=== PATIENT | female | born 1945 | race Caucasian/White ===

== ENCOUNTER → 2016-08-18 | Outpatient (CLI) | payer MEDICARE ==
--- NOTE | 2016-08-18 14:41 | RAD ---
EXAM: Right breast digital screening mammogram with 3D tomosynthesis. HISTORY: 71-year-old female with a history of left breast cancer, status post left mastectomy, presents for annual mammography of the right breast. TECHNIQUE: Full field digital craniocaudal and mediolateral oblique 2D and 3D tomosynthesis images of the right breast were obtained. Computer aided detection was applied. COMPARISON: 04/12/2015 and 02/28/2014 FINDINGS: Breast parenchymal density: Level B - Scattered fibroglandular densities. There is no new suspicious mass, calcification or architectural distortion within the right breast. There are stable benign calcifications within the right breast. IMPRESSION: BI-RADS Category 2: Benign findings. Annual mammography is recommended. PQRS compliance statement: Patient information was entered into a reminder system with a target due date in one year for the next mammogram. Note is made that dense breast parenchyma limits the sensitivity of mammography. Mammography is a sensitive method for finding small breast cancers, but it does not detect them all and is not a substitute for careful clinical examination. A negative mammogram does not negate a clinically suspicious finding and should not result in delay in biopsying a clinically suspicious abnormality. "Our facility is accredited by the [employer] Mammography Program."
== END | disposition home or self-care (01) ==
LOC: MAMMO 14:07
PROVIDERS: ATTEND Internal Medicine
DX: Z12.31 Encounter for screening mammogram for malignant neoplasm of breast (principal); Z90.12 Acquired absence of left breast and nipple; Z85.3 Personal history of malignant neoplasm of breast
CPT/HCPCS: 77052; 77061; G0202

== ENCOUNTER → 2016-08-29 | Outpatient (CLI) | payer MEDICARE ==
--- NOTE | 2016-08-29 10:38 | RAD ---
CT of the chest without contrast, 08/29/2016: History: Follow-up lung nodules Noncontrast scans were obtained as requested and compared to a study from 11/09/2015. There is a nodular branching opacity with minimal associated tree-in-bud densities in the posterior aspect of the left lower lobe, unchanged. A 2-3 mm nodule in the left lower lobe seen on image 222 of series #5 has shown no significant change. A tiny nodule in the lateral aspect of the right lower lobe is best demonstrated on coronal image 50 of series #3 and is unchanged. A a 2-3 mm right upper lobe nodule seen on image 163 of series #5 also shows no definite change. Similar small nodules were also evident on an older study from 06/16/2014. There are scattered linear scars in both lungs. No definite enlarging nodules, new mass or infiltrate is seen. There is no evidence of pleural fluid. There is moderate calcific plaquing of the aorta and its branches without evidence of aneurysm. Several scattered coronary artery calcifications are present. No mediastinal adenopathy is evident. The left breast is surgically absent. IMPRESSION: 1. Stable bilateral pulmonary opacities as described above. 2. Calcific plaquing of the aorta and coronary arteries. 3. No new abnormality is detected. PQRS Compliance Statement: One or more of the following individualized dose reduction techniques were utilized for this examination: 1. Automated exposure control 2. Adjustment of the mA and/or kV according to patient size 3. Use of iterative reconstruction technique
== END | disposition home or self-care (01) ==
LOC: CT 09:13
PROVIDERS: ATTEND Internal Medicine Critical Care Medicine
DX: R91.8 Other nonspecific abnormal finding of lung field (principal)
CPT/HCPCS: 71250

== ENCOUNTER → 2016-10-15 | Outpatient (CLI) | payer MEDICARE ==
[2016-10-15 15:44] LABS: ALBUMIN 3.6 g/dL (3.4-5.0); CALCIUM 9.6 mg/dL (8.5-10.1); CREATININE 1.5 mg/dL (0.6-1.0); GFR 34.2; MAGNESIUM 1.8 mg/dL (1.8-2.4); PHOSPHORUS 3.7 mg/dL (2.6-4.7); POTASSIUM 4.4 mmol/L (3.5-5.1)
[2016-10-16 06:09] LABS: CREAT RD UR 29.2 mg/dL (Not Estab.); MICRO CREAT RATIO 49.3 mg/g creat (0.0-30.0); MICROALB RD UR 14.4 ug/mL (Not Estab.)
== END | disposition home or self-care (01) ==
LOC: LAB 14:57
PROVIDERS: ATTEND Internal Medicine Nephrology
DX: I12.9 Hypertensive chronic kidney disease with stage 1 through stage 4 chronic kidney disease, or unspecified chronic kidney disease (principal); E11.29 Type 2 diabetes mellitus with other diabetic kidney complication; N18.3 Chronic kidney disease, stage 3 (moderate); N20.0 Calculus of kidney; N25.81 Secondary hyperparathyroidism of renal origin; E87.3 Alkalosis; E61.2 Magnesium deficiency; R60.0 Localized edema; R80.1 Persistent proteinuria, unspecified; Z68.31 Body mass index [BMI] 31.0-31.9, adult
CPT/HCPCS: 36415; 80069; 82043; 82306; 82570; 83735; 85014; 85018

== ENCOUNTER 2016-12-30 21:02 | Inpatient (IN) | payer MEDICARE ==
[~2016-12-30] VITALS: Ht 162.6 cm; Wt 86.3 kg
[2016-12-30] MEDS ORDERED: IPRATRPIUM/ALBUTEROL 0.5/2.5MG 3 ML NEBU. NEB ONE ×2 (22:15→23:45)
[2016-12-30 22:29] LABS: BASO # 0.1 x10^3/uL (0.0-0.2); BASO % 1 % (0-3); EOS # 0.2 x10^3/uL (0.0-0.7); EOS % 1 % (0-3); HEMATOCRIT 39.1 % (36.0-47.0); HEMOGLOBIN 12.5 g/dL (12.0-15.5); LYMPH # 1.3 x10^3/uL (1.0-4.8); LYMPH % 8 % (24-48); MEAN CORPUSCULAR HEMOGLOBIN 28 pg (25-35); MEAN CORPUSCULAR HGB CONC 32 g/dL (31-37); MEAN CORPUSCULAR VOLUME 87 fL (79-100); MONO # 1.9 x10^3/uL (0.0-1.1); MONO % 11 % (0-9); NEUT # 13.6 x10^3uL (1.8-7.7); NEUT % 79 % (31-73); PLATELET COUNT 256 x10^3/uL (140-400); RED BLOOD COUNT 4.53 x10^6/uL (3.50-5.40); RED CELL DISTRIBUTION WIDTH 17.6 % (11.5-14.5); WHITE BLOOD COUNT 17.2 x10^3/uL (4.0-11.0)
[2016-12-30 22:45] LABS: ALBUMIN 3.3 g/dL (3.4-5.0); ALBUMIN/GLOBULIN RATIO 0.8 (1.0-1.7); CALCIUM 9.7 mg/dL (8.5-10.1); CREATININE 1.5 mg/dL (0.6-1.0); GFR 34.2; TOTAL BILIRUBIN 0.8 mg/dL (0.2-1.0); TOTAL PROTEIN 7.2 g/dL (6.4-8.2)
[2016-12-30 22:53] LABS: % BANDS 2 % (0-9); % LYMPHS 8 % (24-48); % MONOS 12 % (0-10); % SEGS 78 % (35-66)
[2016-12-30 22:54] LABS: PLT ESTIMATE ADEQUATE (ADEQUATE)
[2016-12-30 22:56] LABS: ANISOCYTOSIS SLIGHT
[2016-12-30 22:58] LABS: STOMATOCYTES OCC
[2016-12-30] MEDS ORDERED: ACETAMINOPHEN 325 MG TABLET PO ONE (23:30)
[2016-12-30] MEDS ORDERED: IV NORMAL SALINE 1,000ML 1,000 ML IV ONE (23:30)
[2016-12-30] MEDS ORDERED: AZITHROMYCIN 500 MG in IV NORMAL SALINE 250ML 250 ML IV ONE (23:30)
[2016-12-30] MEDS ORDERED: AZITHROMYCIN 500 MG VIAL. IV ONE (23:42)
[2016-12-30] MEDS ORDERED: cefTRIAXone SODIUM 1 GM VIAL IV ONE (23:44)
[2016-12-30] MEDS ORDERED: IV NORMAL SALINE 50ML 50 ML ONE (23:44)
[2016-12-30] MEDS ORDERED: fentaNYL PF 100 MCG/2 ML VIAL IV ONE (23:45)
[2016-12-30 23:47] LABS: BILIRUBIN,URINE NEG (NEG); CLARITY,URINE CLEAR; COLOR,URINE YELLOW; GLUCOSE,URINE NEG (NEG)
[2016-12-30 23:48] LABS: BACTERIA,URINE MOD /HPF (0-FEW); NITRITE,URINE NEG (NEG); SQUAMOUS EPITHELIAL CELL,UR OCC /LPF; UROBILINOGEN,URINE 0.2 mg/dL (0.2 mg/dL)
--- NOTE | 2016-12-30 23:56 | ED.ADGEN ---
Past History Past Medical History: Other Past Surgical History: Other Smoking: Non-smoker Alcohol Use: None Drug Use: None Adult General Chief Complaint Chief Complaint SOA, weakness [facility] HPI Patient is a 71 y/o female with difficulty breathing for 3-4 days. feverish. cough but nonproductive, very weak, nauseted. no diarrhea. hx of asthma. hx of smoking but has quit Review of Systems Review of Systems Constitutional: chills Eyes: Denies change in visual acuity, redness, or eye pain [] HENT: Denies nasal congestion or sore throat [] Respiratory: soa, cough Cardiovascular: No additional information not addressed in HPI [] GI: Denies abdominal pain, nausea, vomiting, bloody stools or diarrhea [] : Denies dysuria or hematuria [] Musculoskeletal: Denies back pain or joint pain [] Integument: Denies rash or skin lesions [] Neurologic: Denies headache, diffuse weakness Endocrine: Denies polyuria or polydipsia [] Current Medications Current Medications Current Medications Medications (Trade) Dose Ordered Sig/Marisa Start Time Stop Time Status Last Admin Dose Admin Acetaminophen (Tylenol) 650 mg PRN Q4HRS PRN 12/31/16 00:15 01/01/17 00:14 Albuterol/ Ipratropium (Duoneb) 3 ml 1X ONCE 12/30/16 23:45 12/30/16 23:46 DC 12/30/16 23:58 3 ML Azithromycin (Zithromax) 500 mg STK-MED ONCE 12/30/16 23:42 12/30/16 23:43 DC Azithromycin 500 mg/Sodium Chloride 250 ml @ 250 mls/hr 1X ONCE 12/30/16 23:30 12/31/16 00:29 DC 12/30/16 00:22 250 MLS/HR Ceftriaxone Sodium 1 gm/ Sodium Chloride 50 ml @ 100 mls/hr 1X ONCE 12/30/16 23:30 12/30/16 23:59 DC 12/30/16 23:59 100 MLS/HR Ceftriaxone Sodium (Rocephin) 1 gm STK-MED ONCE 12/30/16 23:44 12/30/16 23:45 DC Fentanyl Citrate (Fentanyl 2ml Vial) 25 mcg 1X ONCE 12/30/16 23:45 12/30/16 23:46 DC 12/30/16 23:59 25 MCG Morphine Sulfate (Morphine 2mg Syringe) 2 mg PRN Q2HR PRN 12/31/16 00:15 01/01/17 00:14 Ondansetron HCl (Zofran) 4 mg PRN Q4HRS PRN 12/31/16 00:15 01/01/17 00:14 Sodium Chloride 50 ml @ As Directed STK-MED ONCE 12/30/16 23:44 12/30/16 23:45 DC Allergies Allergies Allergies Coded Allergies Type Severity Reaction Last Updated Verified Sulfa (Sulfonamide Antibiotics) Allergy Intermediate 12/30/16 No ciprofloxacin Allergy Intermediate yeast inf 12/30/16 No codeine Allergy Intermediate vomiting 12/30/16 No diclofenac Allergy Intermediate rash 12/30/16 No hydrochlorothiazide Allergy Intermediate rash 12/30/16 No ibuprofen Allergy Intermediate cant take due to kidneys 12/30/16 No misoprostol Allergy Intermediate rash 12/30/16 No latex Allergy Mild gi problems 12/30/16 No Physical Exam Physical Exam Constitutional: Well developed, well nourished, moderate distress HENT: Normocephalic, atraumatic, bilateral external ears normal, oropharynx moist, no oral exudates, nose normal. [] Eyes: PERRLA, EOMI, conjunctiva normal, no discharge. [] Neck: Normal range of motion, no tenderness, supple, no stridor. [] Cardiovascular:tachycardic, systolic murmur Lungs & Thorax: mod respiratory distress, wheezing bilaterally, tachypneic, increased WOB] Abdomen: Bowel sounds normal, soft, no tenderness, no masses, no pulsatile masses. [] Skin: Warm, dry, no erythema, no rash. [] Back: No tenderness, no CVA tenderness. [] Extremities: No tenderness, no cyanosis, no clubbing, ROM intact, no edema. [] Neurologic: Alert and oriented X 3, normal motor function, normal sensory function, no focal deficits noted. [] Psychologic: Affect normal, judgement normal, mood normal. [] Current Patient Data Vital Signs Vital Signs Date Time Temp Pulse Resp B/P (MAP) Pulse Ox O2 Delivery O2 Flow Rate FiO2 12/30/16 23:59 95 Nasal Cannula 2.0 Lab Results Laboratory Tests Test 12/30/16 22:10 12/30/16 23:15 White Blood Count 17.2 x10^3/uL (4.0-11.0) H Red Blood Count 4.53 x10^6/uL (3.50-5.40) Hemoglobin 12.5 g/dL (12.0-15.5) Hematocrit 39.1 % (36.0-47.0) Mean Corpuscular Volume 87 fL (79-100) Mean Corpuscular Hemoglobin 28 pg (25-35) Mean Corpuscular Hemoglobin Concent 32 g/dL (31-37) Red Cell Distribution Width 17.6 % (11.5-14.5) H Platelet Count 256 x10^3/uL (140-400) Neutrophils (%) (Auto) 79 % (31-73) H Lymphocytes (%) (Auto) 8 % (24-48) L Monocytes (%) (Auto) 11 % (0-9) H Eosinophils (%) (Auto) 1 % (0-3) Basophils (%) (Auto) 1 % (0-3) Neutrophils # (Auto) 13.6 x10^3uL (1.8-7.7) H Lymphocytes # (Auto) 1.3 x10^3/uL (1.0-4.8) Monocytes # (Auto) 1.9 x10^3/uL (0.0-1.1) H Eosinophils # (Auto) 0.2 x10^3/uL (0.0-0.7) Basophils # (Auto) 0.1 x10^3/uL (0.0-0.2) Segmented Neutrophils % 78 % (35-66) H Band Neutrophils % 2 % (0-9) Lymphocytes % 8 % (24-48) L Monocytes % 12 % (0-10) H Platelet Estimate Adequate (ADEQUATE) Anisocytosis Slight Stomatocytes Occ Sodium Level 139 mmol/L (136-145) Potassium Level 4.0 mmol/L (3.5-5.1) Chloride Level 100 mmol/L (98-107) Carbon Dioxide Level 35 mmol/L (21-32) H Anion Gap 4 (6-14) L Blood Urea Nitrogen 21 mg/dL (7-20) H Creatinine 1.5 mg/dL (0.6-1.0) H Estimated GFR (Cockcroft-Gault) 34.2 BUN/Creatinine Ratio 14 (6-20) Glucose Level 214 mg/dL (70-99) H Lactic Acid Level 1.3 mmol/L (0.4-2.0) Calcium Level 9.7 mg/dL (8.5-10.1) Total Bilirubin 0.8 mg/dL (0.2-1.0) Aspartate Amino Transferase (AST) 12 U/L (15-37) L Alanine Aminotransferase (ALT) 21 U/L (14-59) Alkaline Phosphatase 127 U/L (46-116) H Troponin I Quantitative < 0.017 ng/mL (0-0.055) RD-Xoe-D-Type Natriuretic Peptide 738 pg/mL (0-124) H Total Protein 7.2 g/dL (6.4-8.2) Albumin 3.3 g/dL (3.4-5.0) L Albumin/Globulin Ratio 0.8 (1.0-1.7) L Urine Collection Type Unknown Urine Color Yellow Urine Clarity Clear Urine pH 6.5 Urine Specific [place] 1.015 Urine Protein 100 mg/dl (NEG-TRACE) Urine Glucose (UA) Neg mg/dL (NEG) Urine Ketones (Stick) Neg mg/dL (NEG) Urine Blood Small (NEG) Urine Nitrite Neg (NEG) Urine Bilirubin Neg (NEG) Urine Urobilinogen Dipstick 0.2 mg/dL (0.2 mg/dL) Urine Leukocyte Esterase Neg (NEG) Urine RBC 3-5 /HPF (0-2) Urine WBC 5-10 /HPF (0-4) Urine Squamous Epithelial Cells Occ /LPF Urine Bacteria Mod /HPF (0-FEW) EKG EKG [] Radiology/Procedures Radiology/Procedures infiltrates on right[] Course & Med Decision Making Course & Med Decision Making Pertinent Labs and Imaging studies reviewed. (See chart for details)pt feels better after duonebs. she is able to rest more comfortable in bed and speak in full sentences. HR in upper 90's. BP staying stable. WOB improved still wheezing. lactic is 1.3. will admit to tele per DR. Del Castillo [] Final Impression Final Impression hypoxia bronchospasm pneumonia dehydration Problems: Dragon Disclaimer Dragon Disclaimer This electronic medical record was generated, in whole or in part, using a voice recognition dictation system. Critical Care Note Total Time (mins): 60 Comments pt with respiratory distress O2 sat 85% on ra. placed on oxygen at 5L and duonebs given. oxygenation improving still requiring oxygen Departure Time of Disposition: 23:56 Disposition: 09 ADMITTED INPATIENT Condition: IMPROVED ADINA HUMPHREYS MD Dec 30, 2016 23:56
[2016-12-31] MEDS ORDERED: ONDANSETRON PF 4 MG/2 ML VIAL. IV PRN (00:15)
[2016-12-31] MEDS ORDERED: MORPHINE SULFATE 2 MG/ML DISP.SYRIN. IV PRN (00:15)
[2016-12-31 01:29] VITALS: BP 105/69
[2016-12-31 01:59] LABS: INFLUENZA A PATIENT NEGATIVE (NEGATIVE); INFLUENZA B PATIENT NEGATIVE (NEGATIVE)
[2016-12-31] MEDS ORDERED: DIPH1TAB PO (03:15)
[2016-12-31] MEDS ORDERED: BREX2TAB PO (03:19)
[2016-12-31] MEDS ORDERED: LEVO75TA5 PO (03:19)
[2016-12-31] MEDS ORDERED: METF500T4 PO (03:19)
[2016-12-31] MEDS ORDERED: POTA10TA17 PO (03:19)
[2016-12-31] MEDS ORDERED: CARV6.252 PO (03:19)
[2016-12-31] MEDS ORDERED: ATOR20TA58 PO (03:19)
[2016-12-31] MEDS ORDERED: ERYT250C8 PO (03:21)
[2016-12-31] MEDS ORDERED: ALLO300T PO (03:21)
[2016-12-31] MEDS ORDERED: LOSA25TA4 PO (03:22)
[2016-12-31] MEDS ORDERED: MIRT30TA3 PO (03:28)
[2016-12-31] MEDS ORDERED: OMEP20CA9 PO (03:28)
[2016-12-31] MEDS ORDERED: CLON1TAB3 PO (03:33)
[2016-12-31] MEDS ORDERED: DICL100G18 TOP (03:40)
[2016-12-31] MEDS ORDERED: DESV100T16 PO (03:42)
[2016-12-31] MEDS ORDERED: BUDE10.2 PO (03:44)
[2016-12-31 05:17] VITALS: BP 165/84
[2016-12-31] MEDS ORDERED: INSU100I13 IN (05:21)
[2016-12-31] MEDS ORDERED: IPRATRPIUM/ALBUTEROL 0.5/2.5MG 3 ML NEBU. ONE (05:23)
[2016-12-31] MEDS ORDERED: INSU100I17 IN (05:26)
[2016-12-31] MEDS: IPRATRPIUM/ALBUTEROL 0.5/2.5MG 3 ML NEBU. NEB SCH ×4 (05:30→20:56)
[2016-12-31] MEDS: ACETAMINOPHEN 325 MG TABLET PO PRN ×2 (08:33→23:39)
[2016-12-31] MEDS ORDERED: DEXTROSE 50% 25 GM / 50ML DISP.SYRIN. IV PRN (09:15)
[2016-12-31] MEDS ORDERED: BUDESONIDE PO PRN (09:15)
[2016-12-31] MEDS ORDERED: DIPHENOXYLATE/ATROPINE TABLET. PO PRN (09:15)
[2016-12-31] MEDS ORDERED: FORMOTEROL FUMARATE PO PRN (09:15)
[2016-12-31] MEDS ORDERED: DICLOFENAC SODIUM 1% TOPICAL GEL 100GM TUBE. TP PRN (09:15)
[2016-12-31] MEDS ORDERED: [UNRECOGNIZED DRUG - OTHER] PO PRN (09:15)
[2016-12-31] MEDS ORDERED: methylPREDNISolone SOD SUCC PF 125 MG/2 ML VIAL. IV ONE (09:20)
[2016-12-31] MEDS: LOSARTAN 25 MG TABLET. PO SCH (09:20)
[2016-12-31] MEDS: MIRTAZAPINE 30 MG TABLET PO SCH ×3 (09:25→21:06)
--- NOTE | 2016-12-31 09:45 | RAD ---
AP portable chest radiograph 12/30/2016 Clinical History: Shortness of breath and wheezing. An AP portable erect digital radiograph of the chest was obtained. Comparison is made to a CT scan of the chest dated 08/29/2016. The cardiac silhouette is borderline enlarged. Atherosclerotic calcification of the thoracic aorta is seen. The thoracic aorta is mildly tortuous. Patchy areas of atelectasis and/or infiltrate are seen involving the right upper lobe, the right lower lobe and to a lesser extent the left lower lobe. No pneumothorax or pleural effusion is noted. The osseous structures are unchanged. Impression: Patchy areas of atelectasis and/or infiltrate are seen involving both lungs, right greater than left as outlined above.
[2016-12-31] MEDS ORDERED: MORPHINE SULFATE 2 MG/ML DISP.SYRIN. IV ONE (10:00)
[2016-12-31 10:15] VITALS: BP 158/78
[2016-12-31] MEDS: POTASSIUM CITRATE 10 MEQ TABLET.ER PO SCH (11:00)
[2016-12-31] MEDS: guaiFENesin DM 600/30MG 1 TAB TAB.ER.12H PO SCH ×2 (11:57→21:05)
[2016-12-31] MEDS: INSULIN ASPART 300 UNITS/3 ML INSULN.PEN SQ SCH ×3 (11:59→21:10)
--- NOTE | 2016-12-31 12:58 | HP ---
ADMIT DATE: 12/31/2016 REASON FOR ADMISSION: Pneumonia. HISTORY OF PRESENT ILLNESS: This is a 71-year-old female, who states last she had laryngitis. She took some Tylenol. Thursday she felt okay, but [facility], was prescribed some Mucinex. She went to a family reunion over the weekend. Her cough was so bad and her ribs hurt. She was bringing up some sputum, which she described as yellowish brown and did have a low of fever of 99.3 at home, also had a headache and shortness of breath. PAST MEDICAL HISTORY: Diabetes. She has had a couple heart attacks, left mastectomy for atypical tissue and recent diagnosis of asthma, former tobacco use disorder quit in 1991. Denies alcohol. ALLERGIES: SULFA, CIPRO, CODEINE, DICLOFENAC, HYDROCHLOROTHIAZIDE, IBUPROFEN, LATEX, and MISOPROSTOL. MEDICATIONS: Medications were reviewed and are correct on the JUL. HABITS: Positive tobacco, quit in 1991. No alcohol. 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 FAMILY HISTORY: Positive for diabetes and heart disease. IMMUNIZATIONS: The patient has got the Prevnar 13, but states she needs a booster and she gets yearly flu shots. REVIEW OF SYSTEMS: Positive for fever, headache, shortness of breath, sputum production and transient upper respiratory symptoms as well. Denies others. OBJECTIVE: VITAL SIGNS: T-max yesterday evening temperature was 100.3, today temperature 98.3, pulse 102, blood pressure 145/64, O2 sat 93% on 3 liters, when she came to the Emergency Room she was 85% on room air. HEENT: TMs are intact without erythema. Nose is patent. Throat with postnasal drip. NECK: Supple, without adenopathy. LUNGS: Clear in all erazo (just had a breathing treatment). CARDIOVASCULAR: Regular rhythm and rate. ABDOMEN: Soft, nontender, no masses. EXTREMITIES: Without edema. NEUROLOGIC: Mental status is intact. LABORATORY DATA: CBC: White count 17.2, 78% segmented neutrophils, but no increase in bands. Chemistry: BUN was 21, creatinine 1.5. BNP 738, slightly elevated alkaline phosphatase. Urinalysis 5-10 white cells, small amount of blood, moderate bacteria, occasional squamous cells. Chest x-ray with evidence of patchy infiltrates bilaterally right greater than left. ASSESSMENT: 1. Bilateral pneumonia. 2. Apparent UTI. 3. Leukocytosis. 4. Hyperglycemia. 5. Chronic kidney disease stage III. 6. Type 2 diabetes. 7. History of coronary artery disease with heart attack. PLAN: IV antibiotics, did give her one dose of steroids, breathing treatments. She did have a sputum culture with gram-positive cocci and gram-negative rods and gram-positive rods, so should be covered with ceftriaxone and Zithromax. We will also put on Mucinex. ALEYDA CHING DO DR: CRIS/sarah JOB#: [id number] / [id number]
[2016-12-31 13:46] VITALS: BP 146/70
[2016-12-31] MEDS: ALBUTEROL SULFATE 2.5 MG/3 ML NEBU. NEB SCH ×3 (15:29→20:00)
[2016-12-31] MEDS: CARVEDILOL 6.25 MG TABLET PO SCH (17:00)
[2016-12-31] MEDS ORDERED: metFORMIN 500 MG TABLET PO SCH (17:00)
[2016-12-31] MEDS ORDERED: INSULIN ASPART 300 UNITS/3 ML INSULN.PEN SQ ONE (17:00)
[2016-12-31 19:33] VITALS: BP 130/69
[2016-12-31] MEDS: BUDESONIDE 0.5 MG/2 ML NEBU NEB SCH (20:56)
[2016-12-31] MEDS: ATORVASTATIN CALCIUM 20 MG TABLET PO SCH (21:05)
[2016-12-31] MEDS: INSULIN DETEMIR 300 UNITS/3 ML INSULN.PEN. SQ SCH (21:09)
[2016-12-31] MEDS: ERYTHROMYCIN BASE 250 MG TABLET PO SCH (21:12)
[2016-12-31] MEDS: clonazePAM 1 MG TABLET PO PRN (21:16)
[2016-12-31 22:02] VITALS: BP 128/68
[2016-12-31] MEDS ORDERED: AZITHROMYCIN 500 MG in IV NORMAL SALINE 250ML 250 ML IV SCH (23:00)
--- NOTE | 2017-01-01 01:42 | ACF ---
Admission Criteria Forms PNEUMONIA, COMMUNITY ACQUIRED Clinical Indications for Admission to Inpatient Care (Place 'X' for any and all applicable criteria): Admission to inpatient status for two midnights or more is indicated for ANY ONE of the following (1)(2)(3): [x]I. Hypoxia [ ]II. Hemodynamic instability [ ]III. Altered mental status that is severe or persistent [ ]IV. Dehydration that is severe or persistent. [ ]V. Bacteremia [ ]. Moderate-risk or high-risk category patients (Pneumonia Severity Index ( PSI) class IV or V, or CURB-65 score of 3 or greater). [ ]VII. Intermediate-risk category patients (e.g., PSI class III or CURB-65 score 2) who do not improve with outpatient and observation care treatment [ ]VIII. Outpatient treatment failure as indicated by 1 or more of the following(9): [ ]a) Failure to respond to antibiotic (eg, resistant organism) [ ]b) Clinically significant adverse effects from medication (eg, vomiting) [ ]c) Complications of pneumonia (eg, empyema, bacteremia) [ ]d) Significant worsening of comorbid cond necessitating inpatient care (eg, chronic heart failure) [ ]IX. Appropriate diagnostic testing and treatment unavailable in outpatient or recovery facility (eg, testing or infection control measures unavailable) [x]X. Respiratory finding (eg. tachypnea) that do not respond to outpatient observation care treatment [ ]XI. Complicated pleural effusions (eg, emphysema, exudative, loculated) [ ]XII. Immunocompromised patients (e.g., AIDS, chronic steroid use) at moderate or high risk based on clinical evaluation. Extended stay beyond goal length of stay may be needed for (20) [ ]a) Unclear diagnosis [ ]b) Pleural disease [ ]c) Severe pneumonia or treatment failure [ ]d) Respiratory failure [ ]e) New onset hyponatremia (serum Na concentration less than 135 mEq/L(mmol/ L) [ ]f) Clinically significant comorbid illness (eg, heart failure, atrial fibrillation with rapid heart rate, alcohol withdrawal, renal insufficiency)(34)(35) [ ]g) Comorbid acute exacerbation of COPD(36) [ ]h) Concomitant diagnosis of malignancy [ ]i) Concomitant altered mental status [ ]j) Culture-identified Gram-negative or antibiotic-resistant organism (eg, Pseudomonas, methicillin-resistant Staphylococcus aureus MRSA)(30) [ ]k) Healthcare-associated pneumonia (36) The original [facility] [employer] content created by [facility], [facility] has been revised. The portions of the content which have been revised are identified through the use of italic text, and [facility] has neither reviewed nor approved the modified material. All other unmodified content is copyright [facility]. Please see references footnoted in the original [facility] edition 2015 Admission Criteria Met?: Yes DU ROBINS Jan 01, 2017 01:42
[2017-01-01] MEDS: LEVOTHYROXINE 75 MCG TABLET PO SCH (05:53)
[2017-01-01 05:57] VITALS: BP 137/70
[2017-01-01] MEDS: IPRATRPIUM/ALBUTEROL 0.5/2.5MG 3 ML NEBU. NEB SCH (06:05)
[2017-01-01] MEDS: ALBUTEROL SULFATE 2.5 MG/3 ML NEBU. NEB SCH ×4 (06:05→20:13)
[2017-01-01 07:28] LABS: BASO % 0 % (0-3); EOS % 0 % (0-3); HEMATOCRIT 36.3 % (36.0-47.0); HEMOGLOBIN 11.7 g/dL (12.0-15.5); LYMPH # 0.9 x10^3/uL (1.0-4.8); LYMPH % 6 % (24-48); MEAN CORPUSCULAR HEMOGLOBIN 28 pg (25-35); MEAN CORPUSCULAR HGB CONC 32 g/dL (31-37); MEAN CORPUSCULAR VOLUME 86 fL (79-100); MONO # 1.1 x10^3/uL (0.0-1.1); MONO % 7 % (0-9); NEUT # 13.7 x10^3uL (1.8-7.7); NEUT % 87 % (31-73); PLATELET COUNT 252 x10^3/uL (140-400); RED BLOOD COUNT 4.21 x10^6/uL (3.50-5.40); RED CELL DISTRIBUTION WIDTH 17.1 % (11.5-14.5); WHITE BLOOD COUNT 15.7 x10^3/uL (4.0-11.0)
[2017-01-01 07:37] LABS: CALCIUM 9.9 mg/dL (8.5-10.1); CREATININE 1.4 mg/dL (0.6-1.0); GFR 37.1; POTASSIUM 4.2 mmol/L (3.5-5.1)
[2017-01-01] MEDS: PANTOPRAZOLE 40 MG TABLET. PO SCH (07:53)
[2017-01-01] MEDS: CARVEDILOL 6.25 MG TABLET PO SCH ×2 (07:53→17:08)
[2017-01-01] MEDS: INSULIN ASPART 300 UNITS/3 ML INSULN.PEN SQ SCH ×4 (07:56→20:33)
[2017-01-01] MEDS ORDERED: DESVENLAFAXINE 50 MG TAB.ER.24H. PO SCH (09:00)
[2017-01-01] MEDS: POTASSIUM CITRATE 10 MEQ TABLET.ER PO SCH (09:10)
[2017-01-01] MEDS: ERYTHROMYCIN BASE 250 MG TABLET PO SCH ×2 (09:10→20:33)
[2017-01-01] MEDS: guaiFENesin DM 600/30MG 1 TAB TAB.ER.12H PO SCH ×2 (09:10→20:33)
[2017-01-01] MEDS: LOSARTAN 25 MG TABLET. PO SCH (09:10)
[2017-01-01] MEDS: ALLOPURINOL 300 MG TABLET. PO SCH (09:10)
[2017-01-01] MEDS ORDERED: VORT5TAB PO (09:17)
[2017-01-01 10:03] VITALS: BP 133/72
[2017-01-01] MEDS: metFORMIN 500 MG TABLET PO SCH ×2 (10:12→17:08)
[2017-01-01] MEDS ORDERED: VORT10TA PO (11:02)
[2017-01-01] MEDS: BUDESONIDE 0.5 MG/2 ML NEBU NEB SCH ×2 (11:32→20:13)
[2017-01-01 14:27] VITALS: BP 131/70
[2017-01-01 17:59] VITALS: BP 117/72
[2017-01-01] MEDS: ATORVASTATIN CALCIUM 20 MG TABLET PO SCH (20:33)
[2017-01-01] MEDS: MIRTAZAPINE 30 MG TABLET PO SCH (20:33)
[2017-01-01] MEDS: clonazePAM 1 MG TABLET PO PRN (20:36)
[2017-01-01] MEDS: INSULIN DETEMIR 300 UNITS/3 ML INSULN.PEN. SQ SCH (20:41)
[2017-01-01] MEDS ORDERED: AZITHROMYCIN 250 MG TABLET. PO SCH (21:00)
--- NOTE | 2017-01-01 21:15 | PN ---
DATE: 01/01/2017 PROBLEMS: 1. Acute hypoxic respiratory failure secondary to pneumonia. 2. Bilateral pneumonia. 3. Urinary tract infection, culture pending. 4. Chronic depression. 5. Chronic kidney disease, stage III. 6. Type 2 diabetes with hyperglycemia. 7. History of coronary artery disease. SUBJECTIVE: Doing better today, saturations have improved, requiring less oxygen, was seen walking in the [place], was able to maintain her saturation about 92%. OBJECTIVE: VITAL SIGNS: Blood pressure 133/72, pulse 83, respirations 20, temp 98.2, pulse ox was 96% on 1 liter. GENERAL: Color has improved. Cheeks are pink. Tongue was moist. NECK: Supple. LUNGS: Clear inspiratory and expiratory. CARDIOVASCULAR: Regular rhythm and rate with a 2-3/6 systolic murmur at the pulmonic area. EXTREMITIES: Without edema. LABORATORY DATA: White blood cell count has come down to 15.7. She is having some hyperglycemia, but had been off of her metformin. BUN is 25 and creatinine is 1.4, which is about her baseline. PLAN: Continue antibiotics. Increase activity and start planning for discharge and we will cut her oxygen down to 1 liter. ALEYDA CHING DO DR: CRIS/sarah JOB#: [id number] / [id number]
[2017-01-01 22:20] VITALS: BP 160/69
[2017-01-02] MEDS: ALBUTEROL SULFATE 2.5 MG/3 ML NEBU. NEB SCH ×4 (05:26→20:47)
[2017-01-02] MEDS: LEVOTHYROXINE 75 MCG TABLET PO SCH (05:51)
[2017-01-02 05:57] VITALS: BP 173/65
[2017-01-02 07:29] LABS: BASO # 0.1 x10^3/uL (0.0-0.2); BASO % 1 % (0-3); EOS # 0.1 x10^3/uL (0.0-0.7); EOS % 1 % (0-3); HEMATOCRIT 33.4 % (36.0-47.0); HEMOGLOBIN 10.8 g/dL (12.0-15.5); LYMPH # 1.3 x10^3/uL (1.0-4.8); LYMPH % 9 % (24-48); MEAN CORPUSCULAR HEMOGLOBIN 28 pg (25-35); MEAN CORPUSCULAR HGB CONC 32 g/dL (31-37); MEAN CORPUSCULAR VOLUME 85 fL (79-100); MONO # 1.5 x10^3/uL (0.0-1.1); MONO % 10 % (0-9); NEUT # 11.3 x10^3uL (1.8-7.7); NEUT % 79 % (31-73); PLATELET COUNT 264 x10^3/uL (140-400); RED BLOOD COUNT 3.92 x10^6/uL (3.50-5.40); RED CELL DISTRIBUTION WIDTH 17.1 % (11.5-14.5); WHITE BLOOD COUNT 14.3 x10^3/uL (4.0-11.0)
[2017-01-02] MEDS: INSULIN ASPART 300 UNITS/3 ML INSULN.PEN SQ SCH ×4 (07:30→20:30)
[2017-01-02 07:38] LABS: ALBUMIN 2.6 g/dL (3.4-5.0); ALBUMIN/GLOBULIN RATIO 0.7 (1.0-1.7); CALCIUM 9.3 mg/dL (8.5-10.1); CREATININE 1.4 mg/dL (0.6-1.0); GFR 37.1; MAGNESIUM 1.7 mg/dL (1.8-2.4); POTASSIUM 4.1 mmol/L (3.5-5.1); TOTAL BILIRUBIN 0.3 mg/dL (0.2-1.0); TOTAL PROTEIN 6.1 g/dL (6.4-8.2)
[2017-01-02] MEDS: Vortioxetine Hydrobromide (Trintellix) 10 MG PO SCH (08:18)
[2017-01-02] MEDS: ERYTHROMYCIN BASE 250 MG TABLET PO SCH ×2 (08:19→20:28)
[2017-01-02] MEDS: ALLOPURINOL 300 MG TABLET. PO SCH (08:19)
[2017-01-02] MEDS: LOSARTAN 25 MG TABLET. PO SCH (08:19)
[2017-01-02] MEDS: guaiFENesin DM 600/30MG 1 TAB TAB.ER.12H PO SCH ×2 (08:20→20:27)
[2017-01-02] MEDS: CARVEDILOL 6.25 MG TABLET PO SCH ×2 (08:20→17:04)
[2017-01-02] MEDS: metFORMIN 500 MG TABLET PO SCH ×2 (08:20→17:03)
[2017-01-02] MEDS: PANTOPRAZOLE 40 MG TABLET. PO SCH (08:20)
[2017-01-02] MEDS: POTASSIUM CITRATE 10 MEQ TABLET.ER PO SCH (08:22)
[2017-01-02] MEDS: BUDESONIDE 0.5 MG/2 ML NEBU NEB SCH ×2 (10:54→20:47)
--- NOTE | 2017-01-02 11:12 | RAD ---
Indication pneumonia diagnosed 3 days earlier. Follow-up. PA and lateral views of the chest were obtained and are compared to a single view examination 3 days earlier. Patchy infiltrate peripherally in the right upper lobe persists and remains compatible with pneumonia there is now, additionally, a patchy infiltrate in the left lower lobe not seen previously also compatible with pneumonia. Finally there may be a minimal new infiltrate in the right lower lobe. There is no pleural fluid. Heart size is unchanged. There is no congestive heart failure. IMPRESSION: Persistent infiltrates in the lungs, slightly worse on the previous exam, compatible with pneumonia
[2017-01-02 11:49] VITALS: BP 154/72
[2017-01-02] MEDS ORDERED: PIP/TAZO PER PHARMACY MC PRN (12:00)
[2017-01-02] MEDS ORDERED: IV NORMAL SALINE 250ML 250 ML ONE (13:07)
[2017-01-02] MEDS: PIPERACILLIN/TAZOBACTAM 3.375 GM in IV NORMAL SALINE 50ML 50 ML IV SCH ×2 (13:26→18:07)
[2017-01-02] MEDS: ENOXAPARIN 40 MG/0.4 ML DISP.SYRIN. SQ SCH (13:27)
[2017-01-02] MEDS ORDERED: VANCOMYCIN 2 GM in IV NORMAL SALINE 500ML 500 ML IV ONE (14:00)
[2017-01-02] MEDS: VANCOMYCIN PER PHARMACY MC PRN (14:15)
[2017-01-02 15:46] VITALS: BP 155/70
[2017-01-02 19:47] VITALS: BP 125/69
[2017-01-02] MEDS: MIRTAZAPINE 30 MG TABLET PO SCH (20:27)
[2017-01-02] MEDS: ATORVASTATIN CALCIUM 20 MG TABLET PO SCH (20:27)
[2017-01-02] MEDS: INSULIN DETEMIR 300 UNITS/3 ML INSULN.PEN. SQ SCH (20:29)
--- NOTE | 2017-01-02 21:11 | PN ---
DATE: 01/02/2017 SUBJECTIVE: The patient was seen and is not worse, but she is not better per se. She is still requiring oxygen. She started to cough up some sputum, but just not as good as she would like to be. OBJECTIVE: VITAL SIGNS: Temperature is 98, blood pressure 173/65, O2 sat is 92% on room air and then when she came back from the bathroom it was 88-89% on room air. Throat is clear. NECK: Supple. LUNGS: There are some coarse breath sounds, but no wheezes. CARDIOVASCULAR: Regular rhythm and rate. EXTREMITIES: With just a slight amount of edema. X-ray shows persistent infiltration in the lungs slightly worse than the previous exam and then a new patchy infiltrate in the left lower lobe. IMPRESSION: 1. Multilobar pneumonia. 2. Exacerbation of asthma. 3. Sepsis with leukocytosis. 4. Hypoxic respiratory failure requiring oxygen. 5. Hypomagnesemia. 6. Chronic kidney disease stage III. 7. Hyperglycemia. 8. Deep venous thrombosis prophylaxis. PLAN: Switch antibiotics to Zosyn and vancomycin. Discussed with pharmacy. Discontinue other antibiotics and start something for DVT prophylaxis. ALEYDA CHING DO DR: CRIS/sarah JOB#: [id number] / [id number]
[2017-01-03] VITALS (7 sets, daily range): BP systolic 123–185; BP diastolic 60–80
[2017-01-03] MEDS: PIPERACILLIN/TAZOBACTAM 3.375 GM in IV NORMAL SALINE 50ML 50 ML IV SCH ×5 (00:04→23:42)
[2017-01-03] MEDS: ALBUTEROL SULFATE 2.5 MG/3 ML NEBU. NEB SCH ×4 (04:56→21:41)
--- NOTE | 2017-01-03 05:29 | PDOC ---
PROGRESS NOTES Diagnosis Problem Problems Medical Problems: (1) Pneumonia Status: Acute (2) Respiratory distress Status: Acute Assessment 1. Pneumonia, community acquired, organism unknown: Pt stable on O2 requirements, WBC down yesterday, labs pending today. Consider CT chest w/o contrast to r/o fluid loculation if WBC up again. Pt on Vanc/Zosyn. Continue nebs w/ Pulmicort and albuterol. 2. HTN: Labile. 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 ? Etiology, possibly GUNNAR? Will get nocturnal study. Consider echo as outpatient. Will give hydralazine PRN to lower BP if >180 systolic ( was >200 on admit). Will also increase losartan to 50 mg daily. 3. Headache: Tylenol ordered. Likely tension related. No focal neuro deficits, no red flag symptoms. 4. DM: Continue insulin. Avoid hypoglycemia. Hold metformin due to creat 1.4 and age. 5. Moderate PEM: Encourage nutritional supplements. 6. DVT proph: Lovenox. 7. Anxiety: Continue PRN clonazepam. 8. Disp: Unlikely to go home today, will consider tomorrow if things dramatically improved. Problems: Plan of Care: see other orders Subjective Pt seen on rounds and d/w nursing. Pt having LORD this morning, states she did not sleep well at all last night. Denies hx of sleep apnea. She takes Remeron and clonazepam for sleep. Denies fever, abd pain, chest pain, dizziness, or diarrhea. NO itching. No N/V. Says LORD is along forehead and feels like a tension LORD (mild). Objective Vital Signs Date Time Temp Pulse Resp B/P (MAP) Pulse Ox O2 Delivery O2 Flow Rate FiO2 01/03/17 05:10 98.3 83 22 185/80 (115) 98 Nasal Cannula 1.0 Intake and Output 01/03/17 07:00 Intake Total 2072.78 ml Output Total 1550 ml Balance 522.78 ml Intake Oral 1440 ml IV Total 632.78 ml Output Urine Total 1550 ml # Bowel Movements 1 Abdomen: Soft, No tenderness, No masses Heart: Regular rate, Normal S1, Normal S2, No murmurs Extremities: No edema, Normal pulses General: Alert, Oriented X3, Cooperative, No acute distress HEENT: Atraumatic, PERRLA, EOMI, Mucous membr. moist/pink Lungs: Other (Resp effort normal and symmetric. Coarse breath sounds in both bases. No wheezes noted.) Neuro: Normal speech, Normal tone, Cranial nerves 3-12 NL Psych/Mental Status: Mental status NL, Mood NL Skin: No rashes Review of Relevant I have reviewed the following items enrique (where applicable) has been applied. Labs Laboratory Tests Test 01/01/17 07:14 01/01/17 07:17 01/01/17 11:13 01/01/17 16:27 White Blood Count 15.7 x10^3/uL (4.0-11.0) Red Blood Count 4.21 x10^6/uL (3.50-5.40) Hemoglobin 11.7 g/dL (12.0-15.5) Hematocrit 36.3 % (36.0-47.0) Mean Corpuscular Volume 86 fL (79-100) Mean Corpuscular Hemoglobin 28 pg (25-35) Mean Corpuscular Hemoglobin Concent 32 g/dL (31-37) Red Cell Distribution Width 17.1 % (11.5-14.5) Platelet Count 252 x10^3/uL (140-400) Neutrophils (%) (Auto) 87 % (31-73) Lymphocytes (%) (Auto) 6 % (24-48) Monocytes (%) (Auto) 7 % (0-9) Eosinophils (%) (Auto) 0 % (0-3) Basophils (%) (Auto) 0 % (0-3) Neutrophils # (Auto) 13.7 x10^3uL (1.8-7.7) Lymphocytes # (Auto) 0.9 x10^3/uL (1.0-4.8) Monocytes # (Auto) 1.1 x10^3/uL (0.0-1.1) Eosinophils # (Auto) 0.0 x10^3/uL (0.0-0.7) Basophils # (Auto) 0.0 x10^3/uL (0.0-0.2) Sodium Level 140 mmol/L (136-145) Potassium Level 4.2 mmol/L (3.5-5.1) Chloride Level 102 mmol/L (98-107) Carbon Dioxide Level 34 mmol/L (21-32) Anion Gap 4 (6-14) Blood Urea Nitrogen 25 mg/dL (7-20) Creatinine 1.4 mg/dL (0.6-1.0) Estimated GFR (Cockcroft-Gault) 37.1 Glucose Level 281 mg/dL (70-99) Calcium Level 9.9 mg/dL (8.5-10.1) Magnesium Level 1.9 mg/dL (1.8-2.4) Glucose (Fingerstick) 254 mg/dL (70-99) 376 mg/dL (70-99) 211 mg/dL (70-99) Test 01/01/17 19:57 01/02/17 06:55 01/02/17 07:17 01/02/17 11:52 Glucose (Fingerstick) 240 mg/dL (70-99) 122 mg/dL (70-99) 188 mg/dL (70-99) White Blood Count 14.3 x10^3/uL (4.0-11.0) Red Blood Count 3.92 x10^6/uL (3.50-5.40) Hemoglobin 10.8 g/dL (12.0-15.5) Hematocrit 33.4 % (36.0-47.0) Mean Corpuscular Volume 85 fL (79-100) Mean Corpuscular Hemoglobin 28 pg (25-35) Mean Corpuscular Hemoglobin Concent 32 g/dL (31-37) Red Cell Distribution Width 17.1 % (11.5-14.5) Platelet Count 264 x10^3/uL (140-400) Neutrophils (%) (Auto) 79 % (31-73) Lymphocytes (%) (Auto) 9 % (24-48) Monocytes (%) (Auto) 10 % (0-9) Eosinophils (%) (Auto) 1 % (0-3) Basophils (%) (Auto) 1 % (0-3) Neutrophils # (Auto) 11.3 x10^3uL (1.8-7.7) Lymphocytes # (Auto) 1.3 x10^3/uL (1.0-4.8) Monocytes # (Auto) 1.5 x10^3/uL (0.0-1.1) Eosinophils # (Auto) 0.1 x10^3/uL (0.0-0.7) Basophils # (Auto) 0.1 x10^3/uL (0.0-0.2) Sodium Level 141 mmol/L (136-145) Potassium Level 4.1 mmol/L (3.5-5.1) Chloride Level 103 mmol/L (98-107) Carbon Dioxide Level 35 mmol/L (21-32) Anion Gap 3 (6-14) Blood Urea Nitrogen 25 mg/dL (7-20) Creatinine 1.4 mg/dL (0.6-1.0) Estimated GFR (Cockcroft-Gault) 37.1 BUN/Creatinine Ratio 18 (6-20) Glucose Level 136 mg/dL (70-99) Calcium Level 9.3 mg/dL (8.5-10.1) Magnesium Level 1.7 mg/dL (1.8-2.4) Total Bilirubin 0.3 mg/dL (0.2-1.0) Aspartate Amino Transf (AST/SGOT) 24 U/L (15-37) Alanine Aminotransferase (ALT/SGPT) 43 U/L (14-59) Alkaline Phosphatase 109 U/L (46-116) Total Protein 6.1 g/dL (6.4-8.2) Albumin 2.6 g/dL (3.4-5.0) Albumin/Globulin Ratio 0.7 (1.0-1.7) Test 01/02/17 12:10 01/02/17 20:17 01/03/17 04:13 Nasal Screen MRSA (PCR) Negative (Negative) Glucose (Fingerstick) 219 mg/dL (70-99) 85 mg/dL (70-99) Microbiology 12/30/16 Blood Culture - Preliminary, Resulted NO GROWTH AFTER 3 DAYS 12/31/16 Gram Stain - Final, Complete Medications Current Medications Albuterol/ Ipratropium (Duoneb) 6 ml 1X ONCE NEB Last administered on 22:15; Start 12/30/16 at 22:15; Stop 12/30/16 at 22:16; Status DC Ceftriaxone Sodium 1 gm/ Sodium Chloride 50 ml @ 100 mls/hr 1X ONCE IV Last administered on 12/30/16 23:59; Start 12/30/16 at 23:30; Stop 12/30/16 at 23:59; Status DC Azithromycin 500 mg/Sodium Chloride 250 ml @ 250 mls/hr 1X ONCE IV Last administered on 12/30/16 00:22; Start 12/30/16 at 23:30; Stop 12/31/16 at 00:29; Status DC Acetaminophen (Tylenol) 650 mg 1X ONCE PO Last administered on 12/30/16 23:59 ; Start 12/30/16 at 23:30; Stop 12/30/16 at 23:31; Status DC Sodium Chloride 1,000 ml @ 250 mls/hr 1X ONCE IV Last administered on 23:59; Start 12/30/16 at 23:30; Stop 12/31/16 at 03:29; Status DC Albuterol/ Ipratropium (Duoneb) 3 ml 1X ONCE NEB Last administered on 23:58; Start 12/30/16 at 23:45; Stop 12/30/16 at 23:46; Status DC Fentanyl Citrate (Fentanyl 2ml Vial) 25 mcg 1X ONCE IV Last administered on 23:59; Start 12/30/16 at 23:45; Stop 12/30/16 at 23:46; Status DC Azithromycin (Zithromax) 500 mg STK-MED ONCE IV ; Start 12/30/16 at 23:42; Stop 12/30/16 at 23:43; Status DC Sodium Chloride 50 ml @ As Directed STK-MED ONCE .ROUTE ; Start 12/30/16 at 23:44 ; Stop 12/30/16 at 23:45; Status DC Ceftriaxone Sodium (Rocephin) 1 gm STK-MED ONCE IV ; Start 12/30/16 at 23:44; Stop 12/30/16 at 23:45; Status DC Ceftriaxone Sodium 1 gm/ Sodium Chloride 100 ml @ 200 mls/hr Q24H IV Last administered on 01/01/17 21:29; Start 12/31/16 at 22:00; Stop 01/02/17 at 12:06 ; Status DC Azithromycin 500 mg/Sodium Chloride 250 ml @ 250 mls/hr Q24H IV Last administered on 12/31/16 22:11; Start 12/31/16 at 23:00; Stop 01/01/17 at 09:22; Status DC Ondansetron HCl (Zofran) 4 mg PRN Q4HRS PRN IV NAUSEA/VOMITING; Start 12/31/16 at 00:15; Stop 01/01/17 at 00:14; Status DC Morphine Sulfate (Morphine 2mg Syringe) 2 mg PRN Q2HR PRN IV SEVERE PAIN; Start 12/31/16 at 00:15; Stop 01/01/17 at 00:14; Status DC Acetaminophen (Tylenol) 650 mg PRN Q4HRS PRN PO FEVER Last administered on 23:39; Start 12/31/16 at 00:15; Stop 01/01/17 at 00:14; Status DC Albuterol/ Ipratropium (Duoneb) 3 ml RTQID NEB Last administered on 01/01/17 06:05; Start 12/31/16 at 08:00; Stop 01/01/17 at 07:59; Status DC Albuterol/ Ipratropium (Duoneb) 3 ml STK-MED ONCE .ROUTE Last administered on 05:29; Start 12/31/16 at 05:23; Stop 12/31/16 at 05:24; Status DC Methylprednisolone Sodium Succinate (SOLU-Medrol 125MG VIAL) 125 mg 1X ONCE IV Last administered on 12/31/16 10:58; Start 12/31/16 at 09:20; Stop 12/31/16 at 09:21; Status DC Allopurinol (Zyloprim) 300 mg DAILY PO Last administered on 01/02/17 08:19; Start 01/01/17 at 09:00 Atorvastatin Calcium (Lipitor) 20 mg HS PO Last administered on 01/02/17 20:27 ; Start 12/31/16 at 21:00 Carvedilol (Coreg) 6.25 mg BIDWMEALS PO Last administered on 01/02/17 17:04; Start 12/31/16 at 17:00 Clonazepam (KlonoPIN) 1 mg PRN BID PRN PO ANXIETY Last administered on 20:36; Start 12/31/16 at 09:15 Diclofenac Sodium (Voltaren) 1 chrissie PRN BID PRN TP PAIN; Start 12/31/16 at 09:15 Diphenoxylate HCl/ Atropine (Lomotil) 1 tab PRN QID PRN PO DIARRHEA; Start 12/31 at 09:15 Levothyroxine Sodium (Synthroid) 75 mcg DAILY06 PO Last administered on 05:51; Start 01/01/17 at 06:00 Losartan Potassium (Cozaar) 25 mg DAILY PO Last administered on 01/02/17 08:19 ; Start 12/31/16 at 09:20 Metformin HCl (Glucophage) 500 mg BIDWMEALS PO ; Start 12/31/16 at 17:00; Stop at 17:00; Status DC Mirtazapine (Remeron) 30 mg DAILY PO ; Start 12/31/16 at 09:25; Stop 12/31/16 at 11:05; Status DC Potassium Citrate (Urocit-K) 10 meq DAILY PO Last administered on 01/02/17 08: 22; Start 12/31/16 at 09:30 Non-Formulary Medication 2 mg DAILY PO ; Start 01/01/17 at 09:00; Stop 01/01/17 at 11:58; Status DC Non-Formulary Medication 1 inh PRN PRN PO Asthma; Start 12/31/16 at 09:15; Stop 12/31/16 at 09:49; Status DC Desvenlafaxine Succinate (Pristiq Er) 100 mg DAILY PO ; Start 01/01/17 at 09:00 ; Stop 01/01/17 at 11:33; Status DC Erythromycin (E-Mycin) 250 mg BID PO Last administered on 01/02/17 08:19; Start 12/31/16 at 21:00; Stop 01/02/17 at 12:06; Status DC Insulin Detemir (Levemir) 32 units QHS SQ Last administered on 01/02/17 20:29 ; Start 12/31/16 at 21:00 Pantoprazole Sodium (Protonix) 40 mg DAILYAC PO Last administered on 01/02/17 08:20; Start 01/01/17 at 07:30 Insulin Aspart (NovoLOG) 0-5 UNITS QIDACHS SQ Last administered on 01/02/17 20 :30; Start 12/31/16 at 11:30 Dextrose 12.5 gm PRN Q15MIN PRN IV SEE COMMENTS; Start 12/31/16 at 09:15 Albuterol Sulfate (Ventolin) 2.5 mg RTQID NEB Last administered on 01/03/17 04 :56; Start 12/31/16 at 12:00 Budesonide (Pulmicort) 0.5 mg RTBID NEB Last administered on 01/02/17 20:47; Start 12/31/16 at 20:00 Morphine Sulfate (Morphine 2mg Syringe) 2 mg 1X ONCE IV ; Start 12/31/16 at 10: 00; Stop 12/31/16 at 10:13; Status DC Guaifenesin (MUCINEX ER with DM) 1 tab BID PO Last administered on 01/02/17 20 :27; Start 12/31/16 at 11:00 Mirtazapine (Remeron) 30 mg HS PO Last administered on 01/02/17 20:27; Start 12/31/16 at 21:00 Insulin Aspart (NovoLOG) 15 units 1X ONCE SQ Last administered on 12/31/16 16: 58; Start 12/31/16 at 17:00; Stop 12/31/16 at 17:01; Status DC Azithromycin (Zithromax) 500 mg QHS PO Last administered on 01/01/17 20:33; Start 01/01/17 at 21:00; Stop 01/02/17 at 12:10; Status DC Metformin HCl (Glucophage) 500 mg BIDWMEALS PO Last administered on 01/02/17 17:03; Start 01/01/17 at 10:00 Non-Formulary Medication 10 mg DAILY PO Last administered on 01/02/17 08:18; Start 01/02/17 at 09:00 Non-Formulary Medication 2 mg QHS PO Last administered on 01/02/17 20:28; Start 01/01/17 at 21:00 Piperacillin Sod/ Tazobactam Sod (Zosyn Per Pharmacy) 1 each PRN DAILY PRN MC SEE COMMENTS; Start 01/02/17 at 12:00 Vancomycin HCl (Vanco Per Pharmacy) 1 each PRN DAILY PRN MC SEE COMMENTS Last administered on 01/02/17 14:15; Start 01/02/17 at 12:00 Enoxaparin Sodium (Lovenox) 40 mg Q24H SQ Last administered on 01/02/17 13:27 ; Start 01/02/17 at 12:30 Erythromycin (E-Mycin) 250 mg BID PO Last administered on 01/02/17 20:28; Start 01/02/17 at 21:00 Piperacillin Sod/ Tazobactam Sod 3.375 gm/Sodium Chloride 50 ml @ 100 mls/hr Q6HRS IV Last administered on 01/03/17 00:04; Start 01/02/17 at 13:00 Vancomycin HCl 2 gm/Sodium Chloride 500 ml @ 250 mls/hr 1X ONCE IV Last administered on 01/02/17 14:20; Start 01/02/17 at 14:00; Stop 01/02/17 at 15:59 ; Status DC Vancomycin HCl 1.25 gm/Sodium Chloride 250 ml @ 167 mls/hr Q24H IV ; Start 05/10 at 14:00 Vancomycin HCl 1 each 1X ONCE MC ; Start 01/04/17 at 14:00; Stop 01/04/17 at 14 :01 Sodium Chloride 250 ml @ As Directed STK-MED ONCE .ROUTE Last administered on 01/02/17 13:26; Start 01/02/17 at 13:07; Stop 01/02/17 at 13:08; Status DC Active Scripts Active Reported Trintellix (Vortioxetine Hydrobromide) 10 Mg Tablet 10 Mg PO DAILY LAST DOSE GIVEN: DATE: TIME: NEXT DOSE DUE: DATE: TIME: Novolog Flexpen (Insulin Aspart) 100 Unit/1 Ml Insuln.pen 0-7 Units IN QIDACHS LAST DOSE GIVEN: DATE: TIME: NEXT DOSE DUE: DATE: TIME: Lantus Solostar (Insulin Glargine,Hum.rec.anlog) 100 Unit/1 Ml Insuln.pen 32 Unit IN HS LAST DOSE GIVEN: DATE: TIME: NEXT DOSE DUE: DATE: TIME: Symbicort 160-4.5 Mcg Inhaler (Budesonide/Formoterol Fumarate) 10.2 Gm Hfa.aer.ad 1 Inh PO PRN PRN LAST DOSE GIVEN: DATE: TIME: NEXT DOSE DUE: DATE: TIME: Voltaren (Diclofenac Sodium) 100 Gm Gel..gram. 1 Chrissie TOP PRN BID PRN LAST DOSE GIVEN: DATE: TIME: NEXT DOSE DUE: DATE: TIME: Clonazepam 1 Mg Tablet 1 Mg PO PRN BID PRN LAST DOSE GIVEN: DATE: TIME: NEXT DOSE DUE: DATE: TIME: Mirtazapine 30 Mg Tablet 30 Mg PO DAILY LAST DOSE GIVEN: DATE: TIME: NEXT DOSE DUE: DATE: TIME: Omeprazole 20 Mg Capsule.dr 20 Mg PO BID LAST DOSE GIVEN: DATE: TIME: NEXT DOSE DUE: DATE: TIME: Losartan Potassium 25 Mg Tablet 25 Mg PO DAILY LAST DOSE GIVEN: DATE: TIME: NEXT DOSE DUE: DATE: TIME: Erythromycin (Erythromycin Base) 250 Mg Capsule.dr 250 Mg PO BID LAST DOSE GIVEN: DATE: TIME: NEXT DOSE DUE: DATE: TIME: Allopurinol 300 Mg Tablet 300 Mg PO DAILY LAST DOSE GIVEN: DATE: TIME: NEXT DOSE DUE: DATE: TIME: Atorvastatin Calcium 20 Mg Tablet 20 Mg PO HS LAST DOSE GIVEN: DATE: TIME: NEXT DOSE DUE: DATE: TIME: Carvedilol 6.25 Mg Tablet 6.25 Mg PO BIDWMEALS LAST DOSE GIVEN: DATE: TIME: NEXT DOSE DUE: DATE: TIME: Levothyroxine Sodium 75 Mcg Tablet 75 Mcg PO DAILY06 LAST DOSE GIVEN: DATE: TIME: NEXT DOSE DUE: DATE: TIME: Potassium Citrate 10 Meq Tablet.er 10 Meq PO DAILY LAST DOSE GIVEN: DATE: TIME: NEXT DOSE DUE: DATE: TIME: Metformin Hcl 500 Mg Tablet 500 Mg PO BIDWMEALS LAST DOSE GIVEN: DATE: TIME: NEXT DOSE DUE: DATE: TIME: Rexulti (Brexpiprazole) 2 Mg Tablet 2 Mg PO HS LAST DOSE GIVEN: DATE: TIME: NEXT DOSE DUE: DATE: TIME: Lomotil Tablet (Diphenoxylate Hcl/Atropine) 1 Each Tablet 2.5 Mg PO PRN QID PRN LAST DOSE GIVEN: DATE: TIME: NEXT DOSE DUE: DATE: TIME: Vitals/I & O Vital Sign - Last 24 Hours 01/02/17 01/02/17 01/02/17 01/02/17 05:28 05:57 08:00 08:19 Temp 98.0 Pulse 82 82 Resp 20 B/P (MAP) 173/65 (101) 173/65 Pulse Ox 94 94 O2 Delivery Nasal Cannula Nasal Cannula Nasal Cannula O2 Flow Rate 2.0 1.0 1.0 01/02/17 01/02/17 01/02/17 01/02/17 08:20 10:54 10:55 11:49 Temp 98.3 Pulse 82 77 Resp 20 B/P (MAP) 173/65 154/72 (99) Pulse Ox 92 92 93 O2 Delivery Room Air Room Air Room Air 01/02/17 01/02/17 01/02/17 01/02/17 15:46 16:14 17:04 19:47 Temp 98.8 98.6 Pulse 85 85 81 Resp 20 18 B/P (MAP) 155/70 (98) 155/70 125/69 (87) Pulse Ox 94 97 98 O2 Delivery Room Air Nasal Cannula Nasal Cannula O2 Flow Rate 2.0 1.0 01/02/17 01/02/17 01/02/17 01/03/17 20:00 20:49 23:53 00:09 Pulse 78 85 Resp 18 B/P (MAP) 132/61 (84) Pulse Ox 99 O2 Delivery Nasal Cannula Nasal Cannula O2 Flow Rate 1.0 2.0 01/03/17 01/03/17 04:58 05:10 Temp 98.3 Pulse 83 Resp 22 B/P (MAP) 185/80 (115) Pulse Ox 99 98 O2 Delivery Nasal Cannula Nasal Cannula O2 Flow Rate 2.0 1.0 Intake and Output 01/02/17 01/02/17 01/03/17 15:00 23:00 07:00 Intake Total 720 ml 1352.78 ml Output Total 500 ml 1050 ml Balance 220 ml 302.78 ml BREE CHACKO MD Jan 03, 2017 05:29
[2017-01-03] MEDS ORDERED: hydrALAZINE 20 MG/ML VIAL. IV PRN (05:30)
[2017-01-03] MEDS ORDERED: ACETAMINOPHEN 500 MG TABLET PO PRN (05:30)
[2017-01-03] MEDS: LEVOTHYROXINE 75 MCG TABLET PO SCH (05:36)
[2017-01-03 06:54] LABS: BASO # 0.1 x10^3/uL (0.0-0.2); BASO % 1 % (0-3); EOS # 0.2 x10^3/uL (0.0-0.7); EOS % 2 % (0-3); HEMATOCRIT 33.8 % (36.0-47.0); HEMOGLOBIN 10.8 g/dL (12.0-15.5); LYMPH # 1.5 x10^3/uL (1.0-4.8); LYMPH % 13 % (24-48); MEAN CORPUSCULAR HEMOGLOBIN 28 pg (25-35); MEAN CORPUSCULAR HGB CONC 32 g/dL (31-37); MEAN CORPUSCULAR VOLUME 87 fL (79-100); MONO # 1.6 x10^3/uL (0.0-1.1); MONO % 14 % (0-9); NEUT # 7.8 x10^3uL (1.8-7.7); NEUT % 70 % (31-73); PLATELET COUNT 255 x10^3/uL (140-400); RED BLOOD COUNT 3.91 x10^6/uL (3.50-5.40); RED CELL DISTRIBUTION WIDTH 16.9 % (11.5-14.5); WHITE BLOOD COUNT 11.2 x10^3/uL (4.0-11.0)
[2017-01-03 06:59] LABS: ALBUMIN 2.6 g/dL (3.4-5.0); ALBUMIN/GLOBULIN RATIO 0.8 (1.0-1.7); CALCIUM 9.1 mg/dL (8.5-10.1); CREATININE 1.4 mg/dL (0.6-1.0); GFR 37.1; MAGNESIUM 1.6 mg/dL (1.8-2.4); POTASSIUM 3.9 mmol/L (3.5-5.1); TOTAL BILIRUBIN 0.5 mg/dL (0.2-1.0)
[2017-01-03] MEDS: INSULIN ASPART 300 UNITS/3 ML INSULN.PEN SQ SCH ×5 (07:30→21:00)
[2017-01-03] MEDS: VANCOMYCIN PER PHARMACY MC PRN (07:49)
[2017-01-03] MEDS: ERYTHROMYCIN BASE 250 MG TABLET PO SCH ×2 (08:11→20:45)
[2017-01-03] MEDS: guaiFENesin DM 600/30MG 1 TAB TAB.ER.12H PO SCH ×2 (08:11→20:42)
[2017-01-03] MEDS: LOSARTAN 50 MG TABLET. PO SCH (08:11)
[2017-01-03] MEDS: ALLOPURINOL 300 MG TABLET. PO SCH (08:12)
[2017-01-03] MEDS: PANTOPRAZOLE 40 MG TABLET. PO SCH (08:12)
[2017-01-03] MEDS: CARVEDILOL 6.25 MG TABLET PO SCH ×2 (08:12→17:05)
[2017-01-03] MEDS: POTASSIUM CITRATE 10 MEQ TABLET.ER PO SCH ×2 (08:12→20:42)
[2017-01-03] MEDS: Vortioxetine Hydrobromide (Trintellix) 10 MG PO SCH (08:12)
[2017-01-03] MEDS: BUDESONIDE 0.5 MG/2 ML NEBU NEB SCH ×2 (09:33→21:41)
[2017-01-03 10:20] LABS: % ATYL 1 % (0-0); % BANDS 3 % (0-9); % BASOS 1 % (0-3); % EOS 3 % (0-5); % LYMPHS 18 % (24-48); % MONOS 11 % (0-10); % SEGS 63 % (35-66); HYPOCHROMIA PRESENT; MICROCYTOSIS PRESENT; PLT ESTIMATE ADEQUATE (ADEQUATE)
[2017-01-03] MEDS: VANCOMYCIN 1.25 GM in IV NORMAL SALINE 250ML 250 ML IV SCH (14:39)
[2017-01-03] MEDS: ENOXAPARIN 40 MG/0.4 ML DISP.SYRIN. SQ SCH (14:40)
[2017-01-03] MEDS: ATORVASTATIN CALCIUM 20 MG TABLET PO SCH (20:42)
[2017-01-03] MEDS: MIRTAZAPINE 30 MG TABLET PO SCH (20:42)
[2017-01-03] MEDS: clonazePAM 1 MG TABLET PO PRN (20:49)
[2017-01-03] MEDS: INSULIN DETEMIR 300 UNITS/3 ML INSULN.PEN. SQ SCH (21:00)
[2017-01-04] MEDS: PIPERACILLIN/TAZOBACTAM 3.375 GM in IV NORMAL SALINE 50ML 50 ML IV SCH ×2 (05:36→12:01)
[2017-01-04] MEDS: LEVOTHYROXINE 75 MCG TABLET PO SCH (05:36)
[2017-01-04] MEDS: ALBUTEROL SULFATE 2.5 MG/3 ML NEBU. NEB SCH ×3 (06:03→15:23)
[2017-01-04 06:53] LABS: BASO # 0.1 x10^3/uL (0.0-0.2); BASO % 1 % (0-3); EOS # 0.3 x10^3/uL (0.0-0.7); EOS % 2 % (0-3); HEMATOCRIT 35.5 % (36.0-47.0); HEMOGLOBIN 11.2 g/dL (12.0-15.5); LYMPH # 1.3 x10^3/uL (1.0-4.8); LYMPH % 12 % (24-48); MEAN CORPUSCULAR HEMOGLOBIN 28 pg (25-35); MEAN CORPUSCULAR HGB CONC 32 g/dL (31-37); MEAN CORPUSCULAR VOLUME 87 fL (79-100); MONO # 1.3 x10^3/uL (0.0-1.1); MONO % 12 % (0-9); NEUT # 7.8 x10^3uL (1.8-7.7); NEUT % 73 % (31-73); PLATELET COUNT 279 x10^3/uL (140-400); RED BLOOD COUNT 4.07 x10^6/uL (3.50-5.40); WHITE BLOOD COUNT 10.7 x10^3/uL (4.0-11.0)
[2017-01-04 07:05] LABS: ALBUMIN 2.5 g/dL (3.4-5.0); ALBUMIN/GLOBULIN RATIO 0.7 (1.0-1.7); CALCIUM 8.9 mg/dL (8.5-10.1); CREATININE 1.3 mg/dL (0.6-1.0); GFR 40.4; POTASSIUM 3.8 mmol/L (3.5-5.1); TOTAL BILIRUBIN 0.5 mg/dL (0.2-1.0)
[2017-01-04 07:46] VITALS: BP 138/70
[2017-01-04] MEDS: PANTOPRAZOLE 40 MG TABLET. PO SCH (08:47)
[2017-01-04] MEDS: ALLOPURINOL 300 MG TABLET. PO SCH (08:47)
[2017-01-04] MEDS: Vortioxetine Hydrobromide (Trintellix) 10 MG PO SCH (08:47)
[2017-01-04] MEDS: guaiFENesin DM 600/30MG 1 TAB TAB.ER.12H PO SCH (08:47)
[2017-01-04] MEDS: CARVEDILOL 6.25 MG TABLET PO SCH (08:48)
[2017-01-04] MEDS: ERYTHROMYCIN BASE 250 MG TABLET PO SCH (08:48)
[2017-01-04] MEDS: LOSARTAN 50 MG TABLET. PO SCH (08:50)
[2017-01-04] MEDS: INSULIN ASPART 300 UNITS/3 ML INSULN.PEN SQ SCH ×2 (08:52→12:07)
[2017-01-04] MEDS: BUDESONIDE 0.5 MG/2 ML NEBU NEB SCH (10:32)
[2017-01-04 11:59] VITALS: BP 128/64
[2017-01-04] MEDS: ENOXAPARIN 40 MG/0.4 ML DISP.SYRIN. SQ SCH (12:00)
[2017-01-04 13:46] LABS: VANC TR 15.8 mcg/mL (10.0-20.0)
[2017-01-04] MEDS: VANCOMYCIN 1.25 GM in IV NORMAL SALINE 250ML 250 ML IV SCH (14:05)
[2017-01-04] MEDS: VANCOMYCIN PER PHARMACY MC PRN (14:10)
[2017-01-04 15:26] VITALS: BP 153/72
[2017-01-04] MEDS ORDERED: LOSA25TA4 PO (15:54)
[2017-01-04] MEDS ORDERED: AMOX1TAB61 PO (15:54)
--- NOTE | 2017-01-04 16:02 | DISCH ---
DISCHARGE INSTRUCTIONS-DC Condition on Discharge Condition on Discharge: Stable Problems: Activity after Discharge Activity Instructions for Disc: Activity as tolerated Diet after Discharge Diet after Discharge: Diabetic No Calorie Level Contacting the [facility] after DC Call your doctor for: If your condition worsens Follow-Up Follow up with: PCP within 1 week Follow up with: Dr. Hendricks within 2-3 weeks Treatment/Equipment after DC Discharge Respiratory Equipmen: Oxygen (1 liter with exertion and at night) BREE CHACKO MD Jan 04, 2017 16:02
--- NOTE | 2017-01-04 16:07 | PDOC3 ---
Discharge Summary Discharge Summary Date of Admission Date of Admission: Dec 31, 2016 at 00:55 Admitting Diagnosis Pneumonia Acute respiratory failure Type 2 DM Depression, moderate, in partial remission Date of Discharge: Jan 04, 2017 Discharge Diagnosis Pneumonia Acute respiratory failure Type 2 DM Depression, moderate, in partial remission Laboratory Findings Laboratory Tests Test 12/30/16 22:10 12/30/16 23:15 12/31/16 00:01 12/31/16 01:15 White Blood Count 17.2 x10^3/uL (4.0-11.0) Red Blood Count 4.53 x10^6/uL (3.50-5.40) Hemoglobin 12.5 g/dL (12.0-15.5) Hematocrit 39.1 % (36.0-47.0) Mean Corpuscular Volume 87 fL (79-100) Mean Corpuscular Hemoglobin 28 pg (25-35) Mean Corpuscular Hemoglobin Concent 32 g/dL (31-37) Red Cell Distribution Width 17.6 % (11.5-14.5) Platelet Count 256 x10^3/uL (140-400) Neutrophils (%) (Auto) 79 % (31-73) Lymphocytes (%) (Auto) 8 % (24-48) Monocytes (%) (Auto) 11 % (0-9) Eosinophils (%) (Auto) 1 % (0-3) Basophils (%) (Auto) 1 % (0-3) Neutrophils # (Auto) 13.6 x10^3uL (1.8-7.7) Lymphocytes # (Auto) 1.3 x10^3/uL (1.0-4.8) Monocytes # (Auto) 1.9 x10^3/uL (0.0-1.1) Eosinophils # (Auto) 0.2 x10^3/uL (0.0-0.7) Basophils # (Auto) 0.1 x10^3/uL (0.0-0.2) Segmented Neutrophils % 78 % (35-66) Band Neutrophils % 2 % (0-9) Lymphocytes % 8 % (24-48) Monocytes % 12 % (0-10) Platelet Estimate Adequate (ADEQUATE) Anisocytosis Slight Stomatocytes Occ Sodium Level 139 mmol/L (136-145) Potassium Level 4.0 mmol/L (3.5-5.1) Chloride Level 100 mmol/L (98-107) Carbon Dioxide Level 35 mmol/L (21-32) Anion Gap 4 (6-14) Blood Urea Nitrogen 21 mg/dL (7-20) Creatinine 1.5 mg/dL (0.6-1.0) Estimated GFR (Cockcroft-Gault) 34.2 BUN/Creatinine Ratio 14 (6-20) Glucose Level 214 mg/dL (70-99) Lactic Acid Level 1.3 mmol/L (0.4-2.0) Calcium Level 9.7 mg/dL (8.5-10.1) Total Bilirubin 0.8 mg/dL (0.2-1.0) Aspartate Amino Transf (AST/SGOT) 12 U/L (15-37) Alanine Aminotransferase (ALT/SGPT) 21 U/L (14-59) Alkaline Phosphatase 127 U/L (46-116) Troponin I Quantitative < 0.017 ng/mL (0-0.055) BT-Bqp-Q-Type Natriuretic Peptide 738 pg/mL (0-124) Total Protein 7.2 g/dL (6.4-8.2) Albumin 3.3 g/dL (3.4-5.0) Albumin/Globulin Ratio 0.8 (1.0-1.7) Urine Collection Type Unknown Urine Color Yellow Urine Clarity Clear Urine pH 6.5 Urine Specific Donna 1.015 Urine Protein 100 mg/dl (NEG-TRACE) Urine Glucose (UA) Neg mg/dL (NEG) Urine Ketones (Stick) Neg mg/dL (NEG) Urine Blood Small (NEG) Urine Nitrite Neg (NEG) Urine Bilirubin Neg (NEG) Urine Urobilinogen Dipstick 0.2 mg/dL (0.2 mg/dL) Urine Leukocyte Esterase Neg (NEG) Urine RBC 3-5 /HPF (0-2) Urine WBC 5-10 /HPF (0-4) Urine Squamous Epithelial Cells Occ /LPF Urine Bacteria Mod /HPF (0-FEW) Body Fluid Culture (LAB) (.) Specimen Source (Serology Panel) Urine (.) Urine Legionella Antigen Negative (Negative) Strep pneumoniae Special Info Comment (.) Streptococcus pneumoniae Antigen Negative (Negative) Organism Identification (LAB) (.) Influenza Type A (Rapid) Negative (NEGATIVE) Influenza Type B (Rapid) Negative (NEGATIVE) Test 12/31/16 07:19 12/31/16 11:48 12/31/16 16:25 12/31/16 19:59 Glucose (Fingerstick) 166 mg/dL (70-99) 351 mg/dL (70-99) 409 mg/dL (70-99) 468 mg/dL (70-99) Test 01/01/17 01:40 01/01/17 07:14 01/01/17 07:17 01/01/17 11:13 Glucose (Fingerstick) 331 mg/dL (70-99) 254 mg/dL (70-99) 376 mg/dL (70-99) White Blood Count 15.7 x10^3/uL (4.0-11.0) Red Blood Count 4.21 x10^6/uL (3.50-5.40) Hemoglobin 11.7 g/dL (12.0-15.5) Hematocrit 36.3 % (36.0-47.0) Mean Corpuscular Volume 86 fL (79-100) Mean Corpuscular Hemoglobin 28 pg (25-35) Mean Corpuscular Hemoglobin Concent 32 g/dL (31-37) Red Cell Distribution Width 17.1 % (11.5-14.5) Platelet Count 252 x10^3/uL (140-400) Neutrophils (%) (Auto) 87 % (31-73) Lymphocytes (%) (Auto) 6 % (24-48) Monocytes (%) (Auto) 7 % (0-9) Eosinophils (%) (Auto) 0 % (0-3) Basophils (%) (Auto) 0 % (0-3) Neutrophils # (Auto) 13.7 x10^3uL (1.8-7.7) Lymphocytes # (Auto) 0.9 x10^3/uL (1.0-4.8) Monocytes # (Auto) 1.1 x10^3/uL (0.0-1.1) Eosinophils # (Auto) 0.0 x10^3/uL (0.0-0.7) Basophils # (Auto) 0.0 x10^3/uL (0.0-0.2) Sodium Level 140 mmol/L (136-145) Potassium Level 4.2 mmol/L (3.5-5.1) Chloride Level 102 mmol/L (98-107) Carbon Dioxide Level 34 mmol/L (21-32) Anion Gap 4 (6-14) Blood Urea Nitrogen 25 mg/dL (7-20) Creatinine 1.4 mg/dL (0.6-1.0) Estimated GFR (Cockcroft-Gault) 37.1 Glucose Level 281 mg/dL (70-99) Calcium Level 9.9 mg/dL (8.5-10.1) Magnesium Level 1.9 mg/dL (1.8-2.4) Test 01/01/17 16:27 01/01/17 19:57 01/02/17 06:55 01/02/17 07:17 Glucose (Fingerstick) 211 mg/dL (70-99) 240 mg/dL (70-99) 122 mg/dL (70-99) White Blood Count 14.3 x10^3/uL (4.0-11.0) Red Blood Count 3.92 x10^6/uL (3.50-5.40) Hemoglobin 10.8 g/dL (12.0-15.5) Hematocrit 33.4 % (36.0-47.0) Mean Corpuscular Volume 85 fL (79-100) Mean Corpuscular Hemoglobin 28 pg (25-35) Mean Corpuscular Hemoglobin Concent 32 g/dL (31-37) Red Cell Distribution Width 17.1 % (11.5-14.5) Platelet Count 264 x10^3/uL (140-400) Neutrophils (%) (Auto) 79 % (31-73) Lymphocytes (%) (Auto) 9 % (24-48) Monocytes (%) (Auto) 10 % (0-9) Eosinophils (%) (Auto) 1 % (0-3) Basophils (%) (Auto) 1 % (0-3) Neutrophils # (Auto) 11.3 x10^3uL (1.8-7.7) Lymphocytes # (Auto) 1.3 x10^3/uL (1.0-4.8) Monocytes # (Auto) 1.5 x10^3/uL (0.0-1.1) Eosinophils # (Auto) 0.1 x10^3/uL (0.0-0.7) Basophils # (Auto) 0.1 x10^3/uL (0.0-0.2) Sodium Level 141 mmol/L (136-145) Potassium Level 4.1 mmol/L (3.5-5.1) Chloride Level 103 mmol/L (98-107) Carbon Dioxide Level 35 mmol/L (21-32) Anion Gap 3 (6-14) Blood Urea Nitrogen 25 mg/dL (7-20) Creatinine 1.4 mg/dL (0.6-1.0) Estimated GFR (Cockcroft-Gault) 37.1 BUN/Creatinine Ratio 18 (6-20) Glucose Level 136 mg/dL (70-99) Calcium Level 9.3 mg/dL (8.5-10.1) Magnesium Level 1.7 mg/dL (1.8-2.4) Total Bilirubin 0.3 mg/dL (0.2-1.0) Aspartate Amino Transf (AST/SGOT) 24 U/L (15-37) Alanine Aminotransferase (ALT/SGPT) 43 U/L (14-59) Alkaline Phosphatase 109 U/L (46-116) Total Protein 6.1 g/dL (6.4-8.2) Albumin 2.6 g/dL (3.4-5.0) Albumin/Globulin Ratio 0.7 (1.0-1.7) Test 01/02/17 11:52 01/02/17 12:10 01/02/17 20:17 01/03/17 04:13 Glucose (Fingerstick) 188 mg/dL (70-99) 219 mg/dL (70-99) 85 mg/dL (70-99) Nasal Screen MRSA (PCR) Negative (Negative) Test 01/03/17 06:00 01/03/17 07:19 01/03/17 11:14 01/03/17 16:14 White Blood Count 11.2 x10^3/uL (4.0-11.0) Red Blood Count 3.91 x10^6/uL (3.50-5.40) Hemoglobin 10.8 g/dL (12.0-15.5) Hematocrit 33.8 % (36.0-47.0) Mean Corpuscular Volume 87 fL (79-100) Mean Corpuscular Hemoglobin 28 pg (25-35) Mean Corpuscular Hemoglobin Concent 32 g/dL (31-37) Red Cell Distribution Width 16.9 % (11.5-14.5) Platelet Count 255 x10^3/uL (140-400) Neutrophils (%) (Auto) 70 % (31-73) Lymphocytes (%) (Auto) 13 % (24-48) Monocytes (%) (Auto) 14 % (0-9) Eosinophils (%) (Auto) 2 % (0-3) Basophils (%) (Auto) 1 % (0-3) Neutrophils # (Auto) 7.8 x10^3uL (1.8-7.7) Lymphocytes # (Auto) 1.5 x10^3/uL (1.0-4.8) Monocytes # (Auto) 1.6 x10^3/uL (0.0-1.1) Eosinophils # (Auto) 0.2 x10^3/uL (0.0-0.7) Basophils # (Auto) 0.1 x10^3/uL (0.0-0.2) Segmented Neutrophils % 63 % (35-66) Band Neutrophils % 3 % (0-9) Lymphocytes % 18 % (24-48) Atypical Lymphocytes % (Manual) 1 % (0-0) Monocytes % 11 % (0-10) Eosinophils % 3 % (0-5) Basophils % 1 % (0-3) Platelet Estimate Adequate (ADEQUATE) Hypochromasia Present Microcytosis Present Sodium Level 143 mmol/L (136-145) Potassium Level 3.9 mmol/L (3.5-5.1) Chloride Level 105 mmol/L (98-107) Carbon Dioxide Level 38 mmol/L (21-32) Anion Gap 0 (6-14) Blood Urea Nitrogen 17 mg/dL (7-20) Creatinine 1.4 mg/dL (0.6-1.0) Estimated GFR (Cockcroft-Gault) 37.1 BUN/Creatinine Ratio 12 (6-20) Glucose Level 90 mg/dL (70-99) Calcium Level 9.1 mg/dL (8.5-10.1) Magnesium Level 1.6 mg/dL (1.8-2.4) Total Bilirubin 0.5 mg/dL (0.2-1.0) Aspartate Amino Transf (AST/SGOT) 16 U/L (15-37) Alanine Aminotransferase (ALT/SGPT) 37 U/L (14-59) Alkaline Phosphatase 105 U/L (46-116) Total Protein 6.0 g/dL (6.4-8.2) Albumin 2.6 g/dL (3.4-5.0) Albumin/Globulin Ratio 0.8 (1.0-1.7) Glucose (Fingerstick) 84 mg/dL (70-99) 193 mg/dL (70-99) 183 mg/dL (70-99) Test 01/03/17 20:41 01/04/17 06:10 01/04/17 08:02 01/04/17 11:50 Glucose (Fingerstick) 237 mg/dL (70-99) 171 mg/dL (70-99) 284 mg/dL (70-99) White Blood Count 10.7 x10^3/uL (4.0-11.0) Red Blood Count 4.07 x10^6/uL (3.50-5.40) Hemoglobin 11.2 g/dL (12.0-15.5) Hematocrit 35.5 % (36.0-47.0) Mean Corpuscular Volume 87 fL (79-100) Mean Corpuscular Hemoglobin 28 pg (25-35) Mean Corpuscular Hemoglobin Concent 32 g/dL (31-37) Red Cell Distribution Width 17.0 % (11.5-14.5) Platelet Count 279 x10^3/uL (140-400) Neutrophils (%) (Auto) 73 % (31-73) Lymphocytes (%) (Auto) 12 % (24-48) Monocytes (%) (Auto) 12 % (0-9) Eosinophils (%) (Auto) 2 % (0-3) Basophils (%) (Auto) 1 % (0-3) Neutrophils # (Auto) 7.8 x10^3uL (1.8-7.7) Lymphocytes # (Auto) 1.3 x10^3/uL (1.0-4.8) Monocytes # (Auto) 1.3 x10^3/uL (0.0-1.1) Eosinophils # (Auto) 0.3 x10^3/uL (0.0-0.7) Basophils # (Auto) 0.1 x10^3/uL (0.0-0.2) Sodium Level 143 mmol/L (136-145) Potassium Level 3.8 mmol/L (3.5-5.1) Chloride Level 104 mmol/L (98-107) Carbon Dioxide Level 39 mmol/L (21-32) Anion Gap 0 (6-14) Blood Urea Nitrogen 13 mg/dL (7-20) Creatinine 1.3 mg/dL (0.6-1.0) Estimated GFR (Cockcroft-Gault) 40.4 BUN/Creatinine Ratio 10 (6-20) Glucose Level 177 mg/dL (70-99) Calcium Level 8.9 mg/dL (8.5-10.1) Total Bilirubin 0.5 mg/dL (0.2-1.0) Aspartate Amino Transf (AST/SGOT) 10 U/L (15-37) Alanine Aminotransferase (ALT/SGPT) 30 U/L (14-59) Alkaline Phosphatase 102 U/L (46-116) Total Protein 6.0 g/dL (6.4-8.2) Albumin 2.5 g/dL (3.4-5.0) Albumin/Globulin Ratio 0.7 (1.0-1.7) Test 01/04/17 13:28 Vancomycin Level Trough 15.8 mcg/mL (10.0-20.0) Vancomycin Last Dose Date 01/03/14 Vancomycin Last Dose Time 1400 Hospital Course Pt was admitted for pneumonia and started initially on Rocephin. Her CXR was worse after 2-3 days however, and she was switched to Vanc/Zosyn. She was negative for MRSA risk factors, so will be sent home on Augmentin. She has a hx of asthma and remained on her bronchodilators here. 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 Pt is going to be sent home on O2 by [facility] as well, hopefully will only need it for a week or 2. Recommend repeat CXR if worsening or in 3 weeks if healthy. I also increased her losartan from 25 to 50 mg daily due to elevated BP's. The rest of her medications remained the same. Condition at Discharge: Stable Home Meds Reported Medications Vortioxetine Hydrobromide (TRINTELLIX) 10 Mg Tablet, 10 MG PO DAILY LAST DOSE GIVEN: DATE: TIME: NEXT DOSE DUE: DATE: TIME: 01/01/17 Insulin Aspart (NOVOLOG FLEXPEN) 100 Unit/1 Ml Insuln.pen, 0-7 UNITS IN QIDACHS for High Blood Sugar LAST DOSE GIVEN: DATE: TIME: NEXT DOSE DUE: DATE: TIME: 12/31/16 Insulin Glargine,Hum.rec.anlog (LANTUS SOLOSTAR) 100 Unit/1 Ml Insuln.pen, 32 UNIT IN HS for Diabetes LAST DOSE GIVEN: DATE: TIME: NEXT DOSE DUE: DATE: TIME: 12/31/16 Budesonide/Formoterol Fumarate (SYMBICORT 160-4.5 MCG INHALER) 10.2 Gm Hfa.aer.ad, 1 INH PO PRN Y for Asthma LAST DOSE GIVEN: DATE: TIME: NEXT DOSE DUE: DATE: TIME: 12/31/16 Diclofenac Sodium (VOLTAREN) 100 Gm Gel..gram., 1 CHRISSIE TOP PRN BID Y for PAIN LAST DOSE GIVEN: DATE: TIME: NEXT DOSE DUE: DATE: TIME: 12/31/16 Clonazepam (CLONAZEPAM) 1 Mg Tablet, 1 MG PO PRN BID Y for ANXIETY LAST DOSE GIVEN: DATE: TIME: NEXT DOSE DUE: DATE: TIME: 12/31/16 Mirtazapine (MIRTAZAPINE) 30 Mg Tablet, 30 MG PO DAILY for Depression LAST DOSE GIVEN: DATE: TIME: NEXT DOSE DUE: DATE: TIME: 12/31/16 Omeprazole (OMEPRAZOLE) 20 Mg Capsule.dr, 20 MG PO BID for GERD LAST DOSE GIVEN: DATE: TIME: NEXT DOSE DUE: DATE: TIME: 12/31/16 Losartan Potassium (LOSARTAN POTASSIUM) 25 Mg Tablet, 25 MG PO DAILY for Hypertension LAST DOSE GIVEN: DATE: TIME: NEXT DOSE DUE: DATE: TIME: 12/31/16 Erythromycin Base (ERYTHROMYCIN) 250 Mg Capsule.dr, 250 MG PO BID for Gastroparesis LAST DOSE GIVEN: DATE: TIME: NEXT DOSE DUE: DATE: TIME: 12/31/16 Allopurinol (ALLOPURINOL) 300 Mg Tablet, 300 MG PO DAILY for Gout LAST DOSE GIVEN: DATE: TIME: NEXT DOSE DUE: DATE: TIME: 12/31/16 Atorvastatin Calcium (ATORVASTATIN CALCIUM) 20 Mg Tablet, 20 MG PO HS for High Cholesterol LAST DOSE GIVEN: DATE: TIME: NEXT DOSE DUE: DATE: TIME: 12/31/16 Carvedilol (CARVEDILOL) 6.25 Mg Tablet, 6.25 MG PO BIDWMEALS for Hypertension LAST DOSE GIVEN: DATE: TIME: NEXT DOSE DUE: DATE: TIME: 12/31/16 Levothyroxine Sodium (LEVOTHYROXINE SODIUM) 75 Mcg Tablet, 75 MCG PO DAILY06 for Hypothyroid LAST DOSE GIVEN: DATE: TIME: NEXT DOSE DUE: DATE: TIME: 12/31/16 Potassium Citrate (POTASSIUM CITRATE) 10 Meq Tablet.er, 10 MEQ PO DAILY for Potassium Supplement LAST DOSE GIVEN: DATE: TIME: NEXT DOSE DUE: DATE: TIME: 12/31/16 Metformin Hcl (METFORMIN HCL) 500 Mg Tablet, 500 MG PO BIDWMEALS for Diabetes LAST DOSE GIVEN: DATE: TIME: NEXT DOSE DUE: DATE: TIME: 12/31/16 Brexpiprazole (Rexulti) 2 Mg Tablet, 2 MG PO HS for Depression LAST DOSE GIVEN: DATE: TIME: NEXT DOSE DUE: DATE: TIME: 12/31/16 Diphenoxylate Hcl/Atropine (LOMOTIL TABLET) 1 Each Tablet, 2.5 MG PO PRN QID Y for DIARRHEA LAST DOSE GIVEN: DATE: TIME: NEXT DOSE DUE: DATE: TIME: 12/31/16 Discontinued Reported Medications Vortioxetine Hydrobromide (TRINTELLIX) 5 Mg Tablet, 0 PO DAILY 01/01/17 Inpatient Meds Current Medications Albuterol/ Ipratropium (Duoneb) 6 ml 1X ONCE NEB Last administered on 22:15; Start 12/30/16 at 22:15; Stop 12/30/16 at 22:16; Status DC Ceftriaxone Sodium 1 gm/ Sodium Chloride 50 ml @ 100 mls/hr 1X ONCE IV Last administered on 12/30/16 23:59; Start 12/30/16 at 23:30; Stop 12/30/16 at 23:59; Status DC Azithromycin 500 mg/Sodium Chloride 250 ml @ 250 mls/hr 1X ONCE IV Last administered on 12/30/16 00:22; Start 12/30/16 at 23:30; Stop 12/31/16 at 00:29; Status DC Acetaminophen (Tylenol) 650 mg 1X ONCE PO Last administered on 12/30/16 23:59 ; Start 12/30/16 at 23:30; Stop 12/30/16 at 23:31; Status DC Sodium Chloride 1,000 ml @ 250 mls/hr 1X ONCE IV Last administered on 23:59; Start 12/30/16 at 23:30; Stop 12/31/16 at 03:29; Status DC Albuterol/ Ipratropium (Duoneb) 3 ml 1X ONCE NEB Last administered on 23:58; Start 12/30/16 at 23:45; Stop 12/30/16 at 23:46; Status DC Fentanyl Citrate (Fentanyl 2ml Vial) 25 mcg 1X ONCE IV Last administered on 23:59; Start 12/30/16 at 23:45; Stop 12/30/16 at 23:46; Status DC Azithromycin (Zithromax) 500 mg STK-MED ONCE IV ; Start 12/30/16 at 23:42; Stop 12/30/16 at 23:43; Status DC Sodium Chloride 50 ml @ As Directed STK-MED ONCE .ROUTE ; Start 12/30/16 at 23:44 ; Stop 12/30/16 at 23:45; Status DC Ceftriaxone Sodium (Rocephin) 1 gm STK-MED ONCE IV ; Start 12/30/16 at 23:44; Stop 12/30/16 at 23:45; Status DC Ceftriaxone Sodium 1 gm/ Sodium Chloride 100 ml @ 200 mls/hr Q24H IV Last administered on 01/01/17 21:29; Start 12/31/16 at 22:00; Stop 01/02/17 at 12:06 ; Status DC Azithromycin 500 mg/Sodium Chloride 250 ml @ 250 mls/hr Q24H IV Last administered on 12/31/16 22:11; Start 12/31/16 at 23:00; Stop 01/01/17 at 09:22; Status DC Ondansetron HCl (Zofran) 4 mg PRN Q4HRS PRN IV NAUSEA/VOMITING; Start 12/31/16 at 00:15; Stop 01/01/17 at 00:14; Status DC Morphine Sulfate (Morphine 2mg Syringe) 2 mg PRN Q2HR PRN IV SEVERE PAIN; Start 12/31/16 at 00:15; Stop 01/01/17 at 00:14; Status DC Acetaminophen (Tylenol) 650 mg PRN Q4HRS PRN PO FEVER Last administered on 23:39; Start 12/31/16 at 00:15; Stop 01/01/17 at 00:14; Status DC Albuterol/ Ipratropium (Duoneb) 3 ml RTQID NEB Last administered on 01/01/17 06:05; Start 12/31/16 at 08:00; Stop 01/01/17 at 07:59; Status DC Albuterol/ Ipratropium (Duoneb) 3 ml STK-MED ONCE .ROUTE Last administered on 05:29; Start 12/31/16 at 05:23; Stop 12/31/16 at 05:24; Status DC Methylprednisolone Sodium Succinate (SOLU-Medrol 125MG VIAL) 125 mg 1X ONCE IV Last administered on 12/31/16 10:58; Start 12/31/16 at 09:20; Stop 12/31/16 at 09:21; Status DC Allopurinol (Zyloprim) 300 mg DAILY PO Last administered on 01/04/17 08:47; Start 01/01/17 at 09:00 Atorvastatin Calcium (Lipitor) 20 mg HS PO Last administered on 01/03/17 20:42 ; Start 12/31/16 at 21:00 Carvedilol (Coreg) 6.25 mg BIDWMEALS PO Last administered on 01/04/17 08:48; Start 12/31/16 at 17:00 Clonazepam (KlonoPIN) 1 mg PRN BID PRN PO ANXIETY Last administered on 20:49; Start 12/31/16 at 09:15 Diclofenac Sodium (Voltaren) 1 chrissie PRN BID PRN TP PAIN; Start 12/31/16 at 09:15 Diphenoxylate HCl/ Atropine (Lomotil) 1 tab PRN QID PRN PO DIARRHEA; Start 12/31 at 09:15 Levothyroxine Sodium (Synthroid) 75 mcg DAILY06 PO Last administered on 05:36; Start 01/01/17 at 06:00 Losartan Potassium (Cozaar) 25 mg DAILY PO Last administered on 01/02/17 08:19 ; Start 12/31/16 at 09:20; Stop 01/03/17 at 05:41; Status DC Metformin HCl (Glucophage) 500 mg BIDWMEALS PO ; Start 12/31/16 at 17:00; Stop at 17:00; Status DC Mirtazapine (Remeron) 30 mg DAILY PO ; Start 12/31/16 at 09:25; Stop 12/31/16 at 11:05; Status DC Potassium Citrate (Urocit-K) 10 meq DAILY PO Last administered on 01/03/17 20: 42; Start 12/31/16 at 09:30 Non-Formulary Medication 2 mg DAILY PO ; Start 01/01/17 at 09:00; Stop 01/01/17 at 11:58; Status DC Non-Formulary Medication 1 inh PRN PRN PO Asthma; Start 12/31/16 at 09:15; Stop 12/31/16 at 09:49; Status DC Desvenlafaxine Succinate (Pristiq Er) 100 mg DAILY PO ; Start 01/01/17 at 09:00 ; Stop 01/01/17 at 11:33; Status DC Erythromycin (E-Mycin) 250 mg BID PO Last administered on 01/02/17 08:19; Start 12/31/16 at 21:00; Stop 01/02/17 at 12:06; Status DC Insulin Detemir (Levemir) 32 units QHS SQ Last administered on 01/03/17 21:00 ; Start 12/31/16 at 21:00 Pantoprazole Sodium (Protonix) 40 mg DAILYAC PO Last administered on 01/04/17 08:47; Start 01/01/17 at 07:30 Insulin Aspart (NovoLOG) 0-5 UNITS QIDACHS SQ Last administered on 01/04/17 12 :07; Start 12/31/16 at 11:30 Dextrose 12.5 gm PRN Q15MIN PRN IV SEE COMMENTS; Start 12/31/16 at 09:15 Albuterol Sulfate (Ventolin) 2.5 mg RTQID NEB Last administered on 01/04/17 15 :23; Start 12/31/16 at 12:00 Budesonide (Pulmicort) 0.5 mg RTBID NEB Last administered on 01/04/17 10:32; Start 12/31/16 at 20:00 Morphine Sulfate (Morphine 2mg Syringe) 2 mg 1X ONCE IV ; Start 12/31/16 at 10: 00; Stop 12/31/16 at 10:13; Status DC Guaifenesin (MUCINEX ER with DM) 1 tab BID PO Last administered on 01/04/17 08 :47; Start 12/31/16 at 11:00 Mirtazapine (Remeron) 30 mg HS PO Last administered on 01/03/17 20:42; Start 12/31/16 at 21:00 Insulin Aspart (NovoLOG) 15 units 1X ONCE SQ Last administered on 12/31/16 16: 58; Start 12/31/16 at 17:00; Stop 12/31/16 at 17:01; Status DC Azithromycin (Zithromax) 500 mg QHS PO Last administered on 01/01/17 20:33; Start 01/01/17 at 21:00; Stop 01/02/17 at 12:10; Status DC Metformin HCl (Glucophage) 500 mg BIDWMEALS PO Last administered on 01/02/17 17:03; Start 01/01/17 at 10:00; Stop 01/04/17 at 13:08; Status DC Non-Formulary Medication 10 mg DAILY PO Last administered on 01/04/17 08:47; Start 01/02/17 at 09:00 Non-Formulary Medication 2 mg QHS PO Last administered on 01/02/17 20:28; Start 01/01/17 at 21:00 Piperacillin Sod/ Tazobactam Sod (Zosyn Per Pharmacy) 1 each PRN DAILY PRN MC SEE COMMENTS Last administered on 01/03/17 07:47; Start 01/02/17 at 12:00 Vancomycin HCl (Vanco Per Pharmacy) 1 each PRN DAILY PRN MC SEE COMMENTS Last administered on 01/04/17 14:10; Start 01/02/17 at 12:00 Enoxaparin Sodium (Lovenox) 40 mg Q24H SQ Last administered on 01/04/17 12:00 ; Start 01/02/17 at 12:30 Erythromycin (E-Mycin) 250 mg BID PO Last administered on 01/04/17 08:48; Start 01/02/17 at 21:00 Piperacillin Sod/ Tazobactam Sod 3.375 gm/Sodium Chloride 50 ml @ 100 mls/hr Q6HRS IV Last administered on 01/04/17 12:01; Start 01/02/17 at 13:00 Vancomycin HCl 2 gm/Sodium Chloride 500 ml @ 250 mls/hr 1X ONCE IV Last administered on 01/02/17 14:20; Start 01/02/17 at 14:00; Stop 01/02/17 at 15:59 ; Status DC Vancomycin HCl 1.25 gm/Sodium Chloride 250 ml @ 167 mls/hr Q24H IV Last administered on 01/04/17 14:05; Start 01/03/17 at 14:00 Vancomycin HCl 1 each 1X ONCE MC Last administered on 01/04/17 14:00; Start 01/04/17 at 14:00; Stop 01/04/17 at 14:01; Status DC Sodium Chloride 250 ml @ As Directed STK-MED ONCE .ROUTE Last administered on 01/02/17 13:26; Start 01/02/17 at 13:07; Stop 01/02/17 at 13:08; Status DC Acetaminophen (Tylenol) 1,000 mg PRN Q8HRS PRN PO PAIN / TEMP Last administered on 01/03/17 05:36; Start 01/03/17 at 05:30 Hydralazine HCl (Apresoline) 10 mg PRN Q4HRS PRN IV ELEVATED BP, SEE COMMENTS Last administered on 01/03/17 05:36; Start 01/03/17 at 05:30 Losartan Potassium (Cozaar) 50 mg DAILY PO Last administered on 01/04/17 08:50 ; Start 01/03/17 at 09:00 Metformin HCl (Glucophage) 500 mg BIDWMEALS PO ; Start 01/04/17 at 17:00 Active Scripts Active Reported Trintellix (Vortioxetine Hydrobromide) 10 Mg Tablet 10 Mg PO DAILY LAST DOSE GIVEN: DATE: TIME: NEXT DOSE DUE: DATE: TIME: Novolog Flexpen (Insulin Aspart) 100 Unit/1 Ml Insuln.pen 0-7 Units IN QIDACHS LAST DOSE GIVEN: DATE: TIME: NEXT DOSE DUE: DATE: TIME: Lantus Solostar (Insulin Glargine,Hum.rec.anlog) 100 Unit/1 Ml Insuln.pen 32 Unit IN HS LAST DOSE GIVEN: DATE: TIME: NEXT DOSE DUE: DATE: TIME: Symbicort 160-4.5 Mcg Inhaler (Budesonide/Formoterol Fumarate) 10.2 Gm Hfa.aer.ad 1 Inh PO PRN PRN LAST DOSE GIVEN: DATE: TIME: NEXT DOSE DUE: DATE: TIME: Voltaren (Diclofenac Sodium) 100 Gm Gel..gram. 1 Chrissie TOP PRN BID PRN LAST DOSE GIVEN: DATE: TIME: NEXT DOSE DUE: DATE: TIME: Clonazepam 1 Mg Tablet 1 Mg PO PRN BID PRN LAST DOSE GIVEN: DATE: TIME: NEXT DOSE DUE: DATE: TIME: Mirtazapine 30 Mg Tablet 30 Mg PO DAILY LAST DOSE GIVEN: DATE: TIME: NEXT DOSE DUE: DATE: TIME: Omeprazole 20 Mg Capsule.dr 20 Mg PO BID LAST DOSE GIVEN: DATE: TIME: NEXT DOSE DUE: DATE: TIME: Losartan Potassium 25 Mg Tablet 25 Mg PO DAILY LAST DOSE GIVEN: DATE: TIME: NEXT DOSE DUE: DATE: TIME: Erythromycin (Erythromycin Base) 250 Mg Capsule.dr 250 Mg PO BID LAST DOSE GIVEN: DATE: TIME: NEXT DOSE DUE: DATE: TIME: Allopurinol 300 Mg Tablet 300 Mg PO DAILY LAST DOSE GIVEN: DATE: TIME: NEXT DOSE DUE: DATE: TIME: Atorvastatin Calcium 20 Mg Tablet 20 Mg PO HS LAST DOSE GIVEN: DATE: TIME: NEXT DOSE DUE: DATE: TIME: Carvedilol 6.25 Mg Tablet 6.25 Mg PO BIDWMEALS LAST DOSE GIVEN: DATE: TIME: NEXT DOSE DUE: DATE: TIME: Levothyroxine Sodium 75 Mcg Tablet 75 Mcg PO DAILY06 LAST DOSE GIVEN: DATE: TIME: NEXT DOSE DUE: DATE: TIME: Potassium Citrate 10 Meq Tablet.er 10 Meq PO DAILY LAST DOSE GIVEN: DATE: TIME: NEXT DOSE DUE: DATE: TIME: Metformin Hcl 500 Mg Tablet 500 Mg PO BIDWMEALS LAST DOSE GIVEN: DATE: TIME: NEXT DOSE DUE: DATE: TIME: Rexulti (Brexpiprazole) 2 Mg Tablet 2 Mg PO HS LAST DOSE GIVEN: DATE: TIME: NEXT DOSE DUE: DATE: TIME: Lomotil Tablet (Diphenoxylate Hcl/Atropine) 1 Each Tablet 2.5 Mg PO PRN QID PRN LAST DOSE GIVEN: DATE: TIME: NEXT DOSE DUE: DATE: TIME: Activity: as tolerated Diet: Consistent Carbohydrate Follow-up Plan F/u with PCP within the week F/u with pulmonology in 2-3 weeks. BREE CHACKO MD Jan 04, 2017 16:07
[2017-01-04] MEDS ORDERED: metFORMIN 500 MG TABLET PO SCH (17:00)
== END 2017-01-04 17:13 | disposition home or self-care (01) | DRG 871 ==
LOC: ER 21:02 → 1 SOUTH 12-31 00:55
PROVIDERS: ADMIT Family Medicine; ATTEND Family Medicine
DX: A41.9 Sepsis, unspecified organism (principal); J15.6 Pneumonia due to other Gram-negative bacteria; J15.9 Unspecified bacterial pneumonia; J96.01 Acute respiratory failure with hypoxia; J45.901 Unspecified asthma with (acute) exacerbation; N39.0 Urinary tract infection, site not specified; E11.22 Type 2 diabetes mellitus with diabetic chronic kidney disease; E11.65 Type 2 diabetes mellitus with hyperglycemia; E83.42 Hypomagnesemia; F32.9 Major depressive disorder, single episode, unspecified; F41.9 Anxiety disorder, unspecified; I12.9 Hypertensive chronic kidney disease with stage 1 through stage 4 chronic kidney disease, or unspecified chronic kidney disease; I25.10 Atherosclerotic heart disease of native coronary artery without angina pectoris; N18.3 Chronic kidney disease, stage 3 (moderate); Z83.3 Family history of diabetes mellitus; Z87.891 Personal history of nicotine dependence; Z88.5 Allergy status to narcotic agent; Z88.2 Allergy status to sulfonamides; Z88.8 Allergy status to other drugs, medicaments and biological substances; Z88.1 Allergy status to other antibiotic agents; Z91.040 Latex allergy status; I25.2 Old myocardial infarction
CPT/HCPCS: 36415; 71010; 71020; 80048; 80053; 80202; 81001; 82947; 83605; 83735; 83880; 84484; 85007; 85025; 85027; 87040; 87070; 87205; 87449; 87641; 87804; 94620; 94640; 94760; 94799; 96361; 96365; 96375; J0360; J0456; J0696; J1650; J1815; J2543; J2930; J3010; J3370; J7040; J7050; J7613; J7620; J7626; 97116; 99291-25; J7030

== ENCOUNTER → 2017-02-11 | Outpatient (CLI) | payer MEDICARE ==
[~2017-02-11] MED LIST: ALLO300T PO; AMOX1TAB61 PO; ATOR20TA58 PO; BREX2TAB PO; BUDE10.2 PO; CARV6.252 PO; CLON1TAB3 PO; DESV100T16 PO; DICL100G18 TOP; DIPH1TAB PO; ERYT250C8 PO; INSU100I13 IN; INSU100I17 IN; LEVO75TA5 PO; LOSA25TA4 PO; METF500T4 PO; MIRT30TA3 PO; OMEP20CA9 PO; POTA10TA17 PO; VORT10TA PO; VORT5TAB PO
[2017-02-11 12:50] LABS: CALCIUM 9.6 mg/dL (8.5-10.1); CREATININE 1.4 mg/dL (0.6-1.0); GFR 37.1; POTASSIUM 3.8 mmol/L (3.5-5.1)
--- NOTE | 2017-02-11 14:19 | RAD ---
Chest, 2 views, 02/11/2017: History: Pleural effusion Comparison is made to a study from 01/02/2017. The heart size and pulmonary vascularity are normal. There is a persistent linear opacity projected over the heart on the lateral view suggesting scarring, probably in the right middle lobe. Other pulmonary opacities seen on the previous study have largely resolved. No new pulmonary infiltrate is seen. There is no evidence of pleural fluid. Mild spurring is present in the spine. IMPRESSION: 1. Clearing pulmonary opacities as described above. 2. No new cardiopulmonary abnormality is detected.
== END | disposition home or self-care (01) ==
LOC: LAB 11:44
PROVIDERS: ATTEND Internal Medicine
DX: J90 Pleural effusion, not elsewhere classified (principal)
CPT/HCPCS: 36415; 71020; 80048

== ENCOUNTER → 2017-04-17 | Outpatient (CLI) | payer MEDICARE ==
[2017-04-17 13:40] LABS: BASO # 0.1 x10^3/uL (0.0-0.2); BASO % 1 % (0-3); EOS # 0.4 x10^3/uL (0.0-0.7); EOS % 4 % (0-3); LYMPH # 1.2 x10^3/uL (1.0-4.8); LYMPH % 14 % (24-48); MEAN CORPUSCULAR HEMOGLOBIN 29 pg (25-35); MEAN CORPUSCULAR HGB CONC 33 g/dL (31-37); MEAN CORPUSCULAR VOLUME 86 fL (79-100); MONO # 0.7 x10^3/uL (0.0-1.1); MONO % 8 % (0-9); NEUT # 6.3 x10^3uL (1.8-7.7); NEUT % 72 % (31-73); PLATELET COUNT 263 x10^3/uL (140-400); RED BLOOD COUNT 4.88 x10^6/uL (3.50-5.40); RED CELL DISTRIBUTION WIDTH 17.3 % (11.5-14.5); WHITE BLOOD COUNT 8.6 x10^3/uL (4.0-11.0)
[2017-04-17 13:59] LABS: ALBUMIN 3.5 g/dL (3.4-5.0); CALCIUM 9.7 mg/dL (8.5-10.1); CREATININE 1.3 mg/dL (0.6-1.0); GFR 40.4; MAGNESIUM 1.4 mg/dL (1.8-2.4); POTASSIUM 3.8 mmol/L (3.5-5.1)
[2017-04-18 01:06] LABS: CREATININE PTH 1.26 mg/dL (0.57-1.00); MICRO CREAT RATIO 327.2 mg/g creat (0.0-30.0); MICROALB RD UR 152.8 ug/mL (Not Estab.); PTH INTACT 134 pg/mL (15-65); UR CREATININE RD 44.8 mg/dL (Not Estab.); UR PROTEIN RD 26.8 mg/dL (Not Estab.)
== END | disposition home or self-care (01) ==
LOC: LAB 13:04
PROVIDERS: ATTEND Nurse Practitioner Family
DX: I12.9 Hypertensive chronic kidney disease with stage 1 through stage 4 chronic kidney disease, or unspecified chronic kidney disease (principal); N18.3 Chronic kidney disease, stage 3 (moderate); E11.29 Type 2 diabetes mellitus with other diabetic kidney complication; D63.1 Anemia in chronic kidney disease; N20.0 Calculus of kidney; E61.2 Magnesium deficiency; E87.3 Alkalosis; R80.9 Proteinuria, unspecified; E55.9 Vitamin D deficiency, unspecified; N25.81 Secondary hyperparathyroidism of renal origin; Z68.31 Body mass index [BMI] 31.0-31.9, adult
CPT/HCPCS: 36415; 80069; 82043; 82570; 82728; 83540; 83550; 83735; 83970; 84156; 85025

== ENCOUNTER → 2017-05-22 | Outpatient (CLI) | payer MEDICARE ==
[2017-05-22 12:11] LABS: ALBUMIN 3.3 g/dL (3.4-5.0); CALCIUM 9.6 mg/dL (8.5-10.1); CREATININE 1.8 mg/dL (0.6-1.0); GFR 27.7; PHOSPHORUS 3.7 mg/dL (2.6-4.7); POTASSIUM 3.5 mmol/L (3.5-5.1)
== END | disposition home or self-care (01) ==
LOC: LAB 10:30
PROVIDERS: ATTEND Internal Medicine Nephrology
DX: I12.9 Hypertensive chronic kidney disease with stage 1 through stage 4 chronic kidney disease, or unspecified chronic kidney disease (principal); E11.22 Type 2 diabetes mellitus with diabetic chronic kidney disease; N18.3 Chronic kidney disease, stage 3 (moderate); E11.65 Type 2 diabetes mellitus with hyperglycemia; Z87.891 Personal history of nicotine dependence
CPT/HCPCS: 36415; 80069

== ENCOUNTER → 2017-07-22 | Outpatient (CLI) | payer MEDICARE ==
[2017-07-22 12:45] LABS: CALCIUM 9.8 mg/dL (8.5-10.1); CREATININE 1.6 mg/dL (0.6-1.0); GFR 31.7
[2017-07-22 12:56] LABS: POTASSIUM 4.2 mmol/L (3.5-5.1)
== END | disposition home or self-care (01) ==
LOC: LAB 12:00
PROVIDERS: ATTEND Nurse Practitioner Family
DX: I12.9 Hypertensive chronic kidney disease with stage 1 through stage 4 chronic kidney disease, or unspecified chronic kidney disease (principal); E11.29 Type 2 diabetes mellitus with other diabetic kidney complication; N18.4 Chronic kidney disease, stage 4 (severe); N17.9 Acute kidney failure, unspecified; N25.81 Secondary hyperparathyroidism of renal origin; E55.9 Vitamin D deficiency, unspecified; N20.0 Calculus of kidney; D50.9 Iron deficiency anemia, unspecified; R80.1 Persistent proteinuria, unspecified; Z68.31 Body mass index [BMI] 31.0-31.9, adult
CPT/HCPCS: 36415; 80048

== ENCOUNTER 2017-08-10 13:52 | Inpatient (IN) | payer MEDICARE ==
[~2017-08-10] VITALS: Ht 162.6 cm; Wt 83.9 kg
[2017-08-10] MEDS ORDERED: IPRATRPIUM/ALBUTEROL 0.5/2.5MG 3 ML NEBU. NEB ONE (14:15)
--- NOTE | 2017-08-10 14:30 | RAD ---
Two-view chest 08/10/2017 Clinical indication: Short of air with cough. COMPARISON: Two-view chest 02/11/2017. FINDINGS: Cardiac and mediastinal silhouettes are unremarkable. No pleural effusion, pneumothorax or focal consolidation. Calcified atheromatous disease of the thoracic aorta. IMPRESSION: No acute cardiopulmonary abnormality. Electronically signed by: Sanjay Gracia MD (08/10/2017 2:27 PM) [id number]
[2017-08-10 14:44] LABS: BASO # 0.1 x10^3/uL (0.0-0.2); BASO % 1 % (0-3); EOS # 0.7 x10^3/uL (0.0-0.7); EOS % 4 % (0-3); HEMATOCRIT 44.1 % (36.0-47.0); HEMOGLOBIN 13.9 g/dL (12.0-15.5); LYMPH # 1.2 x10^3/uL (1.0-4.8); LYMPH % 7 % (24-48); MEAN CORPUSCULAR HEMOGLOBIN 28 pg (25-35); MEAN CORPUSCULAR HGB CONC 32 g/dL (31-37); MEAN CORPUSCULAR VOLUME 87 fL (79-100); MONO # 1.4 x10^3/uL (0.0-1.1); MONO % 8 % (0-9); NEUT # 13.8 x10^3uL (1.8-7.7); NEUT % 80 % (31-73); PLATELET COUNT 302 x10^3/uL (140-400); RED BLOOD COUNT 5.07 x10^6/uL (3.50-5.40); RED CELL DISTRIBUTION WIDTH 16.7 % (11.5-14.5); WHITE BLOOD COUNT 17.2 x10^3/uL (4.0-11.0)
[2017-08-10 14:55] LABS: ALBUMIN 3.4 g/dL (3.4-5.0); CALCIUM 10.1 mg/dL (8.5-10.1); CREATININE 1.7 mg/dL (0.6-1.0); DIRECT BILIRUBIN 0.2 mg/dL (0.0-0.2); GFR 29.5; POTASSIUM 4.1 mmol/L (3.5-5.1); TOTAL BILIRUBIN 0.7 mg/dL (0.2-1.0); TOTAL PROTEIN 7.3 g/dL (6.4-8.2)
[2017-08-10 15:22] LABS: BILIRUBIN,URINE NEG (NEG); CLARITY,URINE CLEAR; COLOR,URINE YELLOW; GLUCOSE,URINE NEG (NEG); NITRITE,URINE NEG (NEG); UROBILINOGEN,URINE 0.2 mg/dL (0.2 mg/dL)
[2017-08-10 15:23] LABS: BACTERIA,URINE 0 /HPF (0-FEW); HYALINE CASTS, URINE MOD /HPF; SQUAMOUS EPITHELIAL CELL,UR FEW /LPF
[2017-08-10] MEDS ORDERED: DOXY100C2 PO (15:55)
--- NOTE | 2017-08-10 15:59 | PHYS DOC ---
Past History Past Medical History: Diabetes, Hypertension, Hyperthyroid, Kidney Stones Past Surgical History: No Surgical History Smoking: Non-smoker Alcohol Use: None Drug Use: None Adult General Chief Complaint Chief Complaint: COUGH HPI HPI 72-year-old female presenting to the emergency department today with a cough. She has had green sputum production over the past few days. [facility] and [facility] here. Her cough is productive. She denies any pain with her cough. It is worse in the morning and improved at night. Mild to moderate in severity. She denies any syncopal episodes. She denies confusion. She denies chest pain or shortness of breath. She denies neck pain or any anginal equivalents. Review of systems is negative for chest pain abdominal pain nausea vomiting diaphoresis fevers or chills. All other review of systems is negative unless otherwise noted in history of present illness. ED course: 72-year-old female presenting to the emergency department with a productive cough. On arrival she is afebrile with mild high blood pressure. Saturating 90% on room air. Breathing comfortably in the examination room. She is nontoxic and well-appearing. Lungs are clear to auscultation bilaterally. Abdomen is soft nondistended nontender to palpation. The remainder the exam is unremarkable. Chest x-ray not suggestive of pneumonia. CBC shows increased white blood cell count. BUN and creatinine at baseline for the patient when compared to previous. Given the poor test characteristics of chest x-ray, the patient's clinical scenario and leukocytosis suggestive of the patient have a pneumonia. We will treat the patient with doxycycline never follow-up with her doctor. CURB 65- 2 points for age and CKD. I discussed admission versus outpatient treatment. Patient would like to be treated as an outpatient with oral antibiotics. Oxygen levels 's continued to be low in the emergency room so the patient was placed on nasal cannula. A long discussion with the patient about admission to the hospital. Given the patient's hypoxia and age we will admit the patient to the hospital for IV antibiotics for probable pneumonia. Dr. Trejo except the patient for admission. Review of Systems Review of Systems SEE ABOVE. Current Medications Current Medications Current Medications Medications (Trade) Dose Ordered Sig/Marisa Start Time Stop Time Status Last Admin Dose Admin Albuterol/ Ipratropium (Duoneb) 3 ml 1X ONCE 08/10/17 14:15 08/10/17 14:17 DC 08/10/17 14:31 3 ML Allergies Allergies Allergies Coded Allergies Type Severity Reaction Last Updated Verified Sulfa (Sulfonamide Antibiotics) Allergy Intermediate 12/30/16 No ciprofloxacin Allergy Intermediate yeast inf 12/30/16 No codeine Allergy Intermediate vomiting 12/30/16 No diclofenac Allergy Intermediate rash 12/30/16 No hydrochlorothiazide Allergy Intermediate rash 12/30/16 No ibuprofen Allergy Intermediate cant take due to kidneys 12/30/16 No misoprostol Allergy Intermediate rash 12/30/16 No latex Allergy Mild gi problems 12/30/16 No Physical Exam Physical Exam SEE ABOVE Constitutional: Well developed, well nourished, no acute distress, non-toxic appearance. [] HENT: Normocephalic, atraumatic, bilateral external ears normal, oropharynx moist, no oral exudates, nose normal. [] Eyes: PERRLA, EOMI, conjunctiva normal, no discharge. [] Neck: Normal range of motion, no tenderness, supple, no stridor. [] Cardiovascular:Heart rate regular rhythm, no murmur [] Lungs & Thorax: Bilateral breath sounds clear to auscultation [] Abdomen: Bowel sounds normal, soft, no tenderness, no masses, no pulsatile masses. [] Skin: Warm, dry, no erythema, no rash. [] Back: No tenderness, no CVA tenderness. [] Extremities: No tenderness, no cyanosis, no clubbing, ROM intact, no edema. [] Neurologic: Alert and oriented X 3, normal motor function, normal sensory function, no focal deficits noted. [] Psychologic: Affect normal, judgement normal, mood normal. [] Current Patient Data Vital Signs Vital Signs Date Time Temp Pulse Resp B/P (MAP) Pulse Ox O2 Delivery O2 Flow Rate FiO2 08/10/17 14:31 92 Room Air 08/10/17 14:04 98.5 92 20 Lab Results Laboratory Tests Test 08/10/17 14:30 08/10/17 14:50 White Blood Count 17.2 x10^3/uL (4.0-11.0) H Red Blood Count 5.07 x10^6/uL (3.50-5.40) Hemoglobin 13.9 g/dL (12.0-15.5) Hematocrit 44.1 % (36.0-47.0) Mean Corpuscular Volume 87 fL (79-100) Mean Corpuscular Hemoglobin 28 pg (25-35) Mean Corpuscular Hemoglobin Concent 32 g/dL (31-37) Red Cell Distribution Width 16.7 % (11.5-14.5) H Platelet Count 302 x10^3/uL (140-400) Neutrophils (%) (Auto) 80 % (31-73) H Lymphocytes (%) (Auto) 7 % (24-48) L Monocytes (%) (Auto) 8 % (0-9) Eosinophils (%) (Auto) 4 % (0-3) H Basophils (%) (Auto) 1 % (0-3) Neutrophils # (Auto) 13.8 x10^3uL (1.8-7.7) H Lymphocytes # (Auto) 1.2 x10^3/uL (1.0-4.8) Monocytes # (Auto) 1.4 x10^3/uL (0.0-1.1) H Eosinophils # (Auto) 0.7 x10^3/uL (0.0-0.7) Basophils # (Auto) 0.1 x10^3/uL (0.0-0.2) Platelet Estimate Pending Sodium Level 139 mmol/L (136-145) Potassium Level 4.1 mmol/L (3.5-5.1) Chloride Level 98 mmol/L (98-107) Carbon Dioxide Level 34 mmol/L (21-32) H Anion Gap 7 (6-14) Blood Urea Nitrogen 22 mg/dL (7-20) H Creatinine 1.7 mg/dL (0.6-1.0) H Estimated GFR (Cockcroft-Gault) 29.5 Glucose Level 155 mg/dL (70-99) H Calcium Level 10.1 mg/dL (8.5-10.1) Total Bilirubin 0.7 mg/dL (0.2-1.0) Direct Bilirubin 0.2 mg/dL (0.0-0.2) Aspartate Amino Transferase (AST) 19 U/L (15-37) Alanine Aminotransferase (ALT) 34 U/L (14-59) Alkaline Phosphatase 132 U/L (46-116) H Total Protein 7.3 g/dL (6.4-8.2) Albumin 3.4 g/dL (3.4-5.0) Lipase 96 U/L (73-393) Urine Collection Type Unknown Urine Color Yellow Urine Clarity Clear Urine pH 7.0 Urine Specific [place] 1.015 Urine Protein 30 mg/dl (NEG-TRACE) Urine Glucose (UA) Neg mg/dL (NEG) Urine Ketones (Stick) Neg mg/dL (NEG) Urine Blood Neg (NEG) Urine Nitrite Neg (NEG) Urine Bilirubin Neg (NEG) Urine Urobilinogen Dipstick 0.2 mg/dL (0.2 mg/dL) Urine Leukocyte Esterase Neg (NEG) Urine RBC 3-5 /HPF (0-2) Urine WBC 1-4 /HPF (0-4) Urine Squamous Epithelial Cells Few /LPF Urine Bacteria 0 /HPF (0-FEW) Urine Hyaline Casts Mod /HPF Urine Mucus Mod /LPF EKG EKG [] Radiology/Procedures Radiology/Procedures [] Course & Med Decision Making Course & Med Decision Making Pertinent Labs and Imaging studies reviewed. (See chart for details) [] Dragon Disclaimer Dragon Disclaimer This electronic medical record was generated, in whole or in part, using a voice recognition dictation system. Departure Departure: Impression: Primary Impression: PNA (pneumonia) Disposition: HOME, SELF-CARE Condition: STABLE Referrals: CAMELIA RUSS MD (PCP) Patient Instructions: Pneumonia, Adult Additional Instructions: Thank you for allowing us to participate in your care today. Followup with your primary care physician in 3 days if your symptoms do not improve. Call your Primary Doctor tomorrow and inform them of your visit today. If you do not have a primary care provider you can ask for a list of our primary care providers. Return to the emergency department you have any new or concerning findings. This should be evaluated by the primary care physician and any necessary consulting services for continued management within a few days after discharge. Return to emergency room if you have any new or concerning symptoms including but not limited to fever, chills, nausea, vomiting, intractable pain, any new rashes, chest pain, shortness of air, uncontrolled bleeding, difficulty breathing, and/or vision loss. SANDRA HARVEY MD Aug 10, 2017 15:59
[2017-08-10] MEDS ORDERED: IV NORMAL SALINE 500ML 500 ML IV ONE (16:30)
[2017-08-10] MEDS ORDERED: cefTRIAXone IV Push 1 GM VIAL. IVP ONE (16:30)
[2017-08-10] MEDS ORDERED: AZITHROMYCIN 500 MG in IV NORMAL SALINE 250ML 250 ML IV ONE (16:30)
[2017-08-10 16:54] LABS: % BASOS 1 % (0-3); % EOS 5 % (0-5); % LYMPHS 6 % (24-48); % MONOS 8 % (0-10); % SEGS 79 % (35-66)
[2017-08-10] MEDS: IV NORMAL SALINE 1,000ML 1,000 ML IV SCH (16:58)
[2017-08-10] MEDS ORDERED: IV NORMAL SALINE 250ML 250 ML ONE (17:11)
[2017-08-10] MEDS ORDERED: AZITHROMYCIN 500 MG VIAL. IV ONE (17:11)
--- NOTE | 2017-08-10 18:17 | EKG ---
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
[2017-08-10 18:32] VITALS: BP 163/65
[2017-08-10] MEDS ORDERED: ASPI-630 PO (18:40)
[2017-08-10] MEDS ORDERED: LOSA100T6 PO (18:40)
--- NOTE | 2017-08-10 19:00 | NUR ---
Rocío Malagon 72yo female was admitted to Dr Trejo's service for pneumonia. Copies of unit/hospital policies and procedures were provided and reviewed with pt and . Admission assessment and process completed. Reviewed poc with pt, she verbalized understanding and agreement. Poc continued and will ctm patient.
[2017-08-10] MEDS ORDERED: INSU100I27 SQ (19:03)
[2017-08-10] MEDS ORDERED: FOLI1TAB16 PO (19:03)
[2017-08-10] MEDS ORDERED: CHOL10003 PO (19:03)
[2017-08-10] MEDS ORDERED: VERA240T72 PO (19:03)
[2017-08-10] MEDS ORDERED: TRAM50TA PO (19:03)
[2017-08-10] MEDS ORDERED: LEVO80CA PO (19:03)
[2017-08-10] MEDS ORDERED: MAGN400C PO (19:03)
[2017-08-10 19:16] LABS: PLT ESTIMATE ADEQUATE (ADEQUATE)
[2017-08-10 19:17] LABS: STOMATOCYTES PRESENT
[2017-08-10 19:52] VITALS: BP 114/67
[2017-08-10 23:34] VITALS: BP 120/73
[2017-08-11] MEDS ORDERED: VERA240C2 PO (00:27)
[2017-08-11] MEDS ORDERED: CLON2TAB PO (00:50)
[2017-08-11] MEDS ORDERED: [UNRECOGNIZED DRUG - OTHER] PO PRN (01:00)
[2017-08-11] MEDS ORDERED: FORMOTEROL FUMARATE PO PRN (01:00)
[2017-08-11] MEDS ORDERED: DIPHENOXYLATE/ATROPINE TABLET. PO PRN (01:00)
[2017-08-11] MEDS ORDERED: DEXTROSE 50% 25 GM / 50ML DISP.SYRIN. IV PRN (01:00)
[2017-08-11] MEDS ORDERED: BUDESONIDE PO PRN (01:00)
[2017-08-11] MEDS ORDERED: traMADol 50 MG TABLET PO PRN (01:00)
[2017-08-11] MEDS ORDERED: clonazePAM 2 MG TABLET PO ONE (01:30)
[2017-08-11] MEDS ORDERED: INSULIN DETEMIR 300 UNITS/3 ML INSULN.PEN. SQ ONE (01:30)
[2017-08-11] MEDS ORDERED: MIRTAZAPINE 30 MG TABLET PO ONE (01:30)
[2017-08-11] MEDS ORDERED: ASPIRIN 81 MG TAB.CHEW PO ONE (01:30)
[2017-08-11] MEDS ORDERED: IPRATRPIUM/ALBUTEROL 0.5/2.5MG 3 ML NEBU. ONE (05:06)
[2017-08-11] MEDS: ALBUTEROL SULFATE 2.5 MG/3 ML NEBU. NEB SCH ×4 (05:20→20:56)
[2017-08-11 05:27] VITALS: BP 103/55
[2017-08-11] MEDS: IV NORMAL SALINE 1,000ML 1,000 ML IV SCH (05:34)
[2017-08-11] MEDS: LEVOTHYROXINE 75 MCG TABLET PO SCH (05:47)
[2017-08-11 06:25] LABS: CALCIUM 9.3 mg/dL (8.5-10.1); CREATININE 1.6 mg/dL (0.6-1.0); GFR 31.7; POTASSIUM 4.3 mmol/L (3.5-5.1)
--- NOTE | 2017-08-11 06:25 | PDOC1 ---
History of Present Illness Reason for Visit: Cough History of Present Illness Pt presented to the ER w/ recent hx of cough. She had also been more SOA lately. Has a hx of asthma, sees Dr. Hendricks at [facility], has appt in September. Denies any recent med changes, travel, or exposure to known illnesses. Denies fever or chest pain, n/v, diarrhea, rash, dizziness, LORD, or hemoptysis. Denies wheezing. No recent changes to medications, no unintentional weight gain. Her cough has been mostly non-productive, but was hospitalized for pneumonia in December 2016, so felt that she should come in. In December, she was sent home w/ O2 but only required it at home for 2-3 weeks. Has not had to use O2 since then. States she is feeling better now. Chief Complaint: COUGH Allergies: Coded Allergies: Sulfa (Sulfonamide Antibiotics) (Unverified Allergy, Intermediate, 12/30/16) ciprofloxacin (Unverified Allergy, Intermediate, yeast inf, 12/30/16) codeine (Unverified Allergy, Intermediate, vomiting, 12/30/16) diclofenac (Unverified Allergy, Intermediate, rash, 12/30/16) hydrochlorothiazide (Unverified Allergy, Intermediate, rash, 12/30/16) ibuprofen (Unverified Allergy, Intermediate, cant take due to kidneys, 12/30) misoprostol (Unverified Allergy, Intermediate, rash, 12/30/16) latex (Unverified Allergy, Mild, gi problems, 12/30/16) Past Medical History Cardiac: CAD, [place] Pulmonary: Asthma Endocrine: Diabetes Past Surgical History: Mastectomy (left (non-cancer)) Family History: CAD, DM Past Social History Smoke: Quit (1991) Alcohol: none Drugs: None Lives: with Family Review of Systems Review Of Systems Fourteen system , review of systems has been reviewed. See HPI for pertinent positives and negative responses, other peres all other systems are negative, non pertinent or non contributory Allergies: Coded Allergies: Sulfa (Sulfonamide Antibiotics) (Unverified Allergy, Intermediate, 12/30/16) ciprofloxacin (Unverified Allergy, Intermediate, yeast inf, 12/30/16) codeine (Unverified Allergy, Intermediate, vomiting, 12/30/16) diclofenac (Unverified Allergy, Intermediate, rash, 12/30/16) hydrochlorothiazide (Unverified Allergy, Intermediate, rash, 12/30/16) ibuprofen (Unverified Allergy, Intermediate, cant take due to kidneys, 12/30) misoprostol (Unverified Allergy, Intermediate, rash, 12/30/16) latex (Unverified Allergy, Mild, gi problems, 12/30/16) Medications Current Medications Albuterol/ Ipratropium (Duoneb) 3 ml 1X ONCE NEB Last administered on at 14:31; Start 08/10/17 at 14:15; Stop 08/10/17 at 14:17; Status DC Sodium Chloride 1,000 ml @ 100 mls/hr Q10H IV Last administered on 08/11/17at 05:34; Start 08/10/17 at 16:10; Stop 08/11/17 at 16:09 Ceftriaxone Sodium 1 gm/ Sodium Chloride 50 ml @ 100 mls/hr 1X ONCE IV ; Start 08/10/17 at 16:15; Stop 08/10/17 at 16:44; Status UNV Azithromycin 500 mg/Sodium Chloride 250 ml @ 250 mls/hr 1X ONCE IV Last administered on 08/10/17at 19:00; Start 08/10/17 at 16:30; Stop 08/10/17 at 17:29 ; Status DC Sodium Chloride 500 ml @ 0 mls/hr 1X ONCE IV Last administered on 08/10/17at 16 :30; Start 08/10/17 at 16:30; Stop 08/10/17 at 16:31; Status DC Ceftriaxone Sodium (Rocephin) 1 gm 1X ONCE IVP Last administered on 08/10/17at 16:30; Start 08/10/17 at 16:30; Stop 08/10/17 at 16:31; Status DC Sodium Chloride 250 ml @ As Directed STK-MED ONCE .ROUTE ; Start 08/10/17 at 17 :11; Stop 08/10/17 at 17:12; Status DC Azithromycin (Zithromax) 500 mg STK-MED ONCE IV ; Start 08/10/17 at 17:11; Stop 08/10/17 at 17:12; Status DC Allopurinol (Zyloprim) 300 mg DAILY PO ; Start 08/11/17 at 09:00 Aspirin (Children'S Aspirin) 81 mg DAILY PO ; Start 08/11/17 at 09:00; Stop at 09:00; Status DC Atorvastatin Calcium (Lipitor) 20 mg HS PO ; Start 08/11/17 at 21:00 Vitamin D (Vitamin D3) 4,000 unit DAILY PO ; Start 08/11/17 at 09:00 Clonazepam (KlonoPIN) 2 mg HS PO ; Start 08/11/17 at 21:00 Diphenoxylate HCl/ Atropine (Lomotil) 2 tab PRN QID PRN PO DIARRHEA; Start at 01:00 Folic Acid (Folic Acid) 1 mg DAILY PO ; Start 08/11/17 at 09:00 Insulin Detemir (Levemir) 30 units HS SQ ; Start 08/11/17 at 21:00 Levothyroxine Sodium (Synthroid) 75 mcg DAILY06 PO Last administered on at 05:47; Start 08/11/17 at 06:00 Mirtazapine (Remeron) 15 mg DAILY PO ; Start 08/11/17 at 09:00; Stop 08/11/17 at 09:00; Status DC Potassium Citrate (Urocit-K) 10 meq DAILY PO ; Start 08/11/17 at 09:00; Stop at 09:00; Status DC Tramadol HCl (Ultram) 50 mg PRN Q6HRS PRN PO PAIN; Start 08/11/17 at 01:00 Non-Formulary Medication (Budesonide/ Formoterol Fumarate (Symbicort 160-4.5 Mcg Inhaler)) 1 inh PRN PRN PO Asthma; Start 08/11/17 at 01:00; Status UNV Erythromycin (E-Mycin) 250 mg BID PO ; Start 08/11/17 at 09:00 Non-Formulary Medication (Levomilnacipran Hydrochloride (Fetzima)) 80 mg DAILY PO ; Start 08/11/17 at 09:00; Status UNV Losartan Potassium (Cozaar) 100 mg DAILY PO ; Start 08/11/17 at 09:00 Magnesium Oxide (Magnesium Oxide) 800 mg DAILY PO ; Start 08/11/17 at 09:00 Pantoprazole Sodium (Protonix) 40 mg DAILYAC PO ; Start 08/11/17 at 07:30 Verapamil HCl (Calan Sr) 120 mg QODAY PO ; Start 08/12/17 at 09:00 Verapamil HCl (Calan Sr) 240 mg QODAY PO ; Start 08/11/17 at 09:00 Insulin Aspart (NovoLOG) 0-7 UNITS QIDACHS SQ ; Start 08/11/17 at 07:30 Dextrose 12.5 gm PRN Q15MIN PRN IV SEE COMMENTS; Start 08/11/17 at 01:00 Clonazepam (KlonoPIN) 2 mg ONCE ONCE PO Last administered on 08/11/17at 01:28; Start 08/11/17 at 01:30; Stop 08/11/17 at :31; Status DC Aspirin (Children'S Aspirin) 162 mg 1X ONCE PO Last administered on 08/11/17at 01:28; Start 08/11/17 at 01:30; Stop 08/11/17 at 01:31; Status DC Mirtazapine (Remeron) 30 mg 1X ONCE PO Last administered on 08/11/17at 01:28; Start 08/11/17 at 01:30; Stop 08/11/17 at 01:31; Status DC Budesonide (Pulmicort) 0.5 mg RTBID NEB ; Start 08/11/17 at 08:00 Albuterol Sulfate (Ventolin) 2.5 mg RTQID NEB ; Start 08/11/17 at 08:00 Insulin Detemir (Levemir) 30 units 1X ONCE SQ Last administered on 08/11/17at 02:17; Start 08/11/17 at 01:30; Stop 08/11/17 at 01:31; Status DC Aspirin (Children'S Aspirin) 162 mg HS PO ; Start 08/11/17 at 21:00 Mirtazapine (Remeron) 30 mg HS PO ; Start 08/11/17 at 21:00 Potassium Citrate (Urocit-K) 20 meq BIDWMEALS PO ; Start 08/11/17 at 08:00 Albuterol/ Ipratropium (Duoneb) 3 ml STK-MED ONCE .ROUTE ; Start 08/11/17 at 05: 06; Stop 08/11/17 at 05:07; Status DC Active Scripts Active Reported Klonopin (Clonazepam) 2 Mg Tablet 2 Mg PO HS Verapamil Er (Verapamil Hcl) 240 Mg Cap24h.pel 240 Mg PO QODAY Verapamil Er (Verapamil Hcl) 240 Mg Cap24h.pel 120 Mg PO QODAY Magnesium (Magnesium Oxide) 400 Mg Capsule 800 Mg PO DAILY Fetzima (Levomilnacipran Hydrochloride) 80 Mg Cap.sa.24h 80 Mg PO DAILY Tramadol Hcl (Tramadol HCl) 50 Mg Tablet 50 Mg PO PRN Q6HRS PRN Levemir Flextouch (Insulin Detemir) 100 Unit/1 Ml Insuln.pen 30 Unit SQ Vitamin D3 (Cholecalciferol (Vitamin D3)) 1,000 Unit Tablet 2,000 Unit PO Folic Acid 1 Mg Tablet 1 Mg PO DAILY Aspirin 81 Mg Tab.chew 162 Mg PO DAILY Losartan Potassium 100 Mg Tablet 100 Mg PO DAILY Novolog Flexpen (Insulin Aspart) 100 Unit/1 Ml Insuln.pen 0-7 Units IN QIDACHS LAST DOSE GIVEN: DATE:01/04 TIME:lunch NEXT DOSE DUE: DATE:01/04 TIME:dinner Symbicort 160-4.5 Mcg Inhaler (Budesonide/Formoterol Fumarate) 10.2 Gm Hfa.aer.ad 1 Inh PO PRN PRN LAST DOSE GIVEN: DATE: TIME: NEXT DOSE DUE: DATE: TIME: Mirtazapine 30 Mg Tablet 30 Mg PO HS LAST DOSE GIVEN: DATE: TIME: NEXT DOSE DUE: DATE: TIME: Omeprazole 20 Mg Capsule.dr 20 Mg PO BID LAST DOSE GIVEN: DATE:01/04 TIME:829 NEXT DOSE DUE: DATE:01/05 TIME:829 Erythromycin (Erythromycin Base) 250 Mg Capsule.dr 250 Mg PO BID LAST DOSE GIVEN: DATE:01/04 TIME:829 NEXT DOSE DUE: DATE:01/04 TIME:9:00 pm Allopurinol 300 Mg Tablet 300 Mg PO DAILY LAST DOSE GIVEN: DATE:01/04 TIME:829 NEXT DOSE DUE: DATE:01/05 TIME:30 Atorvastatin Calcium 20 Mg Tablet 20 Mg PO HS LAST DOSE GIVEN: DATE:01/03 TIME:9:00 pm NEXT DOSE DUE: DATE:01/04 TIME:9:00 pm Levothyroxine Sodium 75 Mcg Tablet 75 Mcg PO DAILY06 LAST DOSE GIVEN: DATE:01/04 TIME:0830 NEXT DOSE DUE: DATE:01/05 TIME:0700 Potassium Citrate 10 Meq Tablet.er 10 Meq PO DAILY LAST DOSE GIVEN: DATE: TIME: NEXT DOSE DUE: DATE: TIME: Lomotil Tablet (Diphenoxylate Hcl/Atropine) 1 Each Tablet 2.5 Mg PO PRN QID PRN LAST DOSE GIVEN: DATE: TIME: NEXT DOSE DUE: DATE:may have at any time TIME: Exam Vital Signs Vital Signs Date Time Temp Pulse Resp B/P (MAP) Pulse Ox O2 Delivery O2 Flow Rate FiO2 08/11/17 05:55 94 Nasal Cannula 2.0 08/11/17 05:27 97.4 83 20 103/55 (71) General Appearance: Alert, Oriented X3, Cooperative, No acute distress HEENT: Atraumatic, PERRLA, EOMI, Mucous membr. moist/pink, Other (Neck supple, no JVD, no LAD) Respiratory: Clear to auscultation, Normal air movement Heart: Regular rate, Normal S1, Normal S2, No murmurs Abdominal: Normal bowel sounds, Soft, No tenderness, No hepatospenomegaly, No masses Extremities: No edema, Normal pulses, No tenderness/swelling Skin: No rashes, No breakdown Neuro: Normal speech, Strength at 5/5 X4 ext, Normal tone, Sensation intact, Cranial nerves 3-12 NL, Reflexes 2+ Psych/Mental Status: Mental status NL, Mood NL Assessment/Plan Assessment/Plan 1. Pneumonia, unknown organism: CXR clear, but pt has a hx of CXR lagging behind clinical symptoms. WBC was elevated and pt was hypoxic on arrival. Continue abx, bronchodilators. Check CXR in AM. 2. Acute respiratory failure: Requiring 2 liters O2. No wheezing to suggest steroids would be helpful, though will consider if cannot wean off O2. 3. DM: Continue home meds. Monitor sugars AC/HS. 4. CKD, stage 3: Stable. Avoid nephrotoxic agents. 5. CAD, hx of, w/ [place]: Pt denies chest pain. 6. DVT proph: Heparin. Pt is high risk. 7. Disp: Expect 2 MN stay for treatment of pneumonia and respiratory failure. COURSE Allergies Coded Allergies Type Severity Reaction Last Updated Verified Sulfa (Sulfonamide Antibiotics) Allergy Intermediate 12/30/16 No ciprofloxacin Allergy Intermediate yeast inf 12/30/16 No codeine Allergy Intermediate vomiting 12/30/16 No diclofenac Allergy Intermediate rash 12/30/16 No hydrochlorothiazide Allergy Intermediate rash 12/30/16 No ibuprofen Allergy Intermediate cant take due to kidneys 12/30/16 No misoprostol Allergy Intermediate rash 12/30/16 No latex Allergy Mild gi problems 12/30/16 No Laboratory Tests Test 08/10/17 14:30 08/10/17 14:50 08/10/17 17:55 08/10/17 19:45 White Blood Count 17.2 x10^3/uL (4.0-11.0) Red Blood Count 5.07 x10^6/uL (3.50-5.40) Hemoglobin 13.9 g/dL (12.0-15.5) Hematocrit 44.1 % (36.0-47.0) Mean Corpuscular Volume 87 fL (79-100) Mean Corpuscular Hemoglobin 28 pg (25-35) Mean Corpuscular Hemoglobin Concent 32 g/dL (31-37) Red Cell Distribution Width 16.7 % (11.5-14.5) Platelet Count 302 x10^3/uL (140-400) Neutrophils (%) (Auto) 80 % (31-73) Lymphocytes (%) (Auto) 7 % (24-48) Monocytes (%) (Auto) 8 % (0-9) Eosinophils (%) (Auto) 4 % (0-3) Basophils (%) (Auto) 1 % (0-3) Neutrophils # (Auto) 13.8 x10^3uL (1.8-7.7) Lymphocytes # (Auto) 1.2 x10^3/uL (1.0-4.8) Monocytes # (Auto) 1.4 x10^3/uL (0.0-1.1) Eosinophils # (Auto) 0.7 x10^3/uL (0.0-0.7) Basophils # (Auto) 0.1 x10^3/uL (0.0-0.2) Segmented Neutrophils % 79 % (35-66) Lymphocytes % 6 % (24-48) Monocytes % 8 % (0-10) Eosinophils % 5 % (0-5) Basophils % 1 % (0-3) Platelet Estimate Adequate (ADEQUATE) Giant Platelets Present Stomatocytes Present Sodium Level 139 mmol/L (136-145) Potassium Level 4.1 mmol/L (3.5-5.1) Chloride Level 98 mmol/L (98-107) Carbon Dioxide Level 34 mmol/L (21-32) Anion Gap 7 (6-14) Blood Urea Nitrogen 22 mg/dL (7-20) Creatinine 1.7 mg/dL (0.6-1.0) Estimated GFR (Cockcroft-Gault) 29.5 Glucose Level 155 mg/dL (70-99) Calcium Level 10.1 mg/dL (8.5-10.1) Total Bilirubin 0.7 mg/dL (0.2-1.0) Direct Bilirubin 0.2 mg/dL (0.0-0.2) Aspartate Amino Transf (AST/SGOT) 19 U/L (15-37) Alanine Aminotransferase (ALT/SGPT) 34 U/L (14-59) Alkaline Phosphatase 132 U/L (46-116) Troponin I Quantitative 0.029 ng/mL (0-0.055) 0.037 ng/mL (0-0.055) Total Protein 7.3 g/dL (6.4-8.2) Albumin 3.4 g/dL (3.4-5.0) Lipase 96 U/L (73-393) Urine Collection Type Unknown Urine Color Yellow Urine Clarity Clear Urine pH 7.0 Urine Specific [place] 1.015 Urine Protein 30 mg/dl (NEG-TRACE) Urine Glucose (UA) Neg mg/dL (NEG) Urine Ketones (Stick) Neg mg/dL (NEG) Urine Blood Neg (NEG) Urine Nitrite Neg (NEG) Urine Bilirubin Neg (NEG) Urine Urobilinogen Dipstick 0.2 mg/dL (0.2 mg/dL) Urine Leukocyte Esterase Neg (NEG) Urine RBC 3-5 /HPF (0-2) Urine WBC 1-4 /HPF (0-4) Urine Squamous Epithelial Cells Few /LPF Urine Bacteria 0 /HPF (0-FEW) Urine Hyaline Casts Mod /HPF Urine Mucus Mod /LPF Glucose (Fingerstick) 129 mg/dL (70-99) Lactic Acid Level 1.5 mmol/L (0.4-2.0) Test 08/10/17 20:55 08/10/17 22:18 Glucose (Fingerstick) 234 mg/dL (70-99) Troponin I Quantitative 0.034 ng/mL (0-0.055) Current Medications Medications (Trade) Dose Ordered Sig/Marisa Route PRN Reason Start Time Stop Time Status Last Admin Dose Admin Albuterol/ Ipratropium (Duoneb) 3 ml 1X ONCE NEB 08/10/17 14:15 08/10/17 14:17 DC 08/10/17 14:31 Sodium Chloride 1,000 ml @ 100 mls/hr Q10H IV 08/10/17 16:10 08/11/17 16:09 08/11/17 05:34 Ceftriaxone Sodium 1 gm/ Sodium Chloride 50 ml @ 100 mls/hr 1X ONCE IV 08/10/17 16:15 08/10/17 16:44 UNV Azithromycin 500 mg/Sodium Chloride 250 ml @ 250 mls/hr 1X ONCE IV 08/10/17 16:30 08/10/17 17:29 DC 08/10/17 19:00 Sodium Chloride 500 ml @ 0 mls/hr 1X ONCE IV 08/10/17 16:30 08/10/17 16:31 DC 08/10/17 16:30 Ceftriaxone Sodium (Rocephin) 1 gm 1X ONCE IVP 08/10/17 16:30 08/10/17 16:31 DC 08/10/17 16:30 Sodium Chloride 250 ml @ As Directed STK-MED ONCE .ROUTE 08/10/17 17:11 08/10/17 17:12 DC Azithromycin (Zithromax) 500 mg STK-MED ONCE IV 08/10/17 17:11 08/10/17 17:12 DC Allopurinol (Zyloprim) 300 mg DAILY PO 08/11/17 09:00 Aspirin (Children'S Aspirin) 81 mg DAILY PO 08/11/17 09:00 08/11/17 09:00 DC Atorvastatin Calcium (Lipitor) 20 mg HS PO 08/11/17 21:00 Vitamin D (Vitamin D3) 4,000 unit DAILY PO 08/11/17 09:00 Clonazepam (KlonoPIN) 2 mg HS PO 08/11/17 21:00 Diphenoxylate HCl/ Atropine (Lomotil) 2 tab PRN QID PRN PO DIARRHEA 08/11/17 01:00 Folic Acid (Folic Acid) 1 mg DAILY PO 08/11/17 09:00 Insulin Detemir (Levemir) 30 units HS SQ 08/11/17 21:00 Levothyroxine Sodium (Synthroid) 75 mcg DAILY06 PO 3/20/18 06:00 08/11/17 05:47 Mirtazapine (Remeron) 15 mg DAILY PO 08/11/17 09:00 08/11/17 09:00 DC Potassium Citrate (Urocit-K) 10 meq DAILY PO 08/11/17 09:00 08/11/17 09:00 DC Tramadol HCl (Ultram) 50 mg PRN Q6HRS PRN PO PAIN 08/11/17 01:00 Non-Formulary Medication (Budesonide/ Formoterol Fumarate (Symbicort 160-4.5 Mcg Inhaler)) 1 inh PRN PRN PO Asthma 08/11/17 01:00 UNV Erythromycin (E-Mycin) 250 mg BID PO 08/11/17 09:00 Non-Formulary Medication (Levomilnacipran Hydrochloride (Fetzima)) 80 mg DAILY PO 08/11/17 09:00 UNV Losartan Potassium (Cozaar) 100 mg DAILY PO 08/11/17 09:00 Magnesium Oxide (Magnesium Oxide) 800 mg DAILY PO 08/11/17 09:00 Pantoprazole Sodium (Protonix) 40 mg DAILYAC PO 08/11/17 07:30 Verapamil HCl (Calan Sr) 120 mg QODAY PO 08/12/17 09:00 Verapamil HCl (Calan Sr) 240 mg QODAY PO 08/11/17 09:00 Insulin Aspart (NovoLOG) 0-7 UNITS QIDACHS SQ 08/11/17 07:30 Dextrose 12.5 gm PRN Q15MIN PRN IV SEE COMMENTS 08/11/17 01:00 Clonazepam (KlonoPIN) 2 mg ONCE ONCE PO 08/11/17 01:30 08/11/17 01:31 DC 08/11/17 01:28 Aspirin (Children'S Aspirin) 162 mg 1X ONCE PO 08/11/17 01:30 08/11/17 01:31 DC 08/11/17 01:28 Mirtazapine (Remeron) 30 mg 1X ONCE PO 08/11/17 01:30 08/11/17 01:31 DC 08/11/17 01:28 Budesonide (Pulmicort) 0.5 mg RTBID NEB 08/11/17 08:00 Albuterol Sulfate (Ventolin) 2.5 mg RTQID NEB 08/11/17 08:00 Insulin Detemir (Levemir) 30 units 1X ONCE SQ 08/11/17 01:30 08/11/17 01:31 DC 08/11/17 02:17 Aspirin (Children'S Aspirin) 162 mg HS PO 08/11/17 21:00 Mirtazapine (Remeron) 30 mg HS PO 08/11/17 21:00 Potassium Citrate (Urocit-K) 20 meq BIDWMEALS PO 08/11/17 08:00 Albuterol/ Ipratropium (Duoneb) 3 ml STK-MED ONCE .ROUTE 08/11/17 05:06 08/11/17 05:07 DC I & O 08/11/17 00:00 Intake Total 1440 ml Balance 1440 ml Vital Signs Date Time Temp Pulse Resp B/P (MAP) Pulse Ox O2 Delivery O2 Flow Rate FiO2 08/11/17 05:55 94 Nasal Cannula 2.0 08/11/17 05:27 97.4 83 20 103/55 (71) Two-view chest 08/10/2017 Clinical indication: Short of air with cough. COMPARISON: Two-view chest 02/11/2017. FINDINGS: Cardiac and mediastinal silhouettes are unremarkable. No pleural effusion, pneumothorax or focal consolidation. Calcified atheromatous disease of the thoracic aorta. IMPRESSION: No acute cardiopulmonary abnormality. BREE CHACKO MD Aug 11, 2017 06:25
[2017-08-11 06:29] LABS: BASO # 0.1 x10^3/uL (0.0-0.2); BASO % 1 % (0-3); EOS # 0.6 x10^3/uL (0.0-0.7); EOS % 7 % (0-3); HEMATOCRIT 37.6 % (36.0-47.0); HEMOGLOBIN 11.9 g/dL (12.0-15.5); LYMPH # 1.4 x10^3/uL (1.0-4.8); LYMPH % 16 % (24-48); MEAN CORPUSCULAR HEMOGLOBIN 28 pg (25-35); MEAN CORPUSCULAR HGB CONC 32 g/dL (31-37); MEAN CORPUSCULAR VOLUME 87 fL (79-100); MONO % 11 % (0-9); NEUT # 5.8 x10^3uL (1.8-7.7); NEUT % 65 % (31-73); PLATELET COUNT 258 x10^3/uL (140-400); RED BLOOD COUNT 4.31 x10^6/uL (3.50-5.40); RED CELL DISTRIBUTION WIDTH 16.2 % (11.5-14.5); WHITE BLOOD COUNT 8.9 x10^3/uL (4.0-11.0)
[2017-08-11] MEDS: INSULIN ASPART 300 UNITS/3 ML INSULN.PEN SQ SCH ×4 (07:30→21:00)
[2017-08-11] MEDS: LOSARTAN 50 MG TABLET. PO SCH (08:24)
[2017-08-11] MEDS: PANTOPRAZOLE 40 MG TABLET. PO SCH (08:24)
[2017-08-11] MEDS: MAGNESIUM OXIDE 400 MG TABLET PO SCH (08:24)
[2017-08-11] MEDS: ALLOPURINOL 300 MG TABLET. PO SCH (08:25)
[2017-08-11] MEDS: FOLIC ACID 1 MG TABLET PO SCH (08:25)
[2017-08-11] MEDS: CHOLECALCIFEROL (VITAMIN D3) 1,000 UNIT TABLET PO SCH (08:25)
[2017-08-11] MEDS: POTASSIUM CITRATE 10 MEQ TABLET.ER PO SCH ×2 (08:53→17:29)
[2017-08-11] MEDS: ERYTHROMYCIN BASE 250 MG TABLET PO SCH ×2 (08:55→20:44)
[2017-08-11] MEDS ORDERED: MIRTAZAPINE 15 MG TABLET PO SCH (09:00)
[2017-08-11] MEDS ORDERED: ASPIRIN 81 MG TAB.CHEW PO SCH ×2 (09:00→21:00)
[2017-08-11] MEDS ORDERED: POTASSIUM CITRATE 10 MEQ TABLET.ER PO SCH (09:00)
[2017-08-11] MEDS ORDERED: VERAPAMIL SR 120 MG TABLET.ER. PO SCH (09:00)
[2017-08-11] MEDS: FETZIMA 80 MG PO SCH (10:18)
[2017-08-11 10:45] VITALS: BP 109/50
[2017-08-11] MEDS: BUDESONIDE 0.5 MG/2 ML NEBU NEB SCH ×2 (11:16→20:56)
[2017-08-11] MEDS: HEPARIN PF for SUB-Q USE 5,000 UNIT/0.5 ML VIAL. SQ SCH ×2 (14:31→20:56)
[2017-08-11 15:07] VITALS: BP 152/74
[2017-08-11] MEDS ORDERED: cefTRIAXone IV Push 1 GM VIAL. IVP SCH (16:00)
[2017-08-11] MEDS ORDERED: AZITHROMYCIN 250 MG TABLET. PO SCH (17:00)
[2017-08-11 19:51] VITALS: BP 148/76
[2017-08-11] MEDS: LACTOBACILLUS RHAMNOSUS GG 1 CAPSULE. PO SCH (20:43)
[2017-08-11] MEDS ORDERED: ATORVASTATIN CALCIUM 20 MG TABLET PO SCH (21:00)
[2017-08-11] MEDS ORDERED: clonazePAM 2 MG TABLET PO SCH (21:00)
[2017-08-11] MEDS ORDERED: MIRTAZAPINE 30 MG TABLET PO SCH (21:00)
[2017-08-11] MEDS ORDERED: INSULIN DETEMIR 300 UNITS/3 ML INSULN.PEN. SQ SCH (21:00)
[2017-08-11 23:23] VITALS: BP 183/76
--- NOTE | 2017-08-12 04:43 | NUR ---
Pt reported feeling as if her blood sugar was low. Fingerstick glucose taken with a critical result of 32. Pt alert and oriented so given crackers and juice. Lab stat glucose taken with a result of 40. Dr Trejo notified per critical protocol. Pt fingerstick taken q15min with results of 50, additional crackers and juice given, final stick of 95 at therapeutic level. Pt reports feeling better and is resting comfortably.
[2017-08-12] MEDS: ALBUTEROL SULFATE 2.5 MG/3 ML NEBU. NEB SCH ×2 (06:02→10:41)
[2017-08-12] MEDS: PANTOPRAZOLE 40 MG TABLET. PO SCH (06:28)
[2017-08-12] MEDS: LEVOTHYROXINE 75 MCG TABLET PO SCH (06:28)
[2017-08-12] MEDS: HEPARIN PF for SUB-Q USE 5,000 UNIT/0.5 ML VIAL. SQ SCH ×2 (06:29→14:00)
[2017-08-12 06:31] VITALS: BP 167/68
[2017-08-12 06:59] LABS: BASO # 0.1 x10^3/uL (0.0-0.2); BASO % 1 % (0-3); EOS # 0.4 x10^3/uL (0.0-0.7); EOS % 5 % (0-3); HEMATOCRIT 36.8 % (36.0-47.0); HEMOGLOBIN 11.6 g/dL (12.0-15.5); LYMPH % 12 % (24-48); MEAN CORPUSCULAR HEMOGLOBIN 28 pg (25-35); MEAN CORPUSCULAR HGB CONC 32 g/dL (31-37); MEAN CORPUSCULAR VOLUME 87 fL (79-100); MONO # 0.9 x10^3/uL (0.0-1.1); MONO % 11 % (0-9); NEUT # 6.1 x10^3uL (1.8-7.7); NEUT % 71 % (31-73); PLATELET COUNT 245 x10^3/uL (140-400); RED BLOOD COUNT 4.21 x10^6/uL (3.50-5.40); RED CELL DISTRIBUTION WIDTH 16.3 % (11.5-14.5); WHITE BLOOD COUNT 8.5 x10^3/uL (4.0-11.0)
[2017-08-12 07:05] LABS: CALCIUM 9.4 mg/dL (8.5-10.1); CREATININE 1.4 mg/dL (0.6-1.0); POTASSIUM 3.9 mmol/L (3.5-5.1)
--- NOTE | 2017-08-12 08:14 | RAD ---
2 views of the Chest 08/12/2017 9:00 AM Indication: pneumonia Comparison: Chest radiograph 08/10/2017 Findings: There is no acute focal consolidation or infiltrate identified. There is no effusion or pneumothorax. Heart size is normal.. No osseous abnormality is identified. Impression: No evidence of acute cardiopulmonary process.
[2017-08-12] MEDS ORDERED: VERAPAMIL SR 120 MG TABLET.ER. PO SCH (09:00)
[2017-08-12] MEDS: INSULIN ASPART 300 UNITS/3 ML INSULN.PEN SQ SCH ×2 (09:04→11:32)
[2017-08-12] MEDS: FETZIMA 80 MG PO SCH (09:06)
[2017-08-12] MEDS: ERYTHROMYCIN BASE 250 MG TABLET PO SCH (09:08)
[2017-08-12] MEDS: POTASSIUM CITRATE 10 MEQ TABLET.ER PO SCH (09:08)
[2017-08-12] MEDS: MAGNESIUM OXIDE 400 MG TABLET PO SCH (09:09)
[2017-08-12] MEDS: LACTOBACILLUS RHAMNOSUS GG 1 CAPSULE. PO SCH (09:09)
[2017-08-12] MEDS: CHOLECALCIFEROL (VITAMIN D3) 1,000 UNIT TABLET PO SCH (09:09)
[2017-08-12] MEDS: LOSARTAN 50 MG TABLET. PO SCH (09:11)
[2017-08-12] MEDS: FOLIC ACID 1 MG TABLET PO SCH (09:11)
[2017-08-12] MEDS: ALLOPURINOL 300 MG TABLET. PO SCH (09:11)
[2017-08-12] MEDS: BUDESONIDE 0.5 MG/2 ML NEBU NEB SCH (10:41)
[2017-08-12 10:51] VITALS: BP 145/69
--- NOTE | 2017-08-12 11:39 | NUR ---
Pt A/ox4. Able to meds well. Blood sugar 161 this am. Ate all of am meal, and sliding scale insulin given. Denies pain or discomfort. Pt is wanting to go home. Will continue to monitor.
[2017-08-12] MEDS ORDERED: AMOX1TAB61 PO (13:28)
--- NOTE | 2017-08-12 13:37 | DISCH ---
DISCHARGE INSTRUCTIONS-DC Condition on Discharge Condition on Discharge: Stable Problems: Activity after Discharge Activity Instructions for Disc: No restrictions Diet after Discharge Diet after Discharge: Diabetic No Calorie Level Contacting the DR. after DC Call your doctor for: If your condition worsens Follow-Up Follow up with: PCP in 1-2 weeks BREE CHACKO MD Aug 12, 2017 13:37
--- NOTE | 2017-08-12 13:40 | PDOC3 ---
Discharge Summary Discharge Summary Date of Admission Date of Admission: Aug 10, 2017 at 16:20 Admitting Diagnosis 1. Pneumonia, unknown organism 2. Acute respiratory failure 3. DM Type 2 4. CKD Date of Discharge: Aug 12, 2017 Discharge Diagnosis 1. Pneumonia, unknown organism 2. Acute respiratory failure 3. DM Type 2 4. CKD Laboratory Findings Laboratory Tests Test 08/10/17 14:30 08/10/17 14:50 08/10/17 17:55 08/10/17 19:45 White Blood Count 17.2 x10^3/uL (4.0-11.0) Red Blood Count 5.07 x10^6/uL (3.50-5.40) Hemoglobin 13.9 g/dL (12.0-15.5) Hematocrit 44.1 % (36.0-47.0) Mean Corpuscular Volume 87 fL (79-100) Mean Corpuscular Hemoglobin 28 pg (25-35) Mean Corpuscular Hemoglobin Concent 32 g/dL (31-37) Red Cell Distribution Width 16.7 % (11.5-14.5) Platelet Count 302 x10^3/uL (140-400) Neutrophils (%) (Auto) 80 % (31-73) Lymphocytes (%) (Auto) 7 % (24-48) Monocytes (%) (Auto) 8 % (0-9) Eosinophils (%) (Auto) 4 % (0-3) Basophils (%) (Auto) 1 % (0-3) Neutrophils # (Auto) 13.8 x10^3uL (1.8-7.7) Lymphocytes # (Auto) 1.2 x10^3/uL (1.0-4.8) Monocytes # (Auto) 1.4 x10^3/uL (0.0-1.1) Eosinophils # (Auto) 0.7 x10^3/uL (0.0-0.7) Basophils # (Auto) 0.1 x10^3/uL (0.0-0.2) Segmented Neutrophils % 79 % (35-66) Lymphocytes % 6 % (24-48) Monocytes % 8 % (0-10) Eosinophils % 5 % (0-5) Basophils % 1 % (0-3) Platelet Estimate Adequate (ADEQUATE) Giant Platelets Present Stomatocytes Present Sodium Level 139 mmol/L (136-145) Potassium Level 4.1 mmol/L (3.5-5.1) Chloride Level 98 mmol/L (98-107) Carbon Dioxide Level 34 mmol/L (21-32) Anion Gap 7 (6-14) Blood Urea Nitrogen 22 mg/dL (7-20) Creatinine 1.7 mg/dL (0.6-1.0) Estimated GFR (Cockcroft-Gault) 29.5 Glucose Level 155 mg/dL (70-99) Calcium Level 10.1 mg/dL (8.5-10.1) Total Bilirubin 0.7 mg/dL (0.2-1.0) Direct Bilirubin 0.2 mg/dL (0.0-0.2) Aspartate Amino Transf (AST/SGOT) 19 U/L (15-37) Alanine Aminotransferase (ALT/SGPT) 34 U/L (14-59) Alkaline Phosphatase 132 U/L (46-116) Troponin I Quantitative 0.029 ng/mL (0-0.055) 0.037 ng/mL (0-0.055) Total Protein 7.3 g/dL (6.4-8.2) Albumin 3.4 g/dL (3.4-5.0) Lipase 96 U/L (73-393) Urine Collection Type Unknown Urine Color Yellow Urine Clarity Clear Urine pH 7.0 Urine Specific [place] 1.015 Urine Protein 30 mg/dl (NEG-TRACE) Urine Glucose (UA) Neg mg/dL (NEG) Urine Ketones (Stick) Neg mg/dL (NEG) Urine Blood Neg (NEG) Urine Nitrite Neg (NEG) Urine Bilirubin Neg (NEG) Urine Urobilinogen Dipstick 0.2 mg/dL (0.2 mg/dL) Urine Leukocyte Esterase Neg (NEG) Urine RBC 3-5 /HPF (0-2) Urine WBC 1-4 /HPF (0-4) Urine Squamous Epithelial Cells Few /LPF Urine Bacteria 0 /HPF (0-FEW) Urine Hyaline Casts Mod /HPF Urine Mucus Mod /LPF Glucose (Fingerstick) 129 mg/dL (70-99) Lactic Acid Level 1.5 mmol/L (0.4-2.0) Test 08/10/17 20:55 08/10/17 22:18 08/11/17 05:40 08/11/17 07:42 Glucose (Fingerstick) 234 mg/dL (70-99) 101 mg/dL (70-99) Troponin I Quantitative 0.034 ng/mL (0-0.055) White Blood Count 8.9 x10^3/uL (4.0-11.0) Red Blood Count 4.31 x10^6/uL (3.50-5.40) Hemoglobin 11.9 g/dL (12.0-15.5) Hematocrit 37.6 % (36.0-47.0) Mean Corpuscular Volume 87 fL (79-100) Mean Corpuscular Hemoglobin 28 pg (25-35) Mean Corpuscular Hemoglobin Concent 32 g/dL (31-37) Red Cell Distribution Width 16.2 % (11.5-14.5) Platelet Count 258 x10^3/uL (140-400) Neutrophils (%) (Auto) 65 % (31-73) Lymphocytes (%) (Auto) 16 % (24-48) Monocytes (%) (Auto) 11 % (0-9) Eosinophils (%) (Auto) 7 % (0-3) Basophils (%) (Auto) 1 % (0-3) Neutrophils # (Auto) 5.8 x10^3uL (1.8-7.7) Lymphocytes # (Auto) 1.4 x10^3/uL (1.0-4.8) Monocytes # (Auto) 1.0 x10^3/uL (0.0-1.1) Eosinophils # (Auto) 0.6 x10^3/uL (0.0-0.7) Basophils # (Auto) 0.1 x10^3/uL (0.0-0.2) Sodium Level 145 mmol/L (136-145) Potassium Level 4.3 mmol/L (3.5-5.1) Chloride Level 106 mmol/L (98-107) Carbon Dioxide Level 36 mmol/L (21-32) Anion Gap 3 (6-14) Blood Urea Nitrogen 23 mg/dL (7-20) Creatinine 1.6 mg/dL (0.6-1.0) Estimated GFR (Cockcroft-Gault) 31.7 Glucose Level 107 mg/dL (70-99) Calcium Level 9.3 mg/dL (8.5-10.1) Test 08/11/17 11:46 08/11/17 16:53 08/11/17 20:37 08/12/17 03:39 Glucose (Fingerstick) 233 mg/dL (70-99) 159 mg/dL (70-99) 181 mg/dL (70-99) 32 mg/dL (70-99) Test 08/12/17 03:45 08/12/17 03:58 08/12/17 04:20 08/12/17 06:05 Glucose Level 40 mg/dL (70-99) 184 mg/dL (70-99) Glucose (Fingerstick) 50 mg/dL (70-99) 95 mg/dL (70-99) White Blood Count 8.5 x10^3/uL (4.0-11.0) Red Blood Count 4.21 x10^6/uL (3.50-5.40) Hemoglobin 11.6 g/dL (12.0-15.5) Hematocrit 36.8 % (36.0-47.0) Mean Corpuscular Volume 87 fL (79-100) Mean Corpuscular Hemoglobin 28 pg (25-35) Mean Corpuscular Hemoglobin Concent 32 g/dL (31-37) Red Cell Distribution Width 16.3 % (11.5-14.5) Platelet Count 245 x10^3/uL (140-400) Neutrophils (%) (Auto) 71 % (31-73) Lymphocytes (%) (Auto) 12 % (24-48) Monocytes (%) (Auto) 11 % (0-9) Eosinophils (%) (Auto) 5 % (0-3) Basophils (%) (Auto) 1 % (0-3) Neutrophils # (Auto) 6.1 x10^3uL (1.8-7.7) Lymphocytes # (Auto) 1.0 x10^3/uL (1.0-4.8) Monocytes # (Auto) 0.9 x10^3/uL (0.0-1.1) Eosinophils # (Auto) 0.4 x10^3/uL (0.0-0.7) Basophils # (Auto) 0.1 x10^3/uL (0.0-0.2) Sodium Level 142 mmol/L (136-145) Potassium Level 3.9 mmol/L (3.5-5.1) Chloride Level 103 mmol/L (98-107) Carbon Dioxide Level 35 mmol/L (21-32) Anion Gap 4 (6-14) Blood Urea Nitrogen 17 mg/dL (7-20) Creatinine 1.4 mg/dL (0.6-1.0) Estimated GFR (Cockcroft-Gault) 37.0 Calcium Level 9.4 mg/dL (8.5-10.1) Test 08/12/17 07:37 08/12/17 12:15 Glucose (Fingerstick) 161 mg/dL (70-99) 133 mg/dL (70-99) Hospital Course Pt admitted to hospital w/ pneumonia. WBC was elevated but CXR was negative x 2. RLL crackles noted. Pt w/ hx of pneumonia. Sx's improved w/ IV abx ( Rocephin and Zmax). Sent home on Augmentin. Continued home meds otherwise. Pt required O2 at admission but by day of d/c, did not require O2. Pt will f/u with her PCP in 1-2 weeks. Treatment Exam: A&O x3, NAD RRR, no m/r/g OP: MMM Neck: No JVD Chest: RLL crackles, no wheezes Ext: NO edema, Ricki's neg bilat Neuro: No focal abnormalities Condition at Discharge: Stable Home Meds Reported Medications Clonazepam (KLONOPIN) 2 Mg Tablet, 2 MG PO HS, TAB 08/11/17 Verapamil Hcl (VERAPAMIL ER) 240 Mg Cap24h.pel, 240 MG PO QODAY, CAP 08/11/17 Verapamil Hcl (VERAPAMIL ER) 240 Mg Cap24h.pel, 120 MG PO QODAY, CAP 08/11/17 Magnesium Oxide (MAGNESIUM) 400 Mg Capsule, 800 MG PO DAILY, CAP 08/10/17 Levomilnacipran Hydrochloride (FETZIMA) 80 Mg Cap.sa.24h, 80 MG PO DAILY, CAP.SR 08/10/17 Tramadol Hcl (TRAMADOL HCL) 50 Mg Tablet, 50 MG PO PRN Q6HRS Y for PAIN, TAB 08/10/17 Insulin Detemir (Levemir Flextouch) 100 Unit/1 Ml Insuln.pen, 30 UNIT SQ, SYR 08/10/17 Cholecalciferol (Vitamin D3) (VITAMIN D3) 1,000 Unit Tablet, 2000 UNIT PO 08/10/17 Folic Acid (FOLIC ACID) 1 Mg Tablet, 1 MG PO DAILY, TAB 08/10/17 Aspirin (ASPIRIN) 81 Mg Tab.chew, 162 MG PO DAILY, TAB 08/10/17 Losartan Potassium (LOSARTAN POTASSIUM) 100 Mg Tablet, 100 MG PO DAILY, TAB 08/10/17 Insulin Aspart (NOVOLOG FLEXPEN) 100 Unit/1 Ml Insuln.pen, 0-7 UNITS IN QIDACHS for High Blood Sugar LAST DOSE GIVEN: DATE:01/04 TIME:lunch NEXT DOSE DUE: DATE:01/04 TIME:dinner 12/31/16 Budesonide/Formoterol Fumarate (SYMBICORT 160-4.5 MCG INHALER) 10.2 Gm Hfa.aer.ad, 1 INH PO PRN Y for Asthma LAST DOSE GIVEN: DATE: TIME: NEXT DOSE DUE: DATE: TIME: 12/31/16 Mirtazapine (MIRTAZAPINE) 30 Mg Tablet, 30 MG PO HS for Depression LAST DOSE GIVEN: DATE: TIME: NEXT DOSE DUE: DATE: TIME: 12/31/16 Omeprazole (OMEPRAZOLE) 20 Mg Capsule.dr, 20 MG PO BID for GERD LAST DOSE GIVEN: DATE:01/04 TIME:829 NEXT DOSE DUE: DATE:01/05 TIME:82912/31/16 Erythromycin Base (ERYTHROMYCIN) 250 Mg Capsule.dr, 250 MG PO BID for Gastroparesis LAST DOSE GIVEN: DATE:01/04 TIME:829 NEXT DOSE DUE: DATE:01/04 TIME:9:00 pm 12/31/16 Allopurinol (ALLOPURINOL) 300 Mg Tablet, 300 MG PO DAILY for Gout LAST DOSE GIVEN: DATE:01/04 TIME:829 NEXT DOSE DUE: DATE:01/05 TIME:82912/31/16 Atorvastatin Calcium (ATORVASTATIN CALCIUM) 20 Mg Tablet, 20 MG PO HS for High Cholesterol LAST DOSE GIVEN: DATE:01/03 TIME:9:00 pm NEXT DOSE DUE: DATE:01/04 TIME:9:00 pm 12/31/16 Levothyroxine Sodium (LEVOTHYROXINE SODIUM) 75 Mcg Tablet, 75 MCG PO DAILY06 for Hypothyroid LAST DOSE GIVEN: DATE:01/04 TIME:829 NEXT DOSE DUE: DATE:8/14 TIME:0700 12/31/16 Potassium Citrate (POTASSIUM CITRATE) 10 Meq Tablet.er, 10 MEQ PO DAILY for Potassium Supplement LAST DOSE GIVEN: DATE: TIME: NEXT DOSE DUE: DATE: TIME: 12/31/16 Diphenoxylate Hcl/Atropine (LOMOTIL TABLET) 1 Each Tablet, 2.5 MG PO PRN QID Y for DIARRHEA LAST DOSE GIVEN: DATE: TIME: NEXT DOSE DUE: DATE:may have at any time TIME: 12/31/16 Inpatient Meds Current Medications Albuterol/ Ipratropium (Duoneb) 3 ml 1X ONCE NEB Last administered on at 14:31; Start 08/10/17 at 14:15; Stop 08/10/17 at 14:17; Status DC Sodium Chloride 1,000 ml @ 100 mls/hr Q10H IV Last administered on 08/11/17at 05:34; Start 08/10/17 at 16:10; Stop 08/11/17 at 14:10; Status DC Ceftriaxone Sodium 1 gm/ Sodium Chloride 50 ml @ 100 mls/hr 1X ONCE IV ; Start 08/10/17 at 16:15; Stop 08/10/17 at 16:44; Status UNV Azithromycin 500 mg/Sodium Chloride 250 ml @ 250 mls/hr 1X ONCE IV Last administered on 08/10/17at 19:00; Start 08/10/17 at 16:30; Stop 08/10/17 at 17:29 ; Status DC Sodium Chloride 500 ml @ 0 mls/hr 1X ONCE IV Last administered on 08/10/17at 16 :30; Start 08/10/17 at 16:30; Stop 08/11/17 at 14:10; Status DC Ceftriaxone Sodium (Rocephin) 1 gm 1X ONCE IVP Last administered on 08/10/17at 16:30; Start 08/10/17 at 16:30; Stop 08/10/17 at 16:31; Status DC Sodium Chloride 250 ml @ As Directed STK-MED ONCE .ROUTE ; Start 08/10/17 at 17 :11; Stop 08/11/17 at 14:10; Status DC Azithromycin (Zithromax) 500 mg STK-MED ONCE IV ; Start 08/10/17 at 17:11; Stop 08/10/17 at 17:12; Status DC Allopurinol (Zyloprim) 300 mg DAILY PO Last administered on 08/12/17 09:11; Start 08/11/17 at 09:00 Aspirin (Children'S Aspirin) 81 mg DAILY PO ; Start 08/11/17 at 09:00; Stop at 09:00; Status DC Atorvastatin Calcium (Lipitor) 20 mg HS PO Last administered on 08/11/17at 20:43 ; Start 08/11/17 at 21:00 Vitamin D (Vitamin D3) 4,000 unit DAILY PO Last administered on 08/12/17at 09:09 ; Start 08/11/17 at 09:00 Clonazepam (KlonoPIN) 2 mg HS PO Last administered on 08/11/17at 20:44; Start at 21:00 Diphenoxylate HCl/ Atropine (Lomotil) 2 tab PRN QID PRN PO DIARRHEA; Start at 01:00 Folic Acid (Folic Acid) 1 mg DAILY PO Last administered on 08/12/17at 09:11; Start 08/11/17 at 09:00 Insulin Detemir (Levemir) 30 units HS SQ Last administered on 08/11/17at 21:07; Start 08/11/17 at 21:00 Levothyroxine Sodium (Synthroid) 75 mcg DAILY06 PO Last administered on at 06:28; Start 08/11/17 at 06:00 Mirtazapine (Remeron) 15 mg DAILY PO ; Start 08/11/17 at 09:00; Stop 08/11/17 at 09:00; Status DC Potassium Citrate (Urocit-K) 10 meq DAILY PO ; Start 08/11/17 at 09:00; Stop at 09:00; Status DC Tramadol HCl (Ultram) 50 mg PRN Q6HRS PRN PO PAIN; Start 08/11/17 at 01:00 Non-Formulary Medication (Budesonide/ Formoterol Fumarate (Symbicort 160-4.5 Mcg Inhaler)) 1 inh PRN PRN PO Asthma; Start 08/11/17 at 01:00; Status UNV Erythromycin (E-Mycin) 250 mg BID PO Last administered on 08/12/17at 09:08; Start 08/11/17 at 09:00 Non-Formulary Medication (Levomilnacipran Hydrochloride (Fetzima)) 80 mg DAILY PO Last administered on 08/12/17 09:06; Start 08/11/17 at 09:00 Losartan Potassium (Cozaar) 100 mg DAILY PO Last administered on 08/12/17at 09: 11; Start 08/11/17 at 09:00 Magnesium Oxide (Magnesium Oxide) 800 mg DAILY PO Last administered on 09:09; Start 08/11/17 at 09:00 Pantoprazole Sodium (Protonix) 40 mg DAILYAC PO Last administered on 08/12/17 06:28; Start 08/11/17 at 07:30 Verapamil HCl (Calan Sr) 120 mg QODAY PO Last administered on 08/12/17 09:07; Start 08/12/17 at 09:00 Verapamil HCl (Calan Sr) 240 mg QODAY PO ; Start 08/11/17 at 09:00 Insulin Aspart (NovoLOG) 0-7 UNITS QIDACHS SQ Last administered on 08/12/17 09 :04; Start 08/11/17 at 07:30 Dextrose 12.5 gm PRN Q15MIN PRN IV SEE COMMENTS; Start 08/11/17 at 01:00 Clonazepam (KlonoPIN) 2 mg ONCE ONCE PO Last administered on 08/11/17 01:28; Start 08/11/17 at 01:30; Stop 08/11/17 at 01:31; Status DC Aspirin (Children'S Aspirin) 162 mg 1X ONCE PO Last administered on 08/11/17 01:28; Start 08/11/17 at 01:30; Stop 08/11/17 at 01:31; Status DC Mirtazapine (Remeron) 30 mg 1X ONCE PO Last administered on 08/11/17 01:28; Start 08/11/17 at 01:30; Stop 08/11/17 at 01:31; Status DC Budesonide (Pulmicort) 0.5 mg RTBID NEB Last administered on 08/12/17at 10:41; Start 08/11/17 at 08:00 Albuterol Sulfate (Ventolin) 2.5 mg RTQID NEB Last administered on 08/12/17 10 :41; Start 08/11/17 at 08:00 Insulin Detemir (Levemir) 30 units 1X ONCE SQ Last administered on 08/11/17at 02:17; Start 08/11/17 at 01:30; Stop 08/11/17 at 01:31; Status DC Aspirin (Children'S Aspirin) 162 mg HS PO Last administered on 08/11/17at 20:43 ; Start 08/11/17 at 21:00 Mirtazapine (Remeron) 30 mg HS PO Last administered on 08/11/17at 20:44; Start 08/11/17 at 21:00 Potassium Citrate (Urocit-K) 20 meq BIDWMEALS PO Last administered on at 09:08; Start 08/11/17 at 08:00 Albuterol/ Ipratropium (Duoneb) 3 ml STK-MED ONCE .ROUTE ; Start 08/11/17 at 05: 06; Stop 08/11/17 at 05:07; Status DC Heparin Sodium (Porcine) (Heparin Sq) 5,000 unit Q8HRS SQ Last administered on 08/12/17at 06:29; Start 08/11/17 at 14:00 Ceftriaxone Sodium 1 gm/ Sodium Chloride 50 ml @ 100 mls/hr Q24H IV ; Start at 15:15; Status UNV Azithromycin (Zithromax) 250 mg DAILYWSUP PO Last administered on 08/11/17at 17: 40; Start 08/11/17 at 17:00 Ceftriaxone Sodium (Rocephin) 1 gm Q24H IVP Last administered on 08/11/17at 16: 32; Start 08/11/17 at 16:00 Lactobacillus Rhamnosus (Culturelle) 1 cap BID PO Last administered on at 09:09; Start 08/11/17 at 21:00 Active Scripts Active Reported Klonopin (Clonazepam) 2 Mg Tablet 2 Mg PO HS Verapamil Er (Verapamil Hcl) 240 Mg Cap24h.pel 240 Mg PO QODAY Verapamil Er (Verapamil Hcl) 240 Mg Cap24h.pel 120 Mg PO QODAY Magnesium (Magnesium Oxide) 400 Mg Capsule 800 Mg PO DAILY Fetzima (Levomilnacipran Hydrochloride) 80 Mg Cap.sa.24h 80 Mg PO DAILY Tramadol Hcl (Tramadol HCl) 50 Mg Tablet 50 Mg PO PRN Q6HRS PRN Levemir Flextouch (Insulin Detemir) 100 Unit/1 Ml Insuln.pen 30 Unit SQ Vitamin D3 (Cholecalciferol (Vitamin D3)) 1,000 Unit Tablet 2,000 Unit PO Folic Acid 1 Mg Tablet 1 Mg PO DAILY Aspirin 81 Mg Tab.chew 162 Mg PO DAILY Losartan Potassium 100 Mg Tablet 100 Mg PO DAILY Novolog Flexpen (Insulin Aspart) 100 Unit/1 Ml Insuln.pen 0-7 Units IN QIDACHS LAST DOSE GIVEN: DATE:01/04 TIME:lunch NEXT DOSE DUE: DATE:01/04 TIME:dinner Symbicort 160-4.5 Mcg Inhaler (Budesonide/Formoterol Fumarate) 10.2 Gm Hfa.aer.ad 1 Inh PO PRN PRN LAST DOSE GIVEN: DATE: TIME: NEXT DOSE DUE: DATE: TIME: Mirtazapine 30 Mg Tablet 30 Mg PO HS LAST DOSE GIVEN: DATE: TIME: NEXT DOSE DUE: DATE: TIME: Omeprazole 20 Mg Capsule.dr 20 Mg PO BID LAST DOSE GIVEN: DATE:01/04 TIME:829 NEXT DOSE DUE: DATE:01/05 TIME:829 Erythromycin (Erythromycin Base) 250 Mg Capsule.dr 250 Mg PO BID LAST DOSE GIVEN: DATE:01/04 TIME:30 NEXT DOSE DUE: DATE:01/04 TIME:9:00 pm Allopurinol 300 Mg Tablet 300 Mg PO DAILY LAST DOSE GIVEN: DATE:01/04 TIME:829 NEXT DOSE DUE: DATE:01/05 TIME:0830 Atorvastatin Calcium 20 Mg Tablet 20 Mg PO HS LAST DOSE GIVEN: DATE:01/03 TIME:9:00 pm NEXT DOSE DUE: DATE:01/04 TIME:9:00 pm Levothyroxine Sodium 75 Mcg Tablet 75 Mcg PO DAILY06 LAST DOSE GIVEN: DATE:01/04 TIME:30 NEXT DOSE DUE: DATE:01/05 TIME:0700 Potassium Citrate 10 Meq Tablet.er 10 Meq PO DAILY LAST DOSE GIVEN: DATE: TIME: NEXT DOSE DUE: DATE: TIME: Lomotil Tablet (Diphenoxylate Hcl/Atropine) 1 Each Tablet 2.5 Mg PO PRN QID PRN LAST DOSE GIVEN: DATE: TIME: NEXT DOSE DUE: DATE:may have at any time TIME: Activity: as tolerated Diet: Consistent Carbohydrate Follow-up Plan F/u with PCP in 1-2 weeks BREE CHACKO MD Aug 12, 2017 13:40
--- NOTE | 2017-08-12 15:24 | NUR ---
PT discharged to home with spouse. IV out, tele off. Script called into pt pharmacy.
== END 2017-08-12 15:31 | disposition home or self-care (01) | DRG 193 ==
LOC: ER 13:52 → 1 SOUTH 16:20
PROVIDERS: ADMIT Family Medicine; ATTEND Family Medicine
DX: J18.9 Pneumonia, unspecified organism (principal); J96.01 Acute respiratory failure with hypoxia; E11.22 Type 2 diabetes mellitus with diabetic chronic kidney disease; N18.3 Chronic kidney disease, stage 3 (moderate); R65.10 Systemic inflammatory response syndrome (SIRS) of non-infectious origin without acute organ dysfunction; I12.9 Hypertensive chronic kidney disease with stage 1 through stage 4 chronic kidney disease, or unspecified chronic kidney disease; J45.909 Unspecified asthma, uncomplicated; E05.90 Thyrotoxicosis, unspecified without thyrotoxic crisis or storm; I25.10 Atherosclerotic heart disease of native coronary artery without angina pectoris; I25.2 Old myocardial infarction; Z79.4 Long term (current) use of insulin; Z79.82 Long term (current) use of aspirin; Z82.49 Family history of ischemic heart disease and other diseases of the circulatory system; Z83.3 Family history of diabetes mellitus; Z87.442 Personal history of urinary calculi; Z88.5 Allergy status to narcotic agent; Z88.2 Allergy status to sulfonamides; Z88.8 Allergy status to other drugs, medicaments and biological substances; Z91.040 Latex allergy status; Z88.1 Allergy status to other antibiotic agents; Z87.891 Personal history of nicotine dependence; Z79.899 Other long term (current) drug therapy; Z90.12 Acquired absence of left breast and nipple
CPT/HCPCS: 36415; 71046; 80048; 80076; 81001; 82947; 83605; 83690; 84484; 85007; 85025; 93005; 94640; 96361; 96374; J0456; J0696; J1815; J7040; J7050; J7613; J7620; J7626; 99285-25; J7030

== ENCOUNTER 2017-08-14 14:50 | Inpatient (IN) | payer MEDICARE ==
[~2017-08-14] VITALS: Ht 162.6 cm; Wt 83.6 kg
[~2017-08-14 14:50] MED LIST changes: +ASPI-630 PO; +CHOL10003 PO; +CLON2TAB PO; +DOXY100C2 PO; +FOLI1TAB16 PO; +INSU100I27 SQ; +LEVO80CA PO; +LOSA100T6 PO; +MAGN400C PO; +TRAM50TA PO; +VERA240C2 PO; +VERA240T72 PO
--- NOTE | 2017-08-14 15:42 | EKG ---
[address] [address] Test Date: 2017-08-14 Test Time: 15:37:16 Pat Name: ANDREAS JAIME Department: Room: Gender: F [employer] Technician: AMANUEL : 1945 Requested By: POLY KRUSE Order Number: [id number] Reading MD: Measurements Intervals Calvin Rate: 73 P: 49 MN: 172 QRS: -31 QRSD: 82 T: 105 QT: 406 QTc: 451 Interpretive Statements SINUS RHYTHM ABNORMAL LEFT AXIS DEVIATION T ABNORMALITY IN LATERAL LEADS ABNORMAL ECG RI6.01 No previous ECG available for comparison
[2017-08-14 15:44] LABS: BGAS PH 7.48 (7.35-7.45)
--- NOTE | 2017-08-14 15:50 | PHYS DOC ---
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 Patient was admitted at this hospital on August 10 for 3 days currently taking Augmentin and states her cough is getting better and complaining of some shortness of breath for the last few days. Patient denies chest pain, fever and chills, focal neuro deficit. She states she had history of pneumonia last year and had home oxygen for a while. Patient doesn't want hospitalization. Review of Systems Review of Systems Constitutional: Denies fever or chills [] Eyes: Denies change in visual acuity, redness, or eye pain [] HENT: Denies nasal congestion or sore throat [] Respiratory: Reports cough and shortness of breath Cardiovascular: No additional information not addressed in HPI [] GI: Denies abdominal pain, nausea, vomiting, bloody stools or diarrhea [] : Denies dysuria or hematuria [] Musculoskeletal: Denies back pain or joint pain [] Integument: Denies rash or skin lesions [] Neurologic: Denies headache, focal weakness or sensory changes [] Endocrine: Denies polyuria or polydipsia [] All other systems were reviewed and found to be within normal limits, except as documented in this note. Allergies Allergies Allergies Coded Allergies Type Severity Reaction Last Updated Verified Sulfa (Sulfonamide Antibiotics) Allergy Intermediate 12/30/16 No ciprofloxacin Allergy Intermediate yeast inf 12/30/16 No codeine Allergy Intermediate vomiting 12/30/16 No diclofenac Allergy Intermediate rash 12/30/16 No hydrochlorothiazide Allergy Intermediate rash 12/30/16 No ibuprofen Allergy Intermediate cant take due to kidneys 12/30/16 No misoprostol Allergy Intermediate rash 12/30/16 No latex Allergy Mild gi problems 12/30/16 No Physical Exam Physical Exam Constitutional: Well developed, well nourished, mild distress, non-toxic appearance. [] HENT: Normocephalic, atraumatic, bilateral external ears normal, oropharynx moist, no oral exudates, nose normal. [] Eyes: PERRLA, EOMI, conjunctiva normal, no discharge. [] Neck: Normal range of motion, no tenderness, supple, no stridor. [] Cardiovascular:Heart rate regular rhythm, no murmur [] Lungs & Thorax: Bilateral breath sounds clear to auscultation [] Abdomen: Bowel sounds normal, soft, no tenderness, no masses, no pulsatile masses. [] Skin: Warm, dry, no erythema, no rash. [] Back: No tenderness, no CVA tenderness. [] Extremities: No tenderness, no cyanosis, no clubbing, ROM intact, bilateral lower extremity 1+ edema] Neurologic: Alert and oriented X 3, normal motor function, normal sensory function, no focal deficits noted. [] Psychologic: Affect normal, judgement normal, mood normal. [] EKG EKG EKG interpreted by me. EKG at 1537 showed normal sinus rhythm at rate of 73, left axis deviation, ST abnormality in lateral leads, no acute distress and T wave abnormality.[] Radiology/Procedures Radiology/Procedures [] [place] [id number] IMAGING REPORT Signed PATIENT: ANDREAS JAIME ACCOUNT: [id number] : 1945 LOCATION: ER AGE: 72 SEX: F EXAM STATUS: REG ER ORD. PHYSICIAN: POLY KRUSE MD REASON: shortness of breath PROCEDURE: CHEST PA & LATERAL CHEST PA LATERAL History: Shortness of air Comparison: August 12, 2017 Findings: 2 PA and single lateral views of the chest are submitted. There is no infiltrate, pneumothorax, or effusion. The cardiac silhouette is within normal limits in size. There is some atherosclerotic calcification aortic arch.. Impression: 1. There is no lobar infiltrate. Electronically signed by: Yanet Bowers MD (08/14/2017 4:09 PM) [id number] DICTATED AND SIGNED BY: YANET BOWERS MD DATE: 08/14/17 2820 CC: POLY KRUSE MD; CAMELIA RUSS MD ~ Course & Med Decision Making Course & Med Decision Making Pertinent Labs and Imaging studies reviewed. (See chart for details) Evaluation of patient in ER showed 72-year-old female patient with history of recent hospitalization sent from her coding auditor's office because of hypoxia. Patient had O2 sat of 82-84% at room air without distress. Patient wanted to have home oxygen and go home and didn't want to stay at hospital. Patient was agreed to have blood test. Patient had increase of white count and lactic acid and BUN/creatinine and chest x-ray did not show infiltration. BNP was 600. He was very mild elevated and CT of chest was not ordered. Patient had O2 sats of 97% on 2 L of oxygen and wanted to go home after having all of the test results but Dr Gomez on-call hospitalist was concern about patient going home and finally patient agreed to stay. Dr. Trejo informed at 1658. She did not have fever, tachycardia, hypotension, altered level of consciousness. IV fluid was not given one dose of antibiotic was started. Dragon Disclaimer Dragon Disclaimer This electronic medical record was generated, in whole or in part, using a voice recognition dictation system. Departure Departure: Impression: Primary Impression: Hypoxemia Additional Impressions: Elevated lactic acid level Uncontrolled diabetes mellitus Acute on chronic renal failure Disposition: ADMITTED INPATIENT (At 1659) Admitting Physician: [place] [facility] Condition: IMPROVED Referrals: CAMELIA RUSS MD (PCP) Critical Care Time Critical care time was [70] minutes exclusive of procedures. Problem Qualifiers POLY KRUSE MD Aug 14, 2017 15:50
[2017-08-14 16:03] LABS: BASO # 0.2 x10^3/uL (0.0-0.2); BASO % 1 % (0-3); EOS # 0.5 x10^3/uL (0.0-0.7); EOS % 3 % (0-3); HEMATOCRIT 41.7 % (36.0-47.0); HEMOGLOBIN 13.5 g/dL (12.0-15.5); LYMPH % 5 % (24-48); MEAN CORPUSCULAR HEMOGLOBIN 28 pg (25-35); MEAN CORPUSCULAR HGB CONC 32 g/dL (31-37); MEAN CORPUSCULAR VOLUME 86 fL (79-100); MONO # 1.2 x10^3/uL (0.0-1.1); MONO % 6 % (0-9); NEUT # 15.7 x10^3uL (1.8-7.7); NEUT % 85 % (31-73); PLATELET COUNT 282 x10^3/uL (140-400); RED BLOOD COUNT 4.85 x10^6/uL (3.50-5.40); RED CELL DISTRIBUTION WIDTH 16.5 % (11.5-14.5); WHITE BLOOD COUNT 18.5 x10^3/uL (4.0-11.0)
--- NOTE | 2017-08-14 16:12 | RAD ---
CHEST PA LATERAL History: Shortness of air Comparison: August 12, 2017 Findings: 2 PA and single lateral views of the chest are submitted. There is no infiltrate, pneumothorax, or effusion. The cardiac silhouette is within normal limits in size. There is some atherosclerotic calcification aortic arch.. Impression: 1. There is no lobar infiltrate. Electronically signed by: Danny Bowers MD (08/14/2017 4:09 PM) [id number]
[2017-08-14 16:31] LABS: ALBUMIN 3.3 g/dL (3.4-5.0); ALBUMIN/GLOBULIN RATIO 0.8 (1.0-1.7); CALCIUM 10.4 mg/dL (8.5-10.1); GFR 24.5; POTASSIUM 4.4 mmol/L (3.5-5.1); TOTAL BILIRUBIN 0.6 mg/dL (0.2-1.0); TOTAL PROTEIN 7.2 g/dL (6.4-8.2)
[2017-08-14] MEDS ORDERED: cefTRIAXone IV Push 1 GM VIAL. IVP ONE (17:15)
[2017-08-14 17:58] LABS: % BASOS 1 % (0-3); % EOS 3 % (0-5); % LYMPHS 9 % (24-48); % MONOS 1 % (0-10); % SEGS 86 % (35-66)
[2017-08-14 18:00] LABS: OVALOCYTES OCC; PLT ESTIMATE ADEQUATE (ADEQUATE); POLYCHROMASIA SLIGHT; STOMATOCYTES OCC
[2017-08-14] MEDS ORDERED: [UNRECOGNIZED DRUG - OTHER] PO PRN (18:00)
[2017-08-14] MEDS: IV NORMAL SALINE 1,000ML 1,000 ML IV SCH (18:00)
[2017-08-14] MEDS ORDERED: DIPHENOXYLATE/ATROPINE TABLET. PO PRN (18:00)
[2017-08-14] MEDS ORDERED: FORMOTEROL FUMARATE PO PRN (18:00)
[2017-08-14] MEDS ORDERED: traMADol 50 MG TABLET PO PRN (18:00)
[2017-08-14] MEDS ORDERED: BUDESONIDE PO PRN (18:00)
[2017-08-14 18:02] VITALS: BP 160/74
[2017-08-14] MEDS ORDERED: DEXTROSE 50% 25 GM / 50ML DISP.SYRIN. IV PRN (19:15)
--- NOTE | 2017-08-14 20:58 | RAD ---
VQ scan dated 08/14/2017. Comparison made to chest x-ray dated same day. Clinical indication: Dyspnea. Shortness of breath. FINDINGS: Dedicated ventilation/perfusion imaging performed after the intravenous administration of 15 mCi of xenon-133 and 5.5 mCi of technetium 99m MAA. Ventilation imaging shows somewhat heterogeneous uptake of tracer on the inspiration and equilibrium phases. There is some patchy retention of xenon on the washout images. Perfusion imaging shows heterogeneous uptake of tracer bilaterally. No mismatch defects or pleural-based defects. IMPRESSION: Low probability for pulmonary embolus. Heterogeneous tracer uptake with retention of xenon on the washout images, suggesting air trapping and COPD. Electronically signed by: Bruce Saucedo MD (08/14/2017 8:55 PM) [facility]
[2017-08-14] MEDS: ERYTHROMYCIN BASE 250 MG TABLET PO SCH (21:00)
[2017-08-14] MEDS ORDERED: INSULIN ASPART 300 UNITS/3 ML INSULN.PEN SQ SCH (21:00)
[2017-08-14] MEDS ORDERED: INSULIN DETEMIR 300 UNITS/3 ML INSULN.PEN. SQ SCH (21:00)
[2017-08-14] MEDS ORDERED: clonazePAM 2 MG TABLET PO SCH (21:00)
[2017-08-14] MEDS ORDERED: MIRTAZAPINE 30 MG TABLET PO SCH (21:00)
[2017-08-14] MEDS ORDERED: ERYTHROMYCIN BASE 250 MG TABLET PO ONE (21:00)
[2017-08-14] MEDS ORDERED: ATORVASTATIN CALCIUM 20 MG TABLET PO SCH (21:00)
[2017-08-14] MEDS: HEPARIN PF for SUB-Q USE 5,000 UNIT/0.5 ML VIAL. SQ SCH (21:11)
[2017-08-14] MEDS: ALBUTEROL SULFATE 2.5 MG/3 ML NEBU. NEB SCH (21:21)
[2017-08-14] MEDS: BUDESONIDE 0.5 MG/2 ML NEBU NEB SCH (21:21)
[2017-08-14 23:36] VITALS: BP 131/75
[2017-08-15] MEDS: IV NORMAL SALINE 1,000ML 1,000 ML IV SCH (05:19)
[2017-08-15] MEDS: ALBUTEROL SULFATE 2.5 MG/3 ML NEBU. NEB SCH ×2 (05:19→10:07)
[2017-08-15 05:41] VITALS: BP 132/71
[2017-08-15] MEDS ORDERED: LEVOTHYROXINE 75 MCG TABLET PO SCH (06:00)
[2017-08-15 06:15] LABS: HEMATOCRIT 37.6 % (36.0-47.0); HEMOGLOBIN 12.1 g/dL (12.0-15.5); RED BLOOD COUNT 4.37 x10^6/uL (3.50-5.40); RED CELL DISTRIBUTION WIDTH 16.3 % (11.5-14.5); WHITE BLOOD COUNT 11.9 x10^3/uL (4.0-11.0)
[2017-08-15 06:18] LABS: CALCIUM 10.1 mg/dL (8.5-10.1); CREATININE 1.6 mg/dL (0.6-1.0); GFR 31.7; POTASSIUM 4.2 mmol/L (3.5-5.1)
[2017-08-15] MEDS ORDERED: PANTOPRAZOLE 40 MG TABLET. PO SCH (07:30)
[2017-08-15] MEDS ORDERED: INSULIN ASPART 300 UNITS/3 ML INSULN.PEN SQ SCH (07:30)
[2017-08-15] MEDS ORDERED: ALLOPURINOL 300 MG TABLET. PO SCH (09:00)
[2017-08-15] MEDS ORDERED: LEVOMILNACIPRAN HYDROCHLORIDE 80 MG PO SCH (09:00)
[2017-08-15] MEDS ORDERED: LACTOBACILLUS RHAMNOSUS GG 1 CAPSULE. PO SCH (09:00)
[2017-08-15] MEDS ORDERED: FOLIC ACID 1 MG TABLET PO SCH (09:00)
[2017-08-15] MEDS ORDERED: VERAPAMIL SR 120 MG TABLET.ER. PO SCH (09:00)
[2017-08-15] MEDS ORDERED: POTASSIUM CITRATE 10 MEQ TABLET.ER PO SCH (09:00)
[2017-08-15] MEDS ORDERED: ASPIRIN 81 MG TAB.CHEW PO SCH (09:00)
[2017-08-15] MEDS ORDERED: LOSARTAN 50 MG TABLET. PO SCH (09:00)
[2017-08-15] MEDS ORDERED: CHOLECALCIFEROL (VITAMIN D3) 1,000 UNIT TABLET PO SCH (09:00)
[2017-08-15] MEDS ORDERED: MAGNESIUM OXIDE 400 MG TABLET PO SCH (09:00)
[2017-08-15] MEDS: ERYTHROMYCIN BASE 250 MG TABLET PO SCH (09:51)
[2017-08-15] MEDS ORDERED: ERYTHROMYCIN BASE 250 MG TABLET PO ONE (10:00)
[2017-08-15 10:02] VITALS: BP 162/68
[2017-08-15] MEDS: BUDESONIDE 0.5 MG/2 ML NEBU NEB SCH (10:07)
[2017-08-15] MEDS: HEPARIN PF for SUB-Q USE 5,000 UNIT/0.5 ML VIAL. SQ SCH (10:07)
--- NOTE | 2017-08-15 11:16 | PDOC1 ---
History of Present Illness Reason for Visit: SOA History of Present Illness Pt came to ER c/o SOA. 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 Pt reported feeling fatigued w/ washing her hair. D/c on 08/12 from [facility] treated for pneumonia. Pt did take her Augmentin. Pt feeling much better now on O2. Denies fever, diarrhea, vomiting, chest pain, dizziness, weight gain, or leg swelling. Chief Complaint: SHORTNESS OF BREATH Allergies: Coded Allergies: Sulfa (Sulfonamide Antibiotics) (Unverified Allergy, Intermediate, 12/30/16) ciprofloxacin (Unverified Allergy, Intermediate, yeast inf, 12/30/16) codeine (Unverified Allergy, Intermediate, vomiting, 12/30/16) diclofenac (Unverified Allergy, Intermediate, rash, 12/30/16) hydrochlorothiazide (Unverified Allergy, Intermediate, rash, 12/30/16) ibuprofen (Unverified Allergy, Intermediate, cant take due to kidneys, 12/30) misoprostol (Unverified Allergy, Intermediate, rash, 12/30/16) latex (Unverified Allergy, Mild, gi problems, 12/30/16) Past Medical History Cardiac: CAD, [place] Past Surgical History: No pertinent history Family History: No pertinent hx Past Social History Smoke: Quit Alcohol: none Drugs: None Lives: with Family Review of Systems Review Of Systems Fourteen system , review of systems has been reviewed. See HPI for pertinent positives and negative responses, other peres all other systems are negative, non pertinent or non contributory Allergies: Coded Allergies: Sulfa (Sulfonamide Antibiotics) (Unverified Allergy, Intermediate, 12/30/16) ciprofloxacin (Unverified Allergy, Intermediate, yeast inf, 12/30/16) codeine (Unverified Allergy, Intermediate, vomiting, 12/30/16) diclofenac (Unverified Allergy, Intermediate, rash, 12/30/16) hydrochlorothiazide (Unverified Allergy, Intermediate, rash, 12/30/16) ibuprofen (Unverified Allergy, Intermediate, cant take due to kidneys, 12/30) misoprostol (Unverified Allergy, Intermediate, rash, 12/30/16) latex (Unverified Allergy, Mild, gi problems, 12/30/16) Medications Current Medications Ceftriaxone Sodium 1 gm/ Sodium Chloride 50 ml @ 100 mls/hr 1X ONCE IV ; Start 08/14/17 at 17:00; Stop 08/14/17 at 17:00; Status DC Ceftriaxone Sodium (Rocephin) 1 gm 1X ONCE IVP Last administered on 08/14/17 17:20; Start 08/14/17 at 17:15; Stop 08/14/17 at 17:17; Status DC Sodium Chloride 1,000 ml @ 75 mls/hr [id number] IV Last administered on 05:19; Start 08/14/17 at 18:00 Allopurinol (Zyloprim) 300 mg DAILY PO Last administered on 08/15/17 09:48; Start 08/15/17 at 09:00 Aspirin (Children'S Aspirin) 162 mg DAILY PO Last administered on 08/15/17 09: 46; Start 08/15/17 at 09:00 Atorvastatin Calcium (Lipitor) 20 mg HS PO Last administered on 08/14/17 21:00 ; Start 08/14/17 at 21:00 Vitamin D (Vitamin D3) 2,000 unit DAILY PO Last administered on 08/15/17 09:48 ; Start 08/15/17 at 09:00 Clonazepam (KlonoPIN) 2 mg HS PO Last administered on 08/14/17 21:00; Start at 21:00 Diphenoxylate HCl/ Atropine (Lomotil) 1 tab PRN QID PRN PO DIARRHEA; Start at 18:00 Folic Acid (Folic Acid) 1 mg DAILY PO Last administered on 08/15/17at 09:47; Start 08/15/17 at 09:00 Insulin Aspart (NovoLOG) SSI level 1 QIDACHS SQ ; Start 08/14/17 at 21:00; Stop 08/14/17 at 21:00; Status DC Insulin Detemir (Levemir) 30 units QHS SQ Last administered on 08/14/17at 23:30 ; Start 08/14/17 at 21:00 Levothyroxine Sodium (Synthroid) 75 mcg DAILY06 PO Last administered on 05:19; Start 08/15/17 at 06:00 Mirtazapine (Remeron) 30 mg HS PO Last administered on 3/23/18at 21:00; Start 08/14/17 at 21:00 Potassium Citrate (Urocit-K) 10 meq DAILY PO Last administered on 08/15/17 09: 49; Start 08/15/17 at 09:00 Tramadol HCl (Ultram) 50 mg PRN Q6HRS PRN PO PAIN; Start 08/14/17 at 18:00 Non-Formulary Medication (Budesonide/ Formoterol Fumarate (Symbicort 160-4.5 Mcg Inhaler)) 1 inh PRN PRN PO Asthma; Start 08/14/17 at 18:00; Stop 08/14/17 at 18:36; Status DC Erythromycin (E-Mycin) 250 mg BID PO Last administered on 08/15/17 09:51; Start 08/14/17 at 21:00 Non-Formulary Medication (Levomilnacipran Hydrochloride (Fetzima)) 80 mg DAILY PO Last administered on 08/15/17 09:50; Start 08/15/17 at 09:00 Losartan Potassium (Cozaar) 100 mg DAILY PO Last administered on 08/15/17 09: 47; Start 08/15/17 at 09:00 Magnesium Oxide (Magnesium Oxide) 800 mg DAILY PO Last administered on 09:48; Start 08/15/17 at 09:00 Pantoprazole Sodium (Protonix) 40 mg DAILYAC PO Last administered on 08/15/17 09:48; Start 08/15/17 at 07:30 Verapamil HCl (Calan Sr) 120 mg QODAY PO ; Start 08/16/17 at 09:00; Stop at 09:00; Status DC Non-Formulary Medication (Verapamil Hcl (Verapamil Er)) 240 mg QODAY PO ; Start 08/16/17 at 09:00; Stop 08/16/17 at 09:00; Status DC Heparin Sodium (Porcine) (Heparin Sq) 5,000 unit Q12HR SQ Last administered on 08/15/17 10:07; Start 08/14/17 at 21:00 Budesonide (Pulmicort) 0.5 mg RTBID NEB Last administered on 08/15/17 10:07; Start 08/14/17 at 20:00 Albuterol Sulfate (Ventolin) 2.5 mg RTQID NEB Last administered on 08/15/17at 10 :07; Start 08/14/17 at 20:00 Verapamil HCl (Calan Sr) 120 mg DAILY PO Last administered on 08/15/17at 09:52; Start 08/15/17 at 09:00 Insulin Aspart (NovoLOG) 0-5 UNITS TIDBFRMEAL SQ ; Start 08/15/17 at 07:30 Dextrose 12.5 gm PRN Q15MIN PRN IV SEE COMMENTS; Start 08/14/17 at 19:15 Lactobacillus Rhamnosus (Culturelle) 1 cap BID PO ; Start 08/15/17 at 09:00 Active Scripts Active Augmentin 875-125 Tablet (Amoxicillin/Potassium Clav) 1 Each Tablet 1 Tab PO BID Reported Klonopin (Clonazepam) 2 Mg Tablet 2 Mg PO HS due tonight Verapamil Er (Verapamil Hcl) 240 Mg Cap24h.pel 240 Mg PO QODAY due in am Verapamil Er (Verapamil Hcl) 240 Mg Cap24h.pel 120 Mg PO QODAY due in am 08/14 Magnesium (Magnesium Oxide) 400 Mg Capsule 800 Mg PO DAILY next dose due in am 08/13 Fetzima (Levomilnacipran Hydrochloride) 80 Mg Cap.sa.24h 80 Mg PO DAILY next dose due in am 08/13 Tramadol Hcl (Tramadol HCl) 50 Mg Tablet 50 Mg PO PRN Q6HRS PRN may have it anytime Levemir Flextouch (Insulin Detemir) 100 Unit/1 Ml Insuln.pen 30 Unit SQ next dose due this evening Vitamin D3 (Cholecalciferol (Vitamin D3)) 1,000 Unit Tablet 2,000 Unit PO next dose due in am Folic Acid 1 Mg Tablet 1 Mg PO DAILY next dose due in am 08/13 Aspirin 81 Mg Tab.chew 162 Mg PO DAILY Next dose due tonight Losartan Potassium 100 Mg Tablet 100 Mg PO DAILY next dose due in am 08/13 Novolog Flexpen (Insulin Aspart) 100 Unit/1 Ml Insuln.pen 0-7 Units IN QIDACHS LAST DOSE GIVEN: DATE:08/12 TIME:lunch NEXT DOSE DUE: DATE:08/12 TIME:dinner Symbicort 160-4.5 Mcg Inhaler (Budesonide/Formoterol Fumarate) 10.2 Gm Hfa.aer.ad 1 Inh PO PRN PRN LAST DOSE GIVEN: DATE:08/12 TIME:noon NEXT DOSE DUE: DATE:08/12 TIME:6pm if needed Mirtazapine 30 Mg Tablet 30 Mg PO HS LAST DOSE GIVEN: DATE:08/11 TIME:9pm NEXT DOSE DUE: DATE:08/12 TIME:9pm Omeprazole 20 Mg Capsule.dr 20 Mg PO BID LAST DOSE GIVEN: DATE:08/12 TIME:0830 NEXT DOSE DUE: DATE:08/13 TIME:0830 Erythromycin (Erythromycin Base) 250 Mg Capsule.dr 250 Mg PO BID LAST DOSE GIVEN: DATE:08/12 TIME:08 NEXT DOSE DUE: DATE:08/12 TIME:9:00 pm Allopurinol 300 Mg Tablet 300 Mg PO DAILY LAST DOSE GIVEN: DATE:08/12 TIME:829 NEXT DOSE DUE: DATE:08/12 TIME:829 Atorvastatin Calcium 20 Mg Tablet 20 Mg PO HS LAST DOSE GIVEN: DATE:08/11 TIME:9:00 pm NEXT DOSE DUE: DATE:08/12 TIME:9:00 pm Levothyroxine Sodium 75 Mcg Tablet 75 Mcg PO DAILY06 LAST DOSE GIVEN: DATE:08/12 TIME:0700 NEXT DOSE DUE: DATE:08/13 TIME:0700 Potassium Citrate 10 Meq Tablet.er 10 Meq PO DAILY LAST DOSE GIVEN: DATE:08/12 TIME:0900 NEXT DOSE DUE: DATE:08/13 TIME:0900 Lomotil Tablet (Diphenoxylate Hcl/Atropine) 1 Each Tablet 2.5 Mg PO PRN QID PRN LAST DOSE GIVEN: DATE: TIME: NEXT DOSE DUE: DATE:may have at any time TIME: Exam Vital Signs Vital Signs Date Time Temp Pulse Resp B/P (MAP) Pulse Ox O2 Delivery O2 Flow Rate FiO2 08/15/17 10:07 98 Nasal Cannula 2.0 08/15/17 10:02 98.0 97 18 162/68 (99) General Appearance: Alert, Oriented X3, Cooperative, No acute distress HEENT: Atraumatic, PERRLA, EOMI, Mucous membr. moist/pink Respiratory: Other (Resp effort non-labored. Scattered exp wheezes that clear w/ deep inspiration. No crackles. No rhonchi) Heart: Regular rate, Normal S1, Normal S2, Other (2/6 BRISA c/w known hx of valvular regurg (per pt)) Abdominal: Normal bowel sounds, Soft, No tenderness, No hepatospenomegaly, No masses Extremities: No edema, Normal pulses, No tenderness/swelling Skin: No rashes, No breakdown Neuro: Normal speech, Strength at 5/5 X4 ext, Normal tone, Sensation intact, Cranial nerves 3-12 NL, Reflexes 2+ Psych/Mental Status: Mental status NL, Mood NL Assessment/Plan Assessment/Plan 1. Acute on chronic respiratory failure: Suspect COPD. BNP mildly elevated but no congestion on CXR. Pt treated last year w/ bronchodilators and O2. Will do very short course prednisone due to pt's DM. Finish abx. Duoneb QID. Cont O2 until has a chance to f/u with PCP. 2. COPD exacerbation: CXR still normal, doubt pneumonia. Suspect leukocytosis due to stress from hypoxia. Improved today. Will need f/u next week w/ PCP. 3. Murmur: Known to pt. Echo within last year per pt. Recommend f/u with PCP. 4. DM 2: Monitor sugars closely on prednisone. 5. HTN: Cont home meds. 6. Disp: Plan to d/c home once we are sure home O2 is arranged. COURSE Allergies Coded Allergies Type Severity Reaction Last Updated Verified Sulfa (Sulfonamide Antibiotics) Allergy Intermediate 12/30/16 No ciprofloxacin Allergy Intermediate yeast inf 12/30/16 No codeine Allergy Intermediate vomiting 12/30/16 No diclofenac Allergy Intermediate rash 12/30/16 No hydrochlorothiazide Allergy Intermediate rash 12/30/16 No ibuprofen Allergy Intermediate cant take due to kidneys 12/30/16 No misoprostol Allergy Intermediate rash 12/30/16 No latex Allergy Mild gi problems 12/30/16 No Laboratory Tests Test 08/14/17 15:21 08/14/17 15:40 08/14/17 18:37 08/14/17 19:18 Blood Gas pH 7.48 (7.35-7.45) Blood Gas PCO2 41 mmHg (35-45) Blood Gas PO2 46 mmHg (71-100) Blood Gas HCO3 30 mmol/L (22-26) Arterial Bld O2 Saturation (Calc) 84 % (92-99) FiO2 21 % White Blood Count 18.5 x10^3/uL (4.0-11.0) Red Blood Count 4.85 x10^6/uL (3.50-5.40) Hemoglobin 13.5 g/dL (12.0-15.5) Hematocrit 41.7 % (36.0-47.0) Mean Corpuscular Volume 86 fL (79-100) Mean Corpuscular Hemoglobin 28 pg (25-35) Mean Corpuscular Hemoglobin Concent 32 g/dL (31-37) Red Cell Distribution Width 16.5 % (11.5-14.5) Platelet Count 282 x10^3/uL (140-400) Neutrophils (%) (Auto) 85 % (31-73) Lymphocytes (%) (Auto) 5 % (24-48) Monocytes (%) (Auto) 6 % (0-9) Eosinophils (%) (Auto) 3 % (0-3) Basophils (%) (Auto) 1 % (0-3) Neutrophils # (Auto) 15.7 x10^3uL (1.8-7.7) Lymphocytes # (Auto) 1.0 x10^3/uL (1.0-4.8) Monocytes # (Auto) 1.2 x10^3/uL (0.0-1.1) Eosinophils # (Auto) 0.5 x10^3/uL (0.0-0.7) Basophils # (Auto) 0.2 x10^3/uL (0.0-0.2) Segmented Neutrophils % 86 % (35-66) Lymphocytes % 9 % (24-48) Monocytes % 1 % (0-10) Eosinophils % 3 % (0-5) Basophils % 1 % (0-3) Platelet Estimate Adequate (ADEQUATE) Large Platelets Occ Polychromasia Slight Ovalocytes Occ Stomatocytes Occ D-Dimer (Vida) 0.56 mg/L (0.00-0.50) Sodium Level 134 mmol/L (136-145) Potassium Level 4.4 mmol/L (3.5-5.1) Chloride Level 95 mmol/L (98-107) Carbon Dioxide Level 31 mmol/L (21-32) Anion Gap 8 (6-14) Blood Urea Nitrogen 24 mg/dL (7-20) Creatinine 2.0 mg/dL (0.6-1.0) Estimated GFR (Cockcroft-Gault) 24.5 BUN/Creatinine Ratio 12 (6-20) Glucose Level 234 mg/dL (70-99) Lactic Acid Level 2.1 mmol/L (0.4-2.0) Calcium Level 10.4 mg/dL (8.5-10.1) Total Bilirubin 0.6 mg/dL (0.2-1.0) Aspartate Amino Transf (AST/SGOT) 28 U/L (15-37) Alanine Aminotransferase (ALT/SGPT) 38 U/L (14-59) Alkaline Phosphatase 149 U/L (46-116) Creatine Kinase 62 U/L (26-192) Troponin I Quantitative 0.021 ng/mL (0-0.055) ZQ-Apt-A-Type Natriuretic Peptide 612 pg/mL (0-124) Total Protein 7.2 g/dL (6.4-8.2) Albumin 3.3 g/dL (3.4-5.0) Albumin/Globulin Ratio 0.8 (1.0-1.7) Glucose (Fingerstick) 119 mg/dL (70-99) 133 mg/dL (70-99) Test 08/14/17 20:00 08/14/17 23:21 08/15/17 05:53 08/15/17 07:41 Lactic Acid Level 2.0 mmol/L (0.4-2.0) Glucose (Fingerstick) 222 mg/dL (70-99) 83 mg/dL (70-99) White Blood Count 11.9 x10^3/uL (4.0-11.0) Red Blood Count 4.37 x10^6/uL (3.50-5.40) Hemoglobin 12.1 g/dL (12.0-15.5) Hematocrit 37.6 % (36.0-47.0) Mean Corpuscular Volume 86 fL (79-100) Mean Corpuscular Hemoglobin 28 pg (25-35) Mean Corpuscular Hemoglobin Concent 32 g/dL (31-37) Red Cell Distribution Width 16.3 % (11.5-14.5) Platelet Count 255 x10^3/uL (140-400) Sodium Level 142 mmol/L (136-145) Potassium Level 4.2 mmol/L (3.5-5.1) Chloride Level 103 mmol/L (98-107) Carbon Dioxide Level 34 mmol/L (21-32) Anion Gap 5 (6-14) Blood Urea Nitrogen 22 mg/dL (7-20) Creatinine 1.6 mg/dL (0.6-1.0) Estimated GFR (Cockcroft-Gault) 31.7 Glucose Level 140 mg/dL (70-99) Calcium Level 10.1 mg/dL (8.5-10.1) Current Medications Medications (Trade) Dose Ordered Sig/Marisa Route PRN Reason Start Time Stop Time Status Last Admin Dose Admin Ceftriaxone Sodium 1 gm/ Sodium Chloride 50 ml @ 100 mls/hr 1X ONCE IV 08/14/17 17:00 08/14/17 17:00 DC Ceftriaxone Sodium (Rocephin) 1 gm 1X ONCE IVP 08/14/17 17:15 08/14/17 17:17 DC 08/14/17 17:20 Sodium Chloride 1,000 ml @ 75 mls/hr [id number] IV 08/14/17 18:00 08/15/17 05:19 Allopurinol (Zyloprim) 300 mg DAILY PO 08/15/17 09:00 08/15/17 09:48 Aspirin (Children'S Aspirin) 162 mg DAILY PO 08/15/17 09:00 08/15/17 09:46 Atorvastatin Calcium (Lipitor) 20 mg HS PO 08/14/17 21:00 08/14/17 21:00 Vitamin D (Vitamin D3) 2,000 unit DAILY PO 08/15/17 09:00 08/15/17 09:48 Clonazepam (KlonoPIN) 2 mg HS PO 08/14/17 21:00 08/14/17 21:00 Diphenoxylate HCl/ Atropine (Lomotil) 1 tab PRN QID PRN PO DIARRHEA 08/14/17 18:00 Folic Acid (Folic Acid) 1 mg DAILY PO 08/15/17 09:00 08/15/17 09:47 Insulin Aspart (NovoLOG) SSI level 1 QIDACHS SQ 08/14/17 21:00 08/14/17 21:00 DC Insulin Detemir (Levemir) 30 units QHS SQ 08/14/17 21:00 08/14/17 23:30 Levothyroxine Sodium (Synthroid) 75 mcg DAILY06 PO 08/15/17 06:00 08/15/17 05:19 Mirtazapine (Remeron) 30 mg HS PO 08/14/17 21:00 08/14/17 21:00 Potassium Citrate (Urocit-K) 10 meq DAILY PO 08/15/17 09:00 08/15/17 09:49 Tramadol HCl (Ultram) 50 mg PRN Q6HRS PRN PO PAIN 08/14/17 18:00 Non-Formulary Medication (Budesonide/ Formoterol Fumarate (Symbicort 160-4.5 Mcg Inhaler)) 1 inh PRN PRN PO Asthma 08/14/17 18:00 08/14/17 18:36 DC Erythromycin (E-Mycin) 250 mg BID PO 08/14/17 21:00 08/15/17 09:51 Non-Formulary Medication (Levomilnacipran Hydrochloride (Fetzima)) 80 mg DAILY PO 08/15/17 09:00 08/15/17 09:50 Losartan Potassium (Cozaar) 100 mg DAILY PO 08/15/17 09:00 08/15/17 09:47 Magnesium Oxide (Magnesium Oxide) 800 mg DAILY PO 08/15/17 09:00 08/15/17 09:48 Pantoprazole Sodium (Protonix) 40 mg DAILYAC PO 08/15/17 07:30 08/15/17 09:48 Verapamil HCl (Calan Sr) 120 mg QODAY PO 08/16/17 09:00 08/16/17 09:00 DC Non-Formulary Medication (Verapamil Hcl (Verapamil Er)) 240 mg QODAY PO 08/16/17 09:00 08/16/17 09:00 DC Heparin Sodium (Porcine) (Heparin Sq) 5,000 unit Q12HR SQ 08/14/17 21:00 08/15/17 10:07 Budesonide (Pulmicort) 0.5 mg RTBID NEB 08/14/17 20:00 08/15/17 10:07 Albuterol Sulfate (Ventolin) 2.5 mg RTQID NEB 08/14/17 20:00 08/15/17 10:07 Verapamil HCl (Calan Sr) 120 mg DAILY PO 08/15/17 09:00 08/15/17 09:52 Insulin Aspart (NovoLOG) 0-5 UNITS TIDBFRMEAL SQ 08/15/17 07:30 Dextrose 12.5 gm PRN Q15MIN PRN IV SEE COMMENTS 3/23/18 19:15 Lactobacillus Rhamnosus (Culturelle) 1 cap BID PO 08/15/17 09:00 I & O 08/15/17 00:00 Intake Total 240 ml Balance 240 ml Vital Signs Date Time Temp Pulse Resp B/P (MAP) Pulse Ox O2 Delivery O2 Flow Rate FiO2 08/15/17 10:07 98 Nasal Cannula 2.0 08/15/17 10:02 98.0 97 18 162/68 (99) EKG: No acute ischemia or arrhythmia CXR: No acute findings. VQ scan: Low prob for PE; air trapping c/w COPD BREE CHACKO MD Aug 15, 2017 11:16
[2017-08-15] MEDS ORDERED: IPRA3AMP NEB (11:18)
[2017-08-15] MEDS ORDERED: PRED50TA PO (11:18)
--- NOTE | 2017-08-15 11:20 | DISCH ---
DISCHARGE INSTRUCTIONS-DC Condition on Discharge Condition on Discharge: Stable Problems: Activity after Discharge Activity Instructions for Disc: Activity as tolerated Diet after Discharge Diet after Discharge: Cardiac, Diabetic No Calorie Level Checks after Discharge Checks after discharge: Check blood press - daily, Check blood sugar, ac/hs, Weigh Yourself Daily Community/Resources/Services Services at Discharge: Oxygen Therapy (2 liters at all times) Contacting the DR. after DC Call your doctor for: If your condition worsens Follow-Up Follow up with: PCP next week Treatment/Equipment after DC Discharge Respiratory Equipmen: Oxygen (2 liters by NC at all times) BREE CHACKO MD Aug 15, 2017 11:20
--- NOTE | 2017-08-15 11:24 | PDOC3 ---
Discharge Summary Discharge Summary Date of Admission Date of Admission: Aug 14, 2017 at 17:00 Admitting Diagnosis Acute on chronic respiratory failure COPD exacerbation Acute on chronic renal failure DM2 Date of Discharge: Aug 15, 2017 Discharge Diagnosis Acute on chronic respiratory failure COPD exacerbation Acute on chronic renal failure DM2 Laboratory Findings Laboratory Tests Test 08/14/17 15:21 08/14/17 15:40 08/14/17 18:37 08/14/17 19:18 Blood Gas pH 7.48 (7.35-7.45) Blood Gas PCO2 41 mmHg (35-45) Blood Gas PO2 46 mmHg (71-100) Blood Gas HCO3 30 mmol/L (22-26) Arterial Bld O2 Saturation (Calc) 84 % (92-99) FiO2 21 % White Blood Count 18.5 x10^3/uL (4.0-11.0) Red Blood Count 4.85 x10^6/uL (3.50-5.40) Hemoglobin 13.5 g/dL (12.0-15.5) Hematocrit 41.7 % (36.0-47.0) Mean Corpuscular Volume 86 fL (79-100) Mean Corpuscular Hemoglobin 28 pg (25-35) Mean Corpuscular Hemoglobin Concent 32 g/dL (31-37) Red Cell Distribution Width 16.5 % (11.5-14.5) Platelet Count 282 x10^3/uL (140-400) Neutrophils (%) (Auto) 85 % (31-73) Lymphocytes (%) (Auto) 5 % (24-48) Monocytes (%) (Auto) 6 % (0-9) Eosinophils (%) (Auto) 3 % (0-3) Basophils (%) (Auto) 1 % (0-3) Neutrophils # (Auto) 15.7 x10^3uL (1.8-7.7) Lymphocytes # (Auto) 1.0 x10^3/uL (1.0-4.8) Monocytes # (Auto) 1.2 x10^3/uL (0.0-1.1) Eosinophils # (Auto) 0.5 x10^3/uL (0.0-0.7) Basophils # (Auto) 0.2 x10^3/uL (0.0-0.2) Segmented Neutrophils % 86 % (35-66) Lymphocytes % 9 % (24-48) Monocytes % 1 % (0-10) Eosinophils % 3 % (0-5) Basophils % 1 % (0-3) Platelet Estimate Adequate (ADEQUATE) Large Platelets Occ Polychromasia Slight Ovalocytes Occ Stomatocytes Occ D-Dimer (Vida) 0.56 mg/L (0.00-0.50) Sodium Level 134 mmol/L (136-145) Potassium Level 4.4 mmol/L (3.5-5.1) Chloride Level 95 mmol/L (98-107) Carbon Dioxide Level 31 mmol/L (21-32) Anion Gap 8 (6-14) Blood Urea Nitrogen 24 mg/dL (7-20) Creatinine 2.0 mg/dL (0.6-1.0) Estimated GFR (Cockcroft-Gault) 24.5 BUN/Creatinine Ratio 12 (6-20) Glucose Level 234 mg/dL (70-99) Lactic Acid Level 2.1 mmol/L (0.4-2.0) Calcium Level 10.4 mg/dL (8.5-10.1) Total Bilirubin 0.6 mg/dL (0.2-1.0) Aspartate Amino Transf (AST/SGOT) 28 U/L (15-37) Alanine Aminotransferase (ALT/SGPT) 38 U/L (14-59) Alkaline Phosphatase 149 U/L (46-116) Creatine Kinase 62 U/L (26-192) Troponin I Quantitative 0.021 ng/mL (0-0.055) JH-Qup-K-Type Natriuretic Peptide 612 pg/mL (0-124) Total Protein 7.2 g/dL (6.4-8.2) Albumin 3.3 g/dL (3.4-5.0) Albumin/Globulin Ratio 0.8 (1.0-1.7) Glucose (Fingerstick) 119 mg/dL (70-99) 133 mg/dL (70-99) Test 08/14/17 20:00 08/14/17 23:21 08/15/17 05:53 08/15/17 07:41 Lactic Acid Level 2.0 mmol/L (0.4-2.0) Glucose (Fingerstick) 222 mg/dL (70-99) 83 mg/dL (70-99) White Blood Count 11.9 x10^3/uL (4.0-11.0) Red Blood Count 4.37 x10^6/uL (3.50-5.40) Hemoglobin 12.1 g/dL (12.0-15.5) Hematocrit 37.6 % (36.0-47.0) Mean Corpuscular Volume 86 fL (79-100) Mean Corpuscular Hemoglobin 28 pg (25-35) Mean Corpuscular Hemoglobin Concent 32 g/dL (31-37) Red Cell Distribution Width 16.3 % (11.5-14.5) Platelet Count 255 x10^3/uL (140-400) Sodium Level 142 mmol/L (136-145) Potassium Level 4.2 mmol/L (3.5-5.1) Chloride Level 103 mmol/L (98-107) Carbon Dioxide Level 34 mmol/L (21-32) Anion Gap 5 (6-14) Blood Urea Nitrogen 22 mg/dL (7-20) Creatinine 1.6 mg/dL (0.6-1.0) Estimated GFR (Cockcroft-Gault) 31.7 Glucose Level 140 mg/dL (70-99) Calcium Level 10.1 mg/dL (8.5-10.1) Hospital Course Pt sent to ER from [facility] due to O2 sat of 84% on RA. Pt recently d/c from [facility], treated for pneumonia. Had been doing well on RA prior to discharge. pO2 only 43 on ABG. VQ scan was low prob for PE, but showed air trapping c/w COPD. Pt to be treated w/ prednisone (only 3 day burst as it really affects pt's blood sugars), finish augmentin, and use nebulizer QID w/ Duoneb. Pt arranged to have home O2 at 2 liters, will need to wear this until f /u with PCP. CXR did not show pneumonia or pulmonary congestion. Pt will continue Symbicort as well. None of her other medications were changed. Condition at Discharge: Stable Home Meds Active Scripts Amoxicillin/Potassium Clav (AUGMENTIN 875-125 TABLET) 1 Each Tablet, 1 TAB PO BID, #16 TAB Prov:BREE CHACKO MD 08/12/17 Reported Medications Clonazepam (KLONOPIN) 2 Mg Tablet, 2 MG PO HS, TAB due tonight 08/11/17 Verapamil Hcl (VERAPAMIL ER) 240 Mg Cap24h.pel, 240 MG PO QODAY, CAP due in am 08/11/17 Verapamil Hcl (VERAPAMIL ER) 240 Mg Cap24h.pel, 120 MG PO QODAY, CAP due in am 08/1408/11/17 Magnesium Oxide (MAGNESIUM) 400 Mg Capsule, 800 MG PO DAILY, CAP next dose due in am 08/1308/10/17 Levomilnacipran Hydrochloride (FETZIMA) 80 Mg Cap.sa.24h, 80 MG PO DAILY, CAP.SR next dose due in am 08/1308/10/17 Tramadol Hcl (TRAMADOL HCL) 50 Mg Tablet, 50 MG PO PRN Q6HRS Y for PAIN, TAB may have it anytime 08/10/17 Insulin Detemir (Levemir Flextouch) 100 Unit/1 Ml Insuln.pen, 30 UNIT SQ, SYR next dose due this evening 08/10/17 Cholecalciferol (Vitamin D3) (VITAMIN D3) 1,000 Unit Tablet, 2000 UNIT PO next dose due in am 08/10/17 Folic Acid (FOLIC ACID) 1 Mg Tablet, 1 MG PO DAILY, TAB next dose due in am 08/1308/10/17 Aspirin (ASPIRIN) 81 Mg Tab.chew, 162 MG PO DAILY, TAB Next dose due tonight 08/10/17 Losartan Potassium (LOSARTAN POTASSIUM) 100 Mg Tablet, 100 MG PO DAILY, TAB next dose due in am 08/1308/10/17 Insulin Aspart (NOVOLOG FLEXPEN) 100 Unit/1 Ml Insuln.pen, 0-7 UNITS IN QIDACHS for High Blood Sugar LAST DOSE GIVEN: DATE:08/12 TIME:lunch NEXT DOSE DUE: DATE:08/12 TIME:dinner 12/31/16 Budesonide/Formoterol Fumarate (SYMBICORT 160-4.5 MCG INHALER) 10.2 Gm Hfa.aer.ad, 1 INH PO PRN Y for Asthma LAST DOSE GIVEN: DATE:08/12 TIME:noon NEXT DOSE DUE: DATE:08/12 TIME:6pm if needed 12/31/16 Mirtazapine (MIRTAZAPINE) 30 Mg Tablet, 30 MG PO HS for Depression LAST DOSE GIVEN: DATE:08/11 TIME:9pm NEXT DOSE DUE: DATE:08/12 TIME:9pm 12/31/16 Omeprazole (OMEPRAZOLE) 20 Mg Capsule.dr, 20 MG PO BID for GERD LAST DOSE GIVEN: DATE:08/12 TIME:829 NEXT DOSE DUE: DATE:08/13 TIME:82912/31/16 Erythromycin Base (ERYTHROMYCIN) 250 Mg Capsule.dr, 250 MG PO BID for Gastroparesis LAST DOSE GIVEN: DATE:08/12 TIME:829 NEXT DOSE DUE: DATE:08/12 TIME:9:00 pm 12/31/16 Allopurinol (ALLOPURINOL) 300 Mg Tablet, 300 MG PO DAILY for Gout LAST DOSE GIVEN: DATE:08/12 TIME:829 NEXT DOSE DUE: DATE:08/12 TIME:82912/31/16 Atorvastatin Calcium (ATORVASTATIN CALCIUM) 20 Mg Tablet, 20 MG PO HS for High Cholesterol LAST DOSE GIVEN: DATE:08/11 TIME:9:00 pm NEXT DOSE DUE: DATE:08/12 TIME:9:00 pm 12/31/16 Levothyroxine Sodium (LEVOTHYROXINE SODIUM) 75 Mcg Tablet, 75 MCG PO DAILY06 for Hypothyroid LAST DOSE GIVEN: DATE:08/12 TIME:07 NEXT DOSE DUE: DATE:08/13 TIME:69912/31/16 Potassium Citrate (POTASSIUM CITRATE) 10 Meq Tablet.er, 10 MEQ PO DAILY for Potassium Supplement LAST DOSE GIVEN: DATE:08/12 TIME:09 NEXT DOSE DUE: DATE:08/13 TIME:0912/31/16 Diphenoxylate Hcl/Atropine (LOMOTIL TABLET) 1 Each Tablet, 2.5 MG PO PRN QID Y for DIARRHEA LAST DOSE GIVEN: DATE: TIME: NEXT DOSE DUE: DATE:may have at any time TIME: 12/31/16 Inpatient Meds Current Medications Ceftriaxone Sodium 1 gm/ Sodium Chloride 50 ml @ 100 mls/hr 1X ONCE IV ; Start 08/14/17 at 17:00; Stop 08/14/17 at 17:00; Status DC Ceftriaxone Sodium (Rocephin) 1 gm 1X ONCE IVP Last administered on 08/14/17at 17:20; Start 08/14/17 at 17:15; Stop 08/14/17 at 17:17; Status DC Sodium Chloride 1,000 ml @ 75 mls/hr [id number] IV Last administered on at 05:19; Start 08/14/17 at 18:00 Allopurinol (Zyloprim) 300 mg DAILY PO Last administered on 08/15/17 09:48; Start 08/15/17 at 09:00 Aspirin (Children'S Aspirin) 162 mg DAILY PO Last administered on 08/15/17 09: 46; Start 08/15/17 at 09:00 Atorvastatin Calcium (Lipitor) 20 mg HS PO Last administered on 08/14/17 21:00 ; Start 08/14/17 at 21:00 Vitamin D (Vitamin D3) 2,000 unit DAILY PO Last administered on 08/15/17 09:48 ; Start 08/15/17 at 09:00 Clonazepam (KlonoPIN) 2 mg HS PO Last administered on 08/14/17 21:00; Start at 21:00 Diphenoxylate HCl/ Atropine (Lomotil) 1 tab PRN QID PRN PO DIARRHEA; Start at 18:00 Folic Acid (Folic Acid) 1 mg DAILY PO Last administered on 08/15/17 09:47; Start 08/15/17 at 09:00 Insulin Aspart (NovoLOG) SSI level 1 QIDACHS SQ ; Start 08/14/17 at 21:00; Stop 08/14/17 at 21:00; Status DC Insulin Detemir (Levemir) 30 units QHS SQ Last administered on 08/14/17at 23:30 ; Start 08/14/17 at 21:00 Levothyroxine Sodium (Synthroid) 75 mcg DAILY06 PO Last administered on 05:19; Start 08/15/17 at 06:00 Mirtazapine (Remeron) 30 mg HS PO Last administered on 08/14/17 21:00; Start 08/14/17 at 21:00 Potassium Citrate (Urocit-K) 10 meq DAILY PO Last administered on 08/15/17 09: 49; Start 08/15/17 at 09:00 Tramadol HCl (Ultram) 50 mg PRN Q6HRS PRN PO PAIN; Start 08/14/17 at 18:00 Non-Formulary Medication (Budesonide/ Formoterol Fumarate (Symbicort 160-4.5 Mcg Inhaler)) 1 inh PRN PRN PO Asthma; Start 08/14/17 at 18:00; Stop 08/14/17 at 18:36; Status DC Erythromycin (E-Mycin) 250 mg BID PO Last administered on 08/15/17 09:51; Start 08/14/17 at 21:00 Non-Formulary Medication (Levomilnacipran Hydrochloride (Fetzima)) 80 mg DAILY PO Last administered on 08/15/17 09:50; Start 08/15/17 at 09:00 Losartan Potassium (Cozaar) 100 mg DAILY PO Last administered on 08/15/17 09: 47; Start 08/15/17 at 09:00 Magnesium Oxide (Magnesium Oxide) 800 mg DAILY PO Last administered on 09:48; Start 08/15/17 at 09:00 Pantoprazole Sodium (Protonix) 40 mg DAILYAC PO Last administered on 08/15/17 09:48; Start 08/15/17 at 07:30 Verapamil HCl (Calan Sr) 120 mg QODAY PO ; Start 08/16/17 at 09:00; Stop at 09:00; Status DC Non-Formulary Medication (Verapamil Hcl (Verapamil Er)) 240 mg QODAY PO ; Start 08/16/17 at 09:00; Stop 08/16/17 at 09:00; Status DC Heparin Sodium (Porcine) (Heparin Sq) 5,000 unit Q12HR SQ Last administered on 08/15/17 10:07; Start 08/14/17 at 21:00 Budesonide (Pulmicort) 0.5 mg RTBID NEB Last administered on 08/15/17 10:07; Start 08/14/17 at 20:00 Albuterol Sulfate (Ventolin) 2.5 mg RTQID NEB Last administered on 08/15/17 10 :07; Start 08/14/17 at 20:00 Verapamil HCl (Calan Sr) 120 mg DAILY PO Last administered on 08/15/17 09:52; Start 08/15/17 at 09:00 Insulin Aspart (NovoLOG) 0-5 UNITS TIDBFRMEAL SQ ; Start 08/15/17 at 07:30 Dextrose 12.5 gm PRN Q15MIN PRN IV SEE COMMENTS; Start 08/14/17 at 19:15 Lactobacillus Rhamnosus (Culturelle) 1 cap BID PO ; Start 08/15/17 at 09:00 Active Scripts Active Augmentin 875-125 Tablet (Amoxicillin/Potassium Clav) 1 Each Tablet 1 Tab PO BID Reported Klonopin (Clonazepam) 2 Mg Tablet 2 Mg PO HS due tonight Verapamil Er (Verapamil Hcl) 240 Mg Cap24h.pel 240 Mg PO QODAY due in am Verapamil Er (Verapamil Hcl) 240 Mg Cap24h.pel 120 Mg PO QODAY due in am 08/14 Magnesium (Magnesium Oxide) 400 Mg Capsule 800 Mg PO DAILY next dose due in am 08/13 Fetzima (Levomilnacipran Hydrochloride) 80 Mg Cap.sa.24h 80 Mg PO DAILY next dose due in am 08/13 Tramadol Hcl (Tramadol HCl) 50 Mg Tablet 50 Mg PO PRN Q6HRS PRN may have it anytime Levemir Flextouch (Insulin Detemir) 100 Unit/1 Ml Insuln.pen 30 Unit SQ next dose due this evening Vitamin D3 (Cholecalciferol (Vitamin D3)) 1,000 Unit Tablet 2,000 Unit PO next dose due in am Folic Acid 1 Mg Tablet 1 Mg PO DAILY next dose due in am 08/13 Aspirin 81 Mg Tab.chew 162 Mg PO DAILY Next dose due tonight Losartan Potassium 100 Mg Tablet 100 Mg PO DAILY next dose due in am 08/13 Novolog Flexpen (Insulin Aspart) 100 Unit/1 Ml Insuln.pen 0-7 Units IN QIDACHS LAST DOSE GIVEN: DATE:08/12 TIME:lunch NEXT DOSE DUE: DATE:08/12 TIME:dinner Symbicort 160-4.5 Mcg Inhaler (Budesonide/Formoterol Fumarate) 10.2 Gm Hfa.aer.ad 1 Inh PO PRN PRN LAST DOSE GIVEN: DATE:08/12 TIME:noon NEXT DOSE DUE: DATE:08/12 TIME:6pm if needed Mirtazapine 30 Mg Tablet 30 Mg PO HS LAST DOSE GIVEN: DATE:08/11 TIME:9pm NEXT DOSE DUE: DATE:08/12 TIME:9pm Omeprazole 20 Mg Capsule.dr 20 Mg PO BID LAST DOSE GIVEN: DATE:08/12 TIME:30 NEXT DOSE DUE: DATE:08/13 TIME:829 Erythromycin (Erythromycin Base) 250 Mg Capsule.dr 250 Mg PO BID LAST DOSE GIVEN: DATE:08/12 TIME:829 NEXT DOSE DUE: DATE:08/12 TIME:9:00 pm Allopurinol 300 Mg Tablet 300 Mg PO DAILY LAST DOSE GIVEN: DATE:08/12 TIME:829 NEXT DOSE DUE: DATE:08/12 TIME:829 Atorvastatin Calcium 20 Mg Tablet 20 Mg PO HS LAST DOSE GIVEN: DATE:08/11 TIME:9:00 pm NEXT DOSE DUE: DATE:08/12 TIME:9:00 pm Levothyroxine Sodium 75 Mcg Tablet 75 Mcg PO DAILY06 LAST DOSE GIVEN: DATE:08/12 TIME:699 NEXT DOSE DUE: DATE:08/13 TIME:699 Potassium Citrate 10 Meq Tablet.er 10 Meq PO DAILY LAST DOSE GIVEN: DATE:08/12 TIME:899 NEXT DOSE DUE: DATE:08/13 TIME:899 Lomotil Tablet (Diphenoxylate Hcl/Atropine) 1 Each Tablet 2.5 Mg PO PRN QID PRN LAST DOSE GIVEN: DATE: TIME: NEXT DOSE DUE: DATE:may have at any time TIME: Activity: as tolerated Diet: Cardiac, Consistent Carbohydrate Follow-up Plan F/u with PCP this coming week Return to ER if worsening symptoms over weekend BREE CHACKO MD Aug 15, 2017 11:24
[2017-08-16] MEDS ORDERED: VERAPAMIL HCL 240 MG PO SCH (09:00)
[2017-08-16] MEDS ORDERED: VERAPAMIL SR 120 MG TABLET.ER. PO SCH (09:00)
== END 2017-08-15 12:30 | disposition home or self-care (01) | DRG 682 ==
LOC: ER 14:50 → 1 SOUTH 17:00
PROVIDERS: ADMIT Family Medicine; ATTEND Family Medicine
DX: N17.9 Acute kidney failure, unspecified (principal); J96.21 Acute and chronic respiratory failure with hypoxia; E11.22 Type 2 diabetes mellitus with diabetic chronic kidney disease; J44.1 Chronic obstructive pulmonary disease with (acute) exacerbation; E11.65 Type 2 diabetes mellitus with hyperglycemia; R01.1 Cardiac murmur, unspecified; I12.9 Hypertensive chronic kidney disease with stage 1 through stage 4 chronic kidney disease, or unspecified chronic kidney disease; I25.10 Atherosclerotic heart disease of native coronary artery without angina pectoris; R74.0 Nonspecific elevation of levels of transaminase and lactic acid dehydrogenase [LDH]; K21.9 Gastro-esophageal reflux disease without esophagitis; N18.9 Chronic kidney disease, unspecified; Z79.4 Long term (current) use of insulin; Z79.82 Long term (current) use of aspirin; Z87.01 Personal history of pneumonia (recurrent); Z87.442 Personal history of urinary calculi; Z88.2 Allergy status to sulfonamides; Z88.8 Allergy status to other drugs, medicaments and biological substances; Z88.6 Allergy status to analgesic agent; Z88.1 Allergy status to other antibiotic agents; Z91.040 Latex allergy status; I25.2 Old myocardial infarction
CPT/HCPCS: 36415; 36600; 71046; 78582; 80048; 80053; 82550; 82803; 82947; 83605; 83880; 84484; 85007; 85025; 85027; 85379; 87040; 93005; 94640; 96374; A9540; A9558; J0696; J1815; J7613; J7626; 99291-25; J7030

== ENCOUNTER → 2017-09-25 | Outpatient (CLI) | payer MEDICARE ==
[~2017-09-25] MED LIST changes: +IPRA3AMP NEB; -METF500T4 PO; +METF500T5 PO; +PRED50TA PO
[2017-09-25 15:10] LABS: CALCIUM 9.9 mg/dL (8.5-10.1); CREATININE 1.5 mg/dL (0.6-1.0); GFR 34.1; POTASSIUM 4.1 mmol/L (3.5-5.1)
== END | disposition home or self-care (01) ==
LOC: LAB 14:13
PROVIDERS: ATTEND Nurse Practitioner Family
DX: I12.9 Hypertensive chronic kidney disease with stage 1 through stage 4 chronic kidney disease, or unspecified chronic kidney disease (principal); N18.4 Chronic kidney disease, stage 4 (severe); E11.22 Type 2 diabetes mellitus with diabetic chronic kidney disease; D63.1 Anemia in chronic kidney disease; E55.9 Vitamin D deficiency, unspecified; Z68.31 Body mass index [BMI] 31.0-31.9, adult; Z87.442 Personal history of urinary calculi
CPT/HCPCS: 36415; 80048

== ENCOUNTER → 2017-10-15 | Outpatient (CLI) | payer MEDICARE ==
[2017-10-15 13:50] LABS: HEMATOCRIT 37.7 % (36.0-47.0); HEMOGLOBIN 12.4 g/dL (12.0-15.5)
[2017-10-15 14:04] LABS: BILIRUBIN,URINE NEG (NEG); CLARITY,URINE CLEAR; COLOR,URINE YELLOW; GLUCOSE,URINE NEG (NEG)
[2017-10-15 14:05] LABS: BACTERIA,URINE FEW /HPF (0-FEW); NITRITE,URINE NEG (NEG); RBC,URINE 0 /HPF (0-2); SQUAMOUS EPITHELIAL CELL,UR FEW /LPF; UROBILINOGEN,URINE 0.2 mg/dL (0.2 mg/dL)
[2017-10-15 14:58] LABS: ALBUMIN 3.3 g/dL (3.4-5.0); CALCIUM 9.5 mg/dL (8.5-10.1); CREATININE 1.8 mg/dL (0.6-1.0); GFR 27.7; MAGNESIUM 2.4 mg/dL (1.8-2.4); PHOSPHORUS 2.9 mg/dL (2.6-4.7); POTASSIUM 4.3 mmol/L (3.5-5.1); URIC ACID 4.2 mg/dL (2.6-6.0)
[2017-10-16 01:10] LABS: PROTEIN RANDOM URINE 10.4 mg/dL (Not Estab.)
[2017-10-16 06:11] LABS: CALCIUM PTH 10.1 mg/dL (8.7-10.3); CREATININE PTH 1.59 mg/dL (0.57-1.00); PTH INTACT 99 pg/mL (15-65)
[2017-10-16 13:11] LABS: MICRO CREAT RATIO 64.3 mg/g creat (0.0-30.0); MICROALB RD UR 40.1 ug/mL (Not Estab.)
== END | disposition home or self-care (01) ==
LOC: LAB 12:40
PROVIDERS: ATTEND Nurse Practitioner Family
DX: I12.9 Hypertensive chronic kidney disease with stage 1 through stage 4 chronic kidney disease, or unspecified chronic kidney disease (principal); N18.4 Chronic kidney disease, stage 4 (severe); E11.22 Type 2 diabetes mellitus with diabetic chronic kidney disease; N25.81 Secondary hyperparathyroidism of renal origin; D50.9 Iron deficiency anemia, unspecified; E55.9 Vitamin D deficiency, unspecified; N20.0 Calculus of kidney; N17.9 Acute kidney failure, unspecified; Z68.31 Body mass index [BMI] 31.0-31.9, adult; R80.1 Persistent proteinuria, unspecified
CPT/HCPCS: 36415; 80069; 81001; 82043; 82306; 82570; 82728; 83540; 83550; 83735; 83970; 84156; 84550; 85014; 85018; 87086

== ENCOUNTER → 2017-10-29 | Outpatient (CLI) | payer MEDICARE ==
--- NOTE | 2017-10-30 09:01 | RAD ---
DATE: 10/29/2017 EXAM: MAMMO ARCHANA SCREEN RT HISTORY: Routine screening, previous left breast cancer COMPARISON: 08/18/2016 This study was interpreted with the benefit of Computerized Aided Detection (CAD). The breast parenchyma shows scattered fibroglandular densities. Breast parenchyma level B. FINDINGS: 2-D and 3-D tomosynthesis imaging was performed in CC and MLO projections. The fibroglandular tissues are heterogeneously dense and slightly nodular in character. A 3.8 mm nodule is noted in the lateral aspect of the right breast. It was not clearly visualized on previous studies. It is best seen on CC archana image #23. No other new or enlarging breast densities are seen. Benign type calcifications are evident. No suspicious microcalcifications have developed. IMPRESSION: Possible developing nodule in the lateral right breast. A spot compression cc and mediolateral 3-D tomograms are suggested for better localization and characterization. If a nodule persists, sonographic evaluation will be indicated. BI-RADS 0-incomplete RECOMMENDED FOLLOW-UP: ADD ADDITIONAL IMAGING Mammography is a sensitive method for finding small breast cancers, but it does not detect them all and is not a substitute for careful clinical examination. A negative mammogram does not negate a clinically suspicious finding and should not result in delay in biopsying a clinically suspicious abnormality. "Our facility is accredited by the [employer] Mammography Program."
== END | disposition home or self-care (01) ==
LOC: MAMMO 13:08
PROVIDERS: ATTEND Internal Medicine
DX: Z12.31 Encounter for screening mammogram for malignant neoplasm of breast (principal); I12.9 Hypertensive chronic kidney disease with stage 1 through stage 4 chronic kidney disease, or unspecified chronic kidney disease; N18.4 Chronic kidney disease, stage 4 (severe); E11.22 Type 2 diabetes mellitus with diabetic chronic kidney disease; Z85.3 Personal history of malignant neoplasm of breast; Z87.891 Personal history of nicotine dependence
CPT/HCPCS: 77063; 77067

== ENCOUNTER → 2017-11-13 | Outpatient (CLI) | payer MEDICARE ==
[~2017-11-13] MED LIST changes: -CLON1TAB3 PO; +CLON1TAB4 PO
--- NOTE | 2017-11-13 16:27 | RAD ---
DATE: 11/13/2017 EXAM: DIGITAL DIAGNOSTIC RT, BREAST RIGHT HISTORY: Suspicious screening study COMPARISON: 10/29/2017 This study was interpreted with the benefit of Computerized Aided Detection (CAD). The breast parenchyma shows scattered fibroglandular densities. Breast parenchyma level B. FINDINGS: The spot compression cc view of the lateral aspect of the right breast again demonstrates a small 3-4 mm nodule, better demonstrated on the prior tomograms. It is not clearly visualized on the current straight mediolateral view. The straight mediolateral tomograms show that the patient's fibroglandular tissues are generally nodular in character. The location of this lateral breast nodule is not clearly delineated on the mediolateral tomograms. Judging from the previous cc tomograms it probably lies at approximately the 9:00 location. Right breast ultrasound, 11/13/2017: A targeted ultrasound exam of the lateral aspect of the right breast was performed. At the 9:00 location a tiny 1-2 mm hypoechoic nodule is seen. Its margins are smooth. It is difficult to characterize due to its small size. At the 11:00 location there is a 2-3 mm tiny nodule which is probably a cyst. There are several other small cystic-appearing structures which appear to represent ductal segments. No suspicious irregular nodule or shadowing mass is seen. IMPRESSION: Probably benign right breast nodules. Follow-up 3-D right mammograms and right breast ultrasound in 6 months is suggested to confirm stability. BI-RADS CATEGORY: 3 PROBABLY BENIGN FINDING(S)-SHORT INTERVAL FOLLOW-UP SUGGESTED RECOMMENDED FOLLOW-UP: 6M 6 MONTH FOLLOW-UP PQRS compliance statement: Patient information was entered into a reminder system with a target due date for the next mammogram. Mammography is a sensitive method for finding small breast cancers, but it does not detect them all and is not a substitute for careful clinical examination. A negative mammogram does not negate a clinically suspicious finding and should not result in delay in biopsying a clinically suspicious abnormality. "Our facility is accredited by the [employer] Mammography Program."
== END | disposition home or self-care (01) ==
LOC: MAMMO 13:49
PROVIDERS: ATTEND Internal Medicine
DX: R92.8 Other abnormal and inconclusive findings on diagnostic imaging of breast (principal)
CPT/HCPCS: 76641; 77065

== ENCOUNTER 2017-12-10 13:55 | Emergency (ER) | payer MEDICARE ==
[~2017-12-10] VITALS: Ht 162.6 cm; Wt 83.0 kg
[~2017-12-10 13:55] MED LIST changes: -IPRA3AMP NEB; +IPRA3AMP29 NEB
[2017-12-10 14:09] VITALS: BP 130/64
--- NOTE | 2017-12-10 14:24 | PHYS DOC ---
Past History Past Medical History: COPD, Diabetes, Hypertension, Hypothyroid, Other Past Surgical History: Appendectomy, Cholecystectomy, , Hysterectomy, Knee Replacement Smoking: Non-smoker Alcohol Use: None Drug Use: None Adult General Chief Complaint Chief Complaint: COUGH HPI HPI Patient is a 72-year-old female who presents to the emergency department for evaluation. She states that for about the past week, she has had a cough, productive of some yellowish sputum. She states that this morning, she coughed once, and her sputum was slightly blood-tinged. She states she had been feeling better yesterday, but the cough returned a little bit this morning. She is not had any fevers or chills. She denies any pain, including any chest pain, pleuritic, or otherwise. She does have a history of COPD and wears 2 L of oxygen chronically. She takes aspirin, but no other anticoagulants. She states she has felt slightly more short of breath than normal, especially when taking a shower without wearing her oxygen, but with her oxygen on she is not any more short of breath than baseline. There are no alleviating or exacerbating factors to her symptoms. Review of Systems Review of Systems Constitutional: Denies fever or chills [] Eyes: Denies change in visual acuity, redness, or eye pain [] HENT: Denies nasal congestion or sore throat [] Respiratory: As per history of present illness[] Cardiovascular: The patient denies any shortness of breath, chest pain, palpitations, or orthopnea [] GI: Denies abdominal pain, nausea, vomiting, bloody stools or diarrhea [] : Denies dysuria or hematuria [] Musculoskeletal: Denies back pain or joint pain [] Integument: Denies rash or skin lesions [] Neurologic: Denies headache, focal weakness or sensory changes [] Endocrine: Denies polyuria or polydipsia [] All other systems were reviewed and found to be within normal limits, except as documented in this note. Allergies Allergies Allergies Coded Allergies Type Severity Reaction Last Updated Verified Sulfa (Sulfonamide Antibiotics) Allergy Intermediate 12/30/16 No ciprofloxacin Allergy Intermediate yeast inf 12/30/16 No codeine Allergy Intermediate vomiting 12/30/16 No diclofenac Allergy Intermediate rash 12/30/16 No hydrochlorothiazide Allergy Intermediate rash 12/30/16 No ibuprofen Allergy Intermediate cant take due to kidneys 12/30/16 No misoprostol Allergy Intermediate rash 12/30/16 No latex Allergy Mild gi problems 12/30/16 No Physical Exam Physical Exam PHYSICAL EXAM: CONSTITUTIONAL: Well developed, well nourished HEAD: normocephalic, atraumatic EENT: PERRL, EOMI. Conjunctivae normal color, sclerae non-icteric; moist mucous membranes. NECK: Supple, non-tender; no meningismus. LUNGS: There is globally diminished air movement, with mild scattered respiratory wheezing, no rhonchi or rales. HEART: Regular rate and rhythm, no murmur CHEST: No deformity; non-tender ABDOMEN: The abdomen is soft, and non-tender, no masses or bruits. EXTREM: Normal ROM; no deformity, no calf tenderness. Normal pulses palpable in all extremities. There is no pedal edema. SKIN: No rash; no diaphoresis NEURO: Alert; normal speech and cognition; CN's grossly intact; strength grossly intact without focal deficit. BACK: No CVA TTP. EKG EKG [] Radiology/Procedures Radiology/Procedures [] Impressions: cxr negative acute Course & Med Decision Making Course & Med Decision Making Pertinent Labs and Imaging studies reviewed. (See chart for details) [2:30 PM: Care will be turned over to Dr. Acosta at shift change, pending labs , x-ray, and final disposition. Report given .] 3 pm: labs unremarkable except for mild bump cr, advised oral hydration rx doxycycline cxr negative for pneumonia, this was the patient's primary concern. We talked about the risks and benefits of prednisone and given that her symptoms are overall mild she would like to avoid that given her diabetes which I think is reasonable she was advised to follow-up with her primary care and/or primary plant changer if her symptoms were not to improve with antibiotics as expected. Dragon Disclaimer Dragon Disclaimer This electronic medical record was generated, in whole or in part, using a voice recognition dictation system. Departure Departure: Impression: Primary Impression: Cough Disposition: HOME, SELF-CARE Condition: STABLE Referrals: CAMELIA RUSS MD (PCP) Scripts Doxycycline Hyclate (DOXYCYCLINE HYCLATE) 100 Mg Tablet 1 TAB PO BID, #20 TAB Prov: MEGHAN ACOSTA MD 12/10/17 BENITA BOSCH MD Dec 10, 2017 14:24 MEGHAN ACOSTA MD Dec 10, 2017 15:10
[2017-12-10] MEDS ORDERED: IPRATRPIUM/ALBUTEROL 0.5/2.5MG 3 ML NEBU. NEB ONE (14:30)
[2017-12-10 14:34] LABS: BASO % 1 % (0-3); EOS # 0.2 x10^3/uL (0.0-0.7); EOS % 3 % (0-3); HEMATOCRIT 36.2 % (36.0-47.0); HEMOGLOBIN 11.8 g/dL (12.0-15.5); LYMPH # 0.8 x10^3/uL (1.0-4.8); LYMPH % 12 % (24-48); MEAN CORPUSCULAR HEMOGLOBIN 28 pg (25-35); MEAN CORPUSCULAR HGB CONC 33 g/dL (31-37); MEAN CORPUSCULAR VOLUME 87 fL (79-100); MONO # 0.8 x10^3/uL (0.0-1.1); MONO % 11 % (0-9); NEUT % 74 % (31-73); PLATELET COUNT 257 x10^3/uL (140-400); RED BLOOD COUNT 4.18 x10^6/uL (3.50-5.40); RED CELL DISTRIBUTION WIDTH 16.3 % (11.5-14.5); WHITE BLOOD COUNT 6.8 x10^3/uL (4.0-11.0)
--- NOTE | 2017-12-10 14:52 | RAD ---
INDICATION: Cough for about a week. TECHNIQUE: Two-view chest radiograph was obtained. Comparison is from August 14, 2017. FINDINGS: The lungs are clear. There is no pleural effusion. The heart is not enlarged and there is no heart failure. There is atheromatous disease in the thoracic aorta. There is mild dextrocurvature. There are clips in the right upper quadrant. IMPRESSION: No acute thoracic findings. Electronically signed by: Hugo Abarca MD (12/10/2017 2:49 PM) [facility]
[2017-12-10 14:53] LABS: ALBUMIN/GLOBULIN RATIO 0.9 (1.0-1.7); CALCIUM 9.3 mg/dL (8.5-10.1); CREATININE 2.1 mg/dL (0.6-1.0); GFR 23.2; POTASSIUM 3.8 mmol/L (3.5-5.1); TOTAL BILIRUBIN 0.5 mg/dL (0.2-1.0); TOTAL PROTEIN 6.5 g/dL (6.4-8.2)
[2017-12-10] MEDS ORDERED: DOXY100T PO (15:05)
== END 2017-12-10 15:07 | disposition home or self-care (01) ==
LOC: ER 13:55
DX: R05 Cough (principal); R09.3 Abnormal sputum; R06.02 Shortness of breath; J44.9 Chronic obstructive pulmonary disease, unspecified; E11.9 Type 2 diabetes mellitus without complications; I10 Essential (primary) hypertension; E03.9 Hypothyroidism, unspecified; Z88.2 Allergy status to sulfonamides; Z88.1 Allergy status to other antibiotic agents; Z88.5 Allergy status to narcotic agent; Z91.040 Latex allergy status; Z88.6 Allergy status to analgesic agent; Z88.8 Allergy status to other drugs, medicaments and biological substances
CPT/HCPCS: 36415; 71046; 80053; 83880; 85025; 85610; 85730; 94640; 99285; J7620

== ENCOUNTER → 2017-12-16 | Outpatient (CLI) | payer MEDICARE ==
[2017-12-10 14:09] VITALS: BP 130/64
[~2017-12-16] MED LIST changes: +DOXY100T PO
[2017-12-16 11:43] LABS: CALCIUM 10.1 mg/dL (8.5-10.1); CREATININE 1.7 mg/dL (0.6-1.0); GFR 29.5
== END | disposition home or self-care (01) ==
LOC: LAB 10:41
PROVIDERS: ATTEND Internal Medicine Cardiovascular Disease
DX: I25.10 Atherosclerotic heart disease of native coronary artery without angina pectoris (principal); I51.7 Cardiomegaly; I12.9 Hypertensive chronic kidney disease with stage 1 through stage 4 chronic kidney disease, or unspecified chronic kidney disease; E11.22 Type 2 diabetes mellitus with diabetic chronic kidney disease; N18.3 Chronic kidney disease, stage 3 (moderate); I51.81 Takotsubo syndrome; E03.9 Hypothyroidism, unspecified; J43.9 Emphysema, unspecified; D50.9 Iron deficiency anemia, unspecified; Z87.891 Personal history of nicotine dependence; Z85.3 Personal history of malignant neoplasm of breast
CPT/HCPCS: 36415; 80048

== ENCOUNTER → 2018-01-05 | Outpatient (CLI) | payer MEDICARE ==
[2017-12-10 14:09] VITALS: BP 130/64
[2018-01-05 09:52] LABS: HEMATOCRIT 37.6 % (36.0-47.0); HEMOGLOBIN 12.3 g/dL (12.0-15.5)
[2018-01-05 10:01] LABS: ALBUMIN 3.4 g/dL (3.4-5.0); CALCIUM 9.6 mg/dL (8.5-10.1); CREATININE 1.9 mg/dL (0.6-1.0); PHOSPHORUS 4.3 mg/dL (2.6-4.7); POTASSIUM 3.7 mmol/L (3.5-5.1)
== END | disposition home or self-care (01) ==
LOC: LAB 08:40
PROVIDERS: ATTEND Internal Medicine Nephrology
DX: I12.9 Hypertensive chronic kidney disease with stage 1 through stage 4 chronic kidney disease, or unspecified chronic kidney disease (principal); E11.22 Type 2 diabetes mellitus with diabetic chronic kidney disease; N18.4 Chronic kidney disease, stage 4 (severe); E55.9 Vitamin D deficiency, unspecified; E78.5 Hyperlipidemia, unspecified; K21.9 Gastro-esophageal reflux disease without esophagitis; J43.9 Emphysema, unspecified; Z82.49 Family history of ischemic heart disease and other diseases of the circulatory system; Z83.3 Family history of diabetes mellitus; Z86.2 Personal history of diseases of the blood and blood-forming organs and certain disorders involving the immune mechanism; Z87.442 Personal history of urinary calculi; Z96.652 Presence of left artificial knee joint; Z87.01 Personal history of pneumonia (recurrent); Z87.891 Personal history of nicotine dependence; Z90.12 Acquired absence of left breast and nipple; Z68.32 Body mass index [BMI] 32.0-32.9, adult
CPT/HCPCS: 36415; 80069; 85014; 85018

== ENCOUNTER 2018-01-14 19:39 | Inpatient (IN) | payer MEDICARE ==
[~2018-01-14] VITALS: Ht 162.6 cm; Wt 87.7 kg
[~2018-01-14 19:39] MED LIST changes: +BUDE10.2 INH; -BUDE10.2 PO
--- NOTE | 2018-01-14 20:31 | PHYS DOC ---
Past History Past Medical History: COPD, Diabetes, Hypertension, Hypothyroid, Other Past Surgical History: Appendectomy, Cholecystectomy, , Hysterectomy, Knee Replacement Smoking: Non-smoker Alcohol Use: None Drug Use: None Adult General Chief Complaint Chief Complaint: DIZZY/LIGHT HEADED HPI HPI Patient is a 72 year old female who presents with complaint of dizziness. Patient states her symptoms started today. The patient states that she was recently started on a new diuretic, metolazone, by her business developer for treatment of chronic edema. The patient states that throughout the day today she has been very dizzy when trying to stand up and feels like she is about to pass out. The patient has required assistance by her to get to the restroom. Patient states while at rest she does not feel the symptoms. Patient denies any vertigo type symptoms but states that she feels very lightheaded and that she may be dehydrated. Patient denies any chest pain but does admit to shortness of breath. Denies fever. Review of Systems Review of Systems Constitutional: Denies fever or chills [] Eyes: Denies change in visual acuity, redness, or eye pain [] HENT: Denies nasal congestion or sore throat [] Respiratory: Shortness of breath[] Cardiovascular: Edema, denies chest pain[] GI: Denies abdominal pain, nausea, vomiting, bloody stools or diarrhea [] : Denies dysuria or hematuria [] Musculoskeletal: Denies back pain or joint pain [] Integument: Denies rash or skin lesions [] Neurologic: Lightheadedness, denies headache, focal weakness or sensory changes [] All other systems were reviewed and found to be within normal limits, except as documented in this note. Allergies Allergies Allergies Coded Allergies Type Severity Reaction Last Updated Verified Sulfa (Sulfonamide Antibiotics) Allergy Intermediate 12/30/16 No ciprofloxacin Allergy Intermediate yeast inf 12/30/16 No codeine Allergy Intermediate vomiting 12/30/16 No diclofenac Allergy Intermediate rash 12/30/16 No hydrochlorothiazide Allergy Intermediate rash 12/30/16 No ibuprofen Allergy Intermediate cant take due to kidneys 12/30/16 No misoprostol Allergy Intermediate rash 12/30/16 No latex Allergy Mild gi problems 12/30/16 No Physical Exam Physical Exam Constitutional: Alert, afebrile, no acute distress. [] HENT: Normocephalic, atraumatic, bilateral external ears normal, oropharynx moist, no oral exudates, nose normal. [] Eyes: PERRLA, EOMI, conjunctiva normal, no discharge. [] Neck: Normal range of motion, no tenderness, supple, no stridor. [] Cardiovascular:Heart rate regular rhythm, no murmur [] Lungs & Thorax: Bilateral breath sounds clear to auscultation [] Abdomen: Bowel sounds normal, soft, no tenderness, no masses, no pulsatile masses. [] Skin: Warm, dry, no erythema, no rash. [] Back: No tenderness, no CVA tenderness. [] Extremities: No tenderness, no cyanosis, no clubbing, ROM intact, 1+ pitting edema in the bilateral lower extremities. [] Neurologic: Alert and oriented X 3, normal motor function, normal sensory function, no focal deficits noted. [] Current Patient Data Vital Signs Vital Signs Date Time Temp Pulse Resp B/P (MAP) Pulse Ox O2 Delivery O2 Flow Rate FiO2 01/14/18 20:23 98.1 80 20 95 Nasal Cannula 2.0 Lab Results Laboratory Tests Test 01/14/18 21:03 01/14/18 21:04 White Blood Count 12.3 x10^3/uL Red Blood Count 4.42 x10^6/uL Hemoglobin 12.7 g/dL Hematocrit 37.7 % Mean Corpuscular Volume 85 fL Mean Corpuscular Hemoglobin 29 pg Mean Corpuscular Hemoglobin Concent 34 g/dL Red Cell Distribution Width 15.8 % Platelet Count 253 x10^3/uL Neutrophils (%) (Auto) 76 % Lymphocytes (%) (Auto) 10 % Monocytes (%) (Auto) 11 % Eosinophils (%) (Auto) 2 % Basophils (%) (Auto) 1 % Neutrophils # (Auto) 9.4 x10^3uL Lymphocytes # (Auto) 1.2 x10^3/uL Monocytes # (Auto) 1.4 x10^3/uL Eosinophils # (Auto) 0.3 x10^3/uL Basophils # (Auto) 0.1 x10^3/uL Sodium Level 125 mmol/L Potassium Level 2.9 mmol/L Chloride Level 82 mmol/L Carbon Dioxide Level 39 mmol/L Anion Gap 4 Blood Urea Nitrogen 56 mg/dL Creatinine 2.6 mg/dL Estimated GFR (Cockcroft-Gault) 18.1 BUN/Creatinine Ratio 22 Glucose Level 296 mg/dL Calcium Level 9.2 mg/dL Total Bilirubin 1.0 mg/dL Aspartate Amino Transf (AST/SGOT) 29 U/L Alanine Aminotransferase (ALT/SGPT) 48 U/L Alkaline Phosphatase 131 U/L Creatine Kinase 187 U/L Creatine Kinase MB (Mass) 2.9 ng/mL Creatine Kinase MB Relative Index 1.6 % Troponin I Quantitative 0.051 ng/mL [id number] Natriuretic Peptide 1896 pg/mL Total Protein 6.7 g/dL Albumin 3.4 g/dL Albumin/Globulin Ratio 1.0 Urine Collection Type Unknown Urine Color Yellow Urine Clarity Clear Urine pH 7.0 Urine Specific [place] 1.010 Urine Protein Neg Urine Glucose (UA) Neg mg/dL Urine Ketones (Stick) Neg mg/dL Urine Blood Neg Urine Nitrite Neg Urine Bilirubin Neg Urine Urobilinogen Dipstick 0.2 mg/dL Urine Leukocyte Esterase Neg Urine RBC 0 /HPF Urine WBC Rare /HPF Urine Squamous Epithelial Cells None /LPF Urine Bacteria 0 /HPF Current Medications Medications (Trade) Dose Ordered Sig/Marisa Route PRN Reason Start Time Stop Time Status Last Admin Dose Admin Sodium Chloride 1,000 ml @ 125 mls/hr Q8H IV 01/14/18 20:45 01/15/18 04:44 01/14/18 20:45 EKG EKG Interpreted by me: Heart rate 81, sinus rhythm, normal intervals, leftward axis , no acute ST/T-wave abnormalities present[] Radiology/Procedures Radiology/Procedures One view AP chest x-ray interpreted by me: No infiltrate, no effusions, normal cardiac silhouette[] Course & Med Decision Making Course & Med Decision Making Pertinent Labs and Imaging studies reviewed. (See chart for details) Patient's lab work was reviewed and shows significant decreases in sodium and potassium level as well as worsening renal function likely due to dehydration. This is likely secondary to initiation of metolazone. The patient was started on normal saline. The patient will require rehydration at a slow rate has not to cause further fluid overload. Due to inability to self ambulate, the patient will need admission to the hospital for further care. I spoke with Dr. Mccall who accepted care of patient in hospital.[] Dragon Disclaimer Dragon Disclaimer This electronic medical record was generated, in whole or in part, using a voice recognition dictation system. Departure Departure: Impression: Primary Impression: Near syncope Additional Impressions: Hyponatremia Hypokalemia Dehydration Kidney disease, chronic, stage IV (GFR 15-29 ml/min) Disposition: ADMITTED INPATIENT Admitting Physician: Kyle Mccall Condition: STABLE Referrals: CAMELIA RUSS MD (PCP) Problem Qualifiers CHRISTIANO HARDING MD Jan 14, 2018 20:31
[2018-01-14] MEDS ORDERED: IV NORMAL SALINE 1,000ML 1,000 ML IV SCH (20:45)
[2018-01-14 21:15] LABS: BASO # 0.1 x10^3/uL (0.0-0.2); BASO % 1 % (0-3); EOS # 0.3 x10^3/uL (0.0-0.7); EOS % 2 % (0-3); HEMATOCRIT 37.7 % (36.0-47.0); HEMOGLOBIN 12.7 g/dL (12.0-15.5); LYMPH # 1.2 x10^3/uL (1.0-4.8); LYMPH % 10 % (24-48); MEAN CORPUSCULAR HEMOGLOBIN 29 pg (25-35); MEAN CORPUSCULAR HGB CONC 34 g/dL (31-37); MEAN CORPUSCULAR VOLUME 85 fL (79-100); MONO # 1.4 x10^3/uL (0.0-1.1); MONO % 11 % (0-9); NEUT # 9.4 x10^3uL (1.8-7.7); NEUT % 76 % (31-73); PLATELET COUNT 253 x10^3/uL (140-400); RED BLOOD COUNT 4.42 x10^6/uL (3.50-5.40); RED CELL DISTRIBUTION WIDTH 15.8 % (11.5-14.5); WHITE BLOOD COUNT 12.3 x10^3/uL (4.0-11.0)
[2018-01-14 21:21] LABS: BACTERIA,URINE 0 /HPF (0-FEW); BILIRUBIN,URINE NEG (NEG); CLARITY,URINE CLEAR; COLOR,URINE YELLOW; GLUCOSE,URINE NEG (NEG); NITRITE,URINE NEG (NEG); RBC,URINE 0 /HPF (0-2); UROBILINOGEN,URINE 0.2 mg/dL (0.2 mg/dL); WBC,URINE RARE /HPF (0-4)
[2018-01-14 21:36] LABS: ALBUMIN 3.4 g/dL (3.4-5.0); CALCIUM 9.2 mg/dL (8.5-10.1); CREATININE 2.6 mg/dL (0.6-1.0); GFR 18.1; TOTAL PROTEIN 6.7 g/dL (6.4-8.2)
[2018-01-14 21:38] LABS: POTASSIUM 2.9 mmol/L (3.5-5.1)
[2018-01-14] MEDS: IV NORMAL SALINE 1,000ML 1,000 ML IV SCH (22:00)
[2018-01-14] MEDS ORDERED: ACETAMINOPHEN 325 MG TABLET PO PRN (22:00)
[2018-01-14] MEDS ORDERED: ONDANSETRON PF 4 MG/2 ML VIAL. IV PRN (22:00)
[2018-01-14] MEDS ORDERED: POTASSIUM CHLORIDE 20 MEQ TABLET.ER. PO ONE (22:00)
[2018-01-14 22:34] VITALS: BP 94/59
--- NOTE | 2018-01-14 23:00 | RAD ---
PROCEDURE: PORTABLE CHEST 1V CLINICAL INDICATION: DIZZINESS COMPARISON: 12/10/2017 FINDINGS: No pneumothorax identified. Cardiac and mediastinal contours unremarkable. No pulmonary consolidation or acute airspace disease. No acute osseous abnormalities identified. IMPRESSION: No pulmonary consolidation or acute airspace disease. Electronically signed by: Malik Cadet DO (01/14/2018 10:56 PM) [facility]
[2018-01-15] MEDS ORDERED: FURO40TA4 PO (04:05)
[2018-01-15 05:16] VITALS: BP 128/68
[2018-01-15] MEDS ORDERED: traMADol 50 MG TABLET PO PRN (06:00)
[2018-01-15] MEDS ORDERED: LEVOTHYROXINE 100 MCG TABLET PO SCH (06:00)
[2018-01-15] MEDS ORDERED: DEXTROSE 50% 25 GM / 50ML DISP.SYRIN. IV PRN (06:00)
[2018-01-15] MEDS ORDERED: DIPHENOXYLATE/ATROPINE TABLET. PO PRN (06:00)
--- NOTE | 2018-01-15 06:22 | EKG ---
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
[2018-01-15] MEDS: IV NORMAL SALINE 1,000ML 1,000 ML IV SCH (06:37)
[2018-01-15] MEDS ORDERED: PANTOPRAZOLE 40 MG TABLET. PO SCH (07:30)
[2018-01-15] MEDS ORDERED: IPRATRPIUM/ALBUTEROL 0.5/2.5MG 3 ML NEBU. NEB SCH (08:00)
[2018-01-15] MEDS ORDERED: MAGNESIUM OXIDE 400 MG TABLET PO SCH (08:00)
[2018-01-15] MEDS ORDERED: BUDESONIDE 0.5 MG/2 ML NEBU NEB SCH (08:00)
[2018-01-15 08:10] LABS: CALCIUM 8.4 mg/dL (8.5-10.1); CREATININE 2.4 mg/dL (0.6-1.0); GFR 19.8
[2018-01-15] MEDS: INSULIN LISPRO 300 UNITS/3 ML INSULN.PEN. SQ SCH ×2 (08:55→12:10)
[2018-01-15 08:57] VITALS: BP_SYST 101; BP_SYST 99; BP_DIAS 60; BP_DIAS 61
[2018-01-15 08:58] VITALS: BP 104/63
[2018-01-15] MEDS ORDERED: POTASSIUM CITRATE 10 MEQ TABLET.ER PO SCH (09:00)
[2018-01-15] MEDS ORDERED: ERYTHROMYCIN BASE 250 MG TABLET PO SCH (09:00)
[2018-01-15] MEDS ORDERED: CHOLECALCIFEROL (VITAMIN D3) 1,000 UNIT TABLET PO SCH (09:00)
[2018-01-15] MEDS ORDERED: FOLIC ACID 1 MG TABLET PO SCH (09:00)
[2018-01-15] MEDS ORDERED: ASPIRIN 81 MG TAB.CHEW PO SCH (09:00)
[2018-01-15] MEDS ORDERED: FETZIMA 80 MG PO SCH (09:00)
[2018-01-15] MEDS ORDERED: ALLOPURINOL 300 MG TABLET. PO SCH (09:00)
[2018-01-15 11:08] VITALS: BP 118/67
[2018-01-15] MEDS ORDERED: POTASSIUM CHLORIDE 20 MEQ TABLET.ER. PO ONE (13:45)
--- NOTE | 2018-01-15 16:19 | DS ---
DATE OF DISCHARGE: 01/14/2018 HOSPITAL COURSE: The patient is a 72-year-old female patient who apparently was started on metolazone on admission. She came to the Emergency Room complaining of dizziness and near syncope. Investigation showed that she has acute on chronic kidney injury, hypokalemia, hyponatremia. Her diuretics were held. She was given some IV fluid and today, we checked her orthostatics and they remained within acceptable range. There is no evidence of postural hypertension. Her blood pressure lying was 101/61 with a heart rate of 89, sitting was 99/60 with a heart rate of 79 and standing was 104/63 with a heart rate of 83. Her lab work showed slight improvement in her sodium up to 126 from 125. Her potassium went up from 2.9 to 3. I spoke with Dr. Wiley, the head control clerk, and she recommended that we hold her diuretics over the weekend and check her labs again on Thursday and fax the values to her office. PHYSICAL EXAMINATION: GENERAL: When I examined her this morning, she was resting slightly propped up in bed, in no apparent respiratory distress. No pallor, jaundice, cyanosis or thyromegaly. No jugular venous distention. No limb edema. VITAL SIGNS: Her heart rate was 82, blood pressure 118/67, temperature was 97.9, respiratory rate was 20, and oxygen saturation was 99% on room air. HEAD, EYES, EARS, NOSE AND THROAT: Showed normocephalic, atraumatic. NECK: Supple. HEART: Showed normal first and second heart sounds with no gallop, rub or murmur. CHEST: Clear to auscultation. No crepitation or rhonchi. ABDOMEN: Distended, soft, nontender. No guarding or rigidity. No organomegaly. Hernial orifice intact. Bowel sounds normal. NEUROLOGIC: She was awake, alert, responding appropriately. All cranial nerves intact. EXTREMITIES: She moves extremities without difficulty. She ambulates without assistance or assistive devices. Her intake was 1100, no output was recorded. LABORATORY DATA: Her lab work this morning showed serum sodium 126, potassium 3, chloride 86, bicarbonate 36. Anion gap of 4, BUN 61, creatinine 2.4, estimated GFR was 20 mL per minute. Her glucose was 215 and calcium was 8.4. The patient was advised to hold her Lasix and metolazone over the weekend and to repeat her lab work on Thursday morning. DISCHARGE MEDICATIONS: She was discharged home to continue on following medications: Allopurinol 300 mg once a day, aspirin 162 mg once a day, atorvastatin calcium 20 mg at bedtime. She is on Symbicort 1 inhalation twice a day, cholecalciferol 2000 international unit once a day, clonazepam 2 mg at bedtime, Lomotil one tablet 4 times a day, erythromycin base 250 mg twice a day, folic acid 1 mg daily. She is on NovoLog insulin as insulin sliding scale. She is on detemir insulin 34 units at bedtime, ipratropium bromide, albuterol sulfate 2.5 mg/3 mL by nebulizer 4 times a day. She is on Fetzima 80 mg daily, levothyroxine sodium 100 mcg once a day, losartan potassium 100 mg daily, magnesium oxide 800 mg daily, mirtazapine 30 mg at bedtime, potassium citrate 10 mEq once a day, prednisone 50 mg daily, tramadol 50 mg every 6 hours as needed and verapamil 120 mg daily. FINAL DISCHARGE DIAGNOSES: Acute on chronic kidney injury, her creatinine has risen from 1.7-2.6. Hypokalemia, potassium 2.9 risen to 3. Hyponatremia with a serum sodium of 125. She is known to have type 2 diabetes mellitus, chronic obstructive pulmonary disease, hypertension, hypothyroidism, osteoarthritis, diabetic gastroparesis and carpal tunnel syndrome. ANA ROBISON MD DR: DANIEL/sarah JOB#: [id number] / [id number]
[2018-01-15] MEDS ORDERED: INSULIN GLARGINE 300 UNITS/3 ML INSULN.PEN. SQ SCH (21:00)
[2018-01-15] MEDS ORDERED: clonazePAM 2 MG TABLET PO SCH (21:00)
[2018-01-15] MEDS ORDERED: ATORVASTATIN CALCIUM 20 MG TABLET PO SCH (21:00)
[2018-01-15] MEDS ORDERED: MIRTAZAPINE 30 MG TABLET PO SCH (21:00)
[2018-01-15] MEDS ORDERED: LACTOBACILLUS RHAMNOSUS GG 1 CAPSULE. PO SCH (21:00)
--- NOTE | 2018-01-16 12:52 | HP ---
ADMIT DATE: 01/14/2018 HISTORY OF PRESENT ILLNESS: The patient is a 72-year-old female patient, who presented to the Emergency Room complaining of dizziness and lightheadedness. She stated that her symptoms started on the day of admission. She was recently started on a new diuretic in the form metolazone by her publications designer for treatment of her chronic bilateral lower extremity edema. She stated that throughout the day, she has been very dizzy while trying to stand up and feels like she is about to pass out. The patient has required assistance by her to get back to the restroom. She stated that while at rest, she does not feel any symptoms, but denies any vertigo. Denies that things are spinning around. Denied any nausea or vomiting. She was evaluated in the Emergency Room and was found to be hyponatremic, hypokalemic and her creatinine was 2.6 and was admitted for further evaluation and treatment. I spoke with Dr. Wiley, and she recommended that she stop all her diuretics over the weekend and repeat her lab work again next week. PAST MEDICAL HISTORY: Significant for type 2 diabetes mellitus with triopathy, chronic obstructive pulmonary disease, coronary artery disease, status post myocardial infarction, hypertension, chronic kidney disease, hypothyroidism, osteoarthritis, carpal tunnel syndrome and diabetic gastroparesis. PAST SURGICAL HISTORY: Significant for left heart catheterization about 4 years ago, bilateral total knee arthroplasty, total abdominal hysterectomy, bilateral salpingo-oophorectomy, bilateral cataract extraction and laser photocoagulation of both eyes, carpal tunnel release on the right, cholecystectomy, esophagogastroduodenoscopy and colonoscopy. ALLERGIES: She is allergic to codeine, hydrochlorothiazide, diclofenac, misoprostol, Latex, ibuprofen, ciprofloxacin, and sulfa drugs. MEDICATIONS: She is currently on following medications: She is on erythromycin base 250 mg p.o. b.i.d., ipratropium bromide, albuterol sulfate 0.5/2.5 mg 3 mL by nebulizer 4 times a day, atorvastatin calcium 20 mg at bedtime; verapamil 240 mg extended release, she takes 120 mg once a day; losartan potassium 100 mg daily, aspirin 81 mg once a day, tramadol 50 mg every 6 hours, clonazepam 2 mg at bedtime, Fetzima 80 mg daily, mirtazapine 30 mg at bedtime, potassium citrate 10 mEq once a day, furosemide 40 mg p.o. b.i.d., Symbicort 160/4.5 mcg by inhaler twice a day, magnesium oxide 400 mg daily. She is also on diphenoxylate/atropine for Lomotil 2.5 mg 1 tablet 4 times a day as needed, omeprazole 20 mg twice a day, prednisone 50 mg daily and she is on NovoLog FlexPen as per insulin sliding scale before meals. She is also on detemir insulin 34 units at bedtime, levothyroxine sodium 75 mcg once a day, folic acid 1 mg once a day, cholecalciferol 2000 international units once a day, and allopurinol 300 mg once a day for gout. FAMILY HISTORY: She has one brother and one sister older and 1 brother and 2 sisters younger. Her younger sister at the age of 60 because of complication of diabetes and congestive heart failure. Her father in his 60s after myocardial infarction and mother at the age of 82 because of COPD. SOCIAL HISTORY: She is , has 2 sons. She quit smoking in 1991. She does not drink alcohol. 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 REVIEW OF SYSTEMS: The patient denied any blurring of vision, cataract, glaucoma or macular degeneration. Denied any earache, tinnitus or sensorineural deafness. Denied any nosebleeds, stuffy nose or postnasal drip. Denied any sore throat, sore tongue, toothache, hoarseness of voice or difficulty swallowing. Denied any nausea, vomiting, diarrhea or constipation. Denied any hematemesis, melena or hematochezia. Denied any dysuria, frequency or hematuria. Denied any chest pain, shortness of breath, orthopnea or paroxysmal nocturnal dyspnea. Denied any cough, phlegm or hemoptysis. Did complain of dizziness and lightheadedness. On arrival to Emergency Room, she looked well and was clearly in no apparent respiratory distress, slightly pale, but no jaundice, cyanosis, or thyromegaly. No jugular venous distension. No lower limb edema. PHYSICAL EXAMINATION: VITAL SIGNS: Her heart rate was 80, blood pressure was 127/80, temperature was 98.1, respiratory rate was 20, and oxygen saturation was 95% on 2 liters of oxygen. HEAD, EYES, EARS, NOSE AND THROAT: Showed normocephalic, atraumatic. NECK: Supple. HEART: Showed normal first and second heart sounds with no gallop, rub or murmur. CHEST: Clear to auscultation. No crepitation or rhonchi. ABDOMEN: Distended, soft, and nontender. No guarding or rigidity. No organomegaly. Hernial orifice intact. Bowel sounds normal. NEUROLOGIC: She was awake, alert, and responding appropriately. All cranial nerves are intact. She moves extremities without difficulty. She ambulates without assistance or assistive devices. LABORATORY DATA: Her lab work on admission showed that her white cell count was 12,300, hemoglobin 12.7, hematocrit 37.7, MCV 85 and a platelet count 253,000 with normal manual differential. Her chemistry showed that her serum sodium was 125, potassium 2.9, chloride 82, bicarbonate 39, anion gap of 4, BUN 56, creatinine 2.6, estimated GFR was 18 mL per minute. Her glucose was 298. Calcium was 9.2. Total bilirubin, AST, and ALT were normal. Alkaline phosphatase slightly was elevated. Total protein was 6.7, albumin was 3.4. Her troponin was 0.051. Urinalysis showed the urine was yellow, clear with a pH of 7, specific gravity of 1.010. The urine was negative for protein, glucose, ketones, blood, nitrite and bilirubin and leukocyte esterase. There were no rbc's, no wbc's, and no bacteria. Her chest x-ray showed that there was no pneumothorax identified. Cardiac and mediastinal contours unremarkable. No pulmonary consolidation or acute airspace disease, no acute osseous abnormalities identified. ASSESSMENT AND PLAN: The patient was admitted basically with dizziness and lightheadedness. She was found to be hyponatremic, hypokalemic and acute on chronic kidney injury. Her creatinine has risen from 1.7 to 2.6 and BUN from 38 to 56. Apparently, the patient did receive some IV fluid in the Emergency Room and was admitted here to monitor her lab work and check her orthostatics to make sure that she is asymptomatic. ANA ROBISON MD DR: DANIEL/sarah JOB#: [id number] / [id number]
== END 2018-01-15 13:45 | disposition home or self-care (01) | DRG 682 ==
LOC: ER 19:39 → 1 SOUTH 22:25
PROVIDERS: ADMIT Internal Medicine; ATTEND Internal Medicine
DX: I12.9 Hypertensive chronic kidney disease with stage 1 through stage 4 chronic kidney disease, or unspecified chronic kidney disease (principal); N17.0 Acute kidney failure with tubular necrosis; N18.4 Chronic kidney disease, stage 4 (severe); E87.1 Hypo-osmolality and hyponatremia; E86.0 Dehydration; E11.43 Type 2 diabetes mellitus with diabetic autonomic (poly)neuropathy; M19.90 Unspecified osteoarthritis, unspecified site; K31.84 Gastroparesis; J44.9 Chronic obstructive pulmonary disease, unspecified; I25.10 Atherosclerotic heart disease of native coronary artery without angina pectoris; Z96.653 Presence of artificial knee joint, bilateral; G56.00 Carpal tunnel syndrome, unspecified upper limb; E87.6 Hypokalemia; E03.9 Hypothyroidism, unspecified; E11.22 Type 2 diabetes mellitus with diabetic chronic kidney disease; I25.2 Old myocardial infarction; Z82.49 Family history of ischemic heart disease and other diseases of the circulatory system; Z87.891 Personal history of nicotine dependence; Z83.3 Family history of diabetes mellitus; Z82.5 Family history of asthma and other chronic lower respiratory diseases; Z90.49 Acquired absence of other specified parts of digestive tract; Z90.710 Acquired absence of both cervix and uterus; Z90.722 Acquired absence of ovaries, bilateral; Z98.42 Cataract extraction status, left eye; Z98.41 Cataract extraction status, right eye; Z88.5 Allergy status to narcotic agent; Z88.2 Allergy status to sulfonamides; Z88.8 Allergy status to other drugs, medicaments and biological substances; Z88.1 Allergy status to other antibiotic agents; Z91.040 Latex allergy status
CPT/HCPCS: 36415; 71045; 80048; 80053; 81001; 82553; 82947; 83880; 84484; 85025; 93005; 96361; 96374; J1815; J2405; 99285-25; J7030

== ENCOUNTER → 2018-01-18 | Outpatient (CLI) | payer MEDICARE ==
[2018-01-15 11:08] VITALS: BP 118/67
[~2018-01-18] MED LIST changes: +FURO40TA4 PO; -LOSA100T6 PO; +LOSA100T7 PO; -LOSA25TA4 PO; +LOSA25TA5 PO; +METF500T16 PO; -METF500T5 PO
[2018-01-18 12:09] LABS: CALCIUM 9.6 mg/dL (8.5-10.1); GFR 24.5; POTASSIUM 3.3 mmol/L (3.5-5.1)
== END | disposition home or self-care (01) ==
LOC: LAB 11:01
PROVIDERS: ATTEND Internal Medicine
DX: I12.9 Hypertensive chronic kidney disease with stage 1 through stage 4 chronic kidney disease, or unspecified chronic kidney disease (principal); E11.22 Type 2 diabetes mellitus with diabetic chronic kidney disease; N18.4 Chronic kidney disease, stage 4 (severe); J43.9 Emphysema, unspecified; E03.9 Hypothyroidism, unspecified; I25.10 Atherosclerotic heart disease of native coronary artery without angina pectoris; K21.9 Gastro-esophageal reflux disease without esophagitis; Z96.653 Presence of artificial knee joint, bilateral; Z87.442 Personal history of urinary calculi; Z87.891 Personal history of nicotine dependence; Z85.3 Personal history of malignant neoplasm of breast; Z86.2 Personal history of diseases of the blood and blood-forming organs and certain disorders involving the immune mechanism; Z90.722 Acquired absence of ovaries, bilateral; Z90.12 Acquired absence of left breast and nipple; Z90.49 Acquired absence of other specified parts of digestive tract; Z90.710 Acquired absence of both cervix and uterus; Z88.2 Allergy status to sulfonamides; Z88.1 Allergy status to other antibiotic agents; Z88.5 Allergy status to narcotic agent; Z88.6 Allergy status to analgesic agent; Z88.8 Allergy status to other drugs, medicaments and biological substances; Z82.49 Family history of ischemic heart disease and other diseases of the circulatory system; Z83.3 Family history of diabetes mellitus; Z82.5 Family history of asthma and other chronic lower respiratory diseases
CPT/HCPCS: 36415; 80048

== ENCOUNTER → 2018-04-27 | Outpatient (CLI) | payer MEDICARE ==
[~2018-04-27] MED LIST changes: -CARV6.252 PO; +CARV6.2541 PO; +CLON1TAB11 PO; -CLON1TAB4 PO
[2018-04-27 15:19] LABS: HEMATOCRIT 40.9 % (36.0-47.0)
[2018-04-27 15:24] LABS: ALBUMIN 3.3 g/dL (3.4-5.0); CALCIUM 9.6 mg/dL (8.5-10.1); CREATININE 1.7 mg/dL (0.6-1.0); GFR 29.5; PHOSPHORUS 3.7 mg/dL (2.6-4.7); POTASSIUM 3.8 mmol/L (3.5-5.1)
== END | disposition home or self-care (01) ==
LOC: LAB 14:48
PROVIDERS: ATTEND Internal Medicine Nephrology
DX: I12.9 Hypertensive chronic kidney disease with stage 1 through stage 4 chronic kidney disease, or unspecified chronic kidney disease (principal); E11.22 Type 2 diabetes mellitus with diabetic chronic kidney disease; N18.4 Chronic kidney disease, stage 4 (severe); Z68.32 Body mass index [BMI] 32.0-32.9, adult
CPT/HCPCS: 36415; 80069; 85014; 85018

== ENCOUNTER → 2018-05-19 | Outpatient (CLI) | payer MEDICARE ==
[~2018-05-19] MED LIST changes: +LOSA100T14 PO; -LOSA100T7 PO; +LOSA25TA11 PO; -LOSA25TA5 PO
--- NOTE | 2018-05-19 17:06 | RAD ---
DATE: 05/19/2018 EXAM: MAMMO ARCHANA DIAG RT, BREAST RIGHT HISTORY: 6 month follow-up COMPARISON: 11/13/2017, 10/29/2017 This study was interpreted with the benefit of Computerized Aided Detection (CAD). Breast Density: SCATTERED The breast parenchyma shows scattered fibroglandular densities. Breast parenchyma level B. FINDINGS: 2-D and 3-D tomosynthesis imaging was performed in CC and MLO projections. The fibroglandular pattern in the right breast is slightly nodular in character. On CC tomosynthesis images #24 a tiny 3 mm nodule is seen laterally in the right breast. It appears unchanged since the 10/29/2017 tomosynthesis images. No new or enlarging breast densities are seen. No spiculated mass or architectural distortion is evident. Benign type calcifications are present. No suspicious microcalcifications have developed. Right breast ultrasound, 05/19/2018: A targeted ultrasound exam of the lateral right breast was performed for follow-up of the probable small cysts seen on 11/13/2017. At the 9:00 location a 2 mm tiny, smooth, hypoechoic nodule is again noted and is unchanged. At the 11:00 location there is a 2-3 mm smooth structure which appears to represent a cyst. It is also unchanged. IMPRESSION: Unchanged right breast nodules. Follow-up bilateral mammography and right breast ultrasound in 6 months is suggested. BI-RADS CATEGORY: 3 PROBABLY BENIGN FINDING(S)-SHORT INTERVAL FOLLOW-UP SUGGESTED RECOMMENDED FOLLOW-UP: 6M 6 MONTH FOLLOW-UP PQRS compliance statement: Patient information was entered into a reminder system with a target due date for the next mammogram. Mammography is a sensitive method for finding small breast cancers, but it does not detect them all and is not a substitute for careful clinical examination. A negative mammogram does not negate a clinically suspicious finding and should not result in delay in biopsying a clinically suspicious abnormality. "Our facility is accredited by the [employer] Mammography Program."
== END | disposition home or self-care (01) ==
LOC: MAMMO 12:51
PROVIDERS: ATTEND Internal Medicine
DX: N63.11 Unspecified lump in the right breast, upper outer quadrant (principal); Z85.3 Personal history of malignant neoplasm of breast
CPT/HCPCS: 76641; 77065; G0279; 77061

== ENCOUNTER 2018-05-24 11:54 | Emergency (ER) | payer MEDICARE ==
[~2018-05-24] VITALS: Ht 162.6 cm; Wt 83.0 kg
[2018-05-24 12:30] VITALS: BP 143/67
[2018-05-24] MEDS ORDERED: cefTRIAXone IM 1 GM VIAL IM ONE (12:30)
--- NOTE | 2018-05-24 12:32 | PHYS DOC ---
Past History Past Medical History: COPD, Diabetes, Hypertension, Hypothyroid, Other Past Surgical History: Appendectomy, Cholecystectomy, , Hysterectomy, Knee Replacement Smoking: Non-smoker Alcohol Use: None Drug Use: None Adult General Chief Complaint Chief Complaint: FACE PROBLEM HPI HPI Patient is a 72 year old female who presents with complaining of right-sided facial pain and edema since last night. Patient states she had gradual onset of right-sided facial pain and edema since last night without injury or history of the same problem. Patient denies dental pain but states the pain getting worse with chewing. Patient had hand surgery about 10 days ago with several hours of fasting. Review of Systems Review of Systems Constitutional: Denies fever or chills [] Eyes: Denies change in visual acuity, redness, or eye pain [] HENT: Denies nasal congestion or sore throat [] Respiratory: Denies cough or shortness of breath [] Cardiovascular: No additional information not addressed in HPI [] GI: Denies abdominal pain, nausea, vomiting, bloody stools or diarrhea [] : Denies dysuria or hematuria [] Musculoskeletal: Denies back pain or joint pain [] Integument: Denies rash or skin lesions [] Neurologic: Denies headache, focal weakness or sensory changes [] Endocrine: Denies polyuria or polydipsia [] All other systems were reviewed and found to be within normal limits, except as documented in this note. Allergies Allergies Allergies Coded Allergies Type Severity Reaction Last Updated Verified Sulfa (Sulfonamide Antibiotics) Allergy Intermediate 12/30/16 No ciprofloxacin Allergy Intermediate yeast inf 12/30/16 No codeine Allergy Intermediate vomiting 12/30/16 No diclofenac Allergy Intermediate rash 12/30/16 No hydrochlorothiazide Allergy Intermediate rash 12/30/16 No ibuprofen Allergy Intermediate cant take due to kidneys 12/30/16 No misoprostol Allergy Intermediate rash 12/30/16 No latex Allergy Mild gi problems 12/30/16 No Physical Exam Physical Exam Constitutional: Well developed, well nourished, no acute distress, non-toxic appearance. [] HENT: Normocephalic, atraumatic, bilateral external ears normal, oropharynx moist, no oral exudates, nose normal. Right parotid gland edema without erythema or tenderness. [] Eyes: PERRLA, EOMI, conjunctiva normal, no discharge. [] Neck: Normal range of motion, no tenderness, supple, no stridor. [] Cardiovascular:Heart rate regular rhythm, no murmur [] Lungs & Thorax: Bilateral breath sounds clear to auscultation [] Skin: Warm, dry, no erythema, no rash. [] Back: No tenderness, no CVA tenderness. [] Extremities: No tenderness, no cyanosis, no clubbing, ROM intact, no edema. [] Neurologic: Alert and oriented X 3, normal motor function, normal sensory function, no focal deficits noted. [] Psychologic: Affect normal, judgement normal, mood normal. [] EKG EKG [] Radiology/Procedures Radiology/Procedures [] Course & Med Decision Making Course & Med Decision Making Evaluation of patient in ER showed 72-year-old male patient with complaining of facial edema with her teeth tenderness and edema without sign of abscess. Patient is diabetic and her blood sugar at home was 190s. Patient doesn't want to have CT and labs and wants to try antibiotics. Patient has appointment with her primary care physician in 3 days. Patient had a dose of Rocephin in ER and instructed to take leftover of hydrocodone from her previous surgery. Dragon Disclaimer Dragon Disclaimer This electronic medical record was generated, in whole or in part, using a voice recognition dictation system. Departure Departure: Impression: Primary Impression: Acute parotitis Disposition: 01 HOME, SELF-CARE (at 1250) Condition: STABLE Referrals: CAMELIA RUSS MD (PCP) Patient Instructions: Parotitis Additional Instructions: Drink plenty of liquids Follow-up with your primary care physician in 2 days as a scheduled Return to ER if not getting better Take your home hydrocodone as needed for pain Scripts Amoxicillin/Potassium Clav (AUGMENTIN 875-125 TABLET) 1 Each Tablet 1 TAB PO BID for infection, #14 TAB Prov: POLY KRUSE MD 05/24/18 POLY KRUSE MD May 24, 2018 12:32
[2018-05-24] MEDS ORDERED: AMOX1TAB61 PO (12:52)
== END 2018-05-24 13:00 | disposition home or self-care (01) ==
LOC: ER 11:54
DX: K11.21 Acute sialoadenitis (principal); J44.9 Chronic obstructive pulmonary disease, unspecified; E11.9 Type 2 diabetes mellitus without complications; I10 Essential (primary) hypertension; E03.9 Hypothyroidism, unspecified; Z88.2 Allergy status to sulfonamides; Z88.1 Allergy status to other antibiotic agents; Z88.5 Allergy status to narcotic agent; Z91.040 Latex allergy status; Z88.6 Allergy status to analgesic agent; Z88.8 Allergy status to other drugs, medicaments and biological substances
CPT/HCPCS: 96372; 99283; J0696

== ENCOUNTER → 2018-09-09 | Outpatient (CLI) | payer MEDICARE ==
[~2018-09-09] MED LIST changes: +ALBU2.5V14 NEB; +AMOX1TAB58 PO; +FERR159T3 PO; +FLUT1BLS IH; +LEVO100T5 PO; +RANI150T21 PO; -VERA240T72 PO; +VERA240T8 PO; +[UNRECOGNIZED DRUG - CODE] IJ
--- NOTE | 2018-09-09 12:40 | RAD ---
Indication: Postmenopausal screening for osteoporosis. Former smoker. Kidney failure. Ovarian failure.. Bone Density: -BMD: (g/cm2) - AP Spine Total (L1-L4).......... 1.018. - Total right Hip................. 0.661. T-Score: - AP Spine Total (L1-L4)......... -1.4. - Total right Hip................. -2.4. Z-Score: - AP Spine Total (L1-L4).......... -0.4. - Total right Hip................. -1.3. World Health Organization criteria for BMD interpretation classify patients as Normal (T-score at or above -1.0), Osteopenic (T-score between -1.0 and -2.5), or Osteoporotic (T-score at or below -2.5). Impression: 1. AP Spine Total L1-L4--- osteopenia. 2. Total right Hip--- osteopenia. Electronically signed by: Chu Craig MD (09/09/2018 12:37 PM) [id number]
== END | disposition home or self-care (01) ==
LOC: DXRAD 09:54
PROVIDERS: ATTEND Internal Medicine
DX: Z13.820 Encounter for screening for osteoporosis (principal); M85.88 Other specified disorders of bone density and structure, other site; E28.39 Other primary ovarian failure; N19 Unspecified kidney failure; Z87.891 Personal history of nicotine dependence
CPT/HCPCS: 77080

== ENCOUNTER 2018-09-24 16:27 | Inpatient (IN) | payer MEDICARE ==
[~2018-09-24] VITALS: Ht 162.6 cm; Wt 90.9 kg
[~2018-09-24 16:27] MED LIST changes: -ALBU2.5V14 NEB; -AMOX1TAB58 PO; -FERR159T3 PO; -FLUT1BLS IH; -LEVO100T5 PO; -RANI150T21 PO; -[UNRECOGNIZED DRUG - CODE] IJ
[2018-09-24] MEDS ORDERED: IV NORMAL SALINE 1,000ML 1,000 ML IV ONE ×2 (16:45→18:30)
--- NOTE | 2018-09-24 16:51 | EKG ---
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
[2018-09-24 16:57] LABS: BASO % 0 % (0-3); EOS # 0.2 x10^3/uL (0.0-0.7); EOS % 2 % (0-3); HEMATOCRIT 35.7 % (36.0-47.0); HEMOGLOBIN 11.6 g/dL (12.0-15.5); LYMPH # 0.7 x10^3/uL (1.0-4.8); LYMPH % 8 % (24-48); MEAN CORPUSCULAR HEMOGLOBIN 28 pg (25-35); MEAN CORPUSCULAR HGB CONC 33 g/dL (31-37); MEAN CORPUSCULAR VOLUME 85 fL (79-100); MONO # 1.1 x10^3/uL (0.0-1.1); MONO % 11 % (0-9); NEUT # 7.7 x10^3uL (1.8-7.7); NEUT % 79 % (31-73); PLATELET COUNT 261 x10^3/uL (140-400); WHITE BLOOD COUNT 9.8 x10^3/uL (4.0-11.0)
[2018-09-24] MEDS ORDERED: DEXAMETHASONE SOD PHOS 10 MG/ML VIAL IV ONE (17:00)
[2018-09-24] MEDS ORDERED: IPRATRPIUM/ALBUTEROL 0.5/2.5MG 3 ML NEBU. NEB ONE (17:00)
[2018-09-24] MEDS ORDERED: ASPIRIN 325 MG TABLET PO ONE (17:15)
--- NOTE | 2018-09-24 17:25 | PHYS DOC ---
Past History Past Medical History: COPD, Diabetes, Hypertension, Hypothyroid, [place], Renal Failure, Other Past Surgical History: Appendectomy, Cholecystectomy, Coronary Bypass Surgery, , Hysterectomy, Knee Replacement Smoking: Non-smoker, Quit Greater Than 1 Year Alcohol Use: None Drug Use: None Adult General Chief Complaint Chief Complaint: SHORTNESS OF BREATH HPI HPI Patient is a 73 year old female who presents with shortness of breath. She states this afternoon she began to feel faint while walking so her took her to lie down. Soon after that, she began to feel short of breath with some chest tightness and cough productive of brown sputum that "tasted horrible". She was prescribed Clarithromycin this past Thursday by her business communications instructor because she was experiencing symptoms similar to her past bout of pneumonia. Patient wears 3 L O2 by nasal canula at home. EMS reported SpO2 of 90% initially that judy to 98% after a DuoNeb breathing treatment in route to the ED. Patient states that she has noted some increase LE swelling, left more so than right. Patient denies fever, chills, nicolás hemoptysis, palpitations, dizziness or syncope. Review of Systems Review of Systems Constitutional: Denies fever or chills [] Eyes: Denies blurred vision or diplopia [] HENT: Denies nasal congestion or rhinorrhea. [] Respiratory: Reports productive cough and shortness of breath. [] Cardiovascular: Reports chest tightness. Denies palpitations. [] GI: Denies abdominal pain, nausea, vomiting, or diarrhea [] : Denies dysuria or hematuria [] Integument: Denies rash or skin lesions [] Neurologic: Denies dizziness, syncope or focal weakness [] Complete review of systems found to be within normal limits, except as documented in this note. Current Medications Current Medications Current Medications Medications (Trade) Dose Ordered Sig/Marisa Start Time Stop Time Status Last Admin Dose Admin Albuterol/ Ipratropium (Duoneb) 3 ml 1X ONCE 09/24/18 17:00 09/24/18 17:01 DC Aspirin (Shellie Aspirin) 325 mg 1X ONCE 09/24/18 17:15 09/24/18 17:16 Dexamethasone Sodium Phosphate (Decadron) 10 mg 1X ONCE 09/24/18 17:00 09/24/18 17:01 DC Sodium Chloride 1,000 ml @ 1,000 mls/hr 1X ONCE 09/24/18 16:45 09/24/18 17:44 Allergies Allergies Allergies Coded Allergies Type Severity Reaction Last Updated Verified Sulfa (Sulfonamide Antibiotics) Allergy Intermediate 12/30/16 No ciprofloxacin Allergy Intermediate yeast inf 12/30/16 No codeine Allergy Intermediate vomiting 12/30/16 No diclofenac Allergy Intermediate rash 12/30/16 No hydrochlorothiazide Allergy Intermediate rash 12/30/16 No ibuprofen Allergy Intermediate cant take due to kidneys 12/30/16 No misoprostol Allergy Intermediate rash 12/30/16 No latex Allergy Mild gi problems 12/30/16 No Physical Exam Physical Exam Constitutional: Speaking in shortened sentences with some increased work of breathing. [] HENT: Normocephalic, atraumatic, oral mucosa appears dry. [] Eyes: EOMI, conjunctiva normal, no discharge. [] Neck: Supple without tenderness or lymphadenopathy. [] Cardiovascular: Heart rate regular rhythm, no murmur [] Lungs & Thorax: Diminished breath sounds b/l with expiratory wheezing throughout. [] Abdomen: Soft and nontender [] Skin: Warm, dry, no erythema, no rash. [] Extremities: Left LE appears slightly more swollen than right. Negative Homans sign. Positive Alex sign on left. Dorsalis pedis +2 b/l. [] Neurologic: Alert and oriented without any focal deficits noted. [] Psychologic: Affect normal, judgement normal, mood normal. [] Current Patient Data Vital Signs Vital Signs Date Time Temp Pulse Resp B/P (MAP) Pulse Ox O2 Delivery O2 Flow Rate FiO2 09/24/18 16:32 97.7 68 24 94 Nasal Cannula 4.0 EKG EKG @1645: Normal sinus rhythm with rate of 68. Mild left axis deviation. Non pathologic Q waves present in aVL. Flattened T waves in V5-V6. No ST segment elevation or depression. [] Radiology/Procedures Radiology/Procedures PROCEDURE: CHEST PA & LATERAL CHEST PA LATERAL History: Cough, dyspnea, leg swelling.. The heart size appears mildly widened. No evidence of pneumothorax, pleural effusion or consolidating infiltrate. There are mild interstitial markings of both lungs, greater in the mid to lower lungs. IMPRESSION: Mild interstitial opacities, compatible with mild infiltrate or edema, greatest inferiorly. Electronically signed by: Bruce Dumont MD (09/24/2018 5:47 PM) [facility] PROCEDURE: VENOUS LOWER EXTREMITY LEFT Left lower extremity venous doppler ultrasound Indication: Swelling and pain. Technique: Color Doppler, grayscale, and spectral waveform analysis is used to evaluate the left femoral and popliteal veins. Findings: No evidence of deep venous thrombosis. Normal response to augmentation, normal compressibility and normal phasicity is demonstrated. Visualized calf veins are patent. Impression: Negative for deep venous thrombosis Course & Med Decision Making Course & Med Decision Making Pertinent Labs and Imaging studies reviewed. (See chart for details) Patient presents with report of shortness of breath with associated chest tightness. Patient initially noted to be hypoxic which improved upon supplemental O2 placement. CXR stable. EKG stable. Labs obtained and posted to chart. Troponin WNL. Lactic acid elevated. SIRS criteria note met. D-dimer elevated. Symptoms more likely COPD exacerbation. Patient did have some left LE edema. Venous Doppler negative for DVT. Patient requiring admission for further evaluation and treatment. Discussed with Dr. Goncalves (hospitalist) who is in agreement with admission. Discussed findings and plan with patient and family, who acknowledge understanding and agreement. Dragon Disclaimer Dragon Disclaimer This electronic medical record was generated, in whole or in part, using a voice recognition dictation system. Departure Departure: Impression: Primary Impression: COPD exacerbation Additional Impressions: Lactic acidosis Elevated d-dimer Hypoxia Disposition: ADMITTED INPATIENT Admitting Physician: Gui Goncalves Condition: GUARDED Referrals: CAMELIA RUSS MD (PCP) Scripts Verapamil Hcl (VERAPAMIL ER) 240 Mg Cap24h.pel 360 MG PO DAILY for htn for 30 Days, #45 CAP Prov: ANA ROBISON MD 09/29/18 Amoxicillin/Potassium Clav (AUGMENTIN 500-125 TABLET) 1 Each Tablet 1 TAB PO BID for 5 for 5 Days, #10 TAB Prov: ANA ROBISON MD 09/29/18 Critical Care Time Critical care time was 30 minutes which includes time at bedside, spent in discussion of patient's care with specialists and/or family members, with interpretation of laboratory and/or radiological studies and is exclusive of procedures. Problem Qualifiers BRUCE COLE DO September 24, 2018 17:25
[2018-09-24 17:36] LABS: ALBUMIN 3.1 g/dL (3.4-5.0); ALBUMIN/GLOBULIN RATIO 0.8 (1.0-1.7); CALCIUM 9.6 mg/dL (8.5-10.1); CREATININE 2.2 mg/dL (0.6-1.0); GFR 21.9; MAGNESIUM 2.8 mg/dL (1.8-2.4); POTASSIUM 3.9 mmol/L (3.5-5.1); TOTAL BILIRUBIN 0.5 mg/dL (0.2-1.0); TOTAL PROTEIN 6.9 g/dL (6.4-8.2)
[2018-09-24] MEDS ORDERED: ONDANSETRON PF 4 MG/2 ML VIAL. IV PRN (17:45)
[2018-09-24] MEDS ORDERED: DEXTROSE 50% 25 GM / 50ML DISP.SYRIN. IV PRN (17:45)
[2018-09-24] MEDS ORDERED: ACETAMINOPHEN 325 MG TABLET PO PRN (17:45)
--- NOTE | 2018-09-24 17:50 | RAD ---
CHEST PA LATERAL History: Cough, dyspnea, leg swelling.. The heart size appears mildly widened. No evidence of pneumothorax, pleural effusion or consolidating infiltrate. There are mild interstitial markings of both lungs, greater in the mid to lower lungs. IMPRESSION: Mild interstitial opacities, compatible with mild infiltrate or edema, greatest inferiorly. Electronically signed by: Bruce Dumont MD (09/24/2018 5:47 PM) [facility]
--- NOTE | 2018-09-24 17:52 | RAD ---
Left lower extremity venous doppler ultrasound Indication: Swelling and pain. Technique: Color Doppler, grayscale, and spectral waveform analysis is used to evaluate the left femoral and popliteal veins. Findings: No evidence of deep venous thrombosis. Normal response to augmentation, normal compressibility and normal phasicity is demonstrated. Visualized calf veins are patent. Impression: Negative for deep venous thrombosis Electronically signed by: Bruce Dumont MD (09/24/2018 5:49 PM) [facility]
[2018-09-24] MEDS ORDERED: BUDESONIDE INH PRN (18:30)
[2018-09-24] MEDS ORDERED: [UNRECOGNIZED DRUG - OTHER] INH PRN (18:30)
[2018-09-24] MEDS ORDERED: FORMOTEROL FUMARATE INH PRN (18:30)
[2018-09-24] MEDS ORDERED: traMADol 50 MG TABLET PO PRN (18:30)
[2018-09-24] MEDS ORDERED: IV NORMAL SALINE 50ML 50 ML ONE (18:48)
[2018-09-24] MEDS ORDERED: PIPERACILLIN/TAZOBACTAM 3.375 GM VIAL IV ONE (18:48)
[2018-09-24] MEDS: PIPERACILLIN/TAZOBACTAM 3.375 GM in IV NORMAL SALINE 50ML 50 ML IV SCH (18:50)
--- NOTE | 2018-09-24 19:57 | HP ---
ADMIT DATE: 09/24/2018 HISTORY OF PRESENT ILLNESS: A 73-year-old female who came in with increased shortness of breath. The patient felt faint while walking so with her and had to lie down because she was so short of breath. The patient had chest tightness, cough productive of green sputum. She has not been feeling well for several days, had been to her coil builder who put her on clarithromycin and Biaxin. Apparently, she has not been doing any much better and got even worse. The patient was admitted for acute exacerbation of COPD with hypoxia and caused by respiratory infection. She did have some swelling to her left extremity and venous Dopplers were negative. The patient, otherwise, denies fever, chills, chest pain. PAST MEDICAL HISTORY: COPD, removed lens implants bilaterally, tonsillectomy. She has had previous history of heart attack; heart murmur; congestive heart failure; valvular disease; coronary artery disease, cardiac catheterization; hypercholesterolemia, pneumonia; sleep apnea, on 2 liters at night, intolerant of CPAP; cholecystectomy; hysterectomy; obesity; mastectomy; previous C-sections; renal disease, stage 4 per the patient; stress incontinence; multiple joint replacements to bilateral knees, bilateral wrists, one bone each; carpal tunnel syndrome, bilateral wrists, bilateral knee joint replacement as noted; hypercalcemia. She has had possible history of lupus, hypothyroidism, psychiatric problems, depression. VACCINATION: Pneumococcal vaccination up-to-date. FAMILY HISTORY: Diabetes in a brother and couple of sisters, depression in couple of brothers, mother, and sisters, breast cancer in the mother, hypertension in brother and sister, congestive heart failure in the mother, coronary artery disease in the father, and myocardial infarction in the father. ALLERGIES: SULFUR, CIPRO, CODEINE, DICLOFENAC, HYDROCHLOROTHIAZIDE, IBUPROFEN, LATEX, AND MISOPROSTOL. SOCIAL HISTORY: The patient denies smoking, alcohol, or drug use and is a full code. REVIEW OF SYSTEMS: The patient complains of increased shortness of breath with minimal exertion. Denies abdominal pain. Denies any nausea, vomiting, melena, hematochezia, or hematemesis and neurologically baseline there. PHYSICAL EXAMINATION: GENERAL: This is a pleasant white female in moderate amount of distress. VITAL SIGNS: Blood pressure 110/40, respiratory rate 24, pulse 70, afebrile, pulse oximetry on 4 liters nasal cannula 94%. HEENT: The patient's head was atraumatic, normocephalic. Eyes: PERRLA without jaundice. Mouth and throat were normal. NECK: Supple without JVD, carotid bruits, or thyromegaly. LUNGS: Diminished throughout, poor movement of air. CARDIOVASCULAR: Regular sinus rhythm without murmur, rub, thrill, or extra heart sound. ABDOMEN: Protuberant, soft, nontender. No rebound or guarding. Positive bowel sounds. No hepatosplenomegaly. EXTREMITIES: Left lower extremity appeared slightly more swollen than the right. Negative Homans, positive Alex. On the left, dorsal pedal pulses are noted. PSYCHIATRIC: Affect is normal. NEUROLOGICAL: She was alert and oriented x 3 with no obvious deficits there. LABORATORY DATA: White count 9.8, hemoglobin 11, and hematocrit 35 and there was no left shift. Chemistries demonstrated sodium 140, potassium 3.9, BUN and creatinine of 46/2.1 with a GFR of 22, so it is chronic kidney disease of 4. Lactic acid 2.1. BNP 608. The patient's chest x-ray shows possible ____ compatible with lung infiltrate or edema possible. The patient will be admitted for further evaluation and treatment of all the above-mentioned medical problems. IMPRESSION: 1. Acute exacerbation of chronic obstructive pulmonary disease with hypoxia, acute respiratory distress, possible mild fluid overload. We will make further evaluation on her as indicated. 2. Type 2 diabetes. 3. Chronic kidney disease, stage 4. PLAN: We will continue to monitor. Give her breathing treatments, IV antibiotic therapy. Monitor blood sugars and make further evaluation on her as indicated per those results. JUAN ALBERTO COHN MD DR: TASHIA/sarah JOB#: [id number] / [id number]
[2018-09-24] MEDS ORDERED: IPRATRPIUM/ALBUTEROL 0.5/2.5MG 3 ML NEBU. NEB SCH ×2 (20:00→21:00)
[2018-09-24] MEDS: IPRATRPIUM/ALBUTEROL 0.5/2.5MG 3 ML NEBU. NEB SCH (20:00)
[2018-09-24] MEDS ORDERED: ATORVASTATIN CALCIUM 20 MG TABLET PO SCH (21:00)
[2018-09-24] MEDS ORDERED: POTASSIUM CLAV PO SCH (21:00)
[2018-09-24] MEDS: INSULIN IN SCH (21:00)
[2018-09-24] MEDS ORDERED: AMOXICILLIN PO SCH (21:00)
[2018-09-24 21:20] VITALS: BP 126/71
[2018-09-24] MEDS ORDERED: DIPHENOXYLATE/ATROPINE TABLET. PO PRN (21:45)
[2018-09-24 21:56] LABS: INFLUENZA A PATIENT POSITIVE (NEGATIVE); INFLUENZA B PATIENT NEGATIVE (NEGATIVE)
[2018-09-24] MEDS ORDERED: RANI150T21 PO (22:12)
[2018-09-24] MEDS ORDERED: [UNRECOGNIZED DRUG - CODE] IJ (22:12)
[2018-09-24] MEDS ORDERED: FLUT1BLS IH (22:12)
[2018-09-24] MEDS ORDERED: LEVO100T5 PO (22:12)
[2018-09-24] MEDS ORDERED: ALBU2.5V14 NEB (22:12)
[2018-09-24] MEDS ORDERED: FERR159T3 PO (22:12)
[2018-09-24 22:19] VITALS: BP 136/71
[2018-09-24] MEDS: MIRTAZAPINE 30 MG TABLET PO SCH (22:26)
[2018-09-24] MEDS: clonazePAM 2 MG TABLET PO SCH (22:27)
[2018-09-24] MEDS: INSULIN GLARGINE 300 UNITS/3 ML INSULN.PEN. SQ SCH (22:30)
[2018-09-24 23:19] LABS: CLARITY,URINE CLEAR; COLOR,URINE STRAW
[2018-09-24 23:20] LABS: BACTERIA,URINE 0 /HPF (0-FEW); BILIRUBIN,URINE NEG (NEG); GLUCOSE,URINE 100 mg/dL (NEG); NITRITE,URINE NEG (NEG); RBC,URINE 0 /HPF (0-2); SQUAMOUS EPITHELIAL CELL,UR OCC /LPF; UROBILINOGEN,URINE 0.2 mg/dL (0.2 mg/dL)
[2018-09-25] MEDS ORDERED: PIPERACILLIN/TAZOBACTAM 4.5 GM in IV NORMAL SALINE 50ML 50 ML IV SCH ×2
[2018-09-25] MEDS: PIPERACILLIN/TAZOBACTAM 3.375 GM in IV NORMAL SALINE 50ML 50 ML IV SCH ×4 (00:22→17:18)
--- NOTE | 2018-09-25 00:27 | NUR ---
Pt was admitted to [address] [place] [address] from the ED. See admission assessment. Repeat lactic drawn, poc reviewed with pt. Pt is on tele SR on monitor. Reconcile meds reviewed with pt.
[2018-09-25] MEDS: IPRATRPIUM/ALBUTEROL 0.5/2.5MG 3 ML NEBU. NEB SCH ×4 (05:20→20:27)
[2018-09-25] MEDS: LEVOTHYROXINE 100 MCG TABLET PO SCH (05:28)
[2018-09-25 05:42] VITALS: BP 145/72
[2018-09-25] MEDS: INSULIN IN SCH ×4 (07:30→21:41)
[2018-09-25 07:52] LABS: BASO % 0 % (0-3); EOS % 0 % (0-3); HEMATOCRIT 33.3 % (36.0-47.0); HEMOGLOBIN 10.6 g/dL (12.0-15.5); LYMPH # 0.3 x10^3/uL (1.0-4.8); LYMPH % 3 % (24-48); MEAN CORPUSCULAR HEMOGLOBIN 27 pg (25-35); MEAN CORPUSCULAR HGB CONC 32 g/dL (31-37); MEAN CORPUSCULAR VOLUME 86 fL (79-100); MONO # 0.3 x10^3/uL (0.0-1.1); MONO % 3 % (0-9); NEUT # 8.6 x10^3uL (1.8-7.7); NEUT % 94 % (31-73); PLATELET COUNT 235 x10^3/uL (140-400); RED BLOOD COUNT 3.88 x10^6/uL (3.50-5.40); RED CELL DISTRIBUTION WIDTH 17.3 % (11.5-14.5); WHITE BLOOD COUNT 9.2 x10^3/uL (4.0-11.0)
[2018-09-25] MEDS: predniSONE 20 MG TABLET PO SCH (07:57)
[2018-09-25] MEDS: MAGNESIUM OXIDE 400 MG TABLET PO SCH (07:57)
[2018-09-25] MEDS: PANTOPRAZOLE 40 MG TABLET. PO SCH (07:58)
[2018-09-25] MEDS: FUROSEMIDE 40 MG TABLET PO SCH (07:58)
[2018-09-25] MEDS: ATORVASTATIN CALCIUM 20 MG TABLET PO SCH (07:58)
[2018-09-25] MEDS: CHOLECALCIFEROL (VITAMIN D3) 1,000 UNIT TABLET PO SCH (07:58)
[2018-09-25] MEDS: FOLIC ACID 1 MG TABLET PO SCH (07:58)
[2018-09-25] MEDS: ALLOPURINOL 300 MG TABLET. PO SCH (07:59)
[2018-09-25] MEDS: VERAPAMIL SR 120 MG TABLET.ER. PO SCH (07:59)
[2018-09-25] MEDS: POTASSIUM CITRATE 10 MEQ TABLET.ER PO SCH ×2 (07:59→21:36)
[2018-09-25] MEDS: LEVOMILNACIPRAN HYDROCHLORIDE 80 MG PO SCH (08:01)
[2018-09-25 08:04] LABS: ALBUMIN 2.7 g/dL (3.4-5.0); ALBUMIN/GLOBULIN RATIO 0.7 (1.0-1.7); CALCIUM 8.5 mg/dL (8.5-10.1); CREATININE 1.8 mg/dL (0.6-1.0); GFR 27.6; POTASSIUM 4.9 mmol/L (3.5-5.1); TOTAL BILIRUBIN 0.4 mg/dL (0.2-1.0); TOTAL PROTEIN 6.4 g/dL (6.4-8.2)
[2018-09-25] MEDS: ASPIRIN 81 MG TAB.CHEW PO SCH ×2 (08:04→21:35)
[2018-09-25] MEDS: LOSARTAN 50 MG TABLET. PO SCH (08:08)
[2018-09-25] MEDS: INSULIN LISPRO 300 UNITS/3 ML INSULN.PEN. SQ SCH ×3 (08:19→16:47)
[2018-09-25] MEDS ORDERED: ERYTHROMYCIN BASE 250 MG TABLET PO SCH (09:00)
[2018-09-25] MEDS: BUDESONIDE 0.5 MG/2 ML NEBU NEB SCH (10:05)
[2018-09-25] MEDS: OSELTAMIVIR 75 MG CAPSULE PO SCH ×2 (10:07→21:36)
[2018-09-25 10:50] VITALS: BP 117/64
[2018-09-25 15:14] VITALS: BP 162/69
[2018-09-25 18:32] VITALS: BP 153/79
[2018-09-25 21:36] VITALS: BP 171/75
[2018-09-25] MEDS: clonazePAM 2 MG TABLET PO SCH (21:36)
[2018-09-25] MEDS: MIRTAZAPINE 30 MG TABLET PO SCH (21:36)
[2018-09-25] MEDS: ERYTHROMYCIN BASE 250 MG PO SCH (21:38)
[2018-09-25] MEDS: INSULIN GLARGINE 300 UNITS/3 ML INSULN.PEN. SQ SCH (21:40)
[2018-09-26] MEDS: PIPERACILLIN/TAZOBACTAM 3.375 GM in IV NORMAL SALINE 50ML 50 ML IV SCH ×5 (00:36→23:10)
--- NOTE | 2018-09-26 00:54 | PN ---
DATE: 09/25/2018 SUBJECTIVE: The patient was admitted yesterday with acute exacerbation of COPD with mild hypoxia and respiratory distress. The patient was also noted to have influenza type A. The patient otherwise says she is feeling a little better today, not as achy as she was. OBJECTIVE: VITAL SIGNS: The patient's blood pressure was 160/70, respiratory rate 20, pulse 90, afebrile, oxygen saturation is on 3 liters at 93%. HEENT: The patient's head was atraumatic, normocephalic. Eyes: PERRLA without jaundice. LUNGS: Diminished, but clearer than they were. CARDIOVASCULAR: Regular sinus rhythm, S1, S2, without murmur, rub, thrill, or extra heart sound. EXTREMITIES: The patient's lower leg of course is swollen, but no DVT was noted. We will continue on present drug regimen. She is on Tamiflu, IV antibiotic therapy, and aggressive pulmonary toilet. We will continue to monitor her accordingly and make further evaluation as indicated. The patient also shows some mild anemia 10.6 and 33. The patient normally sees Dr. Tamez for her Cardiology. Lactic acid is still elevated, but she is receiving currently Tamiflu with antibiotic therapy. IMPRESSION: 1. Acute exacerbation of chronic obstructive pulmonary disease, with hypoxia. 2. Systemic inflammatory response syndrome. 3. Anemia of chronic disease. 4. Chronic kidney disease stage 4. DICTATION ENDS HERE. JUAN ALBERTO COHN MD DR: TASHIA/sarah JOB#: [id number] / [id number]
[2018-09-26] MEDS: BUDESONIDE 0.5 MG/2 ML NEBU NEB SCH ×3 (05:07→20:54)
[2018-09-26] MEDS: IPRATRPIUM/ALBUTEROL 0.5/2.5MG 3 ML NEBU. NEB SCH ×4 (05:07→20:54)
[2018-09-26] MEDS: LEVOTHYROXINE 100 MCG TABLET PO SCH (05:25)
[2018-09-26 06:17] VITALS: BP 174/76
[2018-09-26] MEDS: INSULIN IN SCH (07:30)
[2018-09-26] MEDS: CHOLECALCIFEROL (VITAMIN D3) 1,000 UNIT TABLET PO SCH (07:56)
[2018-09-26] MEDS: ALLOPURINOL 300 MG TABLET. PO SCH (07:57)
[2018-09-26] MEDS: predniSONE 20 MG TABLET PO SCH (07:57)
[2018-09-26] MEDS: MAGNESIUM OXIDE 400 MG TABLET PO SCH (07:57)
[2018-09-26] MEDS: ATORVASTATIN CALCIUM 20 MG TABLET PO SCH (07:57)
[2018-09-26] MEDS: OSELTAMIVIR 75 MG CAPSULE PO SCH ×2 (07:57→20:57)
[2018-09-26] MEDS: FUROSEMIDE 40 MG TABLET PO SCH (07:57)
[2018-09-26] MEDS: LEVOMILNACIPRAN HYDROCHLORIDE 80 MG PO SCH (07:58)
[2018-09-26] MEDS: POTASSIUM CITRATE 10 MEQ TABLET.ER PO SCH ×2 (07:58→20:58)
[2018-09-26] MEDS: FOLIC ACID 1 MG TABLET PO SCH (07:58)
[2018-09-26] MEDS: LOSARTAN 50 MG TABLET. PO SCH (07:58)
[2018-09-26] MEDS: INSULIN LISPRO 300 UNITS/3 ML INSULN.PEN. SQ SCH ×5 (07:59→18:25)
[2018-09-26] MEDS: VERAPAMIL SR 120 MG TABLET.ER. PO SCH (07:59)
[2018-09-26] MEDS: PANTOPRAZOLE 40 MG TABLET. PO SCH (08:00)
[2018-09-26] MEDS: ERYTHROMYCIN BASE 250 MG PO SCH ×2 (08:00→20:58)
[2018-09-26] MEDS: LACTOBACILLUS RHAMNOSUS GG 1 CAPSULE. PO SCH ×2 (08:06→20:57)
[2018-09-26 10:17] LABS: CALCIUM 9.2 mg/dL (8.5-10.1); CREATININE 2.1 mg/dL (0.6-1.0); GFR 23.1; POTASSIUM 4.4 mmol/L (3.5-5.1)
[2018-09-26] MEDS ORDERED: VERAPAMIL SR 120 MG TABLET.ER. PO ONE (10:30)
[2018-09-26] MEDS ORDERED: VERAPAMIL SR 120 MG TABLET.ER. PO SCH (10:30)
[2018-09-26] MEDS ORDERED: FUROSEMIDE 20 MG/2 ML VIAL IVP ONE (10:30)
[2018-09-26 11:00] VITALS: BP 154/72
[2018-09-26] MEDS ORDERED: IPRATROPIUM BROMIDE 0.5 MG/2.5 ML NEBU. NEB SCH (12:00)
--- NOTE | 2018-09-26 12:52 | RAD ---
EXAM: Chest, 2 views. HISTORY: Shortness of air. COMPARISON: 09/24/2018. FINDINGS: 2 views the chest are obtained. There is no infiltrate, pleural effusion or pneumothorax. The heart is normal in size. There is suspected infrahilar atelectasis or scarring. IMPRESSION: No acute pulmonary finding. Electronically signed by: Mojgan Polo MD (09/26/2018 12:49 PM) [facility]
[2018-09-26] MEDS: APIXABAN 2.5 MG TABLET PO SCH ×2 (14:20→20:57)
[2018-09-26 15:59] VITALS: BP 166/76
[2018-09-26 19:19] VITALS: BP 156/76
[2018-09-26] MEDS: MIRTAZAPINE 30 MG TABLET PO SCH (20:57)
[2018-09-26] MEDS: clonazePAM 2 MG TABLET PO SCH (20:57)
[2018-09-26] MEDS ORDERED: APIXABAN 2.5 MG TABLET PO SCH (21:00)
[2018-09-26] MEDS: INSULIN GLARGINE 300 UNITS/3 ML INSULN.PEN. SQ SCH (21:07)
[2018-09-26 22:20] VITALS: BP 142/70
--- NOTE | 2018-09-27 02:44 | PN ---
DATE: 09/26/2018 SUBJECTIVE: The patient was admitted. She had influenza A and acute exacerbation of COPD with hypoxia, acute respiratory distress, possible mild fluid overload. The patient has chronic kidney disease stage 4. She had positive D-dimer and we will be doing a nuclear scan tomorrow on her. She is on Eliquis 2.5 mg b.i.d. as well as awaiting results on that V/Q scan. Other than that, the patient seems to be breathing a little bit better today. OBJECTIVE: VITAL SIGNS: Blood pressure is 166/76. The patient is on 3 liters which she normally is 95%, respiratory rate 24, pulse 90, afebrile. GENERAL: The patient is alert and oriented. The patient has mild kyphosis to her back. LUNGS: Diminished throughout. CARDIOVASCULAR: Regular sinus rhythm. ABDOMEN: Protuberant, soft. EXTREMITIES: Just with some trace edema. We will continue to monitor her accordingly. She normally follows Dr. Tamez. LABORATORY DATA: Today look basically stable. Her BUN and creatinine 48 and 2.1. Sodium and potassium 140/4.4. Blood sugars have been elevated and we are trying to increase her insulin, decreasing her prednisone that she was using for her breathing. She is on breathing treatments, increased her verapamil to 240 mg. She is on a sliding scale +15 units per meal and 40 units of Lantus at bedtime. Chest x-ray today shows clearing of the infiltrate and edema in her lungs, but we will get a V/Q scan to verify that positive D-dimer, and make further evaluation at that time, but she is improving overall. JUAN ALBERTO COHN MD DR: TASHIA/sarah JOB#: [id number] / [id number]
[2018-09-27] MEDS: LEVOTHYROXINE 100 MCG TABLET PO SCH (05:08)
[2018-09-27] MEDS: PIPERACILLIN/TAZOBACTAM 3.375 GM in IV NORMAL SALINE 50ML 50 ML IV SCH ×3 (05:08→17:09)
[2018-09-27] MEDS: IPRATRPIUM/ALBUTEROL 0.5/2.5MG 3 ML NEBU. NEB SCH ×4 (05:14→20:53)
[2018-09-27 06:04] VITALS: BP 147/80
[2018-09-27 06:37] LABS: BASO % 0 % (0-3); EOS % 0 % (0-3); HEMATOCRIT 32.5 % (36.0-47.0); HEMOGLOBIN 10.7 g/dL (12.0-15.5); LYMPH # 0.9 x10^3/uL (1.0-4.8); LYMPH % 6 % (24-48); MEAN CORPUSCULAR HEMOGLOBIN 28 pg (25-35); MEAN CORPUSCULAR HGB CONC 33 g/dL (31-37); MEAN CORPUSCULAR VOLUME 85 fL (79-100); MONO # 1.4 x10^3/uL (0.0-1.1); MONO % 10 % (0-9); NEUT # 11.3 x10^3uL (1.8-7.7); NEUT % 83 % (31-73); PLATELET COUNT 287 x10^3/uL (140-400); RED BLOOD COUNT 3.85 x10^6/uL (3.50-5.40); RED CELL DISTRIBUTION WIDTH 16.9 % (11.5-14.5); WHITE BLOOD COUNT 13.6 x10^3/uL (4.0-11.0)
[2018-09-27 06:45] LABS: CALCIUM 9.4 mg/dL (8.5-10.1); GFR 24.4
[2018-09-27 07:48] LABS: % BANDS 3 % (0-9); % LYMPHS 11 % (24-48); % MONOS 8 % (0-10); % SEGS 78 % (35-66)
[2018-09-27 07:49] LABS: PLT ESTIMATE ADEQUATE (ADEQUATE)
[2018-09-27 07:51] LABS: POLYCHROMASIA PRESENT
[2018-09-27 07:54] LABS: ANISOCYTOSIS SLIGHT
[2018-09-27 07:55] LABS: TOXIC GRANULATION SLIGHT
[2018-09-27] MEDS: MAGNESIUM OXIDE 400 MG TABLET PO SCH (08:31)
[2018-09-27] MEDS: LACTOBACILLUS RHAMNOSUS GG 1 CAPSULE. PO SCH ×2 (08:32→20:41)
[2018-09-27] MEDS: ATORVASTATIN CALCIUM 20 MG TABLET PO SCH (08:32)
[2018-09-27] MEDS: FUROSEMIDE 40 MG TABLET PO SCH (08:32)
[2018-09-27] MEDS: APIXABAN 2.5 MG TABLET PO SCH ×2 (08:32→20:41)
[2018-09-27] MEDS: FOLIC ACID 1 MG TABLET PO SCH (08:32)
[2018-09-27] MEDS: ALLOPURINOL 300 MG TABLET. PO SCH (08:32)
[2018-09-27] MEDS: FERROUS SULFATE 325 MG TABLET. PO SCH (08:32)
[2018-09-27] MEDS: ASPIRIN 81 MG TAB.CHEW PO SCH (08:32)
[2018-09-27] MEDS: LOSARTAN 50 MG TABLET. PO SCH (08:32)
[2018-09-27] MEDS: CHOLECALCIFEROL (VITAMIN D3) 1,000 UNIT TABLET PO SCH (08:32)
[2018-09-27] MEDS: PANTOPRAZOLE 40 MG TABLET. PO SCH (08:32)
[2018-09-27] MEDS: predniSONE 20 MG TABLET PO SCH (08:32)
[2018-09-27] MEDS: OSELTAMIVIR 75 MG CAPSULE PO SCH ×2 (08:32→20:41)
[2018-09-27] MEDS: POTASSIUM CITRATE 10 MEQ TABLET.ER PO SCH ×2 (08:33→20:41)
[2018-09-27] MEDS: VERAPAMIL SR 120 MG TABLET.ER. PO SCH (08:34)
[2018-09-27] MEDS: ERYTHROMYCIN BASE 250 MG PO SCH ×2 (08:35→20:47)
[2018-09-27] MEDS: LEVOMILNACIPRAN HYDROCHLORIDE 80 MG PO SCH (08:35)
--- NOTE | 2018-09-27 08:39 | NUR ---
IP: patient has + flu swab, requires droplet precautions until 5 days of treatment and no fever or respiratory symptoms, whichever is longer.
[2018-09-27] MEDS: INSULIN LISPRO 300 UNITS/3 ML INSULN.PEN. SQ SCH ×6 (08:44→17:15)
--- NOTE | 2018-09-27 10:06 | PDOC2 ---
ARON MEANS [employer] TRANSMITTER CHIEF 09/27/18 1006: CONSULT Date of Admission DATE: 09/27/18 TIME: 10:05 Reason for Consult: elevated trop Problem List Problems Medical Problems: (1) COPD exacerbation Status: Acute (2) Elevated d-dimer Status: Acute (3) Lactic acidosis Status: Acute History of Present Illness Ms Malagon is a pleasant 73 year old female who normally follows with for her c ardiology care. She has a history of severe hypertension, LVH and LVOT obstruction. She was last seen at in May. She reports being in her normal state of health and just returned from a [employer] seminar in [place] ([address]). She developed a sore throat Thursday and took OTC medication for this. Sore throat resolved after 48hours but she then developed a productive cough. She called her rn family and was placed on antibiotics but the cough got progressively worse prompting her ER visit. She was found to be positive for influenza A and admitted. Trop was noted to be mildly elevated so consult called. She denies chest discomfort, congestive symptoms. She does report edema in both lower extremities but says this is improving since last week. She denies palpitaitons, lightheadedness or syncope. Past Medical History echo 06/18/18 Normal left ventricular systolic function, estimated ejection fraction is 65%. Severe predominantly basal septal hypertrophy. The LVOT gradient was increased at rest (PG ~ 31 mmHg) and with Valsalva (PG ~ 64 mmHg). Grade I (mild) left ventricular diastolic dysfunction. Trace mitral and tricuspid valve regurgitation. The pulmonary artery pressure could not be obtained. MPI 03/07/16 SUMMARY/OPINION: 1. This is a normal study with low likelihood of significant myocardial ischemia. 2. The LV size and systolic function are normal. 3. There were no high risk parameters present. 4. The findings appear to be similar to those of the last study. COPD (chronic obstructive pulmonary disease) ([facility]) 12/08/2017, home o2 after hospitalization on 08-14-17 GERARDO (acute kidney injury) ([facility]) 05/22/2017 Hypovolemia 05/22/2017 Macular degeneration 01/14/[address] Reginaldo Castro, DO Moderate nonproliferative diabetic retinopathy of both eyes associated with type 2 diabetes mellitus ([facility]) 01/14/2017 , 8/16/[address] Reginaldo Castro DO HOCM (hypertrophic obstructive cardiomyopathy) (HCC) 10/17/2016, 01/2016 severe LVH, EF 65%, cavity obliteration, amyl nitrate provoked gradient of 50 mmHg, a very prominent ejection systolic murmur heard on that clinic visit MGUS (monoclonal gammopathy of unknown significance) 12/16/2013 Hypercalcemia 12/16/2013 Takotsubo cardiomyopathy 08/14/2013, 09/05 echo EF improved to 50%. LVH (left ventricular hypertrophy) 02/06/2012, 09/2016 Severe LVH with a provocable of 50 mmHg gradient across the LVOT Gastroparesis 01/22/2012, 01/03 has been taking erythromycin for 3 yrs History of syncope 12/16/201107/09 the ILR has shown no significant arrhythmias to explain the syncope 07/08 no arrhythmia with these spells, last one on 05/23/1312/04 per pt, all syncopal episodes in AM when she awakens & is trying to get out of bed. Can recognize the premonitory symptoms now & prevent injury. It does not happen at any other time of the day. 04/05 has been seen by EP. -ve tilt table. Reveal implanted. Recent syncopal episodes but device interrogation with no arrhythmias to explain the syncope. Tilt table -ve 01/03 repeat syncopal episode 01/03 takes erythromycin for 3 yrs for gastroparesis. 250 mg bid 01/03 per pt the 30 d monitor was normal 01/03 echo EF 60% 01/03 nl stress thallium, nl echo. 30 d monitor was done by PCP- per pt the results are still not available (completed at the end of November). No recurrence since October 2011. 12/03 since 1st week of Jun 2011- we did not get called by the pt. Averaged 1 per 2 weeks till October. Seen by neurology with -ve w/u 12/21/15 ILR explanted for device at end of battery life CAD (coronary artery disease) 04/15/201008/05 normal cors, LV gram c/w stress cardiomyopathy 01/03 -ve thallium stress 06/29 U angina- distal LAD & a distal diag occlusion, LV apex akinetic, EF 45-50%, Rx medically 08/30 echo EF 58%, LVH 04/01 Exercise sestamibi, no ischemia, EF on that study 67% HTN (hypertension) 04/15/2010 2017 has had postural syncope in the past, thus precluding very aggressive control of BPs. Dyslipidemia 04/15/201011/02 TC 140, HDL 74, LDL 50, TG 76. Currently on Lipitor 20mg & Niaspan 1000mg daily. Diabetes mellitus, type 2 (HCC) 04/15/2010 SLE (systemic lupus erythematosus) (HCC) 04/15/2010 CKD (chronic kidney disease) 04/15/2010 12-6-16: OV note from Dr. Green: CKD state 3 (moderate) diabetic hypertensive nephrosclerosis. Cr @ 1.5. GFR 34. (not sure if from mild dehydration. Progression of underlying CKD cannot be r/o. Past Surgical History hysterectomy, lumpectomy, mastectomy , c section, joint replacement bilateral knees, bilateral wrist surgeries, cholecystectomy Family History non contributory Social History prior smoker, no significant ETOH, no illicit drugs Current Medications Current Medications Albuterol/ Ipratropium (Duoneb) 3 ml 1X ONCE NEB Last administered on 09/24/18at 21:32; Start 09/24/18 at 17:00; Stop 09/24/18 at 17:01; Status DC Dexamethasone Sodium Phosphate (Decadron) 10 mg 1X ONCE IV Last administered on 09/24/18at 17:42; Start 09/24/18 at 17:00; Stop 09/24/18 at 17:01; Status DC Sodium Chloride 1,000 ml @ 1,000 mls/hr 1X ONCE IV Last administered on 09/24/18at 17:43; Start 09/24/18 at 16:45; Stop 09/24/18 at 17:44; Status DC Aspirin (Shellie Aspirin) 325 mg 1X ONCE PO Last administered on 09/24/18at 17:41; Start 09/24/18 at 17:15; Stop 09/24/18 at 17:16; Status DC Ondansetron HCl (Zofran) 4 mg PRN Q4HRS PRN IV NAUSEA/VOMITING; Start 09/24/18 at 17:45; Stop 09/25/18 at 17:44; Status DC Acetaminophen (Tylenol) 650 mg PRN Q4HRS PRN PO FEVER; Start 09/24/18 at 17:45; Stop 09/25/18 at 17:44; Status DC Albuterol/ Ipratropium (Duoneb) 3 ml RTQID NEB ; Start 09/24/18 at 20:00; Stop 09/24/18 at 20:00; Status DC Insulin Human Lispro (HumaLOG) 0-5 UNITS give... TIDWMEALS SQ Last administered on 09/26/18at 18:24; Start 09/25/18 at 08:00 Dextrose (Dextrose 50%-Water Syringe) 12.5 gm PRN Q15MIN PRN IV SEE COMMENTS; Start 09/24/18 at 17:45 Piperacillin Sod/ Tazobactam Sod 4.5 gm/Sodium Chloride 50 ml @ 100 mls/hr Q6HRS IV ; Start 09/25/18 at 00:00; Stop 09/25/18 at 00:00; Status DC Sodium Chloride 1,000 ml @ 1,000 mls/hr 1X ONCE IV Last administered on 09/24/18at 22:23; Start 09/24/18 at 18:30; Stop 09/24/18 at 19:29; Status DC Piperacillin Sod/ Tazobactam Sod 3.375 gm/Sodium Chloride 50 ml @ 100 mls/hr Q6HRS IV Last administered on 09/27/18 05:08; Start 09/24/18 at 18:30 Atorvastatin Calcium (Lipitor) 20 mg HS PO ; Start 09/24/18 at 21:00; Stop 09/24/18 at 21:38; Status DC Vitamin D (Vitamin D3) 2,000 unit DAILY PO Last administered on 09/27/18at 08:32; Start 09/25/18 at 09:00 Clonazepam (KlonoPIN) 2 mg HS PO Last administered on 09/26/18at 20:57; Start 09/24/18 at 21:00 Albuterol/ Ipratropium (Duoneb) 3 ml QID NEB ; Start 09/24/18 at 21:00; Stop 09/24/18 at 21:00; Status DC Levothyroxine Sodium (Synthroid) 100 mcg DAILY06 PO Last administered on 09/27/18at 05:08; Start 09/25/18 at 06:00 Mirtazapine (Remeron) 30 mg HS PO Last administered on 09/26/18at 20:57; Start 09/24/18 at 21:00 Potassium Citrate (Urocit-K) 10 meq BID PO Last administered on 09/27/18 08:33; Start 09/25/18 at 09:00 Tramadol HCl (Ultram) 50 mg PRN Q6HRS PRN PO PAIN Last administered on 09/24/18 22:28; Start 09/24/18 at 18:30 Allopurinol (Zyloprim) 300 mg DAILY PO Last administered on 09/27/18 08:32; Start 09/25/18 at 09:00 Non-Formulary Medication (Amoxicillin/ Potassium Clav (Augmentin 875-125 Tablet)) 1 tab BID PO ; Start 09/24/18 at 21:00; Stop 09/24/18 at 21:00; Status DC Aspirin (Children'S Aspirin) 162 mg QHS PO Last administered on 09/25/18 21:35; Start 09/25/18 at 08:00; Stop 09/26/18 at 11:20; Status DC Non-Formulary Medication (Budesonide/ Formoterol Fumarate (Symbicort 160-4.5 Mcg Inhaler)) 1 inh BID PRN INH SHORTNESS OF AIR; Start 09/24/18 at 18:30; Stop 09/24/18 at 21:44; Status DC Diphenoxylate HCl/ Atropine (Lomotil) 1 tab PRN QID PRN PO DIARRHEA; Start 09/24/18 at 21:45 Erythromycin (E-Mycin) 250 mg BID PO ; Start 09/25/18 at 09:00; Stop 09/25/18 at 10:19; Status DC Folic Acid (Folic Acid) 1 mg DAILY PO Last administered on 09/27/18at 08:32; Start 09/25/18 at 09:00 Furosemide (Lasix) 40 mg DAILY PO Last administered on 09/27/18 08:32; Start 09/25/18 at 09:00 Non-Formulary Medication (insulin) 5 units QIDACHS IN ; Start 09/24/18 at 21:00; Stop 09/26/18 at 10:10; Status DC Insulin Glargine (Lantus) 34 units QHS SQ Last administered on 09/25/18at 21:40; Start 09/24/18 at 21:00; Stop 09/26/18 at 09:39; Status DC Non-Formulary Medication (Levomilnacipran Hydrochloride (Fetzima)) 80 mg DAILY PO Last administered on 09/27/18 08:35; Start 09/25/18 at 09:00 Losartan Potassium (Cozaar) 100 mg DAILY PO Last administered on 09/27/18 08:32; Start 09/25/18 at 09:00 Magnesium Oxide (Magnesium Oxide) 800 mg DAILY PO Last administered on 09/27/18 08:31; Start 09/25/18 at 09:00 Pantoprazole Sodium (Protonix) 40 mg DAILYAC PO Last administered on 09/27/18 08:32; Start 09/25/18 at 07:30 Prednisone (Prednisone) 50 mg DAILYWBKFT PO Last administered on 09/26/18 07:57; Start 09/25/18 at 08:00; Stop 09/26/18 at 12:05; Status DC Verapamil HCl (Calan Sr) 120 mg DAILY PO Last administered on 09/26/18 07:59; Start 09/25/18 at 09:00; Stop 09/26/18 at 09:39; Status DC Albuterol/ Ipratropium (Duoneb) 3 ml RTQID NEB Last administered on 09/27/18 05:14; Start 09/24/18 at 20:00 Sodium Chloride 50 ml @ As Directed STK-MED ONCE .ROUTE ; Start 09/24/18 at 18:48; Stop 09/24/18 at 18:49; Status DC Piperacillin Sod/ Tazobactam Sod (Zosyn) 3.375 gm STK-MED ONCE IV ; Start 09/24/18 at 18:48; Stop 09/24/18 at 18:49; Status DC Atorvastatin Calcium (Lipitor) 20 mg DAILY PO Last administered on 09/27/18 08:32; Start 09/25/18 at 09:00 Budesonide (Pulmicort) 0.5 mg RTBID NEB Last administered on 09/26/18 20:54; Start 09/25/18 at 08:00 Oseltamivir Phosphate (Tamiflu) 75 mg BID PO Last administered on 09/27/18 08:32; Start 09/25/18 at 10:00; Stop 09/30/18 at 09:59 Non-Formulary Medication 1 ea BID PO Last administered on 09/27/18at 08:35; Start 09/25/18 at 21:00 Lactobacillus Rhamnosus (Culturelle) 1 cap BID PO Last administered on 09/27/18at 08:32; Start 09/26/18 at 09:00 Insulin Glargine (Lantus) 40 units QHS SQ Last administered on 09/26/18at 21:07; Start 09/26/18 at 21:00 Verapamil HCl (Calan Sr) 240 mg DAILY PO Last administered on 09/27/18at 08:34; Start 09/27/18 at 09:00 Ipratropium [place] (Atrovent) 0.5 mg RTQID NEB ; Start 09/26/18 at 12:00; Status UNV Furosemide (Lasix) 20 mg 1X ONCE IVP Last administered on 09/26/18at 10:51; Start 09/26/18 at 10:30; Stop 09/26/18 at 10:31; Status DC Insulin Human Lispro (HumaLOG) 15 units TIDWMEALS SQ Last administered on 09/27/18at 08:44; Start 09/26/18 at 12:00 Verapamil HCl (Calan Sr) 120 mg DAILY PO ; Start 09/26/18 at 10:30; Stop 09/26/18 at 10:30; Status DC Verapamil HCl (Calan Sr) 120 mg 1X ONCE PO Last administered on 09/26/18at 10:51; Start 09/26/18 at 10:30; Stop 09/26/18 at 10:31; Status DC Aspirin (Children'S Aspirin) 162 mg QODAY PO Last administered on 09/27/18at 08:32; Start 09/27/18 at 09:00 Apixaban (Eliquis) 2.5 mg BID PO ; Start 09/26/18 at 21:00; Stop 09/26/18 at 21:00; Status DC Ferrous Sulfate (Feosol) 325 mg DAILYWBKFT PO Last administered on 09/27/18at 08:32; Start 09/27/18 at 08:00 Prednisone (Prednisone) 20 mg DAILYWBKFT PO Last administered on 09/27/18at 08:32; Start 09/27/18 at 08:00 Apixaban (Eliquis) 2.5 mg BID PO Last administered on 09/27/18at 08:32; Start 09/26/18 at 12:15 Active Scripts Active Duoneb 0.5-3(2.5) Mg/3 Ml (Albuterol/Ipratropium) 3 Ml Ampul.neb 3 Ml NEB QID Reported B-12 Compliance (Cyanocobalamin (Vitamin B-12)) 1,000 Mcg/1 Ml Kit 1,000 Mcg IJ [id number] LAST DOSE GIVEN: DATE: TIME: NEXT DOSE DUE: DATE: TIME: Levothyroxine Sodium 100 Mcg Tablet 100 Mcg PO DAILYAC LAST DOSE GIVEN: DATE: TIME: NEXT DOSE DUE: DATE: TIME: Albuterol Sulfate Conc Neb Soln (Albuterol Sulfate) 2.5 Mg/0.5 Ml Vial.neb 2.5 Mg NEB TID Zantac (Ranitidine Hcl) 150 Mg Tablet 150 Mg PO BID LAST DOSE GIVEN: DATE: TIME: NEXT DOSE DUE: DATE: TIME: Breo Ellipta 200-25 Mcg INH (Fluticasone/Vilanterol) 1 Each Blst.w.dev 1 Puff IH DAILY LAST DOSE GIVEN: DATE: TIME: NEXT DOSE DUE: DATE: TIME: Iron (Ferrous Sulfate, Dried) 159 Mg Tablet.er 65 Mg PO DAILY LAST DOSE GIVEN: DATE: TIME: NEXT DOSE DUE: DATE: TIME: Furosemide 40 Mg Tablet 40 Mg PO BID Klonopin (Clonazepam) 2 Mg Tablet 2 Mg PO HS LAST DOSE GIVEN: DATE: YESTERDAY TIME: AT BEDTIME NEXT DOSE DUE: DATE: TODAY TIME: AT BEDTIME Verapamil Er (Verapamil Hcl) 240 Mg Cap24h.pel 120 Mg PO DAILY LAST DOSE GIVEN: DATE: YESTERDAY TIME:AM NEXT DOSE DUE: DATE: TOMORROW TIME: AM Magnesium (Magnesium Oxide) 400 Mg Capsule 800 Mg PO DAILY LAST DOSE GIVEN: DATE: TODAY TIME: AM NEXT DOSE DUE: DATE: TOMORROW TIME: AM Fetzima (Levomilnacipran Hydrochloride) 80 Mg Cap.sa.24h 80 Mg PO DAILY LAST DOSE GIVEN: DATE: TODAY TIME: AM NEXT DOSE DUE: DATE: TOMORROW TIME: AM Tramadol Hcl (Tramadol HCl) 50 Mg Tablet 50 Mg PO PRN Q6HRS PRN LAST DOSE GIVEN: DATE: NOT GIVEN TODAY NEXT DOSE DUE: DATE: MAY TAKE TODAY TIME: IF AND WHEN NEEDED Levemir Flextouch (Insulin Detemir) 100 Unit/1 Ml Insuln.pen 34 Unit SQ HS LAST DOSE GIVEN: DATE: YESTERDAY TIME: PM NEXT DOSE DUE: DATE: TODAY TIME: PM Vitamin D3 (Cholecalciferol (Vitamin D3)) 1,000 Unit Tablet 2,000 Unit PO DAILY LAST DOSE GIVEN: DATE: TODAY TIME: AM NEXT DOSE DUE: DATE: TOMORROW TIME: AM Aspirin 81 Mg Tab.chew 162 Mg PO DAILY LAST DOSE GIVEN: DATE: TODAY TIME: AM NEXT DOSE DUE: DATE: TOMORROW TIME: AM Novolog Flexpen (Insulin Aspart) 100 Unit/1 Ml Insuln.pen 13-19 Units IN TIDWMEALS LAST DOSE GIVEN: DATE:TODAY TIME:lunch NEXT DOSE DUE: DATE:TODAY TIME:dinner Mirtazapine 30 Mg Tablet 30 Mg PO HS LAST DOSE GIVEN: DATE:YESTER TIME:9pm NEXT DOSE DUE: DATE:TODAY TIME:9pm Erythromycin (Erythromycin Base) 250 Mg Capsule.dr 250 Mg PO BID LAST DOSE GIVEN: DATE:TODAY TIME:829 NEXT DOSE DUE: DATE:TODAY TIME:9:00 pm Allopurinol 300 Mg Tablet 300 Mg PO DAILY LAST DOSE GIVEN: DATE:TODAY TIME:829 NEXT DOSE DUE: DATE:TOMORROW TIME:829 Atorvastatin Calcium 20 Mg Tablet 20 Mg PO HS LAST DOSE GIVEN: DATE:YESTERDAY TIME:9:00 pm NEXT DOSE DUE: DATE:TODAY TIME:9:00 pm Potassium Citrate 10 Meq Tablet.er 10 Meq PO BID LAST DOSE GIVEN: DATE:TODAY TIME:09 NEXT DOSE DUE: DATE:TOMORROW TIME:899 Lomotil Tablet (Diphenoxylate Hcl/Atropine) 1 Each Tablet 2.5 Mg PO PRN QID PRN LAST DOSE GIVEN: DATE: NOT GIVEN TODAY TIME: NEXT DOSE DUE: DATE: TODAY TIME: IF AND WHEN NEEDED Allergies: Coded Allergies: Sulfa (Sulfonamide Antibiotics) (Verified Allergy, Intermediate, 09/25/18) ciprofloxacin (Verified Allergy, Intermediate, yeast inf, 09/25/18) codeine (Verified Allergy, Intermediate, vomiting, 09/25/18) diclofenac (Verified Allergy, Intermediate, rash, 09/25/18) hydrochlorothiazide (Verified Allergy, Intermediate, rash, 09/25/18) ibuprofen (Verified Allergy, Intermediate, cant take due to kidneys, 09/25/18) misoprostol (Verified Allergy, Intermediate, rash, 09/25/18) latex (Verified Allergy, Mild, gi problems, 09/25/18) Review of System as per hPI or neg General: Alert, Oriented X3, Cooperative, No acute distress HEENT: Atraumatic, EOMI, Mucous membr. moist/pink Lungs: Other (decreased throughout with occasional exp wheeze, no crackles or rhonchi) Heart: Normal S1, Normal S2, Other (no obvious murmurs, no clicks, gallops or r bus) Abdomen: Normal bowel sounds, Soft, No tenderness Extremities: No cyanosis, Other (+2-3 edema bilateral lower ext) Neuro: Normal speech, Strength at 09/26 X4 ext Psych/Mental Status: Mental status NL, Mood NL VITALS Vital Signs Date Time Temp Pulse Resp B/P (MAP) Pulse Ox O2 Delivery O2 Flow Rate FiO2 09/27/18 08:34 85 147/80 09/27/18 06:04 97.4 20 96 Nasal Cannula 3.0 Labs Laboratory Tests Test 09/25/18 11:37 09/25/18 16:33 09/25/18 21:34 09/26/18 07:25 Glucose (Fingerstick) 408 mg/dL (70-99) 326 mg/dL (70-99) 341 mg/dL (70-99) 310 mg/dL (70-99) Test 09/26/18 10:00 09/26/18 11:35 09/26/18 16:58 09/26/18 21:00 Sodium Level 140 mmol/L (136-145) Potassium Level 4.4 mmol/L (3.5-5.1) Chloride Level 98 mmol/L (98-107) Carbon Dioxide Level 34 mmol/L (21-32) Anion Gap 8 (6-14) Blood Urea Nitrogen 48 mg/dL (7-20) Creatinine 2.1 mg/dL (0.6-1.0) Estimated GFR (Cockcroft-Gault) 23.1 Glucose Level 380 mg/dL (70-99) Calcium Level 9.2 mg/dL (8.5-10.1) Glucose (Fingerstick) 357 mg/dL (70-99) 348 mg/dL (70-99) 314 mg/dL (70-99) Test 09/27/18 05:57 09/27/18 07:25 White Blood Count 13.6 x10^3/uL (4.0-11.0) Red Blood Count 3.85 x10^6/uL (3.50-5.40) Hemoglobin 10.7 g/dL (12.0-15.5) Hematocrit 32.5 % (36.0-47.0) Mean Corpuscular Volume 85 fL (79-100) Mean Corpuscular Hemoglobin 28 pg (25-35) Mean Corpuscular Hemoglobin Concent 33 g/dL (31-37) Red Cell Distribution Width 16.9 % (11.5-14.5) Platelet Count 287 x10^3/uL (140-400) Neutrophils (%) (Auto) 83 % (31-73) Lymphocytes (%) (Auto) 6 % (24-48) Monocytes (%) (Auto) 10 % (0-9) Eosinophils (%) (Auto) 0 % (0-3) Basophils (%) (Auto) 0 % (0-3) Neutrophils # (Auto) 11.3 x10^3uL (1.8-7.7) Lymphocytes # (Auto) 0.9 x10^3/uL (1.0-4.8) Monocytes # (Auto) 1.4 x10^3/uL (0.0-1.1) Eosinophils # (Auto) 0.0 x10^3/uL (0.0-0.7) Basophils # (Auto) 0.0 x10^3/uL (0.0-0.2) Segmented Neutrophils % 78 % (35-66) Band Neutrophils % 3 % (0-9) Lymphocytes % 11 % (24-48) Monocytes % 8 % (0-10) Toxic Granulation Slight Platelet Estimate Adequate (ADEQUATE) Large Platelets Present Polychromasia Present Basophilic Stippling Present Anisocytosis Slight Sodium Level 143 mmol/L (136-145) Potassium Level 4.0 mmol/L (3.5-5.1) Chloride Level 101 mmol/L (98-107) Carbon Dioxide Level 38 mmol/L (21-32) Anion Gap 4 (6-14) Blood Urea Nitrogen 47 mg/dL (7-20) Creatinine 2.0 mg/dL (0.6-1.0) Estimated GFR (Cockcroft-Gault) 24.4 Glucose Level 218 mg/dL (70-99) Calcium Level 9.4 mg/dL (8.5-10.1) Glucose (Fingerstick) 189 mg/dL (70-99) Images CXR - IMPRESSION: No acute pulmonary finding. Lower ext US - Impression: Negative for deep venous thrombosis 1. Acute respiratory insufficiency with Influenza A - per PCP 2. minimal trop elevation - likely secondary to #1. Remains indeterminate. No anginal symptoms. No acute EKG changes. No echo as completed in May of this year as above with normal LVEF. Continue medical mgmt with outpatient follow up by primary assistant front office manager. 3. Hypertension - resume home medications. Blood pressure remains moderately elevated. add agents as needed. 4. HTNHD with LVOT obst. 5. CKD stabe 3-4 with baseline Cr 1.5-1.7. Currently 2.2 6. lactic acidosis secondary to #1 - mgmt per PCP Continue supportive care. Outpatient follow up with primary assistant front office manager when stable. LISANDRO KLINE MD 09/27/182128: CONSULT Assessment/Plan Pt. seen and examined. Agree with above ROLL BUILDER note. 73 y.o woman with resp issues in the setting of flu elevated troponin - no cp. recent eval through [facility] w[facility] and normal echo. EKG unremarkable supportive care. No further CV testing needed. ARON MEANS APRN September 27, 2018 10:06 LISANDRO KLINE MD September 27, 2018 21:29
[2018-09-27 10:18] VITALS: BP 163/70
[2018-09-27] MEDS: BUDESONIDE 0.5 MG/2 ML NEBU NEB SCH ×2 (10:44→20:53)
[2018-09-27 15:33] VITALS: BP 131/73
[2018-09-27 20:08] VITALS: BP 161/71
[2018-09-27] MEDS: clonazePAM 2 MG TABLET PO SCH (20:41)
[2018-09-27] MEDS: MIRTAZAPINE 30 MG TABLET PO SCH (20:41)
[2018-09-27] MEDS: INSULIN GLARGINE 300 UNITS/3 ML INSULN.PEN. SQ SCH (20:45)
[2018-09-27 22:57] VITALS: BP 171/82
[2018-09-27 23:13] LABS: FECAL OB PT NEGATIVE (NEG)
[2018-09-28] MEDS: PIPERACILLIN/TAZOBACTAM 3.375 GM in IV NORMAL SALINE 50ML 50 ML IV SCH ×5 (00:36→23:51)
[2018-09-28 00:50] VITALS: BP 154/77
--- NOTE | 2018-09-28 01:18 | PN ---
DATE: 09/27/2018 SUBJECTIVE: The patient is sitting on the edge of the bed comfortably in no apparent respiratory distress. She continued to have cough, but denied any chest pain and denied any shortness of breath at rest, but did complain of shortness of breath on exertion. She is already on home oxygen, 3 liters of oxygen by nasal cannula. Denied any chills, rigors, or fever. PHYSICAL EXAMINATION: GENERAL: When I examined her, she looked well, was clearly in no apparent respiratory distress; slightly pale; no jaundice, cyanosis, or thyromegaly; no jugular venous distension; no lower limb edema. VITAL SIGNS: Her heart rate was 92, blood pressure was 163/70, temperature was 98, respiratory rate 20, and oxygen saturation was 96% on 3 liters of oxygen by nasal cannula. HEAD, EYES, EARS, NOSE, AND THROAT: Showed normocephalic, atraumatic. NECK: Supple. HEART: Showed normal first and second heart sounds with no gallop, rub or murmur. CHEST: Shows central trachea, equally reduced expansion, reduced air entry, vesicular sounds with scattered rhonchi bilaterally. I could not appreciate any crepitation. ABDOMEN: Distended, soft, nontender. NEUROLOGIC: She is awake, alert, responding appropriately. All her cranial nerves are intact. She moves extremities without difficulty. She ambulates without assistance or assistive devices. Her intake was 2100, output was 4350. LABORATORY DATA: As of this morning showed a white cell count of 13,600; hemoglobin 10.7; hematocrit 33; MCV 85; and platelet count 287,000. Her chemistry showed a serum sodium of 143, potassium 4, chloride 101, bicarbonate 38, anion gap of 4, BUN of 47, creatinine 2, estimated GFR was 24 mL per minute. Her glucose was 218 and calcium was 9.4. So far, her blood cultures showed no growth after 2 days. She is influenza A positive. Urinalysis was essentially unremarkable. Her D-dimer was slightly high at 0.72. Apparently, she is scheduled for a V/Q scan as her kidney function was abnormal. Unfortunately, the machine is still being repaired. ASSESSMENT: 1. Influenza A, for which she is on Tamiflu. 2. Chronic obstructive pulmonary disease exacerbation. 3. Chronic kidney disease. 4. Type 2 diabetes. She apparently has had venous Doppler ultrasound of both lower extremities, which were negative for deep vein thrombosis. PLAN: To continue with current management. To continue with IV antibiotic. Continue with Tamiflu. Continue to monitor her blood sugar and adjust insulin as needed. Continue with apixaban for treatment of possible PE and await the result of the V/Q scan. ANA ROBISON MD DR: DANIEL/sarah JOB#: [id number] / [id number]
[2018-09-28 05:00] VITALS: BP 158/72
[2018-09-28] MEDS: IPRATRPIUM/ALBUTEROL 0.5/2.5MG 3 ML NEBU. NEB SCH ×4 (05:25→20:36)
[2018-09-28] MEDS: LEVOTHYROXINE 100 MCG TABLET PO SCH (05:50)
[2018-09-28 06:13] LABS: HEMATOCRIT 34.1 % (36.0-47.0); RED BLOOD COUNT 4.02 x10^6/uL (3.50-5.40); RED CELL DISTRIBUTION WIDTH 16.8 % (11.5-14.5); WHITE BLOOD COUNT 10.8 x10^3/uL (4.0-11.0)
[2018-09-28 06:19] LABS: CALCIUM 9.3 mg/dL (8.5-10.1); CREATININE 1.8 mg/dL (0.6-1.0); GFR 27.6; POTASSIUM 3.8 mmol/L (3.5-5.1)
[2018-09-28] MEDS: LACTOBACILLUS RHAMNOSUS GG 1 CAPSULE. PO SCH ×2 (08:02→20:07)
[2018-09-28] MEDS: FERROUS SULFATE 325 MG TABLET. PO SCH (08:02)
[2018-09-28] MEDS: CHOLECALCIFEROL (VITAMIN D3) 1,000 UNIT TABLET PO SCH (08:02)
[2018-09-28] MEDS: APIXABAN 2.5 MG TABLET PO SCH ×2 (08:02→20:07)
[2018-09-28] MEDS: FUROSEMIDE 40 MG TABLET PO SCH (08:02)
[2018-09-28] MEDS: predniSONE 20 MG TABLET PO SCH (08:02)
[2018-09-28] MEDS: ALLOPURINOL 300 MG TABLET. PO SCH (08:02)
[2018-09-28] MEDS: PANTOPRAZOLE 40 MG TABLET. PO SCH (08:02)
[2018-09-28] MEDS: FOLIC ACID 1 MG TABLET PO SCH (08:02)
[2018-09-28] MEDS: OSELTAMIVIR 75 MG CAPSULE PO SCH ×2 (08:03→20:08)
[2018-09-28] MEDS: POTASSIUM CITRATE 10 MEQ TABLET.ER PO SCH ×2 (08:03→20:08)
[2018-09-28] MEDS: ATORVASTATIN CALCIUM 20 MG TABLET PO SCH (08:03)
[2018-09-28] MEDS: MAGNESIUM OXIDE 400 MG TABLET PO SCH (08:03)
[2018-09-28] MEDS: LOSARTAN 50 MG TABLET. PO SCH (08:03)
[2018-09-28] MEDS: VERAPAMIL SR 120 MG TABLET.ER. PO SCH (08:04)
[2018-09-28] MEDS: ERYTHROMYCIN BASE 250 MG PO SCH ×2 (08:04→20:17)
[2018-09-28] MEDS: LEVOMILNACIPRAN HYDROCHLORIDE 80 MG PO SCH (08:05)
[2018-09-28] MEDS: INSULIN LISPRO 300 UNITS/3 ML INSULN.PEN. SQ SCH ×6 (08:11→17:45)
[2018-09-28] MEDS: BUDESONIDE 0.5 MG/2 ML NEBU NEB SCH ×2 (09:37→20:36)
--- NOTE | 2018-09-28 10:19 | PDOC ---
PROGRESS NOTES Diagnosis Problem Problems Medical Problems: (1) COPD exacerbation Status: Acute (2) Elevated d-dimer Status: Acute (3) Lactic acidosis Status: Acute Assessment Problems Medical Problems: (1) COPD exacerbation Status: Acute (2) Elevated d-dimer Status: Acute (3) Lactic acidosis Status: Acute 1. Acute respiratory insufficiency with Influenza A - per PCP 2. minimal trop elevation - likely secondary to #1. Remains indeterminate. No anginal symptoms. No acute EKG changes. No echo as completed in May of this year as above with normal LVEF. Continue medical mgmt with outpatient follow up by primary filling hauler. 3. Hypertension - .increase verapamil. could add metoprolol if pressure remains elevated (monitor for increased wheezing). avoid direct vasodilators due to LVOT. 4. HTNHD with LVOT obst. 5. CKD stabe 3-4 with baseline Cr 1.5-1.7. Currently down to 1.8. 6. lactic acidosis secondary to #1 - mgmt per PCP Objective Vital Signs Date Time Temp Pulse Resp B/P (MAP) Pulse Ox O2 Delivery O2 Flow Rate FiO2 09/28/18 09:39 98 Nasal Cannula 3.0 09/28/18 08:04 76 158/72 09/28/18 05:00 98.0 18 Intake and Output 09/28/18 06:59 Intake Total 1900 ml Output Total 3575 ml Balance -1675 ml Intake Oral 1720 ml IV Total 180 ml Output Urine Total 3575 ml # Voids 2 # Bowel Movements 1 Abdomen: Normal bowel sounds, Soft, No tenderness Heart: Normal S1, Normal S2, Other (+ systolic murmur) Extremities: Other (+ edema, unchanged) General: Alert, Oriented X3, Cooperative, No acute distress HEENT: Atraumatic, EOMI, Mucous membr. moist/pink Lungs: Other (coarse throughout with occ exp wheeze) Neuro: Normal speech, Strength at / X4 ext Psych/Mental Status: Mental status NL, Mood NL Review of Relevant I have reviewed the following items enrique (where applicable) has been applied. Labs Laboratory Tests Test 09/26/18 11:35 09/26/18 16:58 09/26/18 21:00 09/27/18 05:57 Glucose (Fingerstick) 357 mg/dL (70-99) 348 mg/dL (70-99) 314 mg/dL (70-99) White Blood Count 13.6 x10^3/uL (4.0-11.0) Red Blood Count 3.85 x10^6/uL (3.50-5.40) Hemoglobin 10.7 g/dL (12.0-15.5) Hematocrit 32.5 % (36.0-47.0) Mean Corpuscular Volume 85 fL (79-100) Mean Corpuscular Hemoglobin 28 pg (25-35) Mean Corpuscular Hemoglobin Concent 33 g/dL (31-37) Red Cell Distribution Width 16.9 % (11.5-14.5) Platelet Count 287 x10^3/uL (140-400) Neutrophils (%) (Auto) 83 % (31-73) Lymphocytes (%) (Auto) 6 % (24-48) Monocytes (%) (Auto) 10 % (0-9) Eosinophils (%) (Auto) 0 % (0-3) Basophils (%) (Auto) 0 % (0-3) Neutrophils # (Auto) 11.3 x10^3uL (1.8-7.7) Lymphocytes # (Auto) 0.9 x10^3/uL (1.0-4.8) Monocytes # (Auto) 1.4 x10^3/uL (0.0-1.1) Eosinophils # (Auto) 0.0 x10^3/uL (0.0-0.7) Basophils # (Auto) 0.0 x10^3/uL (0.0-0.2) Segmented Neutrophils % 78 % (35-66) Band Neutrophils % 3 % (0-9) Lymphocytes % 11 % (24-48) Monocytes % 8 % (0-10) Toxic Granulation Slight Platelet Estimate Adequate (ADEQUATE) Large Platelets Present Polychromasia Present Basophilic Stippling Present Anisocytosis Slight Sodium Level 143 mmol/L (136-145) Potassium Level 4.0 mmol/L (3.5-5.1) Chloride Level 101 mmol/L (98-107) Carbon Dioxide Level 38 mmol/L (21-32) Anion Gap 4 (6-14) Blood Urea Nitrogen 47 mg/dL (7-20) Creatinine 2.0 mg/dL (0.6-1.0) Estimated GFR (Cockcroft-Gault) 24.4 Glucose Level 218 mg/dL (70-99) Calcium Level 9.4 mg/dL (8.5-10.1) Triglycerides Level 133 mg/dL (0-150) Cholesterol Level 127 mg/dL (0-200) LDL Cholesterol, Calculated 64 mg/dL (0-100) VLDL Cholesterol, Calculated 26 mg/dL (0-40) Non-HDL Cholesterol Calculated 90 mg/dL (0-129) HDL Cholesterol 37 mg/dL (40-60) Cholesterol/HDL Ratio 3.0 Test 09/27/18 07:25 09/27/18 11:39 09/27/18 16:37 09/27/18 20:28 Glucose (Fingerstick) 189 mg/dL (70-99) 254 mg/dL (70-99) 336 mg/dL (70-99) 340 mg/dL (70-99) Test 09/27/18 22:55 09/28/18 06:00 09/28/18 07:47 Stool Occult Blood Negative (NEG) White Blood Count 10.8 x10^3/uL (4.0-11.0) Red Blood Count 4.02 x10^6/uL (3.50-5.40) Hemoglobin 11.0 g/dL (12.0-15.5) Hematocrit 34.1 % (36.0-47.0) Mean Corpuscular Volume 85 fL (79-100) Mean Corpuscular Hemoglobin 27 pg (25-35) Mean Corpuscular Hemoglobin Concent 32 g/dL (31-37) Red Cell Distribution Width 16.8 % (11.5-14.5) Platelet Count 295 x10^3/uL (140-400) Sodium Level 143 mmol/L (136-145) Potassium Level 3.8 mmol/L (3.5-5.1) Chloride Level 101 mmol/L (98-107) Carbon Dioxide Level 41 mmol/L (21-32) Anion Gap 1 (6-14) Blood Urea Nitrogen 42 mg/dL (7-20) Creatinine 1.8 mg/dL (0.6-1.0) Estimated GFR (Cockcroft-Gault) 27.6 Glucose Level 177 mg/dL (70-99) Calcium Level 9.3 mg/dL (8.5-10.1) Glucose (Fingerstick) 164 mg/dL (70-99) Microbiology 09/24/18 Blood Culture - Preliminary, Resulted NO GROWTH AFTER 3 DAYS... Medications Current Medications Albuterol/ Ipratropium (Duoneb) 3 ml 1X ONCE NEB Last administered on 09/24/18at 21:32; Start 09/24/18 at 17:00; Stop 09/24/18 at 17:01; Status DC Dexamethasone Sodium Phosphate (Decadron) 10 mg 1X ONCE IV Last administered on 09/24/18at 17:42; Start 09/24/18 at 17:00; Stop 09/24/18 at 17:01; Status DC Sodium Chloride 1,000 ml @ 1,000 mls/hr 1X ONCE IV Last administered on 09/24/18at 17:43; Start 09/24/18 at 16:45; Stop 09/24/18 at 17:44; Status DC Aspirin (Shellie Aspirin) 325 mg 1X ONCE PO Last administered on 09/24/18at 17:41; Start 09/24/18 at 17:15; Stop 09/24/18 at 17:16; Status DC Ondansetron HCl (Zofran) 4 mg PRN Q4HRS PRN IV NAUSEA/VOMITING; Start 09/24/18 at 17:45; Stop 09/25/18 at 17:44; Status DC Acetaminophen (Tylenol) 650 mg PRN Q4HRS PRN PO FEVER; Start 09/24/18 at 17:45; Stop 09/25/18 at 17:44; Status DC Albuterol/ Ipratropium (Duoneb) 3 ml RTQID NEB ; Start 09/24/18 at 20:00; Stop at 20:00; Status DC Insulin Human Lispro (HumaLOG) 0-5 UNITS give... TIDWMEALS SQ Last administered on 09/27/18at 17:14; Start 09/25/18 at 08:00 Dextrose (Dextrose 50%-Water Syringe) 12.5 gm PRN Q15MIN PRN IV SEE COMMENTS; Start 09/24/18 at 17:45 Piperacillin Sod/ Tazobactam Sod 4.5 gm/Sodium Chloride 50 ml @ 100 mls/hr Q6HRS IV ; Start 09/25/18 at 00:00; Stop 09/25/18 at 00:00; Status DC Sodium Chloride 1,000 ml @ 1,000 mls/hr 1X ONCE IV Last administered on 09/24/18 22:23; Start 09/24/18 at 18:30; Stop 09/24/18 at 19:29; Status DC Piperacillin Sod/ Tazobactam Sod 3.375 gm/Sodium Chloride 50 ml @ 100 mls/hr Q6HRS IV Last administered on 09/28/18 05:49; Start 09/24/18 at 18:30 Atorvastatin Calcium (Lipitor) 20 mg HS PO ; Start 09/24/18 at 21:00; Stop 09/24/18 at 21:38; Status DC Vitamin D (Vitamin D3) 2,000 unit DAILY PO Last administered on 09/28/18 08:02; Start 09/25/18 at 09:00 Clonazepam (KlonoPIN) 2 mg HS PO Last administered on 09/27/18 20:41; Start 09/24/18 at 21:00 Albuterol/ Ipratropium (Duoneb) 3 ml QID NEB ; Start 09/24/18 at 21:00; Stop 09/24/18 at 21:00; Status DC Levothyroxine Sodium (Synthroid) 100 mcg DAILY06 PO Last administered on 09/28/18 05:50; Start 09/25/18 at 06:00 Mirtazapine (Remeron) 30 mg HS PO Last administered on 09/27/18 20:41; Start 09/24/18 at 21:00 Potassium Citrate (Urocit-K) 10 meq BID PO Last administered on 09/28/18 08:03; Start 09/25/18 at 09:00 Tramadol HCl (Ultram) 50 mg PRN Q6HRS PRN PO PAIN Last administered on 09/24/18 22:28; Start 09/24/18 at 18:30 Allopurinol (Zyloprim) 300 mg DAILY PO Last administered on 09/28/18 08:02; Start 09/25/18 at 09:00 Non-Formulary Medication (Amoxicillin/ Potassium Clav (Augmentin 875-125 Tablet)) 1 tab BID PO ; Start 09/24/18 at 21:00; Stop 09/24/18 at 21:00; Status DC Aspirin (Children'S Aspirin) 162 mg QHS PO Last administered on 09/25/18 21:35; Start 09/25/18 at 08:00; Stop 09/26/18 at 11:20; Status DC Non-Formulary Medication (Budesonide/ Formoterol Fumarate (Symbicort 160-4.5 Mcg Inhaler)) 1 inh BID PRN INH SHORTNESS OF AIR; Start 09/24/18 at 18:30; Stop 09/24/18 at 21:44; Status DC Diphenoxylate HCl/ Atropine (Lomotil) 1 tab PRN QID PRN PO DIARRHEA; Start 09/24/18 at 21:45 Erythromycin (E-Mycin) 250 mg BID PO ; Start 09/25/18 at 09:00; Stop 09/25/18 at 10:19; Status DC Folic Acid (Folic Acid) 1 mg DAILY PO Last administered on 09/28/18 08:02; Start 09/25/18 at 09:00 Furosemide (Lasix) 40 mg DAILY PO Last administered on 09/28/18 08:02; Start 09/25/18 at 09:00 Non-Formulary Medication (insulin) 5 units QIDACHS IN ; Start 09/24/18 at 21:00; Stop 09/26/18 at 10:10; Status DC Insulin Glargine (Lantus) 34 units QHS SQ Last administered on 09/25/18 21:40; Start 09/24/18 at 21:00; Stop 09/26/18 at 09:39; Status DC Non-Formulary Medication (Levomilnacipran Hydrochloride (Fetzima)) 80 mg DAILY PO Last administered on 09/28/18 08:05; Start 09/25/18 at 09:00 Losartan Potassium (Cozaar) 100 mg DAILY PO Last administered on 09/28/18 08:03; Start 09/25/18 at 09:00 Magnesium Oxide (Magnesium Oxide) 800 mg DAILY PO Last administered on 09/28/18 08:03; Start 09/25/18 at 09:00 Pantoprazole Sodium (Protonix) 40 mg DAILYAC PO Last administered on 09/28/18 08:02; Start 09/25/18 at 07:30 Prednisone (Prednisone) 50 mg DAILYWBKFT PO Last administered on 09/26/18 07:57; Start 09/25/18 at 08:00; Stop 09/26/18 at 12:05; Status DC Verapamil HCl (Calan Sr) 120 mg DAILY PO Last administered on 09/26/18at 07:59; Start 09/25/18 at 09:00; Stop 09/26/18 at 09:39; Status DC Albuterol/ Ipratropium (Duoneb) 3 ml RTQID NEB Last administered on 09/28/18 09:37; Start 09/24/18 at 20:00 Sodium Chloride 50 ml @ As Directed STK-MED ONCE .ROUTE ; Start 09/24/18 at 18:48; Stop 09/24/18 at 18:49; Status DC Piperacillin Sod/ Tazobactam Sod (Zosyn) 3.375 gm STK-MED ONCE IV ; Start 09/24/18 at 18:48; Stop 09/24/18 at 18:49; Status DC Atorvastatin Calcium (Lipitor) 20 mg DAILY PO Last administered on 09/28/18 08:03; Start 09/25/18 at 09:00 Budesonide (Pulmicort) 0.5 mg RTBID NEB Last administered on 09/28/18 09:37; Start 09/25/18 at 08:00 Oseltamivir Phosphate (Tamiflu) 75 mg BID PO Last administered on 09/28/18 08:03; Start 09/25/18 at 10:00; Stop 09/30/18 at 09:59 Non-Formulary Medication 1 ea BID PO Last administered on 09/28/18 08:04; Start 09/25/18 at 21:00 Lactobacillus Rhamnosus (Culturelle) 1 cap BID PO Last administered on 09/28/18 08:02; Start 09/26/18 at 09:00 Insulin Glargine (Lantus) 40 units QHS SQ Last administered on 09/27/18 20:45; Start 09/26/18 at 21:00 Verapamil HCl (Calan Sr) 240 mg DAILY PO Last administered on 09/28/18 08:04; Start 09/27/18 at 09:00 Ipratropium [place] (Atrovent) 0.5 mg RTQID NEB ; Start 09/26/18 at 12:00; Status UNV Furosemide (Lasix) 20 mg 1X ONCE IVP Last administered on 09/26/18at 10:51; Start 09/26/18 at 10:30; Stop 09/26/18 at 10:31; Status DC Insulin Human Lispro (HumaLOG) 15 units TIDWMEALS SQ Last administered on 09/28/18at 08:11; Start 09/26/18 at 12:00 Verapamil HCl (Calan Sr) 120 mg DAILY PO ; Start 09/26/18 at 10:30; Stop 09/26/18 at 10:30; Status DC Verapamil HCl (Calan Sr) 120 mg 1X ONCE PO Last administered on 09/26/18at 10:51; Start 09/26/18 at 10:30; Stop 09/26/18 at 10:31; Status DC Aspirin (Children'S Aspirin) 162 mg QODAY PO Last administered on 09/27/18at 08:32; Start 09/27/18 at 09:00 Apixaban (Eliquis) 2.5 mg BID PO ; Start 09/26/18 at 21:00; Stop 09/26/18 at 21:00; Status DC Ferrous Sulfate (Feosol) 325 mg DAILYWBKFT PO Last administered on 09/28/18at 08:02; Start 09/27/18 at 08:00 Prednisone (Prednisone) 20 mg DAILYWBKFT PO Last administered on 09/28/18at 08:02; Start 09/27/18 at 08:00 Apixaban (Eliquis) 2.5 mg BID PO Last administered on 09/28/18at 08:02; Start 09/26/18 at 12:15 Active Scripts Active Duoneb 0.5-3(2.5) Mg/3 Ml (Albuterol/Ipratropium) 3 Ml Ampul.neb 3 Ml NEB QID Reported B-12 Compliance (Cyanocobalamin (Vitamin B-12)) 1,000 Mcg/1 Ml Kit 1,000 Mcg IJ [id number] LAST DOSE GIVEN: DATE: TIME: NEXT DOSE DUE: DATE: TIME: Levothyroxine Sodium 100 Mcg Tablet 100 Mcg PO DAILYAC LAST DOSE GIVEN: DATE: TIME: NEXT DOSE DUE: DATE: TIME: Albuterol Sulfate Conc Neb Soln (Albuterol Sulfate) 2.5 Mg/0.5 Ml Vial.neb 2.5 Mg NEB TID Zantac (Ranitidine Hcl) 150 Mg Tablet 150 Mg PO BID LAST DOSE GIVEN: DATE: TIME: NEXT DOSE DUE: DATE: TIME: Breo Ellipta 200-25 Mcg INH (Fluticasone/Vilanterol) 1 Each Blst.w.dev 1 Puff IH DAILY LAST DOSE GIVEN: DATE: TIME: NEXT DOSE DUE: DATE: TIME: Iron (Ferrous Sulfate, Dried) 159 Mg Tablet.er 65 Mg PO DAILY LAST DOSE GIVEN: DATE: TIME: NEXT DOSE DUE: DATE: TIME: Furosemide 40 Mg Tablet 40 Mg PO BID Klonopin (Clonazepam) 2 Mg Tablet 2 Mg PO HS LAST DOSE GIVEN: DATE: YESTERDAY TIME: AT BEDTIME NEXT DOSE DUE: DATE: TODAY TIME: AT BEDTIME Verapamil Er (Verapamil Hcl) 240 Mg Cap24h.pel 120 Mg PO DAILY LAST DOSE GIVEN: DATE: YESTER TIME:AM NEXT DOSE DUE: DATE: TOMORROW TIME: AM Magnesium (Magnesium Oxide) 400 Mg Capsule 800 Mg PO DAILY LAST DOSE GIVEN: DATE: TODAY TIME: AM NEXT DOSE DUE: DATE: TOMORROW TIME: AM Fetzima (Levomilnacipran Hydrochloride) 80 Mg Cap.sa.24h 80 Mg PO DAILY LAST DOSE GIVEN: DATE: TODAY TIME: AM NEXT DOSE DUE: DATE: TOMORROW TIME: AM Tramadol Hcl (Tramadol HCl) 50 Mg Tablet 50 Mg PO PRN Q6HRS PRN LAST DOSE GIVEN: DATE: NOT GIVEN TODAY NEXT DOSE DUE: DATE: SEPTEMBER TAKE TIME: IF AND WHEN NEEDED Levemir Flextouch (Insulin Detemir) 100 Unit/1 Ml Insuln.pen 34 Unit SQ HS LAST DOSE GIVEN: DATE: YESTERDAY TIME: PM NEXT DOSE DUE: DATE: TODAY TIME: PM Vitamin D3 (Cholecalciferol (Vitamin D3)) 1,000 Unit Tablet 2,000 Unit PO DAILY LAST DOSE GIVEN: DATE: TODAY TIME: AM NEXT DOSE DUE: DATE: TOMORROW TIME: AM Aspirin 81 Mg Tab.chew 162 Mg PO DAILY LAST DOSE GIVEN: DATE: TODAY TIME: AM NEXT DOSE DUE: DATE: TOMORROW TIME: AM Novolog Flexpen (Insulin Aspart) 100 Unit/1 Ml Insuln.pen 13-19 Units IN TIDWMEALS LAST DOSE GIVEN: DATE:TODAY TIME:lunch NEXT DOSE DUE: DATE:TODAY TIME:dinner Mirtazapine 30 Mg Tablet 30 Mg PO HS LAST DOSE GIVEN: DATE:YESTERDAY TIME:9pm NEXT DOSE DUE: DATE:TODAY TIME:9pm Erythromycin (Erythromycin Base) 250 Mg Capsule.dr 250 Mg PO BID LAST DOSE GIVEN: DATE:TODAY TIME:829 NEXT DOSE DUE: DATE:TODAY TIME:9:00 pm Allopurinol 300 Mg Tablet 300 Mg PO DAILY LAST DOSE GIVEN: DATE:TODAY TIME:829 NEXT DOSE DUE: DATE:TOMORROW TIME:829 Atorvastatin Calcium 20 Mg Tablet 20 Mg PO HS LAST DOSE GIVEN: DATE:YESTERDAY TIME:9:00 pm NEXT DOSE DUE: DATE:TODAY TIME:9:00 pm Potassium Citrate 10 Meq Tablet.er 10 Meq PO BID LAST DOSE GIVEN: DATE:TODAY TIME:899 NEXT DOSE DUE: DATE:TOMORROW TIME:899 Lomotil Tablet (Diphenoxylate Hcl/Atropine) 1 Each Tablet 2.5 Mg PO PRN QID PRN LAST DOSE GIVEN: DATE: NOT GIVEN TODAY TIME: NEXT DOSE DUE: DATE: TODAY TIME: IF AND WHEN NEEDED Vitals/I & O Vital Sign - Last 24 Hours 09/27/18 09/27/18 09/27/18 09/27/18 10:47 10:48 15:33 17:10 Temp 97.7 Pulse 79 Resp 20 B/P (MAP) 131/73 (92) Pulse Ox 96 96 97 93 O2 Delivery Nasal Cannula Nasal Cannula Nasal Cannula Nasal Cannula O2 Flow Rate 3.0 3.0 3.0 3.0 09/27/18 09/27/18 09/27/18 09/27/18 20:00 20:08 20:54 22:57 Temp 97.9 97.4 Pulse 80 82 Resp 20 20 B/P (MAP) 161/71 (101) 171/82 (111) Pulse Ox 94 94 95 O2 Delivery Nasal Cannula Nasal Cannula Nasal Cannula Nasal Cannula O2 Flow Rate 3.0 3.5 3.0 3.0 09/28/18 09/28/18 09/28/18 09/28/18 00:50 05:00 05:26 08:00 Temp 98.0 Pulse 76 76 Resp 20 18 B/P (MAP) 154/77 (102) 158/72 (100) Pulse Ox 98 99 97 O2 Delivery Nasal Cannula Nasal Cannula Nasal Cannula Nasal Cannula O2 Flow Rate 3.0 3.5 3.0 3.0 09/28/18 09/28/18 09/28/18 08:03 08:04 09:39 Pulse 76 76 B/P (MAP) 158/72 158/72 Pulse Ox 98 O2 Delivery Nasal Cannula O2 Flow Rate 3.0 Intake and Output 09/27/18 09/27/18 09/28/18 14:59 22:59 06:59 Intake Total 1130 ml 690 ml 80 ml Output Total 1850 ml 1725 ml Balance -720 ml -1035 ml 80 ml ARON MEANS [employer] MANAGER September 28, 2018 10:18
[2018-09-28 11:33] VITALS: BP 183/51
[2018-09-28] MEDS ORDERED: VERAPAMIL SR 120 MG TABLET.ER. PO ONE ×2 (12:00→15:45)
[2018-09-28 15:19] VITALS: BP 145/70
[2018-09-28 19:46] VITALS: BP 157/76
[2018-09-28] MEDS: MIRTAZAPINE 30 MG TABLET PO SCH (20:08)
[2018-09-28] MEDS: clonazePAM 2 MG TABLET PO SCH (20:08)
[2018-09-28] MEDS: INSULIN GLARGINE 300 UNITS/3 ML INSULN.PEN. SQ SCH (20:16)
[2018-09-28 23:15] VITALS: BP 170/74
[2018-09-29] MEDS: PIPERACILLIN/TAZOBACTAM 3.375 GM in IV NORMAL SALINE 50ML 50 ML IV SCH ×2 (05:14→12:00)
[2018-09-29] MEDS: LEVOTHYROXINE 100 MCG TABLET PO SCH (05:15)
[2018-09-29] MEDS: IPRATRPIUM/ALBUTEROL 0.5/2.5MG 3 ML NEBU. NEB SCH ×3 (05:23→15:56)
[2018-09-29 05:50] VITALS: BP 156/83
[2018-09-29] MEDS: INSULIN LISPRO 300 UNITS/3 ML INSULN.PEN. SQ SCH ×4 (08:00→12:00)
[2018-09-29] MEDS: CHOLECALCIFEROL (VITAMIN D3) 1,000 UNIT TABLET PO SCH (08:48)
[2018-09-29] MEDS: MAGNESIUM OXIDE 400 MG TABLET PO SCH (08:49)
[2018-09-29] MEDS: ATORVASTATIN CALCIUM 20 MG TABLET PO SCH (08:49)
[2018-09-29] MEDS: FUROSEMIDE 40 MG TABLET PO SCH (08:49)
[2018-09-29] MEDS: ASPIRIN 81 MG TAB.CHEW PO SCH (08:49)
[2018-09-29] MEDS: ALLOPURINOL 300 MG TABLET. PO SCH (08:49)
[2018-09-29] MEDS: FOLIC ACID 1 MG TABLET PO SCH (08:49)
[2018-09-29] MEDS: LACTOBACILLUS RHAMNOSUS GG 1 CAPSULE. PO SCH (08:49)
[2018-09-29] MEDS: PANTOPRAZOLE 40 MG TABLET. PO SCH (08:49)
[2018-09-29] MEDS: OSELTAMIVIR 75 MG CAPSULE PO SCH (08:50)
[2018-09-29] MEDS: predniSONE 20 MG TABLET PO SCH (08:50)
[2018-09-29] MEDS: FERROUS SULFATE 325 MG TABLET. PO SCH (08:50)
[2018-09-29] MEDS: APIXABAN 2.5 MG TABLET PO SCH (08:50)
[2018-09-29] MEDS: LEVOMILNACIPRAN HYDROCHLORIDE 80 MG PO SCH (08:51)
[2018-09-29] MEDS: POTASSIUM CITRATE 10 MEQ TABLET.ER PO SCH (08:51)
--- NOTE | 2018-09-29 08:56 | RAD ---
Chest radiograph 09/29/2018 12:00 AM INDICATION: Elevated d-dimer COMPARISON: September 26, 2018 TECHNIQUE: Frontal and lateral views of the chest are provided. FINDINGS: The cardiomediastinal silhouette is within normal limits. There are no pleural effusions. There is no pulmonary vascular congestion. There is no pneumothorax. Mild chronic interstitial changes are identified at the lung bases. There may be tree-in-bud nodular airspace disease in the right midlung suggestive of an infectious/inflammatory pneumonitis. Calcified right hilar lymphadenopathy is identified. No significant osseous abnormality is identified. IMPRESSION: Chronic interstitial changes with new tree-in-bud nodular airspace disease in the right midlung which may represent infectious/inflammatory bronchiolitis/pneumonitis. Electronically signed by: Becki Diop MD (09/29/2018 8:53 AM) [id number]
[2018-09-29] MEDS ORDERED: VERAPAMIL SR 120 MG TABLET.ER. PO SCH ×2 (09:00)
[2018-09-29] MEDS: ERYTHROMYCIN BASE 250 MG PO SCH (09:00)
--- NOTE | 2018-09-29 09:33 | NUR ---
Pt is sitting up in bed, has had vq scan. Eating breakfast. No complaints. Is hoping to leave today. See flowsheet for full assessment. WCTM.
[2018-09-29] MEDS: BUDESONIDE 0.5 MG/2 ML NEBU NEB SCH (09:43)
--- NOTE | 2018-09-29 09:53 | PN ---
DATE: 09/28/2018 SUBJECTIVE: The patient is sitting at the edge of the bed comfortably, in no apparent respiratory distress; however, she continued to have cough, chest tightness and wheezing. Her blood pressure is not well controlled and there are some discrepancies on what she is on, not the list shows up. PHYSICAL EXAMINATION: GENERAL: When I examined her, she was somewhat pale, but no jaundice, cyanosis, or thyromegaly. No jugular venous distension. No lower limb edema. VITAL SIGNS: Her heart rate was 91, blood pressure was 183/51, temperature was 98.1, respiratory rate was 22 and oxygen saturation was 98% on 3 liters of oxygen. HEENT: Examination of the head, eyes, ears, nose and throat showed normocephalic, atraumatic. NECK: Supple. HEART: Showed normal first and second heart sounds. No gallop, rub or murmur. CHEST: Showed central trachea, equally reduced expansion, reduced air entry, vesicular breath sounds with coarse sound with bilateral rhonchi, I could not appreciate any crepitation. ABDOMEN: Distended, soft, nontender. NEUROLOGIC: She was awake, alert, responding appropriately. All her cranial nerves are intact. EXTREMITIES: She moves extremities without difficulty. She ambulates without assistance or assistive devices. Her intake was 1900, output was 4300. LABORATORY DATA: As of this morning, her white cell count was 10,800, hemoglobin 11, hematocrit 34, MCV 85 and platelet count 295,000. Her chemistry showed serum sodium 143, potassium 3.8, chloride 101, bicarbonate 41, BUN 11, her creatinine was 1.8. Estimated GFR was 27 mL per minute. Her glucose was 177, calcium was 9.3. Her D-dimer was high at 0.72. Her urinalysis was unremarkable. Her influenza A was positive, B was negative and stool for occult blood was negative. So far, her blood cultures showed no growth after 3 days and she continues to be on Tamiflu and piperacillin. ASSESSMENT: 1. Influenza A for which she is on Tamiflu. 2. Chronic obstructive pulmonary disease exacerbation. 3. Chronic kidney disease. 3. Type 2 diabetes. Her V/Q scan cannot be done as the machine is still out of order. PLAN: My plan is to discontinue her losartan and increase her verapamil to 240 mg and decide on further management accordingly. If the machine is working tomorrow, we will do the V/Q scan and hopefully discharge her home. ANA ROBISON MD DR: DANIEL/sarah JOB#: [id number] / [id number]
[2018-09-29 11:36] VITALS: BP 162/82
[2018-09-29 15:40] VITALS: BP 153/74
--- NOTE | 2018-09-29 15:49 | RAD ---
Ventilation/perfusion lung scan, 09/29/2018: History: Dyspnea, elevated d-dimer Due to PACS issues this study is being reported on a delayed basis. The ventilation study was performed utilizing 20 mCi of xenon-133. Activity in the lungs is heterogeneous. There is a linear ventilation defect in the right midlung. There is patchy retention of activity in the lungs on the washout phase, greatest in the right parahilar region. A similar linear ventilation defect was seen in the right mid lung on the previous VQ study of 07/25/2017. Perfusion imaging was performed following IV injection of 5.5 mCi of technetium 99m M MAA. The perfusion pattern is similar to the ventilation pattern with a linear area of decreased activity seen in the region of the minor fissure/right middle lobe. Similar perfusion findings were also present on the previous study from 08/14/2017. No new perfusion defects are seen to suggest acute emboli. IMPRESSION: 1. Abnormal ventilation study suggesting COPD, with a bandlike area of decreased ventilation and air trapping in the right parahilar region, likely in the right middle lobe. 2. Matched right middle lobe region perfusion defect similar to that seen on 08/14/2017. 3. The probability of acute pulmonary emboli is low.
[2018-09-29] MEDS ORDERED: VERA240C2 PO (16:12)
[2018-09-29] MEDS ORDERED: AMOX1TAB58 PO (16:12)
--- NOTE | 2018-09-29 17:09 | NUR ---
Pt is discharging, agrees with discharge plan. Scripts given to patient. IV out and tele off.
--- NOTE | 2018-09-29 19:32 | DS ---
DATE OF DISCHARGE: 09/29/2018 HOSPITAL COURSE: The patient is a 73-year-old female patient who was admitted with increasing shortness of breath. She also felt faint when walking, so her had her lie down because she was so short of breath. The patient has chest tightness, cough productive of greenish sputum. 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 Apparently, she has not been doing any much better, got even worse. The patient was admitted with acute exacerbation of chronic obstructive pulmonary disease with hypoxia. Her left lower extremity was slightly swollen; however, the venous Doppler ultrasounds were negative. She was tested positive for influenza A and was admitted and treated with IV antibiotic and Tamiflu and steroids. Her D-dimer was elevated and therefore, we did do a V/Q scan, which was read as negative for pulmonary emboli. Her blood pressure was also markedly elevated and she was seen in consultation by the Cardiology team who recommended increasing her verapamil to 360, although the patient herself said that she was supposed to be on only 120 mg/dL. It clearly that 120 mg is insufficient to control her blood pressure and the 360 was controlling her blood pressure very well. 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 She was treated with IV vancomycin and Zosyn. Her blood cultures were negative, so I discontinued vancomycin. Continued with Zosyn and she remained stable, afebrile, and her white cell count is normal. A decision was made to discharge her home to finish treatment with oral Augmentin 500 mg twice a day for 5 more days. She was also given a Medrol Dosepak and a prescription for verapamil 360 mg. PHYSICAL EXAMINATION: GENERAL: When I saw her this afternoon, she was sitting at the edge of the bed comfortably in no apparent distress. She was pale, but no jaundice, cyanosis, or thyromegaly. No jugular venous distension. No limb edema. VITAL SIGNS: Her heart rate was 81, blood pressure was 153/74, temperature was 98.3, respiratory rate 20, and oxygen saturation was 94% on 3 liters of oxygen. HEAD, EYES, EARS, NOSE AND THROAT: Showed normocephalic, atraumatic. NECK: Supple. HEART: Showed normal first and second heart sounds with no gallop, rub or murmur. CHEST: Clear to auscultation. No crepitation or rhonchi. ABDOMEN: Distended, soft, nontender. NEUROLOGIC: She was awake, alert, responding appropriately. All cranial nerves are intact. She moves extremities without difficulty. Her intake over the last 24 hours was 1900 and output was 3575. LABORATORY DATA: Showed a white cell count of 10,800, hemoglobin 11, hematocrit 34, MCV 85 and platelet count 295,000. Her chemistry showed a serum sodium 143, potassium 3.8, chloride 101, bicarbonate 41, anion gap of 1, BUN 42, creatinine 1.8. Estimated GFR was 27.6 mL per minute. Her glucose 177 and calcium was 9.3. DISCHARGE MEDICATIONS: She was discharged home to continue on amoxicillin/clavulanic acid 500/125 one tablet twice a day with food for five more days, verapamil 360 mg once a day, Medrol Dosepak. She is also on albuterol sulfate 2.5 mg by nebulizer 3 times a day, allopurinol 300 mg daily, aspirin 162 mg daily, atorvastatin calcium 20 mg at bedtime, cholecalciferol 2000 units daily, clonazepam for Klonopin 2 mg at bedtime, cyanocobalamin 1000 mcg per 1 mL intramuscular every 28 days, diphenoxylate/atropine for Lomotil 2.5 mg 4 times a day, erythromycin base 250 mg b.i.d., ferrous sulfate 1 tablet once a day, Breo Ellipta 1 puff daily, furosemide 40 mg twice a day. She is on NovoLog insulin 13-19 units 3 times a day with meals. She is on Levemir the insulin 34 units. She is on ipratropium bromide, albuterol sulfate for DuoNeb 3 mL 4 times a day. She is on Fetzima 80 mg capsules daily for depression, levothyroxine sodium 100 mcg once a day, magnesium oxide 800 mg daily, mirtazapine 30 mg p.o. at bedtime, potassium citrate 10 mEq twice a day, ranitidine 150 mg twice a day and tramadol 50 mg every 6 hours. FINAL DISCHARGE DIAGNOSES: 1. Influenza A. She is on a 5-day course of Tamiflu. 2. Chronic obstructive pulmonary disease exacerbation with acute bronchitis for which she will be discharged on Augmentin 500/125 twice a day for 5 more days and a tapering course of steroids. 3. Chronic kidney disease. 4. Type 2 diabetes mellitus. 5. Elevated D-dimer with negative V/Q scan. ANA ROBISON MD DR: DANIEL/sarah JOB#: [id number] / [id number]
== END 2018-09-29 17:00 | disposition home or self-care (01) | DRG 193 ==
LOC: ER 16:27 → 1 SOUTH 18:05
PROVIDERS: ADMIT Family Medicine; ATTEND Internal Medicine
DX: J10.00 Influenza due to other identified influenza virus with unspecified type of pneumonia (principal); J96.21 Acute and chronic respiratory failure with hypoxia; R65.11 Systemic inflammatory response syndrome (SIRS) of non-infectious origin with acute organ dysfunction; J44.0 Chronic obstructive pulmonary disease with (acute) lower respiratory infection; N18.4 Chronic kidney disease, stage 4 (severe); E87.2 Acidosis; I13.0 Hypertensive heart and chronic kidney disease with heart failure and stage 1 through stage 4 chronic kidney disease, or unspecified chronic kidney disease; I42.1 Obstructive hypertrophic cardiomyopathy; J44.1 Chronic obstructive pulmonary disease with (acute) exacerbation; D63.8 Anemia in other chronic diseases classified elsewhere; E03.9 Hypothyroidism, unspecified; E11.22 Type 2 diabetes mellitus with diabetic chronic kidney disease; E11.3393 Type 2 diabetes mellitus with moderate nonproliferative diabetic retinopathy without macular edema, bilateral; E11.43 Type 2 diabetes mellitus with diabetic autonomic (poly)neuropathy; E78.00 Pure hypercholesterolemia, unspecified; E78.5 Hyperlipidemia, unspecified; G47.30 Sleep apnea, unspecified; I25.10 Atherosclerotic heart disease of native coronary artery without angina pectoris; Z96.1 Presence of intraocular lens; Z96.653 Presence of artificial knee joint, bilateral; E66.9 Obesity, unspecified; Z68.34 Body mass index [BMI] 34.0-34.9, adult; I25.2 Old myocardial infarction; J20.9 Acute bronchitis, unspecified; I50.9 Heart failure, unspecified; M32.9 Systemic lupus erythematosus, unspecified; Z79.01 Long term (current) use of anticoagulants; Z80.3 Family history of malignant neoplasm of breast; Z81.8 Family history of other mental and behavioral disorders; Z82.49 Family history of ischemic heart disease and other diseases of the circulatory system; Z87.891 Personal history of nicotine dependence; Z83.3 Family history of diabetes mellitus; Z90.49 Acquired absence of other specified parts of digestive tract; Z90.710 Acquired absence of both cervix and uterus; Z99.81 Dependence on supplemental oxygen; Z88.5 Allergy status to narcotic agent; Z88.8 Allergy status to other drugs, medicaments and biological substances; Z88.6 Allergy status to analgesic agent; Z91.040 Latex allergy status
CPT/HCPCS: 36415; 71046; 78582; 80048; 80053; 80061; 81001; 82274; 82553; 82947; 83540; 83550; 83605; 83735; 83880; 84484; 85007; 85025; 85027; 85379; 87040; 87804; 93005; 93971; 94640; 96361; 96374; A9540; A9558; J1100; J1815; J2543; J7512; J7620; J7626; 99285-25; J7030

== ENCOUNTER → 2018-11-23 | Outpatient (CLI) | payer MEDICARE ==
[~2018-11-23] MED LIST changes: +ALBU2.5V14 NEB; +AMOX1TAB58 PO; +FERR159T3 PO; +FLUT1BLS IH; +LEVO100T5 PO; +OMEP20CA10 PO; -OMEP20CA9 PO; +RANI-376 PO; +[UNRECOGNIZED DRUG - CODE] IJ
[2018-11-23 14:50] LABS: HEMATOCRIT 35.6 % (36.0-47.0); HEMOGLOBIN 11.3 g/dL (12.0-15.5)
[2018-11-23 15:01] LABS: ALBUMIN 3.4 g/dL (3.4-5.0); CALCIUM 10.1 mg/dL (8.5-10.1); CREATININE 1.9 mg/dL (0.6-1.0); GFR 25.9; MAGNESIUM 2.7 mg/dL (1.8-2.4); PHOSPHORUS 3.5 mg/dL (2.6-4.7); POTASSIUM 3.9 mmol/L (3.5-5.1)
[2018-11-24 16:07] LABS: CREATININE PTH 1.79 mg/dL (0.57-1.00); PTH INTACT 170 pg/mL (15-65)
== END | disposition home or self-care (01) ==
LOC: LAB 13:52
PROVIDERS: ATTEND Internal Medicine Nephrology
DX: I12.9 Hypertensive chronic kidney disease with stage 1 through stage 4 chronic kidney disease, or unspecified chronic kidney disease (principal); E11.22 Type 2 diabetes mellitus with diabetic chronic kidney disease; N18.3 Chronic kidney disease, stage 3 (moderate); D63.1 Anemia in chronic kidney disease; N20.0 Calculus of kidney; N25.81 Secondary hyperparathyroidism of renal origin; Z68.33 Body mass index [BMI] 33.0-33.9, adult
CPT/HCPCS: 36415; 80069; 82306; 83735; 83970; 85014; 85018

== ENCOUNTER → 2018-12-01 | Outpatient (CLI) | payer MEDICARE ==
[2018-12-01 09:27] LABS: CALCIUM 10.2 mg/dL (8.5-10.1); CREATININE 1.9 mg/dL (0.6-1.0); GFR 25.9; POTASSIUM 3.8 mmol/L (3.5-5.1)
--- NOTE | 2018-12-02 15:57 | RAD ---
DATE: 12/01/2018 EXAM: MAMMO ARCHANA SIMG RT, BREAST RIGHT HISTORY: Left mastectomy over 30 years ago COMPARISON: 04/12/2017, 08/18/2016, 10/29/2017 mammographic images, 05/19/2018 right breast ultrasound, 11/13/2017 right breast ultrasound exam This study was interpreted with the benefit of Computerized Aided Detection (CAD). Breast Density: SCATTERED The breast parenchyma shows scattered fibroglandular densities. Breast parenchyma level B. FINDINGS: Benign calcification is present. No mass or distortion. No suspicious calcifications. Asymmetry at the outer right breast evident on 10/29/2017 is not identified currently. Limited right breast ultrasound examination was performed. There is a cystic structure involving the right breast 9 o'clock region measuring 0.19 cm x 0.14 cm x 0.12 cm. At the 11:00 region, there is a cystic structure measuring 0.2 cm x 0.26 cm x 0.17 cm. No flow identified involving these structures. IMPRESSION: Stable. No significant change in right breast ultrasound findings upon comparison 11/13/2017. BI-RADS CATEGORY: 2 BENIGN FINDING(S) RECOMMENDED FOLLOW-UP: 12M 12 MONTH FOLLOW-UP PQRS compliance statement: Patient information was entered into a reminder system with a target due date in one year for the next mammogram. Mammography is a sensitive method for finding small breast cancers, but it does not detect them all and is not a substitute for careful clinical examination. A negative mammogram does not negate a clinically suspicious finding and should not result in delay in biopsying a clinically suspicious abnormality. "Our facility is accredited by the [employer] Mammography Program."
== END | disposition home or self-care (01) ==
LOC: MAMMO 08:28
PROVIDERS: ATTEND Internal Medicine
DX: R92.1 Mammographic calcification found on diagnostic imaging of breast (principal); Z90.12 Acquired absence of left breast and nipple
CPT/HCPCS: 76641; 77065; 80048; 84681; G0279; 36415; 77061

== ENCOUNTER → 2019-04-16 | Outpatient (CLI) | payer MEDICARE ==
[2019-04-16 09:30] LABS: HEMATOCRIT 35.2 % (36.0-47.0); HEMOGLOBIN 11.2 g/dL (12.0-15.5)
[2019-04-16 09:42] LABS: ALBUMIN 3.2 g/dL (3.4-5.0); CALCIUM 9.1 mg/dL (8.5-10.1); CREATININE 1.8 mg/dL (0.6-1.0); GFR 27.6; MAGNESIUM 2.1 mg/dL (1.8-2.4); PHOSPHORUS 2.5 mg/dL (2.6-4.7); POTASSIUM 3.7 mmol/L (3.5-5.1)
== END | disposition home or self-care (01) ==
LOC: LAB 08:40
PROVIDERS: ATTEND Internal Medicine Nephrology
DX: E11.22 Type 2 diabetes mellitus with diabetic chronic kidney disease (principal); I12.9 Hypertensive chronic kidney disease with stage 1 through stage 4 chronic kidney disease, or unspecified chronic kidney disease; N18.4 Chronic kidney disease, stage 4 (severe); Z68.33 Body mass index [BMI] 33.0-33.9, adult
CPT/HCPCS: 36415; 80069; 82306; 83735; 85014; 85018

== ENCOUNTER → 2019-10-25 | Outpatient (CLI) | payer MEDICARE ==
[~2019-10-25] MED LIST changes: -OMEP20CA10 PO; +OMEP20CA16 PO
[2019-10-25 10:55] LABS: HEMATOCRIT 35.2 % (36.0-47.0); HEMOGLOBIN 11.1 g/dL (12.0-15.5)
[2019-10-25 11:02] LABS: ALBUMIN 3.5 g/dL (3.4-5.0); CALCIUM 9.5 mg/dL (8.5-10.1); CREATININE 1.9 mg/dL (0.6-1.0); GFR 25.8; PHOSPHORUS 3.7 mg/dL (2.6-4.7); POTASSIUM 3.4 mmol/L (3.5-5.1)
[2019-10-25 17:06] LABS: CREATININE,RANDOM URINE 64.1 mg/dL (Not Establ.)
[2019-10-25 18:07] LABS: MICROALB RD UR 24.2 ug/mL (Not Estab.)
[2019-10-25 20:07] LABS: CALCIUM PTH 9.8 mg/dL (8.7-10.3); PTH INTACT 191 pg/mL (15-65)
== END | disposition home or self-care (01) ==
LOC: LAB 09:48
PROVIDERS: ATTEND Nurse Practitioner Adult Health
DX: I12.9 Hypertensive chronic kidney disease with stage 1 through stage 4 chronic kidney disease, or unspecified chronic kidney disease (principal); N18.4 Chronic kidney disease, stage 4 (severe); E11.29 Type 2 diabetes mellitus with other diabetic kidney complication; E61.2 Magnesium deficiency; J44.9 Chronic obstructive pulmonary disease, unspecified; R80.9 Proteinuria, unspecified; E21.1 Secondary hyperparathyroidism, not elsewhere classified; N20.0 Calculus of kidney; D63.1 Anemia in chronic kidney disease; E55.9 Vitamin D deficiency, unspecified; Z79.4 Long term (current) use of insulin; Z68.34 Body mass index [BMI] 34.0-34.9, adult
CPT/HCPCS: 36415; 80069; 82043; 82306; 82570; 83970; 84156; 85014; 85018

== ENCOUNTER → 2019-10-25 | Outpatient (CLI) | payer MEDICARE | END | disposition home or self-care (01) | LOC: LAB 09:43 | PROVIDERS: ATTEND Internal Medicine | DX: E78.5 Hyperlipidemia, unspecified (principal) | CPT/HCPCS: 80061 ==

== ENCOUNTER → 2019-12-07 | Outpatient (CLI) | payer MEDICARE ==
[~2019-12-07] MED LIST changes: +ERYT250C33 PO; -ERYT250C8 PO
--- NOTE | 2019-12-07 16:37 | RAD ---
Examination: MAMMO ARCHANA SCREEN RT History: Reason: SCREENING /; left mastectomy Comparison/Correlation: 12/01/2018, 05/19/2018, 10/29/2017 Technique: Routine right unilateral digital mammogram views were obtained. CAD was utilized. 3-D tomosynthesis images were acquired. Findings: Breast Tissue Density B : There are scattered areas of fibroglandular density. There are no dominant masses, suspicious microcalcifications, or architectural distortion. IMPRESSION: No mammographic evidence of malignancy. Recommend routine screening. BI-RADS category 1: Negative. The images were reviewed with computer aided detection. Patient information is entered into the reminder system with a target due date for the next screening mammogram. Mammography is the most sensitive method for finding small breast cancers, but it does not detect them all and is not a substitute for careful clinical examination. A negative mammogram does not negate a clinically suspicious finding and should not result in delay in biopsying a clinically suspicious abnormality. "Our facility is accredited by the [employer] Mammography Program Electronically signed by: Sami Zhao MD (12/07/2019 4:35 PM) [id number]
== END ==
LOC: MAMMO 12:50
PROVIDERS: ATTEND Internal Medicine
DX: Z12.31 Encounter for screening mammogram for malignant neoplasm of breast (principal); Z90.12 Acquired absence of left breast and nipple
CPT/HCPCS: 77063; 77067

== ENCOUNTER 2019-12-09 10:35 | Emergency (ER) | payer MEDICARE ==
[~2019-12-09] VITALS: Ht 162.6 cm; Wt 83.0 kg
[2019-12-09 10:45] VITALS: BP 122/63
[2019-12-09] MEDS ORDERED: ONDANSETRON ODT 4 MG TAB.RAPDIS PO ONE (10:45)
[2019-12-09] MEDS ORDERED: oxyCODONE/APAP 10/325 1 TAB TABLET PO ONE (10:45)
[2019-12-09] MEDS ORDERED: ONDANSETRON PF 4 MG/2 ML VIAL. IV ONE (11:15)
[2019-12-09] MEDS ORDERED: HYDROmorphone PF 1 MG/ML DISP.SYRIN IM ONE (11:15)
--- NOTE | 2019-12-09 11:19 | EKG ---
[address] [address] Test Date: 2019-12-09 Test Time: 11:11:41 Pat Name: ANDREAS JAIME Department: Room: Gender: F Director Workforce Management: : 1945 Requested By: ANNMARIE LEDEZMA Order Number: [id number] Reading MD: Measurements Intervals [place] Rate: 83 P: 48 TX: 168 QRS: -23 QRSD: 86 T: 140 QT: 382 QTc: 455 Interpretive Statements SINUS RHYTHM LEFT ATRIAL ABNORMALITY LEFTWARD AXIS LVH WITH REPOLARIZATION ABNORMALITY QRS(T) CONTOUR ABNORMALITY CONSIDER ANTEROSEPTAL MYOCARDIAL DAMAGE ABNORMAL ECG RI6.02 No previous ECG available for comparison
--- NOTE | 2019-12-09 11:26 | RAD ---
KNEE LEFT 2V History: Reason: fall with injury / Spl. Instructions: ONLY 1 VIEW PER RN, PATIENT IMMOBILE / History: Technique: Lateral view of the knee. Comparison: None. Findings: Acute comminuted left distal femur fracture with posterior displacement and angulation of the distal fracture fragments. Left total knee arthroplasty. There is adjacent soft tissue swelling. Impression: 1. Acute comminuted displaced left distal femur fracture. Electronically signed by: Jose M Joel DO (12/09/2019 11:23 AM) [id number]
[2019-12-09 11:33] LABS: BASO # 0.1 x10^3/uL (0.0-0.2); BASO % 1 % (0-3); EOS # 0.3 x10^3/uL (0.0-0.7); EOS % 3 % (0-3); HEMATOCRIT 36.3 % (36.0-47.0); HEMOGLOBIN 11.5 g/dL (12.0-15.5); LYMPH # 1.2 x10^3/uL (1.0-4.8); LYMPH % 10 % (24-48); MEAN CORPUSCULAR HEMOGLOBIN 28 pg (25-35); MEAN CORPUSCULAR HGB CONC 32 g/dL (31-37); MEAN CORPUSCULAR VOLUME 89 fL (79-100); MONO % 9 % (0-9); NEUT # 9.1 x10^3uL (1.8-7.7); NEUT % 77 % (31-73); PLATELET COUNT 293 x10^3/uL (140-400); RED BLOOD COUNT 4.08 x10^6/uL (3.50-5.40); RED CELL DISTRIBUTION WIDTH 17.7 % (11.5-14.5); WHITE BLOOD COUNT 11.7 x10^3/uL (4.0-11.0)
[2019-12-09 11:40] LABS: CALCIUM 9.6 mg/dL (8.5-10.1); GFR 24.4; POTASSIUM 3.5 mmol/L (3.5-5.1)
--- NOTE | 2019-12-09 11:47 | PHYS DOC ---
Past History Past Medical History: COPD, Diabetes, Hypertension, Hypothyroid, GA, Renal Failure, Other Past Surgical History: Appendectomy, Cholecystectomy, Coronary Bypass Surgery, , Hysterectomy, Knee Replacement Smoking: Non-smoker, Quit Greater Than 1 Year Alcohol Use: None Drug Use: None General Adult EDM: Chief Complaint: MECHANICAL FALL HPI: HPI: Patient is a 74-year-old female with a remote history of a left total knee arthroplasty who states she slipped fell landed directly on her left knee this morning. She complains of severe pain that radiates from the top of her knee up into her thigh area. She denies hitting her head she did not lose consciousness she has no neck pain. She denies any other injuries. She states she has been unable to ambulate because of the pain she is unable to extend her leg secondary to pain. [] Review of Systems: Review of Systems: Constitutional: Denies fever or chills Eyes: Denies change in visual acuity HENT: Denies nasal congestion or sore throat Respiratory: Denies cough or shortness of breath Cardiovascular: Denies chest pain or edema GI: Denies abdominal pain, nausea, vomiting, bloody stools or diarrhea : Denies dysuria Musculoskeletal: Per HPI Integument: Denies rash Neurologic: Denies headache, focal weakness or sensory changes Endocrine: Denies polyuria or polydipsia Lymphatic: Denies swollen glands Psychiatric: Denies depression or anxiety Heart Score: Risk Factors: Risk Factors: DM, Current or recent (<one month) smoker, HTN, HLP, family history of CAD, obesity. Risk Scores: Score 0 - 3: 2.5% MACE over next 6 weeks - Discharge Home Score 4 - 6: 20.3% MACE over next 6 weeks - Admit for Clinical Observation Score 7 - 10: 72.7% MACE over next 6 weeks - Early Invasive Strategies Current Medications: Current Meds: Current Medications Medications (Trade) Dose Ordered Sig/Marisa Start Time Stop Time Status Last Admin Dose Admin Hydromorphone HCl (Dilaudid) 1 mg 1X ONCE 12/09/19 11:15 12/09/19 11:16 DC 12/09/19 11:23 1 MG Ondansetron HCl (Zofran Odt) 4 mg 1X ONCE 12/09/19 10:45 12/09/19 11:05 DC Ondansetron HCl (Zofran) 4 mg 1X ONCE 12/09/19 11:15 12/09/19 11:16 DC 12/09/19 11:23 4 MG Oxycodone/ Acetaminophen (Percocet 10325) 1 tab 1X ONCE 12/09/19 10:45 12/09/19 11:05 DC Allergies: Allergies: Allergies Coded Allergies Type Severity Reaction Last Updated Verified Sulfa (Sulfonamide Antibiotics) Allergy Intermediate 09/25/18 Yes ciprofloxacin Allergy Intermediate yeast inf 09/25/18 Yes codeine Allergy Intermediate vomiting 09/25/18 Yes diclofenac Allergy Intermediate rash 09/25/18 Yes hydrochlorothiazide Allergy Intermediate rash 09/25/18 Yes ibuprofen Allergy Intermediate cant take due to kidneys 09/25/18 Yes misoprostol Allergy Intermediate rash 09/25/18 Yes latex Allergy Mild gi problems 09/25/18 Yes Physical Exam: PE: Constitutional: Well developed, well nourished, n moderate distress, non-toxic appearance. [] HENT: Normocephalic, atraumatic, bilateral external ears normal, oropharynx moist, no oral exudates, nose normal. [] Eyes: PERRLA, EOMI, conjunctiva normal, no discharge. [] Neck: Normal range of motion, no tenderness, supple, no stridor. [] Cardiovascular:Heart rate regular rhythm, no murmur [] Lungs & Thorax: Bilateral breath sounds clear to auscultation [] Abdomen: Bowel sounds normal, soft, no tenderness, no masses, no pulsatile masses. [] Skin: Warm, dry, no erythema, no rash. [] Back: No tenderness, no CVA tenderness. [] Extremities: Left knee is swollen tender to palp decreased range of motion secondary to pain] Neurologic: Alert and oriented X 3, normal motor function, normal sensory function, no focal deficits noted. [] Psychologic: Anxious. [] Current Patient Data: Labs: Laboratory Tests Test 12/09/19 11:15 White Blood Count 11.7 x10^3/uL (4.0-11.0) H Red Blood Count 4.08 x10^6/uL (3.50-5.40) Hemoglobin 11.5 g/dL (12.0-15.5) L Hematocrit 36.3 % (36.0-47.0) Mean Corpuscular Volume 89 fL (79-100) Mean Corpuscular Hemoglobin 28 pg (25-35) Mean Corpuscular Hemoglobin Concent 32 g/dL (31-37) Red Cell Distribution Width 17.7 % (11.5-14.5) H Platelet Count 293 x10^3/uL (140-400) Neutrophils (%) (Auto) 77 % (31-73) H Lymphocytes (%) (Auto) 10 % (24-48) L Monocytes (%) (Auto) 9 % (0-9) Eosinophils (%) (Auto) 3 % (0-3) Basophils (%) (Auto) 1 % (0-3) Neutrophils # (Auto) 9.1 x10^3uL (1.8-7.7) H Lymphocytes # (Auto) 1.2 x10^3/uL (1.0-4.8) Monocytes # (Auto) 1.0 x10^3/uL (0.0-1.1) Eosinophils # (Auto) 0.3 x10^3/uL (0.0-0.7) Basophils # (Auto) 0.1 x10^3/uL (0.0-0.2) Sodium Level 140 mmol/L (136-145) Potassium Level 3.5 mmol/L (3.5-5.1) Chloride Level 100 mmol/L (98-107) Carbon Dioxide Level 33 mmol/L (21-32) H Anion Gap 7 (6-14) Blood Urea Nitrogen 44 mg/dL (7-20) H Creatinine 2.0 mg/dL (0.6-1.0) H Estimated GFR (Cockcroft-Gault) 24.4 BUN/Creatinine Ratio 22 (6-20) H Glucose Level 182 mg/dL (70-99) H Calcium Level 9.6 mg/dL (8.5-10.1) Total Bilirubin Pending Aspartate Amino Transferase (AST) Pending Alanine Aminotransferase (ALT) Pending Alkaline Phosphatase Pending Total Protein Pending Albumin Pending Albumin/Globulin Ratio Pending Vital Signs: Vital Signs Date Time Temp Pulse Resp B/P (MAP) Pulse Ox O2 Delivery O2 Flow Rate FiO2 12/09/19 10:45 97.9 86 18 122/63 (82) 99 EKG: EKG: EKG: Normal sinus rhythm rate [address]-T changes [] Radiology/Procedures: Radiology/Procedures: [] Impressions: PROCEDURE: KNEE LEFT 2V KNEE LEFT 2V History: Reason: fall with injury / Spl. Instructions: ONLY 1 VIEW PER RN, PATIENT IMMOBILE / History: Technique: Lateral view of the knee. Comparison: None. Findings: Acute comminuted left distal femur fracture with posterior displacement and angulation of the distal fracture fragments. Left total knee arthroplasty. There is adjacent soft tissue swelling. Impression: 1. Acute comminuted displaced left distal femur fracture. Course & Med Decision Making: Course & Med Decision Making Pertinent Labs and Imaging studies reviewed. (See chart for details) [ED course: Evaluation reveals a 74-year-old female with a comminuted distal left femur fracture. She was placed in a left knee immobilizer. She was given 1 mg of Dilaudid IV Zofran and IV fluids. I spoke with Dr. Lindsay at [facility] who accepted the patient for admission Dr. Reginaldo Guzman's nurse was notified he was in surgery at the time of the call. We were told if he had any questions he would call back. Nadia Disclaimer: Nadia Disclaimer: This electronic medical record was generated, in whole or in part, using a voice recognition dictation system. Departure Departure: Impression: Primary Impression: Closed fracture of left distal femur Qualified Codes: S72.402A - Unspecified fracture of lower end of left femur, initial encounter for closed fracture Disposition: 05 TRANSFER OTHER (Transfer to [facility]) Condition: STABLE Referrals: CAMELIA RUSS MD (PCP) Justification of Admission: Justification of Admission: Justification of Admission Dx: Yes Comments: Femur fracture ANNMARIE LEDEZMA DO Dec 09, 2019 11:47
[2019-12-09 11:48] LABS: ALBUMIN 3.3 g/dL (3.4-5.0); TOTAL BILIRUBIN 0.4 mg/dL (0.2-1.0); TOTAL PROTEIN 6.5 g/dL (6.4-8.2)
--- NOTE | 2019-12-09 12:35 | RAD ---
CHEST AP ONLY History: Reason: pre op / Spl. Instructions: / History: Comparison: September 29, 2018 Findings: Patchy left basilar opacity. Mild right basilar linear atelectasis. No consolidation. No pleural effusion. No pneumothorax. Normal heart size. Impression: 1. Patchy left basilar opacity, most likely atelectasis. If persistent clinical concern, PA and lateral view the chest can better assess. Electronically signed by: Jose M Joel DO (12/09/2019 12:32 PM) [id number]
== END 2019-12-09 14:34 | disposition short-term general hospital (02) ==
LOC: ER 10:35
DX: S72.402A Unspecified fracture of lower end of left femur, initial encounter for closed fracture (principal); Z20.828 Contact with and (suspected) exposure to other viral communicable diseases; J44.9 Chronic obstructive pulmonary disease, unspecified; E11.9 Type 2 diabetes mellitus without complications; I10 Essential (primary) hypertension; E03.9 Hypothyroidism, unspecified; I25.2 Old myocardial infarction; Z95.1 Presence of aortocoronary bypass graft; Z96.652 Presence of left artificial knee joint; Z87.891 Personal history of nicotine dependence; Z88.2 Allergy status to sulfonamides; Z88.1 Allergy status to other antibiotic agents; Z88.8 Allergy status to other drugs, medicaments and biological substances; Z91.040 Latex allergy status; W01.0XXA Fall on same level from slipping, tripping and stumbling without subsequent striking against object, initial encounter; Y93.89 Activity, other specified; Y92.89 Other specified places as the place of occurrence of the external cause; Y99.8 Other external cause status
CPT/HCPCS: 29505; 36415; 71045; 73560; 80053; 85025; 85610; 93005; 96372; 96374; 99285; C9803; J1170; J2405; U0003

== ENCOUNTER → 2020-02-10 | Outpatient (CLI) | payer MEDICARE ==
--- NOTE | 2020-02-10 12:57 | RAD ---
Left femur 2 views INDICATION: Displaced supracondylar fracture COMPARISON: 12/09/2019 left knee x-rays. FINDINGS: The comminuted distal left femoral fracture has since undergone lateral plate and screw construct fixation with improved alignment of the fracture fragments . A residual bone fragment projects dorsomedially. Left total knee arthroplasty surgical changes remain present. Soft tissues show no new additional unexpected findings IMPRESSION: Lateral plate and screw construct fixation of a comminuted distal left femoral shaft fracture status post prior TKA. Alignment is improved, near-anatomic. Electronically signed by: Radha Lowe MD (02/10/2020 12:54 PM) [id number]
== END | disposition home or self-care (01) ==
LOC: DXRAD 08:41
PROVIDERS: ATTEND Physician Assistant
DX: S72.452D Displaced supracondylar fracture without intracondylar extension of lower end of left femur, subsequent encounter for closed fracture with routine healing (principal); X58.XXXD Exposure to other specified factors, subsequent encounter; Z96.652 Presence of left artificial knee joint
CPT/HCPCS: 73552

== ENCOUNTER → 2020-03-21 | Outpatient (CLI) | payer MEDICARE ==
--- NOTE | 2020-03-21 17:03 | RAD ---
Two-view left femur HISTORY: Fracture of left femur AP lateral views COMPARISON: The 2 2019 There is prior left knee total arthroplasty. The femoral tibial components appear aligned and well seated. There is a long lateral plate over the mid and distal femur. There is a comminuted fracture of the distal femur with a large bony fragment which has SHAFT width medial and posterior distraction. There is some callus formation. IMPRESSION: Fracture of the distal femur with mild healing changes. There is a large fragment which remains distracted. Electronically signed by: Reginaldo Worthington III, MD (03/21/2020 5:00 PM) [facility]
== END ==
LOC: DXRAD 10:30
PROVIDERS: ATTEND Orthopaedic Surgery
DX: S72.462 Displaced supracondylar fracture with intracondylar extension of lower end of left femur (principal); X58.XXXD Exposure to other specified factors, subsequent encounter
CPT/HCPCS: 73552

== ENCOUNTER → 2020-03-30 | Outpatient (CLI) | payer MEDICARE ==
[2020-03-30 13:32] LABS: ALBUMIN 3.5 g/dL (3.4-5.0); CALCIUM 10.1 mg/dL (8.5-10.1); CREATININE 1.9 mg/dL (0.6-1.0); GFR 25.8; MAGNESIUM 2.2 mg/dL (1.8-2.4); POTASSIUM 3.9 mmol/L (3.5-5.1)
[2020-03-31 02:08] LABS: CREATININE PTH 1.76 mg/dL (0.57-1.00); PTH INTACT 226 pg/mL (15-65)
== END ==
LOC: LAB 12:15
PROVIDERS: ATTEND Internal Medicine Nephrology
DX: I12.9 Hypertensive chronic kidney disease with stage 1 through stage 4 chronic kidney disease, or unspecified chronic kidney disease (principal); N18.4 Chronic kidney disease, stage 4 (severe); E11.29 Type 2 diabetes mellitus with other diabetic kidney complication; E61.2 Magnesium deficiency; E21.1 Secondary hyperparathyroidism, not elsewhere classified; N20.0 Calculus of kidney; R80.9 Proteinuria, unspecified; D63.1 Anemia in chronic kidney disease; E55.9 Vitamin D deficiency, unspecified; J44.9 Chronic obstructive pulmonary disease, unspecified; Z79.4 Long term (current) use of insulin; Z68.34 Body mass index [BMI] 34.0-34.9, adult
CPT/HCPCS: 36415; 80069; 83735; 83970

== ENCOUNTER → 2020-05-03 | Outpatient (CLI) | payer MEDICARE ==
--- NOTE | 2020-05-03 15:16 | RAD ---
EXAM: AP and lateral views left femur DATE: 05/03/2020 12:38 PM INDICATION: Reason: F/U DISPLACED SUPRACONDYLAR FX / Spl. Instructions: / History: COMPARISON: 03/21/2020 FINDINGS/ IMPRESSION: 1. Progressively healing periprosthetic distal left femoral fracture, post reduction and fixation, i n good alignment without definite hardware complication. 2. Left total knee osteoarthritis is again seen. Electronically signed by: Rashid Spear MD (05/03/2020 3:14 PM) [email or web address]
== END ==
LOC: DXRAD 12:28
PROVIDERS: ATTEND Physician Assistant
DX: S72.462 Displaced supracondylar fracture with intracondylar extension of lower end of left femur (principal); M17.12 Unilateral primary osteoarthritis, left knee; X58.XXXD Exposure to other specified factors, subsequent encounter
CPT/HCPCS: 73552

== ENCOUNTER → 2020-06-11 | Outpatient (CLI) | payer MEDICARE ==
--- NOTE | 2020-06-11 13:37 | RAD ---
EXAM: Left femur, 2 views. HISTORY: Fracture fixation. COMPARISON: 03/21/2020. FINDINGS: 2 views of the left femur are obtained. There is internal fixation of a comminuted distal f emoral metadiaphyseal fracture with a plate and multiple screws. There has been no significant interv al healing along the main fracture line. There is surrounding periosteal reaction. There is a knee ar throplasty in expected position. IMPRESSION: No significant interval healing of a comminuted distal femoral metadiaphyseal fracture st atus post internal fixation. Electronically signed by: Mojgan Polo MD (06/11/2020 1:35 PM) [id number]
== END ==
LOC: DXRAD 12:43
PROVIDERS: ATTEND Physician Assistant
DX: S72.8X2A Other fracture of left femur, initial encounter for closed fracture (principal); X58.XXXA Exposure to other specified factors, initial encounter; Y93.89 Activity, other specified; Y92.89 Other specified places as the place of occurrence of the external cause; Y99.8 Other external cause status
CPT/HCPCS: 73552

== ENCOUNTER → 2020-08-16 | Outpatient (CLI) | payer MEDICARE ==
[2020-08-16 15:57] LABS: HEMATOCRIT 34.8 % (36.0-47.0); HEMOGLOBIN 10.7 g/dL (12.0-15.5)
[2020-08-16 16:04] LABS: ALBUMIN 3.6 g/dL (3.4-5.0); CALCIUM 9.5 mg/dL (8.5-10.1); CREATININE 2.1 mg/dL (0.6-1.0); MAGNESIUM 2.2 mg/dL (1.8-2.4); PHOSPHORUS 3.5 mg/dL (2.6-4.7); POTASSIUM 4.3 mmol/L (3.5-5.1)
[2020-08-17 01:32] LABS: CREATININE PTH 2.03 mg/dL (0.57-1.00); PTH INTACT 331 pg/mL (15-65)
== END ==
LOC: LAB 14:55
PROVIDERS: ATTEND Nurse Practitioner Adult Health
DX: E11.22 Type 2 diabetes mellitus with diabetic chronic kidney disease (principal); I12.9 Hypertensive chronic kidney disease with stage 1 through stage 4 chronic kidney disease, or unspecified chronic kidney disease; N18.4 Chronic kidney disease, stage 4 (severe); D63.1 Anemia in chronic kidney disease; N17.9 Acute kidney failure, unspecified; E87.6 Hypokalemia; E61.2 Magnesium deficiency; R80.9 Proteinuria, unspecified; E21.1 Secondary hyperparathyroidism, not elsewhere classified; N20.0 Calculus of kidney; E55.9 Vitamin D deficiency, unspecified; J44.9 Chronic obstructive pulmonary disease, unspecified; Z79.4 Long term (current) use of insulin; Z68.33 Body mass index [BMI] 33.0-33.9, adult
CPT/HCPCS: 36415; 80069; 82306; 82728; 83540; 83550; 83735; 83970; 85014; 85018

== ENCOUNTER → 2020-08-23 | Outpatient (CLI) | payer MEDICARE ==
--- NOTE | 2020-08-23 17:37 | RAD ---
XR FEMUR_LEFT 1 VIEW History: Reason: FOLLOW UP / Spl. Instructions: / History: Technique: 2 views left femur. Comparison: June 11, 2020 Findings: Internal fixation left distal femur fracture. Interval healing compared to prior. Fracture line still evident. Increased lucency surrounding the most superior distal screw. Left total knee arthroplasty. No dislocation. Impression: 1. Internal fixation healing left distal femur fracture. 2. Increased lucency surrounding the distal screw, concerning for loosening. 3. Left total knee arthroplasty. Electronically signed by: Jose M Joel DO (08/23/2020 5:35 PM) [id number]
== END ==
LOC: RAD 12:38
PROVIDERS: ATTEND Orthopaedic Surgery
DX: S72.462 Displaced supracondylar fracture with intracondylar extension of lower end of left femur (principal); X58.XXXD Exposure to other specified factors, subsequent encounter
CPT/HCPCS: 73552

== ENCOUNTER → 2020-10-18 | Outpatient (CLI) | payer MEDICARE ==
--- NOTE | 2020-10-18 13:32 | RAD ---
EXAM: Left femur, 2 views. HISTORY: Fracture. COMPARISON: 08/23/2020 FINDINGS: 2 views of the left femur are obtained. There is internal fixation of a distal femoral meta diaphyseal fracture with a lateral plate and multiple screws. There is partial bony bridging along th e fracture line. There is persistent lucency surrounding the a distal fixation screw. There is a knee arthroplasty unchanged in position. There is no effusion. IMPRESSION: 1. Internal fixation of a partially united distal femoral fracture. There is persistent lucency surro unding the distal fixation screw which may be due to a component of loosening. 2. Left knee arthroplasty in expected position. Electronically signed by: Mojgan Polo MD (10/18/2020 1:30 PM) [id number]
== END ==
LOC: RAD 12:48
PROVIDERS: ATTEND Orthopaedic Surgery
DX: S72.492A Other fracture of lower end of left femur, initial encounter for closed fracture (principal); Z96.652 Presence of left artificial knee joint; X58.XXXA Exposure to other specified factors, initial encounter; Y93.89 Activity, other specified; Y92.89 Other specified places as the place of occurrence of the external cause; Y99.8 Other external cause status
CPT/HCPCS: 73552

== ENCOUNTER → 2020-12-12 | Outpatient (CLI) | payer MEDICARE ==
[~2020-12-12] MED LIST changes: +MIRT-8 PO; -MIRT30TA3 PO
--- NOTE | 2020-12-14 18:23 | RAD ---
DATE: 12/12/2020 EXAM: MAMMO ARCHANA SCREEN RT HISTORY: Screening. History of left mastectomy in 1988. COMPARISON: Multiple prior exams dating back to 04/12/2015 This study was interpreted with the benefit of Computerized Aided Detection (CAD). Breast Density: SCATTERED The breast parenchyma shows scattered fibroglandular densities. Breast parenchyma level B. FINDINGS: There is a 6 mm nodule at 3:00 2 cm from the nipple seen on tomosynthesis cc slice 30 and MLO slice 35. No suspicious calcifications or architectural distortion. IMPRESSION: 6 mm nodule at 3:00 2 cm from the nipple. Recommend spot compression CC and MLO and possible ultrasound further evaluate. BI-RADS CATEGORY: 0 INCOMPLETE: NEEDS ADDITIONAL IMAGING EVALUATION AND/OR PRIOR MAMMOGRAMS FOR COMPARISON. RECOMMENDED FOLLOW-UP: ADD ADDITIONAL IMAGING PQRS compliance statement: Patient information was entered into a reminder system with a target due date for the next mammogram. Mammography is a sensitive method for finding small breast cancers, but it does not detect them all and is not a substitute for careful clinical examination. A negative mammogram does not negate a clinically suspicious finding and should not result in delay in biopsying a clinically suspicious abnormality. "Our facility is accredited by the [employer] Mammography Program."
== END ==
LOC: MAMMO 14:02
PROVIDERS: ATTEND Internal Medicine
DX: Z12.31 Encounter for screening mammogram for malignant neoplasm of breast (principal)
CPT/HCPCS: 77063; 77067

== ENCOUNTER → 2020-12-26 | Outpatient (CLI) | payer MEDICARE ==
[~2020-12-26] MED LIST changes: -DOXY100C2 PO; +DOXY100C3 PO
--- NOTE | 2020-12-26 14:02 | RAD ---
EXAM: Right breast diagnostic mammogram; right breast sonogram. HISTORY: 75-year-old female presents for evaluation of nodularity within the right breast demonstrate d on a screening mammogram dated 12/12/2020. TECHNIQUE: Full-field digital and spot compression views of the right breast are obtained for evaluat ion. Sonographic imaging of the right breast targeted to the site of mammographic nodularity was also performed. COMPARISON: 12/12/2020 BREAST PARENCHYMAL DENSITY: Level B - Scattered fibroglandular densities. FINDINGS: There is a persistent small circumscribed nodule within the anterior 3:00 position of the r ight breast with additional mammography views. No architectural distortion is seen. There are benign calcifications. Sonographic imaging of the right breast demonstrates a 4 mm cyst at the 3:00 position 2 cm from the n ipple, corresponding with the mammographic finding of concern. This demonstrates a top and wide morph ology and slight irregular margins in the antiradial projection. No additional suspicious lesion is s een. IMPRESSION: 1. 4 mm slightly complicated cyst at the 3:00 position 2 cm from nipple, corresponding with the mammo graphic finding of concern. 2. BI-RADS Category 3: Probably benign finding(s). Precautionary short-term follow-up with a right br east sonogram in 6 months is recommended to confirm stability given the slight complex morphology at the aforementioned cyst. If your mammogram demonstrates that you have dense breast tissue, which could hide abnormalities, and if you have other risk factors for breast cancer that have been identified, you might benefit from s upplemental screening tests that may be suggested by your ordering physician. Dense breast tissue, i n and of itself, is a relatively common condition. This information is not provided to cause undue c oncern, but rather to raise your awareness and to promote discussion with your physician regarding th e presence of other risk factors, in addition to dense breast tissue. A report of your mammography re sults will be sent to you and your physician. You should contact your physician if you have any ques tions or concerns regarding this report. Mammography is a sensitive method for finding small breast cancers, but it does not detect them all a nd is not a substitute for careful clinical examination. A negative mammogram does not negate a clin ically suspicious finding and should not result in delay in biopsying a clinically suspicious abnorma lity. PQRS compliance statement - Patient information was entered into a reminder system with a target due date for the next mammogram. "Our facility is accredited by the [employer] Mammography [employer]." Electronically signed by: Mojgan Polo MD (12/26/2020 2:00 PM) [id number]
== END ==
LOC: US 12:53
PROVIDERS: ATTEND Internal Medicine
DX: N60.01 Solitary cyst of right breast (principal); R92.8 Other abnormal and inconclusive findings on diagnostic imaging of breast
CPT/HCPCS: 76642; 77065

== ENCOUNTER → 2021-06-24 | Outpatient (CLI) | payer MEDICARE ==
[~2021-06-24] MED LIST changes: +VERA240T45 PO; -VERA240T8 PO
--- NOTE | 2021-06-24 13:20 | RAD ---
EXAM: US BREAST RT 06/24/2021 12:45 PM CLINICAL INDICATION: Six-month follow-up of complicated right breast cyst at 3:00 2 cm the nipple COMPARISON: Right breast mammogram and ultrasound 12/26/2020 TECHNIQUE: Grayscale and color Doppler ultrasound imaging of the medial right breast was performed i n the area of concern. Imaging of the right axilla was also performed. FINDINGS: At 3:00, 2 cm the nipple there is a 3 x 4 x 3 mm anechoic cyst with slightly irregular mar gins and patella than wide orientation. This is unchanged in size and appearance from 12/27/2019. A ves stephanie courses immediately adjacent to the cyst. No axillary lymphadenopathy. IMPRESSION: Unchanged 4 mm complicated cyst at 3:00 2 cm from the nipple in the right breast with sl ightly irregular morphology. Recommend 6 month follow-up ultrasound of the right breast, at which arabella e the patient is due for annual bilateral mammogram. BI-RADS category 3: Probably benign. RECOMMENDATION: Bilateral mammogram and right breast ultrasound in 6 months. Electronically signed by: Nicole Martínez MD (06/24/2021 1:18 PM) [id number]
== END ==
LOC: US 12:39
PROVIDERS: ATTEND Internal Medicine
DX: N60.01 Solitary cyst of right breast (principal)
CPT/HCPCS: 76641

== ENCOUNTER → 2021-07-09 | Outpatient (CLI) | payer MEDICARE ==
[2021-07-09 22:09] LABS: IMMUNOGLOBULIN A 128 mg/dL (64-422); IMMUNOGLOBULIN G 643 mg/dL (586-1602); IMMUNOGLOBULIN M 76 mg/dL (26-217)
[2021-07-10 15:08] LABS: ALBUM 3.9 g/dL (2.9-4.4); ALPHA 1 0.2 g/dL (0.0-0.4); ALPHA 2 0.8 g/dL (0.4-1.0); BETA 0.9 g/dL (0.7-1.3); GAMMA 0.6 g/dL (0.4-1.8); PROTEIN TOTAL 6.4 g/dL (6.0-8.5); SPEP AG RATIO 1.6 (0.7-1.7)
[2021-07-10 16:07] LABS: KAPPA LAMBDA RATIO 1.24 (0.26-1.65)
== END ==
LOC: LAB 10:20
PROVIDERS: ATTEND Internal Medicine Hematology & Oncology
DX: D47.2 Monoclonal gammopathy (principal)
CPT/HCPCS: 36415; 82784; 83520; 84165

== ENCOUNTER → 2021-07-29 | Outpatient (CLI) | payer MEDICARE ==
[2021-07-29 12:17] LABS: HEMATOCRIT 37.8 % (36.0-47.0); HEMOGLOBIN 12.4 g/dL (12.0-15.5)
[2021-07-29 12:19] LABS: ALBUMIN 3.6 g/dL (3.4-5.0); CALCIUM 10.7 mg/dL (8.5-10.1); CREATININE 2.2 mg/dL (0.6-1.0); GFR 21.7; PHOSPHORUS 3.3 mg/dL (2.6-4.7)
[2021-07-30 09:10] LABS: CALCIUM PTH 10.8 mg/dL (8.7-10.3); CREATININE PTH 2.19 mg/dL (0.57-1.00); PTH INTACT 163 pg/mL (15-65)
== END ==
LOC: LAB 10:41
PROVIDERS: ATTEND Internal Medicine Nephrology
DX: I12.9 Hypertensive chronic kidney disease with stage 1 through stage 4 chronic kidney disease, or unspecified chronic kidney disease (principal); E11.22 Type 2 diabetes mellitus with diabetic chronic kidney disease; E11.29 Type 2 diabetes mellitus with other diabetic kidney complication; N18.4 Chronic kidney disease, stage 4 (severe); N17.9 Acute kidney failure, unspecified; E87.6 Hypokalemia; E61.2 Magnesium deficiency; E21.1 Secondary hyperparathyroidism, not elsewhere classified; R80.9 Proteinuria, unspecified; D63.1 Anemia in chronic kidney disease; N20.0 Calculus of kidney; E55.9 Vitamin D deficiency, unspecified; J44.9 Chronic obstructive pulmonary disease, unspecified; Z79.4 Long term (current) use of insulin; Z68.33 Body mass index [BMI] 33.0-33.9, adult
CPT/HCPCS: 36415; 80069; 83970; 85014; 85018